=== PATIENT | male | born 1945 | race Caucasian/White ===

== ENCOUNTER 2018-05-16 09:31 | Emergency (ER) | payer MEDICARE, OTHER ==
[2018-05-16 09:39] VITALS: BP 130/70
--- NOTE | 2018-05-16 10:24 | ED Physician Documentation ---
PD HPI OPHTHO - Stated complaint Stated Complaint: EYE PAIN - Chief complaint Chief Complaint: Heent - History obtained from History obtained from: Patient - History of Present Illness Timing - onset: Yesterday (2) Timing - duration: Days (2) Timing - details: Abrupt onset (he felt like he got something in his left eye couple days ago. Stayed irritated and now has redness and some exudate. Normal vision. No light sensitivity.) Location: Left Quality / character: Aching Associated symptoms: Redness, Discharge (today), FB sensation. No: Photophobia, Decreased vision Contributing factors: FB Similar symptoms before: Has not had sx before Recently seen: Not recently seen Review of Systems Constitutional: denies: Fever, Chills Eyes: denies: Decreased vision, Photophobia Nose: denies: Rhinorrhea / runny nose, Congestion Throat: denies: Sore throat Respiratory: denies: Cough PD PAST MEDICAL HISTORY - Past Medical History Cardiovascular: High cholesterol Neuro: CVA, Migraines Endocrine/Autoimmune: Type 2 diabetes GI: GERD, Hiatal hernia HEENT: Chronic vision loss, Chronic hearing loss, Dental implants Musculoskeletal: Chronic back pain - Past Surgical History General: Appendectomy, Gastric surgery, Colonoscopy, EGD Ortho: Shoulder arthroplasty HEENT: Other - Present Medications Home Medications: Ambulatory Orders Medication Instructions Recorded Confirmed Ketotifen Fumarate 2 drops OP TID #1 bottle 05/16/18 Sulfacetamide 10% Ophth Drops 3 drops OPTH Q3H #1 bottle 05/16/18 [Sulfamide 10% Ophth Drops] - Allergies Allergies/Adverse Reactions: Allergies Allergy/AdvReac Type Severity Reaction Status Date / Time hydrocodone Allergy Unknown Verified 05/16/18 09:39 - Social History Does the pt smoke?: No Smoking Status: Never smoker Does the pt drink ETOH?: Yes Does the pt have substance abuse?: No PD ED PE NORMAL - Vitals Vital signs reviewed: Yes - General General: Alert and oriented X 3, Well developed/nourished - HEENT HEENT: PERRL, EOMI PD ED PE EXPANDED - Eyes Eyes: PERRL, EOMI, Injected conj/sclera, Exudate (mild on lower eyelashes), Fluorescein uptake (underside of eyelid. Not on eyeball itself. ), Anterior chambers clear, Normal fundi. No: Eyelid swelling, Conj/sclera FB, Corneal FB Results - Vitals Vitals: Vital Signs - 24 hr 05/16/18 09:36 Temperature 36.5 C Heart Rate 73 Respiratory 18 Rate Blood Pressure 130/70 O2 Saturation 97 Oxygen O2 Source Room air PD MEDICAL DECISION MAKING - ED course Complexity details: considered differential, d/w patient Departure - Departure Disposition: 01 Home, Self Care Clinical Impression: Conjunctival abrasion Qualifiers: Encounter type: initial encounter Laterality: left Qualified Code(s): S05.02XA - Injury of conjunctiva and corneal abrasion without foreign body, left eye, initial encounter Conjunctivitis Qualifiers: Conjunctivitis type: acute Acute conjunctivitis type: bacterial Laterality: left Qualified Code(s): H10.32 - Unspecified acute conjunctivitis, left eye Condition: Stable Record reviewed to determine appropriate education?: Yes Instructions: ED Conjunctivitis Bacterial, ED Eye Injury Corneal Abrasion Prescriptions: Ketotifen Fumarate 2 drops OP TID #1 bottle Sulfacetamide 10% Ophth Drops [Sulfamide 10% Ophth Drops] 3 drops OPTH Q3H #1 bottle Comments: The irritation on the underside of the eyelid should heal up with time. Use ketotifen allergy and anti-inflammatory drops a few times a day for the next few days. Use the sulfa Sulamyd antibiotic eyedrops every 2-3 hours while awake for 2-3 days until this appears cleared up. Recheck if not better over the next couple of days. Discharge Date/Time: 05/16/18 11:36
[2018-05-16] MEDS ORDERED: PROPARACAINE 0.5% OPHTH DROPS 15 ML RIGHTEYE STA (10:28)
== END 2018-05-16 11:36 | disposition home or self-care (01) ==
LOC: ED 09:31
DX: S05.02XA Injury of conjunctiva and corneal abrasion without foreign body, left eye, initial encounter (principal); H10.32 Unspecified acute conjunctivitis, left eye; X58.XXXA Exposure to other specified factors, initial encounter; E11.9 Type 2 diabetes mellitus without complications
CPT/HCPCS: 99283; J3490

== ENCOUNTER 2018-05-19 09:32 | Emergency (ER) | payer MEDICARE, OTHER ==
[2018-05-19] MEDS ORDERED: guaiFENesin/DEXTROMETHORPHAN 10 ML UDC PO STA (11:29)
--- NOTE | 2018-05-19 12:55 | XRAY Report ---
Reason: soa Procedure Date: 05/19/2018 Accession Number: [id number] / [id number] Procedure: XR - Chest 2 View X-Ray CPT Code: 58346 FULL RESULT: EXAM: CHEST RADIOGRAPHY EXAM DATE: 05/19/2018 12:33 PM. CLINICAL HISTORY: Shortness of breath. Productive cough for the past few days. COMPARISON: None. TECHNIQUE: 2 views. FINDINGS: Lungs/Pleura: No focal opacities evident. No pleural effusion. No pneumothorax. Normal volumes. There is eventration at the anterior medial aspect of the right hemidiaphragm. Mediastinum: Heart and mediastinal contours are unremarkable. There is mild atherosclerotic calcification of the aortic arch. Other: There are smooth bridging osteophytes of the thoracic spine suggestive of diffuse idiopathic skeletal hyperostosis. No acute osseous abnormality. IMPRESSION: No focal pulmonary consolidation. No acute cardiopulmonary abnormality. RADIA
--- NOTE | 2018-05-19 13:25 | ED Physician Documentation ---
History of Present Illness - Stated complaint Stated Complaint: COUGH - Chief complaint Chief Complaint: Resp - Additonal information Additional information: hx from pt 73 male recent theodore pna recently moved from [place] no local PMD pt and family all sick with myalgias and cough and congestion no fever no NVD Review of Systems Constitutional: reports: Myalgias, Fatigue. denies: Fever Ears: denies: Ear pain Nose: reports: Congestion Respiratory: reports: Cough GI: denies: Nausea, Diarrhea Musculoskeletal: denies: Extremity swelling Immunocompromised: denies: Immunocompromised PD PAST MEDICAL HISTORY - Past Medical History Past Medical History: Yes Cardiovascular: High cholesterol Neuro: CVA, Migraines Endocrine/Autoimmune: Type 2 diabetes GI: GERD, Hiatal hernia HEENT: Chronic vision loss, Chronic hearing loss, Dental implants Musculoskeletal: Chronic back pain - Past Surgical History Past Surgical History: Yes General: Appendectomy, Gastric surgery, Colonoscopy, EGD Ortho: Shoulder arthroplasty HEENT: Other - Present Medications Home Medications: Ambulatory Orders Medication Instructions Recorded Confirmed Ketotifen Fumarate 2 drops OP TID #1 bottle 05/16/18 Sulfacetamide 10% Ophth Drops 3 drops OPTH Q3H #1 bottle 05/16/18 [Sulfamide 10% Ophth Drops] Acarbose 1 tab ORAL BID 05/19/18 05/19/18 Acetaminophen 05/19/18 Amitriptyline [Elavil] 1 tab ORAL PRN 05/19/18 Atorvastatin Calcium 1 tab ORAL DAILY 05/19/18 05/19/18 Azelastine HCl 2 sprays INH BID 05/19/18 05/19/18 Cetirizine [ZyrTEC] 1 tab ORAL DAILY 05/19/18 05/19/18 Clopidogrel [Plavix] 1 tab ORAL DAILY 05/19/18 05/19/18 Escitalopram [Lexapro] 1 tab ORAL DAILY 05/19/18 05/19/18 Ferrous Sulfate 1 tab ORAL DAILY 05/19/18 05/19/18 Fluticasone [Flonase] 05/19/18 Hydrochlorothiazide 1 tab ORAL DAILY 05/19/18 05/19/18 Ibuprofen PRN 05/19/18 Losartan [Cozaar] 1 tab ORAL DAILY 05/19/18 05/19/18 Metformin HCl [Metformin HCl ER] 500 mg ORAL BID 05/19/18 05/19/18 Montelukast [Singulair] 05/19/18 Pantoprazole [Protonix] 05/19/18 guaiFENesin/DEXTROMETHORPHAN 10 ml PO Q6H PRN #120 ml 05/19/18 [Robitussin Dm] oxyCODONE [Roxicodone] 1 tab ORAL Q6H PRN 05/19/18 05/19/18 - Allergies Allergies/Adverse Reactions: Allergies Allergy/AdvReac Type Severity Reaction Status Date / Time hydrocodone Allergy Unknown Verified 05/19/18 09:41 - Social History Does the pt smoke?: No Smoking Status: Never smoker Does the pt drink ETOH?: No Does the pt have substance abuse?: No - Immunizations Immunizations are current?: Yes - POLST Patient has POLST: No PD ED PE NORMAL - Vitals Vital signs reviewed: Yes - HEENT HEENT: PERRL, Moist mucous membranes - Neck Neck: Supple, no meningeal sign - Cardiac Cardiac: RRR - Respiratory Respiratory: No respiratory distress, Clear bilaterally - Extremities Extremities: No edema - Neuro Neuro: Alert and oriented X 3 Results - Vitals Vitals: Vital Signs - 24 hr 05/19/18 09:39 Temperature 36.3 C L Heart Rate 76 Respiratory 16 Rate Blood Pressure 122/76 O2 Saturation 98 Oxygen O2 Source Room air - Labs Labs: Laboratory Tests 05/19/18 10:38 Influenza A (Rapid) Negative Influenza B (Rapid) Negative - Rads (name of study) CXR Radiology: See rad report (NACPD) Departure - Departure Disposition: 01 Home, Self Care Clinical Impression: Bronchitis Condition: Good Instructions: ED Upper Resp Infec No Abx Tx Prescriptions: guaiFENesin/DEXTROMETHORPHAN [Robitussin Dm] 10 ml PO Q6H PRN #120 ml PRN Reason: Cough Comments: The xray did not show pneumonia and the influenza test was negative So for now antibiotics are not needed. I did prescribe cough medication
[2018-05-19 13:51] VITALS: BP 120/72
== END 2018-05-19 13:50 | disposition home or self-care (01) ==
LOC: ED 09:32
DX: J40 Bronchitis, not specified as acute or chronic (principal); E11.9 Type 2 diabetes mellitus without complications; Z79.84 Long term (current) use of oral hypoglycemic drugs
CPT/HCPCS: 71046; 87275; 87276; 99283; A9270

== ENCOUNTER 2018-06-01 08:00 | Outpatient (CLI) | payer MEDICARE, OTHER ==
[2018-06-01 13:08] LABS: CALCIUM 8.9 mg/dL (8.5-10.3); CREATININE 1.1 mg/dL (0.6-1.2)
[2018-06-02 18:09] LABS: HB2 TOTAL 13.8 g/dL; HEMOGLOBIN A1C 0.68 g/dL; HEMOGLOBIN A1C % 6.7 % (4.6-6.2)
== END 2018-06-01 23:59 | disposition home or self-care (01) ==
LOC: LAB.WCP 08:00
PROVIDERS: ATTEND Family Medicine
DX: E11.9 Type 2 diabetes mellitus without complications (principal)
CPT/HCPCS: 36415; 80048; 82043; 83036

== ENCOUNTER 2018-07-19 08:00 | Outpatient (CLI) | payer MEDICARE, OTHER ==
[2018-07-19 13:53] LABS: BASOPHILS % (AUTO) 0.8 %; EOSINOPHILS # (AUTO) 0.2 10^3/uL (0.0-0.7); EOSINOPHILS % (AUTO) 3.6 %; HGB - HEMOGLOBIN 14.2 g/dL (14.0-18.0); LYMPHOCYTES # (AUTO) 0.8 10^3/uL (1.5-3.5); LYMPHOCYTES % (AUTO) 17.7 %; MEAN CORPUSCULAR HEMOGLOBIN 31.8 pg (27.0-31.0); MEAN CORPUSCULAR HGB CONC 35.3 g/dL (32.0-36.0); MEAN CORPUSCULAR VOLUME 89.9 fL (80.0-94.0); MEAN PLATELET VOLUME 8.1 fL (7.4-11.4); MONOCYTES # (AUTO) 0.5 10^3/uL (0.0-1.0); MONOCYTES % (AUTO) 9.5 %; NEUTROPHILS # (AUTO) 3.3 10^3/uL (1.5-6.6); NEUTROPHILS % (AUTO) 68.4 %; PLT - PLATELET COUNT 217 10^3/uL (130-450); RED BLOOD COUNT 4.46 10^6/uL (4.70-6.10); RED CELL DISTRIBUTION WIDTH 13.4 % (12.0-15.0); WHITE BLOOD COUNT 4.8 x10^3/uL (4.8-10.8)
[2018-07-19 16:03] LABS: ALBUMIN 4.4 g/dL (3.2-5.5); ALBUMIN/GLOBULIN RATIO 2.1 (1.0-2.2); BILIRUBIN,TOTAL 0.6 mg/dL (0.2-1.0); CREATININE 1.1 mg/dL (0.6-1.2); TOTAL PROTEIN 6.5 g/dL (6.7-8.2)
[2018-07-19 16:10] LABS: TROPONIN I < 0.04 ng/mL (<0.49)
[2018-07-19 16:12] LABS: CREATINE KINASE MB 4.3 ng/mL (0.6-6.3)
== END 2018-07-19 23:59 | disposition home or self-care (01) ==
LOC: LAB.WCP 08:00
PROVIDERS: ATTEND Family Medicine
DX: R00.2 Palpitations (principal)
CPT/HCPCS: 36415; 80053; 82553; 84484; 85025; 85379

== ENCOUNTER 2018-09-10 09:00 | Outpatient (CLI) | payer MEDICARE, OTHER ==
[2018-09-10 14:01] LABS: BILIRUBIN,URINE NEGATIVE (NEGATIVE); GLUCOSE, URINE (UA) NEGATIVE (NEGATIVE); KETONES,URINE (UA) NEGATIVE (NEGATIVE); LEUKOCYTE ESTERASE, URINE NEGATIVE (NEGATIVE); NITRITE,URINE NEGATIVE (NEGATIVE); OCCULT BLOOD,URINE NEGATIVE (NEGATIVE); PH,URINE 6.5 PH (5.0-7.5); PROTEIN,URINE NEGATIVE (NEGATIVE); UROBILINOGEN,URINE 0.2 (NORMAL) E.U./dL (NORMAL)
[2018-09-10 14:41] LABS: BACTERIA,URINE None Seen /HPF (None Seen); CLARITY,URINE CLEAR (CLEAR); RBC,URINE None Seen /HPF (0-5); SQUAMOUS EPITHELIAL CELL,UR NONE SEEN (<= Few)
== END 2018-09-10 09:01 | disposition home or self-care (01) ==
LOC: LAB.WCP 09:00
PROVIDERS: ATTEND Family Medicine
DX: R35.1 Nocturia (principal)
CPT/HCPCS: 36415; 81001; 84153; 87086

== ENCOUNTER 2018-10-22 08:00 | Outpatient (CLI) | payer MEDICARE, OTHER | END 2018-10-22 23:59 | disposition home or self-care (01) | LOC: LAB.WCP 08:00 | PROVIDERS: ATTEND Podiatrist | DX: E79.0 Hyperuricemia without signs of inflammatory arthritis and tophaceous disease (principal) | CPT/HCPCS: 36415; 84550 ==

== ENCOUNTER 2018-12-03 08:07 | Outpatient (CLI) | payer MEDICARE, OTHER ==
[2018-12-03 12:33] LABS: CREATININE,URINE 122.5 mg/dL
[2018-12-03 12:36] LABS: MICROALBUMIN,URINE < 0.2 mg/dL (0-300.0)
[2018-12-03 12:37] LABS: CREATININE 1.3 mg/dL (0.6-1.2)
[2018-12-03 12:51] LABS: HB2 TOTAL 15.2 g/dL; HEMOGLOBIN A1C 0.76 g/dL; HEMOGLOBIN A1C % 6.7 % (4.6-6.2)
== END 2018-12-03 08:08 | disposition home or self-care (01) ==
LOC: LAB.WCP 08:07
PROVIDERS: ATTEND Family Medicine
DX: E11.9 Type 2 diabetes mellitus without complications (principal)
CPT/HCPCS: 36415; 80048; 82043; 82570; 83036

== ENCOUNTER 2019-04-01 11:00 | Outpatient (CLI) | payer MEDICARE, OTHER ==
[2019-04-01 11:24] LABS: CREATININE 1.2 mg/dL (0.6-1.2)
== END 2019-04-01 11:01 | disposition home or self-care (01) ==
LOC: LAB 11:00
PROVIDERS: ATTEND Internal Medicine Gastroenterology
DX: R10.32 Left lower quadrant pain (principal); E11.9 Type 2 diabetes mellitus without complications
CPT/HCPCS: 36415; 82565

== ENCOUNTER 2019-04-03 05:30 | Outpatient (CLI) | payer MEDICARE, OTHER ==
[2019-04-03] MEDS ORDERED: IOVERSOL 320 50 ML VIAL ONE (05:56)
[2019-04-03] MEDS ORDERED: IOVERSOL 320 100 ML VIAL IVP ONE ×2 (05:56→06:57)
[2019-04-03] MEDS ORDERED: IOVERSOL 320 50 ML VIAL PO ONE (06:57)
--- NOTE | 2019-04-03 11:08 | CT Report ---
Reason: ABDOMINAL PAIN,DM Procedure Date: 04/03/2019 Accession Number: [id number] / [id number] Procedure: CT - Abdomen/Pelvis W CPT Code: FULL RESULT: EXAM: CT ABDOMEN AND PELVIS WITH IV CONTRAST EXAM DATE: 04/03/2019 06:59 AM. CLINICAL HISTORY: Generalized abdominal pain. Status post gastric bypass. COMPARISONS: None. TECHNIQUE: Routine helical CT imaging was performed through the abdomen and pelvis. IV contrast: 100 mL Optiray 320. Enteric contrast: Yes. Reconstructions: Coronal and sagittal. In accordance with CT protocol optimization, one or more of the following dose reduction techniques were utilized for this exam: automated exposure control, adjustment of mA and/or KV based on patient size, or use of iterative reconstructive technique. FINDINGS: Lung Bases: 5 mm pulmonary nodule in the right middle lobe is seen (image 8/3). Liver: Normal. No masses. Gallbladder/Bile Ducts: Small gallstones are suggested in the gallbladder. There is no biliary dilation. Spleen: Normal. Pancreas: Normal. Adrenal Glands: Normal. Kidneys: A few small scattered cysts are suggested in the kidneys bilaterally, largest measuring 2.8 cm in the mid right kidney. 4 mm nonobstructing stone is suggested in the right mid kidney. There is no hydronephrosis. Peritoneal Cavity/Bowel: There are postoperative changes related to gastric bypass surgery. A small hiatal hernia is suggested. Oral contrast opacifies distal small bowel loops and right hemicolon. There is no obstruction or ileus. There is no diverticulosis or evidence of intra-abdominal inflammatory process. No free fluid, free air, or loculated fluid collection. Pelvic Organs: Normal. The bladder and visualized pelvic organs are within normal limits. Vasculature: Calcified atherosclerotic disease of the aorta is seen without aneurysm or other significant vascular abnormality. Bones: Mild degenerative changes are seen in the hips, sacroiliac joints, and spine. Grade 1 anterolisthesis at L4-L5 with bilateral pars defects is seen. Multilevel fused marginal osteophytes are seen throughout the mid and lower thoracic spine. Partial fusion of the sacroiliac joints is also seen. Other: None. IMPRESSION: 1. No acute intra-abdominal abnormality demonstrated status post gastric bypass surgery. Small hiatal hernia suggested. No obstruction. 2. Right-sided nephrolithiasis without hydronephrosis. 3. Tiny 5 mm right middle lobe pulmonary nodule, likely benign. Correlation with chest CT could be considered if patient is high risk for lung cancer. 4. Degenerative changes of the spine including grade 1 anterolisthesis and bilateral spondylolysis at L4-L5. Notably, multilevel fused marginal osteophytes are seen in the spine along with degenerative changes/partial fusion of the sacroiliac joints. Findings may be related to diffuse idiopathic skeletal hyperostosis changes; however, consider correlation for underlying ankylosing spondyloarthropathy. RADIA
== END 2019-04-03 05:31 | disposition home or self-care (01) ==
LOC: DI 05:30
PROVIDERS: ATTEND Internal Medicine Gastroenterology
DX: R10.32 Left lower quadrant pain (principal); E11.9 Type 2 diabetes mellitus without complications; N20.0 Calculus of kidney; R91.1 Solitary pulmonary nodule; M47.816 Spondylosis without myelopathy or radiculopathy, lumbar region; Z98.84 Bariatric surgery status
CPT/HCPCS: 74177; Q9967

== ENCOUNTER 2019-06-27 08:25 | Outpatient (CLI) | payer MEDICARE, OTHER ==
--- NOTE | 2019-06-27 10:29 | MRI Report ---
Reason: HEADACHES Procedure Date: 06/27/2019 Accession Number: [id number] / [id number] Procedure: MRI - Brain W/O CPT Code: Final Report FULL RESULT: EXAM: MRI BRAIN WITHOUT CONTRAST EXAM DATE: 06/27/2019 09:22 AM. CLINICAL HISTORY: Headaches. COMPARISON: None. TECHNIQUE: Multiplanar, multisequence T1-weighted and fluid-sensitive MR sequences of the brain were performed. Sequences optimized for routine evaluation. Other: None. IV Contrast: None. FINDINGS: No abnormal restricted diffusion signal or magnetic susceptibility is identified in the brain parenchyma. No cerebellar tonsillar ectopia is present. Ventricles and sulci are within normal limits for the patient's age. No extra-axial fluid collection is seen. Small FLAIR hyperintensities are seen in the cerebral hemisphere white matter bilaterally. There is an expected flow void in the major intracranial vessels at the skull base and in the superior sagittal sinus. No mass is present in either orbit or in either Meckel's cave. No abnormal T1 shortening is seen in the brain parenchyma. Bilateral ethmoid air cell mucosal thickening is present. IMPRESSION: 1. No intracranial mass. 2. A few FLAIR hyperintensities are seen in the cerebral hemisphere white matter bilaterally. These are nonspecific and are commonly seen secondary to small vessel ischemic change or in association with certain headache syndromes. 3. No ventriculomegaly or extra-axial fluid collection is present. RADIA
== END 2019-06-27 08:26 | disposition home or self-care (01) ==
LOC: DI 08:25
PROVIDERS: ATTEND Family Medicine
DX: R51 Headache (principal)
CPT/HCPCS: 70551

== ENCOUNTER 2019-08-09 08:10 | Outpatient (CLI) | payer MEDICARE, OTHER ==
[2019-08-09 12:36] LABS: ALBUMIN 4.2 g/dL (3.2-5.5); ALBUMIN/GLOBULIN RATIO 1.6 (1.0-2.2); BILIRUBIN,TOTAL 0.5 mg/dL (0.2-1.0); CALCIUM 9.2 mg/dL (8.5-10.3); CREATININE 1.1 mg/dL (0.6-1.2); TOTAL PROTEIN 6.8 g/dL (6.7-8.2)
[2019-08-09 12:39] LABS: HB2 TOTAL 13.6 g/dL; HEMOGLOBIN A1C 0.69 g/dL; HEMOGLOBIN A1C % 6.8 % (4.6-6.2)
[2019-08-09 12:40] LABS: MICROALBUM/CREATININE RATIO,UR 7.9 ug/mg (<30.0); MICROALBUMIN,URINE 0.8 mg/dL (0-300.0)
== END 2019-08-09 23:59 | disposition home or self-care (01) ==
LOC: LAB.N 08:10
PROVIDERS: ATTEND Family Medicine
DX: N28.9 Disorder of kidney and ureter, unspecified (principal); E11.9 Type 2 diabetes mellitus without complications
CPT/HCPCS: 36415; 80053; 82043; 82570; 83036

== ENCOUNTER 2019-08-20 11:59 | Outpatient (CLI) | payer MEDICARE, OTHER ==
--- NOTE | 2019-08-21 13:43 | XRAY Report ---
Reason: PAIN IN RIGHT HIP Procedure Date: 08/20/2019 Accession Number: [id number] / [id number] Procedure: XR - Hips 2V BILAT CPT Code: Final Report FULL RESULT: EXAM: BILATERAL HIP RADIOGRAPHY EXAM DATE: 08/20/2019 12:17 PM. CLINICAL HISTORY: Chronic bilateral hip pain, nontraumatic. COMPARISON: None. TECHNIQUE: 2 views each. FINDINGS: Bones: Normal. No fractures or bone lesion. Right Hip: Normal. No dislocation. The hip joint space is preserved. Left Hip: Normal. No dislocation. The hip joint space is preserved. Soft Tissues: Normal. No soft tissue swelling. IMPRESSION: Normal bilateral hip radiography. RADIA
== END 2019-08-20 12:00 | disposition home or self-care (01) ==
LOC: DI 11:59
PROVIDERS: ATTEND Acupuncturist
DX: M25.551 Pain in right hip (principal)
CPT/HCPCS: 73521

== ENCOUNTER 2019-09-10 14:00 | Outpatient (CLI) | payer MEDICARE, OTHER | END 2019-09-10 23:59 | disposition home or self-care (01) | LOC: LAB.R 14:00 | PROVIDERS: ATTEND Family Medicine | DX: J06.9 Acute upper respiratory infection, unspecified (principal) | CPT/HCPCS: 87275; 87276 ==

== ENCOUNTER 2019-09-11 11:32 | Outpatient (CLI) | payer MEDICARE, OTHER | END 2019-09-11 11:33 | disposition home or self-care (01) | LOC: COV 11:32 | PROVIDERS: ATTEND Family Medicine | DX: R05 Cough (principal); R50.9 Fever, unspecified | CPT/HCPCS: 81599; U0002 ==

== ENCOUNTER 2020-01-07 08:00 | Outpatient (CLI) | payer MEDICARE, OTHER ==
[2020-01-07 19:09] LABS: CALCIUM 9.3 mg/dL (8.5-10.3); CREATININE 1.2 mg/dL (0.6-1.2)
[2020-01-07 19:34] LABS: MICROALBUM/CREATININE RATIO,UR 1.8 ug/mg (<30.0); MICROALBUMIN,URINE 0.2 mg/dL (0-300.0)
[2020-01-07 19:56] LABS: HB2 TOTAL 13.2 g/dL; HEMOGLOBIN A1C 0.64 g/dL; HEMOGLOBIN A1C % 6.6 % (4.6-6.2)
== END 2020-01-07 23:59 | disposition home or self-care (01) ==
LOC: LAB.WCP 08:00
PROVIDERS: ATTEND Family Medicine
DX: E11.9 Type 2 diabetes mellitus without complications (principal)
CPT/HCPCS: 36415; 80048; 82043; 82570; 83036

== ENCOUNTER 2020-01-07 11:20 | Outpatient (CLI) | payer MEDICARE, OTHER ==
--- NOTE | 2020-01-07 21:19 | XRAY Report ---
PROCEDURE: Ankle 2 View BILAT INDICATIONS: ankle joint pain bilaterally TECHNIQUE: 2 views of the ankle were acquired. COMPARISON: None FINDINGS: Bones: Ankle mortise is normally aligned. No suspicious bony lesions. The right ankle demonstrates fragmentation at the distal medial malleolus. Small calcified avulsion t ype calcification is present adjacent to the distal fibula. There is no surrounding soft tissue edema . Prominent left calcaneal spurs are present. Soft tissues: No tibiotalar joint effusion. Achilles tendon appears normal. IMPRESSION: 1. Calcifications along the distal aspect of both the medial and lateral malleolus on the right. Over all appearance is suggestive of old injury. However, recommend correlation of point tenderness if con cern for acute fracture is present. Reviewed by: Grace Roque MD on 01/07/2020 3:06 PM PDT Approved by: Grace Roque MD on 01/07/2020 3:06 PM PDT Station ID: [id number]
== END 2020-01-07 11:21 | disposition home or self-care (01) ==
LOC: DI 11:20 → DI.N 11:21
PROVIDERS: ATTEND Family Medicine
DX: M25.571 Pain in right ankle and joints of right foot (principal); M25.572 Pain in left ankle and joints of left foot; E11.9 Type 2 diabetes mellitus without complications
CPT/HCPCS: 36415; 80048; 82043; 82570; 83036

== ENCOUNTER 2020-02-19 12:48 | Outpatient (CLI) | payer MEDICARE, OTHER | END 2020-02-19 12:49 | disposition home or self-care (01) | LOC: EMS 12:48 | PROVIDERS: ATTEND Surgery | DX: R53.83 Other fatigue (principal); R51 Headache; R19.5 Other fecal abnormalities; R39.89 Other symptoms and signs involving the genitourinary system; R42 Dizziness and giddiness | CPT/HCPCS: A0425; A0427 ==

== ENCOUNTER 2020-02-19 13:04 | Emergency (ER) | payer MEDICARE, OTHER ==
[2020-02-19 14:37] LABS: BASOPHILS % (AUTO) 0.4 %; EOSINOPHILS # (AUTO) 0.2 10^3/uL (0.0-0.7); EOSINOPHILS % (AUTO) 2.5 %; HGB - HEMOGLOBIN 13.7 g/dL (14.0-18.0); LYMPHOCYTES # (AUTO) 1.2 10^3/uL (1.5-3.5); LYMPHOCYTES % (AUTO) 16.8 %; MEAN CORPUSCULAR HEMOGLOBIN 31.9 pg (27.0-31.0); MEAN CORPUSCULAR HGB CONC 34.7 g/dL (32.0-36.0); MEAN CORPUSCULAR VOLUME 91.9 fL (80.0-94.0); MEAN PLATELET VOLUME 9.6 fL (7.4-11.4); MONOCYTES # (AUTO) 0.6 10^3/uL (0.0-1.0); MONOCYTES % (AUTO) 8.2 %; NEUTROPHILS # (AUTO) 5.2 10^3/uL (1.5-6.6); NEUTROPHILS % (AUTO) 71.3 %; PLT - PLATELET COUNT 220 10^3/uL (130-450); RED CELL DISTRIBUTION WIDTH 12.4 % (12.0-15.0); WHITE BLOOD COUNT 7.2 x10^3/uL (4.8-10.8)
[2020-02-19 14:43] LABS: INR 1.1 (0.8-1.2); PT - PROTHROMBIN TIME 12.7 secs (9.9-12.6)
[2020-02-19 14:44] LABS: BILIRUBIN,URINE NEGATIVE (NEGATIVE); GLUCOSE, URINE (UA) NEGATIVE (NEGATIVE); KETONES,URINE (UA) NEGATIVE (NEGATIVE); LEUKOCYTE ESTERASE, URINE NEGATIVE (NEGATIVE); NITRITE,URINE NEGATIVE (NEGATIVE); OCCULT BLOOD,URINE NEGATIVE (NEGATIVE); PROTEIN,URINE NEGATIVE (NEGATIVE); UROBILINOGEN,URINE 0.2 (NORMAL) E.U./dL (NORMAL)
[2020-02-19 14:45] LABS: CLARITY,URINE CLEAR (CLEAR)
--- NOTE | 2020-02-19 14:51 | ED Physician Documentation ---
History of Present Illness - Stated complaint Stated Complaint: HEADACHE/WEAKNESS - Chief complaint Chief Complaint: Neuro - Additonal information Additional information: 74-year-old male presents to the emergency department for reported 2 days of black tarry stools. He reports that he is feeling a little lightheaded and dizzy as well. He denies any abdominal pain nausea or vomiting. He states that about 4 years ago he did have an episode of black stools. He did undergo apparent colonoscopy without any findings of concern. PMH: DMII, sarcoidosis, hypertension, and CVA(without any residual side effects.) Meds Plavix, iron, Flonase, hydrochlorothiazide, Motrin, metformin, Singulair, pantoprazole, Januvia, Percocet. PD PAST MEDICAL HISTORY - Past Medical History Past Medical History: Yes Cardiovascular: High cholesterol Neuro: CVA, Migraines Endocrine/Autoimmune: Type 2 diabetes GI: GERD, Hiatal hernia HEENT: Chronic vision loss, Chronic hearing loss, Dental implants Musculoskeletal: Chronic back pain - Past Surgical History Past Surgical History: Yes General: Appendectomy, Gastric surgery, Colonoscopy, EGD Ortho: Shoulder arthroplasty HEENT: Other - Present Medications Home Medications: Ambulatory Orders Medication Instructions Recorded Confirmed Ketotifen Fumarate 2 drops OP TID #1 bottle 05/16/18 Sulfacetamide 10% Ophth Drops 3 drops OPTH Q3H #1 bottle 05/16/18 [Sulfamide 10% Ophth Drops] Acarbose 1 tab ORAL BID 05/19/18 05/19/18 Acetaminophen 05/19/18 Amitriptyline [Elavil] 1 tab ORAL PRN 05/19/18 Atorvastatin Calcium 1 tab ORAL DAILY 05/19/18 05/19/18 Azelastine HCl 2 sprays INH BID 05/19/18 05/19/18 Cetirizine [ZyrTEC] 1 tab ORAL DAILY 05/19/18 05/19/18 Clopidogrel [Plavix] 1 tab ORAL DAILY 05/19/18 05/19/18 Escitalopram [Lexapro] 1 tab ORAL DAILY 05/19/18 05/19/18 Ferrous Sulfate 1 tab ORAL DAILY 05/19/18 05/19/18 Fluticasone [Flonase] 05/19/18 Hydrochlorothiazide 1 tab ORAL DAILY 05/19/18 05/19/18 Ibuprofen PRN 05/19/18 Losartan [Cozaar] 1 tab ORAL DAILY 05/19/18 05/19/18 Metformin HCl [Metformin ER 500 mg ORAL BID 05/19/18 05/19/18 Osmotic] Montelukast [Singulair] 05/19/18 Pantoprazole [Protonix] 05/19/18 guaiFENesin/DEXTROMETHORPHAN 10 ml PO Q6H PRN #120 ml 05/19/18 [Robitussin Dm] oxyCODONE [Roxicodone] 1 tab ORAL Q6H PRN 05/19/18 05/19/18 - Allergies Allergies/Adverse Reactions: Allergies Allergy/AdvReac Type Severity Reaction Status Date / Time hydrocodone Allergy Unknown Verified 05/19/18 09:41 - Social History Does the pt smoke?: No Smoking Status: Never smoker Does the pt drink ETOH?: No Does the pt have substance abuse?: No - Immunizations Immunizations are current?: Yes - POLST Patient has POLST: No PD ED PE NORMAL - General General: Alert and oriented X 3, No acute distress, Well developed/nourished - HEENT HEENT: PERRL - Neck Neck: Supple, no meningeal sign, No adenopathy, No JVD - Cardiac Cardiac: RRR, No murmur, No gallop, No rub - Respiratory Respiratory: No respiratory distress, Clear bilaterally - Abdomen Abdomen: Normal bowel sounds, Soft, Non tender - Rectal Rectal: Other (Digital rectal exam performed. 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, No motor deficit, No sensory deficit Eye Opening: Spontaneous Motor: Obeys Commands Verbal: Oriented GCS Score: 15 Results - Vitals Vitals: Vital Signs - 24 hr 02/19/20 02/19/20 13:10 13:17 Temperature 36.4 C L Heart Rate 74 Respiratory 14 Rate Blood Pressure 133/64 H O2 Saturation 98 Oxygen O2 Source Room air - EKG (time done) 1322 Rate: Rate (enter#) (69) Rhythm: NSR [place]: Normal Intervals: Normal IA QRS: Normal Ischemia: Q waves (inferior and anterior infarcts old), Other Compare to prior EKG: Old EKG unavailable Computer interpretation: Agree with computer - Labs Labs: Microbiology 02/19/20 14:40 Occult Blood - Final Stool Laboratory Tests 02/19/20 02/19/20 02/19/20 14:22 14:30 14:30 WBC 7.2 RBC 4.30 L Hgb 13.7 L Hct 39.5 L MCV 91.9 MCH 31.9 H MCHC 34.7 RDW 12.4 Plt Count 220 MPV 9.6 Neut # (Auto) 5.2 Lymph # (Auto) 1.2 L Cecil # (Auto) 0.6 Eos # (Auto) 0.2 Baso # (Auto) 0.0 Absolute Nucleated RBC 0.00 Nucleated RBC % 0.0 PT 12.7 H INR 1.1 Sodium Potassium Chloride Carbon Dioxide Anion Gap BUN Creatinine Estimated GFR (MDRD) Glucose Lactic Acid Calcium Total Bilirubin AST ALT Alkaline Phosphatase Troponin I High Sens Total Protein Albumin Globulin Albumin/Globulin Ratio Lipase Urine Color YELLOW Urine Clarity CLEAR Urine pH 6.0 Ur Specific [place] <=1.005 Urine Protein NEGATIVE Urine Glucose (UA) NEGATIVE Urine Ketones NEGATIVE Urine Occult Blood NEGATIVE Urine Nitrite NEGATIVE Urine Bilirubin NEGATIVE Urine Urobilinogen 0.2 (NORMAL) Ur Leukocyte Esterase NEGATIVE Ur Microscopic Review NOT INDICATED Urine Culture Comments NOT INDICATED 02/19/20 02/19/20 02/19/20 14:30 14:30 14:30 WBC RBC Hgb Hct MCV MCH MCHC RDW Plt Count MPV Neut # (Auto) Lymph # (Auto) Cecil # (Auto) Eos # (Auto) Baso # (Auto) Absolute Nucleated RBC Nucleated RBC % PT INR Sodium 135 Potassium 4.1 Chloride 99 L Carbon Dioxide 29 Anion Gap 7.0 BUN 17 Creatinine 1.1 Estimated GFR (MDRD) 66 L Glucose 105 H Lactic Acid 0.9 Calcium 9.2 Total Bilirubin 0.9 AST 25 ALT 30 Alkaline Phosphatase 65 Troponin I High Sens 3.5 Total Protein 6.8 Albumin 4.4 Globulin 2.4 Albumin/Globulin Ratio 1.8 Lipase 125 H Urine Color Urine Clarity Urine pH Ur Specific [place] Urine Protein Urine Glucose (UA) Urine Ketones Urine Occult Blood Urine Nitrite Urine Bilirubin Urine Urobilinogen Ur Leukocyte Esterase Ur Microscopic Review Urine Culture Comments PD MEDICAL DECISION MAKING - ED course Complexity details: reviewed results, re-evaluated patient, considered differential, d/w patient, d/w family ED course: 74-year-old male here for evaluation of what he reports is black tarry stools. He does report taking Pepto-Bismol. He has had no abdominal pain. On review of his labs he has no anemia. His platelet count is normal. We did send some stool to the laboratory for occult testing and it was negative for blood. This patient has been taking Pepto-Bismol and I wonder if that is the cause of this black stool. However the rest of his work-up is rather reassuring. He does have a mild lipase elevation but tells me he has had that in the past. He denies any abdominal pain and is not a heavy drinker. At this time he is stable for discharge home no advanced imaging will be completed today. He is advised to follow-up closely with his primary care doctor as he should receive repeat screening colonoscopy Departure - Departure Disposition: 01 Home, Self Care Clinical Impression: Stool color black Condition: Stable Record reviewed to determine appropriate education?: Yes Comments: Volodymyr your stool was tested today and did not show blood. Your hemoglobin is normal. Your blood chemistry is also otherwise essentially normal. I would like you to schedule follow-up with your primary care doctor. You should receive another screening colonoscopy. If at any point you have suddenly severe abdominal pain, bright red stool, have fainting episodes or chest pain please return immediately to the emergency department
[2020-02-19 14:55] LABS: ALBUMIN 4.4 g/dL (3.2-5.5); ALBUMIN/GLOBULIN RATIO 1.8 (1.0-2.2); BILIRUBIN,TOTAL 0.9 mg/dL (0.2-1.0); CALCIUM 9.2 mg/dL (8.5-10.3); CREATININE 1.1 mg/dL (0.6-1.2); TOTAL PROTEIN 6.8 g/dL (6.7-8.2)
[2020-02-19 16:52] VITALS: BP 106/60
== END 2020-02-19 16:51 | disposition home or self-care (01) ==
LOC: EDUNIT# → ED 13:04
DX: R19.5 Other fecal abnormalities (principal); R42 Dizziness and giddiness; R53.1 Weakness; E11.9 Type 2 diabetes mellitus without complications; Z79.84 Long term (current) use of oral hypoglycemic drugs; I10 Essential (primary) hypertension; D86.9 Sarcoidosis, unspecified; Z86.73 Personal history of transient ischemic attack (TIA), and cerebral infarction without residual deficits; Z79.02 Long term (current) use of antithrombotics/antiplatelets
CPT/HCPCS: 36415; 80053; 81001; 81003; 82272; 83605; 83690; 84484; 85025; 85610; 87086; 93005; 99283

== ENCOUNTER 2020-02-25 08:00 | Outpatient (CLI) | payer MEDICARE, OTHER ==
[2020-02-25 18:44] LABS: CALCIUM 9.2 mg/dL (8.5-10.3); CREATININE 1.5 mg/dL (0.6-1.2)
[2020-02-25 18:56] LABS: CREATININE,URINE 249.8 mg/dL; MICROALBUMIN,URINE 0.5 mg/dL (0-300.0)
[2020-02-25 20:25] LABS: HEMOGLOBIN A1c% 6.7 % (4.27-6.07)
== END 2020-02-25 23:59 | disposition home or self-care (01) ==
LOC: LAB.WCP 08:00
PROVIDERS: ATTEND Family Medicine
DX: E11.9 Type 2 diabetes mellitus without complications (principal)
CPT/HCPCS: 36415; 80048; 82043; 82570; 83036

== ENCOUNTER 2020-03-17 09:02 | Outpatient (CLI) | payer MEDICARE, OTHER ==
--- NOTE | 2020-03-17 14:51 | XRAY Report ---
PROCEDURE: Ankle 3 View BILAT INDICATIONS: IMPINGEMENT OF RIGHT ANKLE TECHNIQUE: 3 views of the ankle were acquired. COMPARISON: X-ray ankle 01/07/2020. FINDINGS: Bones: No fractures or dislocations. Ankle mortise is normally aligned. No suspicious bony lesions . There is a calcification noted along the medial malleolus, possibly related to old trauma. No area s of anterior tibiotalar osteophyte or os trigonum are identified. Calcaneal spur is present. Soft tissues: No tibiotalar joint effusion. Achilles tendon appears normal. IMPRESSION: 1. Calcifications along the medial malleolus likely related to old trauma. Medial impingement cannot be definitively excluded. Otherwise, no areas of potential impingement are identified. Reviewed by: Grace Roque MD on 03/17/2020 2:50 PM PDT Approved by: Grace Roque MD on 03/17/2020 2:50 PM PDT Station ID: [id number]
== END 2020-03-17 09:03 | disposition home or self-care (01) ==
LOC: DI 09:02
PROVIDERS: ATTEND Orthopaedic Surgery
DX: M25.871 Other specified joint disorders, right ankle and foot (principal)

== ENCOUNTER 2020-03-31 13:45 | Outpatient (CLI) | payer MEDICARE, OTHER ==
--- NOTE | 2020-03-31 16:15 | MRI Report ---
PROCEDURE: Lumbar Spine W/O INDICATIONS: SPINAL STENOSIS TECHNIQUE: Noncontrast sagittal T1 spin echo and T2 fast echo, sagittal STIR, axial T1 and T2 fast spin echo thr ough the lumbar spine. In cases with scoliosis, additional coronal T2 fast spin echo may be performe d. COMPARISON: None. FINDINGS: Image quality: Diagnostic. Alignment and Curvature: There is mild grade 1 anterolisthesis seen at the L4-L5 level. Associated b ilateral L4 pars defects are seen. Minimal retrolisthesis is seen at L5-S1. Bone Marrow: Marrow is of normal overall signal. No acute vertebral body compression fractures. Spinal Cord: Conus medullaris terminates at the L1 level. Visualized cord demonstrates normal signa l and size. Paraspinous Soft Tissues: No paravertebral masses. Cerebral appearing left-sided renal cysts are in cidentally noted. T12-L1: Normal in appearance. L1-L2: The disc height and disc signal are relatively well-preserved. Mild to moderate disc bulge is seen. There is moderate bilateral neuroforaminal narrowing seen. Mild central canal narrowing is seen. L2-L3: The disc height is well-preserved. There is loss of disc signal seen. Moderate disc bu lge is seen at this level. Moderate facet hypertrophy is seen. Moderate bilateral neuroforaminal n arrowing can be seen, right worse than left. Moderate central canal narrowing is seen. L3-L4: The disc height is well-preserved. There is loss of disc signal seen. Moderate disc bulge i s seen at this level. At least moderate facet hypertrophy is seen at this level. There is moderate to severe bilateral neuroforaminal narrowing seen. Compression is seen upon the exiting nerve roots. Moderate central canal narrowing is seen. L4-L5: At least moderate loss of disc height and disc signal can be seen at this level. Moderate to prominent disc bulge is seen, with a central disc protrusion. Prominent facet hypertrophy is seen at this level. Moderate to severe bilateral neuroforaminal narrowing can be seen, right worse than left . Compression is seen upon the exiting nerve roots. Moderate central canal narrowing is seen. L5-S1: Moderate loss of disc height and signal are seen. Moderate disc bulge is seen at this lev el. There is a central disc protrusion seen. At least moderate facet hypertrophy can be seen. There i s moderate to severe bilateral neuroforaminal narrowing seen, left worse than right. Compression is s een upon the exiting nerve roots. Mild to moderate central canal narrowing can be seen. IMPRESSION: Multiple levels of lumbar spine degenerative change are seen, which are overall most pro minent at the L4-L5 level. Reviewed by: David Moe MD on 03/31/2020 3:14 PM DAVID Approved by: David Moe MD on 03/31/2020 3:14 PM DAVID Station ID: [id number]
== END 2020-03-31 13:46 | disposition home or self-care (01) ==
LOC: DI 13:45
PROVIDERS: ATTEND Pain Medicine Pain Medicine
DX: M48.062 Spinal stenosis, lumbar region with neurogenic claudication (principal); M47.816 Spondylosis without myelopathy or radiculopathy, lumbar region
CPT/HCPCS: 72148

== ENCOUNTER 2020-05-07 07:47 | Outpatient (CLI) | payer MEDICARE, OTHER ==
--- NOTE | 2020-05-07 15:23 | CT Report ---
PROCEDURE: LOWER EXTREMITY WO - RT INDICATIONS: RT ANKLE JOINT IMPINGEMENT TECHNIQUE: Noncontrast 3 mm axial sections acquired of the right ankle, with coronal and sagittal reformats. COMPARISON: Ankle radiograph dated 03/17/2020. FINDINGS: Image quality: Excellent. Bones: Well-corticated bony fragment adjacent to tip of medial malleolus is seen suggestive of old a vulsion injury. There is chronic appearing erosive changes along medial cortex of the talus adjacent to medial malleolus concerning for impingement in this area. Osteoarthritic changes are noted through out tibiotalar joint and subtalar joint. Small subcortical cyst formation in medial weightbearing por tion of talar dome and adjacent medial aspect of the tibial plafond are seen concerning for small ost eochondral lesions. Numerous corticated fragments are also seen in anterolateral aspect of ankle join t at the level of distal tibiofibular syndesmosis suggestive of old syndesmotic injury. No acute frac ture or dislocation is seen. No suspicious intraosseous lesion. Well-defined plantar and dorsal calca james enthesophytes are seen. Soft tissues: Examination of ankle soft tissues shows no gross full-thickness ankle tendon rupture. No soft tissue mass or fluid collection. No significant joint effusion or intra-articular loose body. IMPRESSION: 1. Old injury involving tip of medial malleolus with significant joint space narrowing andErosive hank nges involving medial wall of the talus adjacent to medial malleolus concerning for impingement in th is area. 2. Suggestion of old syndesmotic injury in the region of anterior tibiofibular ligament. 3. 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 No acute fracture or dislocation. 4. No significant joint effusion. No full-thickness ankle tendon rupture. No soft tissue mass or abno rmal fluid collection. Reviewed by: Piotr Akhtar MD on 05/07/2020 2:22 PM AKST Approved by: Piotr Akhtar MD on 05/07/2020 2:22 PM AKST Station ID: [id number]
== END 2020-05-07 07:48 | disposition home or self-care (01) ==
LOC: DI 07:47
PROVIDERS: ATTEND Orthopaedic Surgery
DX: R93.6 Abnormal findings on diagnostic imaging of limbs (principal); M19.071 Primary osteoarthritis, right ankle and foot

== ENCOUNTER 2020-06-23 10:51 | Outpatient (CLI) | payer MEDICARE, OTHER ==
--- NOTE | 2020-06-23 18:13 | XRAY Report ---
PROCEDURE: Chest 2 View X-Ray INDICATIONS: R SIDE RIB PX TECHNIQUE: 2 view(s) of the chest. COMPARISON: Chest x-ray, 2 views, 05/19/2018. FINDINGS: Surgical changes and devices: None. Lungs and pleura: Right hemidiaphragmatic eventration. No pleural effusions or pneumothorax. Lungs are clear. Mediastinum: Mediastinal contours are normal. Heart size is normal. Bones and chest wall: No suspicious bony abnormalities. Soft tissues appear unremarkable. Bridging osteophytes in thoracic spine and osteopenia. Surgical anchor in the left humeral head consistent wi th prior rotator cuff tendon repair. IMPRESSION: No acute cardiopulmonary disease. Reviewed by: Katia Rich MD on 06/23/2020 6:12 PM PST Approved by: Katia Rich MD on 06/23/2020 6:12 PM PST Station ID: [id number]
== END 2020-06-23 23:59 | disposition home or self-care (01) ==
LOC: DI.N 10:51
PROVIDERS: ATTEND Nurse Practitioner
DX: R07.81 Pleurodynia (principal)

== ENCOUNTER 2020-07-17 06:21 | Day surgery (SDC) | payer MEDICARE, OTHER ==
[2020-07-17] MEDS ORDERED: LACTATED RINGERS 1,000 ML IV ONE ×2 (06:56→08:20)
[2020-07-17] MEDS ORDERED: LIDOCAINE 2%-EPI 1:100000 20 ML MDV ONE (07:16)
[2020-07-17] MEDS ORDERED: BUPIVACAINE 0.5% PF 10 ML VIAL ONE (07:16)
[2020-07-17] MEDS ORDERED: LIDOCAINE 2%-EPI 1:100000 20 ML MDV SUBQ ONE ×2 (07:17→08:08)
[2020-07-17] MEDS ORDERED: BUPIVACAINE 0.5% PF 10 ML VIAL IM ONE ×2 (07:17→08:08)
[2020-07-17] MEDS ORDERED: MIDAZOLAM 2 MG/2 ML VIAL ONE ×2 (07:27→07:28)
[2020-07-17] MEDS ORDERED: fentaNYL 250 MCG/5 ML VIAL ONE (07:28)
[2020-07-17 08:35] VITALS: BP 126/68
== END 2020-07-17 06:22 | disposition home or self-care (01) ==
LOC: SDS 06:21
PROVIDERS: ATTEND Surgery
PROC: 0DBQ3ZX Excision of Anus, Percutaneous Approach, Diagnostic (ICD-10-PCS; principal; 2020-07-17 07:30)
PROC: 0DBK8ZZ Excision of Ascending Colon, Via Natural or Artificial Opening Endoscopic (ICD-10-PCS; 2020-07-17 07:30)
DX: Z12.11 Encounter for screening for malignant neoplasm of colon (principal); D12.2 Benign neoplasm of ascending colon; R21 Rash and other nonspecific skin eruption; K57.30 Diverticulosis of large intestine without perforation or abscess without bleeding; L98.9 Disorder of the skin and subcutaneous tissue, unspecified; L85.9 Epidermal thickening, unspecified; I10 Essential (primary) hypertension; E11.9 Type 2 diabetes mellitus without complications; Z79.84 Long term (current) use of oral hypoglycemic drugs; Z87.891 Personal history of nicotine dependence
CPT/HCPCS: 11104; 45380; J3010; J7120

== ENCOUNTER 2020-09-10 02:36 | Outpatient (CLI) | payer MEDICARE, OTHER | END 2020-09-10 02:37 | disposition EMS.NT | LOC: EMS 02:36 | DX: R11.0 Nausea (principal); R19.7 Diarrhea, unspecified ==

== ENCOUNTER 2020-10-24 10:03 | Outpatient (CLI) | payer MEDICARE, OTHER ==
[2020-10-24 13:38] LABS: BASOPHILS % (AUTO) 0.7 %; EOSINOPHILS # (AUTO) 0.1 10^3/uL (0.0-0.7); EOSINOPHILS % (AUTO) 2.3 %; HCT - HEMATOCRIT 39.6 % (42.0-52.0); HGB - HEMOGLOBIN 13.5 g/dL (14.0-18.0); LYMPHOCYTES # (AUTO) 1.1 10^3/uL (1.5-3.5); MEAN CORPUSCULAR HGB CONC 34.1 g/dL (32.0-36.0); MEAN PLATELET VOLUME 9.9 fL (7.4-11.4); MONOCYTES # (AUTO) 0.6 10^3/uL (0.0-1.0); MONOCYTES % (AUTO) 9.5 %; NEUTROPHILS % (AUTO) 67.2 %; PLT - PLATELET COUNT 250 10^3/uL (130-450); RED BLOOD COUNT 4.35 10^6/uL (4.70-6.10); RED CELL DISTRIBUTION WIDTH 12.9 % (12.0-15.0)
[2020-10-24 13:48] LABS: CALCIUM 9.2 mg/dL (8.5-10.3); CREATININE 1.1 mg/dL (0.6-1.2)
== END 2020-10-24 23:59 | disposition home or self-care (01) ==
LOC: LAB.N 10:03
PROVIDERS: ATTEND Physician Assistant Medical
DX: R55 Syncope and collapse (principal)
CPT/HCPCS: 36415; 80048; 85025

== ENCOUNTER 2020-10-24 20:24 | Emergency (ER) | payer MEDICARE, OTHER ==
[2020-10-24 21:02] LABS: BASOPHILS # (AUTO) 0.1 10^3/uL (0.0-0.1); BASOPHILS % (AUTO) 0.7 %; EOSINOPHILS # (AUTO) 0.2 10^3/uL (0.0-0.7); EOSINOPHILS % (AUTO) 2.3 %; HCT - HEMATOCRIT 38.3 % (42.0-52.0); HGB - HEMOGLOBIN 13.4 g/dL (14.0-18.0); LYMPHOCYTES # (AUTO) 1.5 10^3/uL (1.5-3.5); LYMPHOCYTES % (AUTO) 21.6 %; MEAN CORPUSCULAR HEMOGLOBIN 31.6 pg (27.0-31.0); MEAN CORPUSCULAR VOLUME 90.3 fL (80.0-94.0); MONOCYTES # (AUTO) 0.7 10^3/uL (0.0-1.0); MONOCYTES % (AUTO) 10.4 %; NEUTROPHILS # (AUTO) 4.5 10^3/uL (1.5-6.6); PLT - PLATELET COUNT 251 10^3/uL (130-450); RED BLOOD COUNT 4.24 10^6/uL (4.70-6.10); RED CELL DISTRIBUTION WIDTH 12.7 % (12.0-15.0)
[2020-10-24 21:17] LABS: ALBUMIN 4.5 g/dL (3.2-5.5); BILIRUBIN,TOTAL 0.8 mg/dL (0.2-1.0); CALCIUM 8.8 mg/dL (8.5-10.3); CREATININE 1.6 mg/dL (0.6-1.2); POTASSIUM 3.8 mmol/L (3.5-5.0); TOTAL PROTEIN 6.7 g/dL (6.7-8.2)
--- NOTE | 2020-10-24 21:28 | XRAY Report ---
PROCEDURE: Chest 1 View X-Ray INDICATIONS: Chest Pain TECHNIQUE: One view of the chest was acquired. COMPARISON: Two-view chest 06/23/2020. FINDINGS: Surgical changes and devices: None. Lungs and pleura: No pleural effusions or pneumothorax. Lungs are clear. Mediastinum: Mediastinal contours appear normal. Heart size is normal. Bones and chest wall: No suspicious bony lesions. Overlying soft tissues appear unremarkable. IMPRESSION: Asymmetric elevation of the right hemidiaphragm, no source of chest pain is found. Reviewed by: Peyman Stephens MD on 10/24/2020 9:26 PM PDT Approved by: Peyman Stephens MD on 10/24/2020 9:26 PM PDT Station ID: [id number]
[2020-10-24] MEDS ORDERED: SODIUM CHLORIDE 0.9% 1,000 ML IV STA (22:50)
[2020-10-25 00:27] VITALS: BP 124/67
--- NOTE | 2020-10-25 01:12 | ED Physician Documentation ---
History of Present Illness - Stated complaint Stated Complaint: HIGH BP - Chief complaint Chief Complaint: Neuro - History obtained from History obtained from: Patient - Additonal information Additional information: 75-year-old man with past medical history of sarcoidosis, diabetes presents with chest tingling and high blood pressure today. Patient states that he has had multiple falls since May and has been feeling lightheaded intermittently. He states that he drinks about 12 cups of coffee daily and despite drinking a lot he has had low sodium in the past. Denies chest pain, shortness of breath, diaphoresis, nausea vomiting cough or fevers. Review of Systems Ten Systems: 10 systems reviewed and negative Constitutional: denies: Fever, Myalgias Cardiac: denies: Chest pain / pressure Respiratory: denies: Dyspnea GI: denies: Nausea, Vomiting PD PAST MEDICAL HISTORY - Past Medical History Past Medical History: Yes Cardiovascular: High cholesterol Neuro: CVA, Migraines Endocrine/Autoimmune: Type 2 diabetes GI: GERD, Hiatal hernia HEENT: Chronic vision loss, Chronic hearing loss, Dental implants Musculoskeletal: Chronic back pain - Past Surgical History Past Surgical History: Yes General: Appendectomy, Gastric surgery, Colonoscopy, EGD Ortho: Shoulder arthroplasty HEENT: Cataracts, Other - Present Medications Home Medications: Ambulatory Orders Medication Instructions Recorded Confirmed Acarbose 1 tab ORAL BID 05/19/18 10/25/20 Atorvastatin Calcium 1 tab ORAL DAILY 05/19/18 10/25/20 Clopidogrel [Plavix] 1 tab ORAL DAILY 05/19/18 10/25/20 Escitalopram [Lexapro] 1 tab ORAL DAILY 05/19/18 10/25/20 Metformin HCl [Metformin ER 500 mg ORAL BID 05/19/18 10/25/20 Osmotic] Montelukast [Singulair] 10 mg PO DAILY 05/19/18 10/25/20 Pantoprazole [Protonix] 40 mg PO DAILY 05/19/18 10/25/20 Ascorbic Acid [Vitamin C] 1,000 mg PO DAILY 07/16/20 10/25/20 Multivitamin [Daily Multiple 1 each PO DAILY 07/16/20 10/25/20 Vitamin] Turmeric Root Extract [Turmeric] 1,000 mg PO DAILY 07/16/20 10/25/20 Folic Acid 1 mg PO DAILY 10/25/20 10/25/20 Gabapentin [Neurontin] 300 mg PO TID 10/25/20 10/25/20 Rabeprazole Sodium 20 mg PO DAILY 10/25/20 10/25/20 SITagliptin [Januvia] 100 mg PO DAILY 10/25/20 10/25/20 allopurinoL [Zyloprim] 100 mg PO DAILY 10/25/20 10/25/20 - Allergies Allergies/Adverse Reactions: Allergies Allergy/AdvReac Type Severity Reaction Status Date / Time hydrocodone Allergy Unknown Verified 10/24/20 20:39 - Social History Does the pt smoke?: No Smoking Status: Never smoker Does the pt drink ETOH?: No Does the pt have substance abuse?: No - Immunizations Immunizations are current?: Yes - POLST Patient has POLST: No PD ED PE NORMAL - Vitals Vital signs reviewed: Yes - General General: Alert and oriented X 3, No acute distress, Well developed/nourished - HEENT HEENT: Atraumatic, PERRL, EOMI, Other (Dry mucous membranes) - Neck Neck: Supple, no meningeal sign - Cardiac Cardiac: RRR - Respiratory Respiratory: No respiratory distress, Clear bilaterally - Abdomen Abdomen: Non tender, Non distended - Back Back: No CVA TTP - Derm Derm: Normal color - Extremities Extremities: No deformity - Neuro Neuro: Alert and oriented X 3 - Psych Psych: Normal mood, Normal affect Results - Vitals Vitals: Vital Signs - 24 hr 10/24/20 10/24/20 10/25/20 20:39 22:42 00:00 Temperature 36.7 C 36.4 C L 36.7 C Heart Rate 84 64 60 Heart Rate [ Sitting] Heart Rate [ Standing] Heart Rate [ Supine] Respiratory 19 16 16 Rate Blood Pressure 104/72 113/59 L 124/67 Blood Pressure [Sitting] Blood Pressure [Standing] Blood Pressure [Supine] O2 Saturation 97 98 100 10/25/20 00:33 Temperature Heart Rate Heart Rate [ 64 Sitting] Heart Rate [ 70 Standing] Heart Rate [ 65 Supine] Respiratory Rate Blood Pressure Blood Pressure 121/78 [Sitting] Blood Pressure 114/77 [Standing] Blood Pressure 124/67 [Supine] O2 Saturation Oxygen O2 Source Room air - Labs Labs: Laboratory Tests 10/24/20 10/24/20 10/24/20 20:54 20:54 20:54 WBC 7.0 RBC 4.24 L Hgb 13.4 L Hct 38.3 L MCV 90.3 MCH 31.6 H MCHC 35.0 RDW 12.7 Plt Count 251 MPV 9.0 Neut # (Auto) 4.5 Lymph # (Auto) 1.5 [place] # (Auto) 0.7 Eos # (Auto) 0.2 Baso # (Auto) 0.1 Absolute Nucleated RBC 0.00 Nucleated RBC % 0.0 Sodium 132 L Potassium 3.8 Chloride 97 L Carbon Dioxide 28 Anion Gap 7.0 BUN 20 Creatinine 1.6 H Estimated GFR (MDRD) 43 L Glucose 83 Calcium 8.8 Total Bilirubin 0.8 AST 35 ALT 38 Alkaline Phosphatase 76 Troponin I High Sens 5.6 Total Protein 6.7 Albumin 4.5 Globulin 2.2 Albumin/Globulin Ratio 2.0 Lipase 29 10/24/20 23:55 WBC RBC Hgb Hct MCV MCH MCHC RDW Plt Count MPV Neut # (Auto) Lymph # (Auto) [place] # (Auto) Eos # (Auto) Baso # (Auto) Absolute Nucleated RBC Nucleated RBC % Sodium Potassium Chloride Carbon Dioxide Anion Gap BUN Creatinine Estimated GFR (MDRD) Glucose Calcium Total Bilirubin AST ALT Alkaline Phosphatase Troponin I High Sens 4.1 Total Protein Albumin Globulin Albumin/Globulin Ratio Lipase PD MEDICAL DECISION MAKING - ED course ED course: Note that orthostatics were performed after receiving a liter of fluids. My suspicion is that this patient has been diuresing quite a bit since he is drinking 12 cups of coffee daily. This is consistent with his EVA. I advised him to cut back on his caffeine intake, hydrate with Pedialyte or low sugar Gatorade, and to follow-up with his primary doctor. Strict return precautions were given. Departure - Departure Disposition: 01 Home, Self Care Clinical Impression: Lightheadedness, EVA (acute kidney injury), Dehydration Condition: Good Instructions: Dehydration Comments: You were seen in the emergency department for lightheadedness and found to have some mild injury to your kidneys. Based off of our discussion, it is very important for you to hydrate more and to cut back on your caffeine intake. Try to slowly taper down over time on your caffeine intake. Do not stop drinking coffee right away immediately. Make a goal to have 2 cups a day. You can get Pedialyte or low sugar Gatorade at your local store to help you stay hydrated. Please return to the emergency department if you experience any new or worsening symptoms or have other concerns. Follow-up with your primary doctor this week. Discharge Date/Time: 10/25/20 01:21
== END 2020-10-25 01:21 | disposition home or self-care (01) ==
LOC: ED 20:24
DX: N17.9 Acute kidney failure, unspecified (principal); E86.0 Dehydration; E11.9 Type 2 diabetes mellitus without complications; Z79.84 Long term (current) use of oral hypoglycemic drugs; I25.2 Old myocardial infarction
CPT/HCPCS: 36415; 80053; 83690; 84484; 85025; 93005; 96360; 99284

== ENCOUNTER 2020-12-22 08:00 | Outpatient (CLI) | payer MEDICARE, OTHER ==
[2020-12-22 12:46] LABS: BASOPHILS % (AUTO) 0.6 %; EOSINOPHILS # (AUTO) 0.2 10^3/uL (0.0-0.7); EOSINOPHILS % (AUTO) 2.9 %; HCT - HEMATOCRIT 37.7 % (42.0-52.0); HGB - HEMOGLOBIN 12.6 g/dL (14.0-18.0); LYMPHOCYTES # (AUTO) 1.1 10^3/uL (1.5-3.5); LYMPHOCYTES % (AUTO) 20.7 %; MEAN CORPUSCULAR HEMOGLOBIN 30.8 pg (27.0-31.0); MEAN CORPUSCULAR HGB CONC 33.4 g/dL (32.0-36.0); MEAN CORPUSCULAR VOLUME 92.2 fL (80.0-94.0); MEAN PLATELET VOLUME 10.4 fL (7.4-11.4); MONOCYTES # (AUTO) 0.4 10^3/uL (0.0-1.0); MONOCYTES % (AUTO) 8.3 %; NEUTROPHILS # (AUTO) 3.5 10^3/uL (1.5-6.6); NEUTROPHILS % (AUTO) 67.1 %; PLT - PLATELET COUNT 210 10^3/uL (130-450); RED BLOOD COUNT 4.09 10^6/uL (4.70-6.10); RED CELL DISTRIBUTION WIDTH 13.2 % (12.0-15.0); WHITE BLOOD COUNT 5.2 x10^3/uL (4.8-10.8)
[2020-12-22 13:14] LABS: BUN - BLOOD UREA NITROGEN 21 mg/dL (6-20); CALCIUM 8.9 mg/dL (8.5-10.3); CARBON DIOXIDE - CO2 29 mmol/L (21-32); CHLORIDE 101 mmol/L (101-111); CHOL/HDL RATIO 2.8 (<5.0); CHOLESTEROL 132 mg/dL; CREATININE 1.1 mg/dL (0.6-1.2); GFR - MDRD 66 (>89); GLUCOSE 151 mg/dL (70-100); HDL CHOLESTEROL 48 mg/dL; LDL CHOLESTEROL,CALCULATED 66 mg/dL; LDL/HDL RATIO 1.4 (<3.6); POTASSIUM 4.2 mmol/L (3.5-5.0); SODIUM 137 mmol/L (135-145); TRIGLYCERIDES 90 mg/dL; VLDL CHOLESTEROL 18 mg/dL
== END 2020-12-22 23:59 | disposition home or self-care (01) ==
LOC: LAB.WCP 08:00
PROVIDERS: ATTEND Internal Medicine Cardiovascular Disease
DX: E78.5 Hyperlipidemia, unspecified (principal); I10 Essential (primary) hypertension
CPT/HCPCS: 36415; 80048; 80061; 83721; 85025

== ENCOUNTER 2021-01-18 11:47 | Outpatient (CLI) | payer MEDICARE, OTHER | END 2021-01-18 23:59 | disposition home or self-care (01) | LOC: LAB.N 11:47 | PROVIDERS: ATTEND Family Medicine | DX: R05 Cough (principal); Z20.822 Contact with and (suspected) exposure to COVID-19 ==

== ENCOUNTER 2021-03-26 08:00 | Outpatient (CLI) | payer MEDICARE, OTHER | END 2021-03-26 23:59 | disposition home or self-care (01) | LOC: LAB.N 08:00 | PROVIDERS: ATTEND Family Medicine | DX: U07.1 COVID-19 (principal) ==

== ENCOUNTER 2021-03-26 12:01 | Outpatient (CLI) | payer MEDICARE, OTHER ==
--- NOTE | 2021-03-30 09:08 | XRAY Report ---
PROCEDURE: Chest 2 View X-Ray INDICATIONS: COUGH TECHNIQUE: 2 view(s) of the chest. COMPARISON: October 24, 2020 FINDINGS: SUPPORT DEVICES: None. LUNG/PLEURA: Coarsened interstitial markings. Bilateral linear densities are seen, which may reflect atelectasis and/or scarring. No pleural effusion or pneumothorax. MEDIASTINUM: The cardiomediastinal silhouette is within normal limits. BONES/SOFT TISSUES: No acute abnormality. IMPRESSION: 1.Bilateral plate atelectasis and/or scarring. Reviewed by: Felton Levine MD on 03/26/2021 1:05 PM PDT Approved by: Felton Levine MD on 03/26/2021 1:05 PM PDT Station ID: [id number]
== END 2021-03-26 23:59 | disposition home or self-care (01) ==
LOC: DI.N 12:01
PROVIDERS: ATTEND Family Medicine
DX: R05.9 Cough, unspecified (principal); U07.1 COVID-19
CPT/HCPCS: 71046; U0004

== ENCOUNTER 2021-03-28 14:12 | Emergency (ER) | payer MEDICARE, OTHER ==
[2021-03-28] MEDS ORDERED: SODIUM CHLORIDE 0.9% 1,000 ML IV STA (14:39)
[2021-03-28 15:07] LABS: BILIRUBIN,URINE NEGATIVE (NEGATIVE); GLUCOSE, URINE (UA) NEGATIVE (NEGATIVE); KETONES,URINE (UA) NEGATIVE (NEGATIVE); LEUKOCYTE ESTERASE, URINE NEGATIVE (NEGATIVE); NITRITE,URINE NEGATIVE (NEGATIVE); OCCULT BLOOD,URINE NEGATIVE (NEGATIVE); PROTEIN,URINE NEGATIVE (NEGATIVE); UROBILINOGEN,URINE 0.2 (NORMAL) E.U./dL (NORMAL)
[2021-03-28 15:14] LABS: CLARITY,URINE CLEAR (CLEAR)
[2021-03-28 15:14] LABS: BASOPHILS % (AUTO) 0.1 %; EOSINOPHILS # (AUTO) 0.3 10^3/uL (0.0-0.7); EOSINOPHILS % (AUTO) 4.3 %; HCT - HEMATOCRIT 36.6 % (42.0-52.0); HGB - HEMOGLOBIN 12.2 g/dL (14.0-18.0); LYMPHOCYTES % (AUTO) 14.7 %; MEAN CORPUSCULAR HEMOGLOBIN 30.6 pg (27.0-31.0); MEAN CORPUSCULAR HGB CONC 33.3 g/dL (32.0-36.0); MEAN CORPUSCULAR VOLUME 91.7 fL (80.0-94.0); MEAN PLATELET VOLUME 9.3 fL (7.4-11.4); MONOCYTES # (AUTO) 0.6 10^3/uL (0.0-1.0); MONOCYTES % (AUTO) 9.3 %; NEUTROPHILS # (AUTO) 4.7 10^3/uL (1.5-6.6); PLT - PLATELET COUNT 351 10^3/uL (130-450); RED BLOOD COUNT 3.99 10^6/uL (4.70-6.10); RED CELL DISTRIBUTION WIDTH 13.2 % (12.0-15.0); WHITE BLOOD COUNT 6.7 x10^3/uL (4.8-10.8)
[2021-03-28 15:28] LABS: ALBUMIN 3.6 g/dL (3.2-5.5); ALBUMIN/GLOBULIN RATIO 1.1 (1.0-2.2); BILIRUBIN,TOTAL 0.8 mg/dL (0.2-1.0); CALCIUM 8.9 mg/dL (8.5-10.3); CREATININE 1.1 mg/dL (0.6-1.2)
--- NOTE | 2021-03-28 15:35 | ED Physician Documentation ---
History of Present Illness - Stated complaint Stated Complaint: dehydration,chills,nausea - Chief complaint Chief Complaint: General - History obtained from History obtained from: Patient - Additonal information Additional information: Patient comes emergency department for chief complaint of general fatigue and sweats for the last 2 weeks. He was having a cough until yesterday, but today feels quite a bit better in that regard. He states he just came back 3 days ago for him visiting [place] and [place] for couple weeks. He first noticed symptoms on 13 March and was seen a couple times in urgent care centers while traveling. He was not tested for Covid at that time. He also saw his primary doctor yesterday, where chest x-ray was and Covid test was also performed, but patient does not have results back yet. No other complaints at this time. No chest or abdominal pain. No nausea or vomiting. No known sick contacts. Review of Systems Ten Systems: 10 systems reviewed and negative Constitutional: reports: Fatigue, Sweats Eyes: reports: Reviewed and negative Ears: reports: Reviewed and negative Nose: reports: Reviewed and negative Throat: reports: Reviewed and negative Cardiac: reports: Reviewed and negative Respiratory: reports: Reviewed and negative GI: reports: Reviewed and negative : reports: Reviewed and negative Skin: reports: Reviewed and negative Musculoskeletal: reports: Reviewed and negative Neurologic: reports: Reviewed and negative Psychiatric: reports: Reviewed and negative Endocrine: reports: Reviewed and negative Immunocompromised: reports: Reviewed and negative PD PAST MEDICAL HISTORY - Past Medical History Cardiovascular: High cholesterol Neuro: CVA, Migraines Endocrine/Autoimmune: Type 2 diabetes GI: GERD, Hiatal hernia HEENT: Chronic vision loss, Chronic hearing loss, Dental implants Musculoskeletal: Chronic back pain - Past Surgical History Past Surgical History: Yes General: Appendectomy, Gastric surgery, Colonoscopy, EGD Ortho: Shoulder arthroplasty HEENT: Cataracts, Other - Present Medications Home Medications: Ambulatory Orders Medication Instructions Recorded Confirmed Acarbose 1 tab ORAL BID 05/19/18 10/25/20 Atorvastatin Calcium 1 tab ORAL DAILY 05/19/18 10/25/20 Clopidogrel [Plavix] 1 tab ORAL DAILY 05/19/18 10/25/20 Escitalopram [Lexapro] 1 tab ORAL DAILY 05/19/18 10/25/20 Metformin HCl [Metformin ER 500 mg ORAL BID 05/19/18 10/25/20 Osmotic] Montelukast [Singulair] 10 mg PO DAILY 05/19/18 10/25/20 Pantoprazole [Protonix] 40 mg PO DAILY 05/19/18 10/25/20 Ascorbic Acid [Vitamin C] 1,000 mg PO DAILY 07/16/20 10/25/20 Multivitamin [Daily Multiple 1 each PO DAILY 07/16/20 10/25/20 Vitamin] Turmeric Root Extract [Turmeric] 1,000 mg PO DAILY 07/16/20 10/25/20 Folic Acid 1 mg PO DAILY 10/25/20 10/25/20 Gabapentin [Neurontin] 300 mg PO TID 10/25/20 10/25/20 Rabeprazole Sodium 20 mg PO DAILY 10/25/20 10/25/20 SITagliptin [Januvia] 100 mg PO DAILY 10/25/20 10/25/20 allopurinoL [Zyloprim] 100 mg PO DAILY 10/25/20 10/25/20 - Allergies Allergies/Adverse Reactions: Allergies Allergy/AdvReac Type Severity Reaction Status Date / Time hydrocodone Allergy Unknown Verified 03/28/21 14:36 - Social History Does the pt smoke?: No Smoking Status: Never smoker Does the pt drink ETOH?: No Does the pt have substance abuse?: No - Immunizations Immunizations are current?: Yes - POLST Patient has POLST: No PD ED PE NORMAL - Vitals Vital signs reviewed: Yes - General General: Alert and oriented X 3, No acute distress, Well developed/nourished - HEENT HEENT: Atraumatic, PERRL, EOMI, Moist mucous membranes - Neck Neck: Supple, no meningeal sign - Cardiac Cardiac: RRR, No murmur, Strong equal pulses - Respiratory Respiratory: No respiratory distress, Clear bilaterally - Abdomen Abdomen: Soft, Non tender, Non distended - Derm Derm: Normal color, Warm and dry, No rash - Extremities Extremities: No deformity, No edema, No calf tenderness / cord - Neuro Neuro: Alert and oriented X 3, 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, Normal speech - Psych Psych: Normal mood, Normal affect Results - Vitals Vitals: Vital Signs - 24 hr 03/28/21 14:30 Temperature 36.5 C Heart Rate 82 Respiratory 18 Rate Blood Pressure 121/62 O2 Saturation 96 Oxygen O2 Source Room air - Labs Labs: Laboratory Tests 03/28/21 03/28/2103/28/21 14:53 14:53 14:55 WBC 6.7 RBC 3.99 L Hgb 12.2 L Hct 36.6 L MCV 91.7 MCH 30.6 MCHC 33.3 RDW 13.2 Plt Count 351 MPV 9.3 Neut # (Auto) 4.7 Lymph # (Auto) 1.0 L [place] # (Auto) 0.6 Eos # (Auto) 0.3 Baso # (Auto) 0.0 Absolute Nucleated RBC 0.00 Nucleated RBC % 0.0 Sodium 136 Potassium 4.0 Chloride 97 L Carbon Dioxide 27 Anion Gap 12.0 BUN 14 Creatinine 1.1 Estimated GFR (MDRD) 66 L Glucose 152 H Calcium 8.9 Total Bilirubin 0.8 AST 25 ALT 23 Alkaline Phosphatase 58 Total Protein 7.0 Albumin 3.6 Globulin 3.4 Albumin/Globulin Ratio 1.1 Lipase 101 H Urine Color YELLOW Urine Clarity CLEAR Urine pH 6.0 Ur Specific [place] 1.010 Urine Protein NEGATIVE Urine Glucose (UA) NEGATIVE Urine Ketones NEGATIVE Urine Occult Blood NEGATIVE Urine Nitrite NEGATIVE Urine Bilirubin NEGATIVE Urine Urobilinogen 0.2 (NORMAL) Ur Leukocyte Esterase NEGATIVE Ur Microscopic Review NOT INDICATED Urine Culture Comments NOT INDICATED PD MEDICAL DECISION MAKING - ED course Complexity details: reviewed results, re-evaluated patient, considered differential, d/w patient ED course: The patient was actually quite well-appearing, and his vital signs were all normal, including oxygen saturation. Additionally, his lungs were clear. We were made aware that the patient's Covid done outside the emergency department pertinent was positive. The patient was vaccinated some months ago with the Moderna vaccine, both shots. I discussed with the patient that he has now been sick for about 2 weeks and at this point, it is unlikely that he will become critically ill, particularly since he is actually improving over these last couple days. However, we have discussed that if the patient begins to feel increasingly short of breath or feels in any other way that he is deteriorating, he should return to the emergency department immediately for further evaluation. The patient lives with his and daughter who are both unvaccinated, and he has been given information for our coronavirus swabbing station. And, should they wish to get tested. The patient's labs look good and he has been hydrated with a liter 0.9 normal saline. He is stable for discharge home. Departure - Departure Disposition: 01 Home, Self Care Clinical Impression: COVID-19 Condition: Stable Instructions: COVID-19 [facility] Comments: The Covid test you had prior to coming to the emergency department came back positive. This is most likely why you have been having sweats and fatigue for the last couple weeks. Your vital signs look fantastic, and your lungs are clear. There is no evidence whatsoever of respiratory compromise at this time and there is no evidence of severe illness. This is most likely because you got the vaccine. You should quarantine until you are feeling better. If any friends or family get sick and would like to have a Covid test done but do not have signs or symptoms that would necessitate being hospitalized we encourage testing through our coronavirus swabbing station. Please call [phone] to schedule appointment.
[2021-03-28 15:49] VITALS: BP 122/67
== END 2021-03-28 15:49 | disposition home or self-care (01) ==
LOC: ED 14:12
DX: U07.1 COVID-19 (principal); E11.9 Type 2 diabetes mellitus without complications; Z79.84 Long term (current) use of oral hypoglycemic drugs; Z86.73 Personal history of transient ischemic attack (TIA), and cerebral infarction without residual deficits; Z79.02 Long term (current) use of antithrombotics/antiplatelets
CPT/HCPCS: 36415; 80053; 81001; 81003; 83690; 85025; 87086; 96360; 99283

== ENCOUNTER 2021-04-26 09:31 | Emergency (ER) | payer MEDICARE, OTHER ==
[2021-04-26] MEDS ORDERED: SODIUM CHLORIDE 0.9% 1,000 ML IV STA ×2 (11:14→12:35)
[2021-04-26 11:22] LABS: BASOPHILS % (AUTO) 0.6 %; EOSINOPHILS # (AUTO) 0.6 10^3/uL (0.0-0.7); EOSINOPHILS % (AUTO) 9.7 %; HCT - HEMATOCRIT 37.5 % (42.0-52.0); HGB - HEMOGLOBIN 12.1 g/dL (14.0-18.0); LYMPHOCYTES % (AUTO) 16.4 %; MEAN CORPUSCULAR HEMOGLOBIN 30.6 pg (27.0-31.0); MEAN CORPUSCULAR HGB CONC 32.3 g/dL (32.0-36.0); MEAN CORPUSCULAR VOLUME 94.7 fL (80.0-94.0); MEAN PLATELET VOLUME 9.6 fL (7.4-11.4); MONOCYTES # (AUTO) 0.6 10^3/uL (0.0-1.0); MONOCYTES % (AUTO) 9.3 %; NEUTROPHILS % (AUTO) 62.3 %; PLT - PLATELET COUNT 343 10^3/uL (130-450); RED BLOOD COUNT 3.96 10^6/uL (4.70-6.10); RED CELL DISTRIBUTION WIDTH 14.7 % (12.0-15.0); WHITE BLOOD COUNT 6.4 x10^3/uL (4.8-10.8)
[2021-04-26 11:29] LABS: ALBUMIN 3.6 g/dL (3.2-5.5); ALBUMIN/GLOBULIN RATIO 1.1 (1.0-2.2); BILIRUBIN,TOTAL 0.7 mg/dL (0.2-1.0); CALCIUM 8.8 mg/dL (8.5-10.3); CREATININE 1.4 mg/dL (0.6-1.2); POTASSIUM 4.1 mmol/L (3.5-5.0); TOTAL PROTEIN 6.9 g/dL (6.7-8.2)
--- NOTE | 2021-04-26 11:42 | XRAY Report ---
PROCEDURE: Chest 1 View X-Ray INDICATIONS: chest pain TECHNIQUE: One view of the chest was acquired. COMPARISON: Chest x-ray 03/26/2021 FINDINGS: Surgical changes and devices: None. Lungs and pleura: Streaky patchy predominantly bibasilar opacities are present. Mediastinum: Mediastinal contours appear normal. Heart size is enlarged. Bones and chest wall: No suspicious bony lesions. Overlying soft tissues appear unremarkable. IMPRESSION: Streaky and patchy bibasilar opacities, worse compared to prior exam. This could represent dependent edema. However, superimposed areas of pneumonia and/or atelectasis should be considered. Reviewed by: Grace Roque MD on 04/26/2021 11:41 AM PDT Approved by: Grace Roque MD on 04/26/2021 11:41 AM PDT Station ID: [id number]
--- NOTE | 2021-04-26 12:07 | ED Physician Documentation ---
PD HPI DYSPNEA - Stated complaint Stated Complaint: SOA - Chief complaint Chief Complaint: Resp - History obtained from History obtained from: Patient - History of Present Illness Timing - onset: How many weeks ago (6) Timing - onset during: Rest Timing - duration: Weeks (6) Timing - details: Gradual onset, Still present Inciting event(s): URI (COVID 19) Improved by: Rest, Sitting up Worsened by: Exertion, Coughing Associated symptoms: Cough, Wheezing Similar symptoms before: Diagnosis (COVID and pneumonia) Recently seen: Clinic, Emergency Dept - Additional information Additional information: 76-year-old male who caught Covid toward the end of February has been treated with 10-day course of dexamethasone which he finished yesterday. He continues to have a cough productive of 3 sputum and states that he was placed on this course of steroid and antibiotic for treatment of pneumonia. Today he is complaining of weakness and cramping all over. He does have a history of diabetes he states that steroids never bothered his diabetes. Review of Systems Constitutional: denies: Fever Eyes: denies: Decreased vision Ears: denies: Ear pain Nose: denies: Congestion Throat: denies: Sore throat Cardiac: denies: Chest pain / pressure, Palpitations Respiratory: reports: Dyspnea, Cough, Wheezing GI: denies: Abdominal Pain, Nausea, Vomiting : denies: Dysuria, Frequency PD PAST MEDICAL HISTORY - Past Medical History Cardiovascular: High cholesterol Neuro: CVA, Migraines Endocrine/Autoimmune: Type 2 diabetes GI: GERD, Hiatal hernia HEENT: Chronic vision loss, Chronic hearing loss, Dental implants Musculoskeletal: Chronic back pain - Past Surgical History Past Surgical History: Yes General: Appendectomy, Gastric surgery, Colonoscopy, EGD Ortho: Shoulder arthroplasty HEENT: Cataracts, Other - Present Medications Home Medications: Ambulatory Orders Medication Instructions Recorded Confirmed Acarbose 1 tab ORAL BID 05/19/18 10/25/20 Atorvastatin Calcium 1 tab ORAL DAILY 05/19/18 10/25/20 Clopidogrel [Plavix] 1 tab ORAL DAILY 05/19/18 10/25/20 Escitalopram [Lexapro] 1 tab ORAL DAILY 05/19/18 10/25/20 Metformin HCl [Metformin ER 500 mg ORAL BID 05/19/18 10/25/20 Osmotic] Montelukast [Singulair] 10 mg PO DAILY 05/19/18 10/25/20 Pantoprazole [Protonix] 40 mg PO DAILY 05/19/18 10/25/20 Ascorbic Acid [Vitamin C] 1,000 mg PO DAILY 07/16/20 10/25/20 Multivitamin [Daily Multiple 1 each PO DAILY 07/16/20 10/25/20 Vitamin] Turmeric Root Extract [Turmeric] 1,000 mg PO DAILY 07/16/20 10/25/20 Folic Acid 1 mg PO DAILY 10/25/20 10/25/20 Gabapentin [Neurontin] 300 mg PO TID 10/25/20 10/25/20 Rabeprazole Sodium 20 mg PO DAILY 10/25/20 10/25/20 SITagliptin [Januvia] 100 mg PO DAILY 10/25/20 10/25/20 allopurinoL [Zyloprim] 100 mg PO DAILY 10/25/20 10/25/20 Amox/Clav 875/125 [Augmentin] 1 each PO Q12H #20 tablet 04/26/21 Azithromycin [Zithromax] 250 mg PO DAILY #6 tablet 04/26/21 Codeine Phosphate/Guaifenesin 5 - 10 ml PO Q6HR PRN #473 ml 04/26/21 [Guaifen-Codeine 100-10 mg/5 ml] - Allergies Allergies/Adverse Reactions: Allergies Allergy/AdvReac Type Severity Reaction Status Date / Time hydrocodone Allergy Unknown Verified 04/26/21 09:59 - Social History Does the pt smoke?: No Smoking Status: Never smoker Does the pt drink ETOH?: No Does the pt have substance abuse?: No - Immunizations Immunizations are current?: Yes - POLST Patient has POLST: No PD ED PE NORMAL - Vitals Vital signs reviewed: Yes (normal ) - General General: Alert and oriented X 3, No acute distress, Well developed/nourished - HEENT HEENT: Atraumatic, PERRL, EOMI - Neck Neck: Supple, no meningeal sign, No bony TTP - Cardiac Cardiac: RRR, No murmur - Respiratory Respiratory: No respiratory distress, Other (Bibasilar rhonchi worse on the right than the left) - Abdomen Abdomen: Soft, Non tender - Back Back: No CVA TTP, No spinal TTP - Derm Derm: Normal color, Warm and dry, No rash - Extremities Extremities: No deformity, No edema - Neuro Neuro: Alert and oriented X 3, fourchette sewer 2-12 intact, No motor deficit, No sensory deficit, Normal speech Eye Opening: Spontaneous Motor: Obeys Commands Verbal: Oriented GCS Score: 15 - Psych Psych: Normal mood, Normal affect Results - Vitals Vitals: Vital Signs - 24 hr 04/26/21 04/26/21 04/26/21 09:44 12:00 14:00 Temperature 36.3 C L Heart Rate 89 67 65 Respiratory 19 18 18 Rate Blood Pressure 93/78 94/61 125/72 O2 Saturation 99 96 97 04/26/21 14:30 Temperature Heart Rate 68 Respiratory 19 Rate Blood Pressure 138/75 H O2 Saturation 96 Oxygen O2 Source Room air - Labs Labs: Laboratory Tests 04/26/21 04/26/21 04/26/21 09:58 09:58 11:25 WBC 6.4 RBC 3.96 L Hgb 12.1 L Hct 37.5 L MCV 94.7 H MCH 30.6 MCHC 32.3 RDW 14.7 Plt Count 343 MPV 9.6 Neut # (Auto) 4.0 Lymph # (Auto) 1.0 L [place] # (Auto) 0.6 Eos # (Auto) 0.6 Baso # (Auto) 0.0 Absolute Nucleated RBC 0.00 Nucleated RBC % 0.0 Sodium 134 L Potassium 4.1 Chloride 97 L Carbon Dioxide 25 Anion Gap 12.0 BUN 21 H Creatinine 1.4 H Estimated GFR (MDRD) 50 L Glucose 276 H Calcium 8.8 Total Bilirubin 0.7 AST 33 ALT 43 Alkaline Phosphatase 70 Total Protein 6.9 Albumin 3.6 Globulin 3.3 Albumin/Globulin Ratio 1.1 Lipase 37 SARS-CoV-2 (PCR) DETECTED A - Rads (name of study) chest Radiology: Prelim report reviewed (Streaky and patchy bibasilar opacities, worse compared to prior exam. This could represent dependent edema. However, superimposed areas of pneumonia and/or atelectasis should be considered.), EMP read indepedently, See rad report Procedures - IVC sono (time) 1110 Bedside IVC sono: IVC measures (cm) (0.83), Dehydration (est 2+ liter deficit) PD MEDICAL DECISION MAKING - ED course Complexity details: reviewed old records, reviewed results, re-evaluated patient, considered differential, d/w patient ED course: 76-year-old male with a recent history of Covid has followed up he is now being been treated for pneumonia and he has recurrence of symptoms she also has profound weakness and cramping. He is found to be dehydrated on interrogation the inferior vena cava with a diameter of 0.83 cm consistent with more than 2 L of saline depth deficient and he is administered intravenous saline. His chest x-ray is concerning for a right middle lobe pneumonia and he is placed on antibiotic as well. He is given a dose of Rocephin here in the emergency department and we will place him on a course of azithromycin and Augmentin. Departure - Departure Disposition: 01 Home, Self Care Clinical Impression: Dehydration Pneumonia Qualifiers: Pneumonia type: due to unspecified organism Laterality: right Lung location: middle lobe of lung Qualified Code(s): J18.9 - Pneumonia, unspecified organism Condition: Stable Instructions: ED Dehydration, ED Pneumonia Adult Follow-Up: [facility] [Provider Group] Prescriptions: Codeine Phosphate/Guaifenesin [Guaifen-Codeine 100-10 mg/5 ml] 5 - 10 ml PO Q6HR PRN #473 ml PRN Reason: Cough Amox/Clav 875/125 [Augmentin] 1 each PO Q12H #20 tablet Azithromycin [Zithromax] 250 mg PO DAILY #6 tablet Comments: Volodymyr, today here in the emergency department it looks like you still have Covid and you do have pneumonia as well. We are treating the pneumonia with antibiotic. In addition it appears that your blood sugar has been elevated and this led to significant dehydration and likely the result is the more cramping you have been experiencing. This should improve with hydration you are given today. Check your sugars frequently the expectation is now that you are off of the steroid this will return to normal within 1 to 3 days.
[2021-04-26] MEDS ORDERED: cefTRIAXone 1 GM in SODIUM CHLORIDE 0.9% MINIBAG 100 ML IV STA (12:35)
[2021-04-26 14:33] VITALS: BP 138/75
== END 2021-04-26 14:45 | disposition home or self-care (01) ==
LOC: ED 09:31
DX: U07.1 COVID-19 (principal); J18.9 Pneumonia, unspecified organism; E11.9 Type 2 diabetes mellitus without complications; Z79.84 Long term (current) use of oral hypoglycemic drugs; E86.0 Dehydration
CPT/HCPCS: 36415; 80053; 83690; 85025; 96361; 96365; 99284

== ENCOUNTER 2021-05-13 08:00 | Outpatient (CLI) | payer MEDICARE, OTHER ==
[2021-05-13 12:31] LABS: BASOPHILS % (AUTO) 0.8 %; EOSINOPHILS # (AUTO) 0.2 10^3/uL (0.0-0.7); EOSINOPHILS % (AUTO) 4.5 %; HCT - HEMATOCRIT 38.6 % (42.0-52.0); HGB - HEMOGLOBIN 12.5 g/dL (14.0-18.0); LYMPHOCYTES # (AUTO) 0.9 10^3/uL (1.5-3.5); LYMPHOCYTES % (AUTO) 18.2 %; MEAN CORPUSCULAR HEMOGLOBIN 30.9 pg (27.0-31.0); MEAN CORPUSCULAR HGB CONC 32.4 g/dL (32.0-36.0); MEAN CORPUSCULAR VOLUME 95.5 fL (80.0-94.0); MEAN PLATELET VOLUME 9.8 fL (7.4-11.4); MONOCYTES # (AUTO) 0.5 10^3/uL (0.0-1.0); MONOCYTES % (AUTO) 10.3 %; NEUTROPHILS # (AUTO) 3.4 10^3/uL (1.5-6.6); NEUTROPHILS % (AUTO) 65.6 %; PLT - PLATELET COUNT 337 10^3/uL (130-450); RED BLOOD COUNT 4.04 10^6/uL (4.70-6.10); RED CELL DISTRIBUTION WIDTH 14.7 % (12.0-15.0); WHITE BLOOD COUNT 5.2 x10^3/uL (4.8-10.8)
[2021-05-13 12:55] LABS: CALCIUM 9.1 mg/dL (8.5-10.3); POTASSIUM 4.3 mmol/L (3.5-5.0)
[2021-05-13 12:58] LABS: CREATININE,URINE 121.5 mg/dL
[2021-05-13 13:07] LABS: FERRITIN 28.1 ng/mL (23.9-336.2)
[2021-05-13 13:24] LABS: MICROALBUMIN,URINE < 0.2 mg/dL (0-300.0)
[2021-05-13 20:57] LABS: ESTIMATED AVERAGE GLUCOSE 163 mg/dL (70-100); HEMOGLOBIN A1c% 7.3 % (4.27-6.07)
== END 2021-05-13 23:59 | disposition home or self-care (01) ==
LOC: LAB.WCP 08:00
PROVIDERS: ATTEND Internal Medicine
DX: U07.1 COVID-19 (principal); E11.9 Type 2 diabetes mellitus without complications; Z98.0 Intestinal bypass and anastomosis status
CPT/HCPCS: 36415; 80048; 82043; 82306; 82570; 82607; 82728; 83036; 83540; 84466; 85025

== ENCOUNTER 2021-08-13 09:06 | Outpatient (CLI) | payer MEDICARE, OTHER ==
[2021-08-13 12:36] LABS: BASOPHILS % (AUTO) 0.1 %; HCT - HEMATOCRIT 38.9 % (42.0-52.0); HGB - HEMOGLOBIN 12.6 g/dL (14.0-18.0); LYMPHOCYTES # (AUTO) 1.1 10^3/uL (1.5-3.5); LYMPHOCYTES % (AUTO) 9.6 %; MEAN CORPUSCULAR HEMOGLOBIN 27.2 pg (27.0-31.0); MEAN CORPUSCULAR HGB CONC 32.4 g/dL (32.0-36.0); MEAN PLATELET VOLUME 10.2 fL (7.4-11.4); MONOCYTES # (AUTO) 0.4 10^3/uL (0.0-1.0); MONOCYTES % (AUTO) 3.2 %; NEUTROPHILS # (AUTO) 9.7 10^3/uL (1.5-6.6); NEUTROPHILS % (AUTO) 86.6 %; PLT - PLATELET COUNT 256 10^3/uL (130-450); RED BLOOD COUNT 4.63 10^6/uL (4.70-6.10); RED CELL DISTRIBUTION WIDTH 13.5 % (12.0-15.0); WHITE BLOOD COUNT 11.2 x10^3/uL (4.8-10.8)
[2021-08-13 13:19] LABS: ALBUMIN 4.7 g/dL (3.2-5.5); ALBUMIN/GLOBULIN RATIO 1.8 (1.0-2.2); BILIRUBIN,TOTAL 0.8 mg/dL (0.2-1.0); CALCIUM 9.5 mg/dL (8.5-10.3); CREATININE 1.2 mg/dL (0.6-1.2); POTASSIUM 4.4 mmol/L (3.5-5.0); TOTAL PROTEIN 7.3 g/dL (6.7-8.2); URIC ACID 4.6 mg/dL (2.6-7.2)
[2021-08-13 13:30] LABS: THYROID STIMULATING HORMONE 0.69 uIU/mL (0.34-5.60)
[2021-08-13 13:33] LABS: CREATININE,URINE 120.5 mg/dL; MICROALBUM/CREATININE RATIO,UR 13.3 ug/mg (<30.0); MICROALBUMIN,URINE 1.6 mg/dL (0-300.0)
[2021-08-13 13:48] LABS: ESTIMATED AVERAGE GLUCOSE 194 mg/dL (70-100); HEMOGLOBIN A1c% 8.4 % (4.27-6.07)
== END 2021-08-13 09:07 | disposition home or self-care (01) ==
LOC: LAB.N 09:06
PROVIDERS: ATTEND Internal Medicine
DX: I10 Essential (primary) hypertension (principal); E11.42 Type 2 diabetes mellitus with diabetic polyneuropathy; F41.9 Anxiety disorder, unspecified; M10.9 Gout, unspecified
CPT/HCPCS: 36415; 80053; 82043; 82570; 83036; 84443; 84550; 85025

== ENCOUNTER 2021-08-24 08:00 | Outpatient (CLI) | payer MEDICARE, OTHER ==
[2021-08-24 18:08] LABS: ALBUMIN 4.2 g/dL (3.2-5.5); ALBUMIN/GLOBULIN RATIO 1.9 (1.0-2.2); BILIRUBIN,TOTAL 0.6 mg/dL (0.2-1.0); CALCIUM 9.1 mg/dL (8.5-10.3); CREATININE 1.1 mg/dL (0.6-1.2); POTASSIUM 4.3 mmol/L (3.5-5.0); TOTAL PROTEIN 6.4 g/dL (6.7-8.2)
[2021-08-24 18:20] LABS: BASOPHILS % (AUTO) 0.3 %; EOSINOPHILS # (AUTO) 0.2 10^3/uL (0.0-0.7); EOSINOPHILS % (AUTO) 2.5 %; HCT - HEMATOCRIT 39.3 % (42.0-52.0); HGB - HEMOGLOBIN 12.6 g/dL (14.0-18.0); LYMPHOCYTES # (AUTO) 1.3 10^3/uL (1.5-3.5); LYMPHOCYTES % (AUTO) 18.1 %; MEAN CORPUSCULAR HEMOGLOBIN 27.2 pg (27.0-31.0); MEAN CORPUSCULAR HGB CONC 32.1 g/dL (32.0-36.0); MEAN CORPUSCULAR VOLUME 84.7 fL (80.0-94.0); MEAN PLATELET VOLUME 10.1 fL (7.4-11.4); MONOCYTES # (AUTO) 0.6 10^3/uL (0.0-1.0); MONOCYTES % (AUTO) 7.8 %; NEUTROPHILS % (AUTO) 69.9 %; PLT - PLATELET COUNT 190 10^3/uL (130-450); RED BLOOD COUNT 4.64 10^6/uL (4.70-6.10); RED CELL DISTRIBUTION WIDTH 14.2 % (12.0-15.0); WHITE BLOOD COUNT 7.2 x10^3/uL (4.8-10.8)
[2021-08-24 20:46] LABS: ESTIMATED AVERAGE GLUCOSE 214 mg/dL (70-100); HEMOGLOBIN A1c% 9.1 % (4.27-6.07)
== END 2021-08-24 23:59 | disposition home or self-care (01) ==
LOC: LAB.N 08:00
PROVIDERS: ATTEND Nurse Practitioner
DX: R73.9 Hyperglycemia, unspecified (principal)
CPT/HCPCS: 36415; 80053; 82962; 83036; 85025

== ENCOUNTER 2021-11-04 07:38 | Outpatient (CLI) | payer MEDICARE, OTHER ==
[2021-11-04 12:14] LABS: BASOPHILS % (AUTO) 0.5 %; EOSINOPHILS # (AUTO) 0.2 10^3/uL (0.0-0.7); EOSINOPHILS % (AUTO) 3.9 %; HCT - HEMATOCRIT 37.6 % (42.0-52.0); HGB - HEMOGLOBIN 12.1 g/dL (14.0-18.0); LYMPHOCYTES # (AUTO) 1.5 10^3/uL (1.5-3.5); LYMPHOCYTES % (AUTO) 24.5 %; MEAN CORPUSCULAR HEMOGLOBIN 27.9 pg (27.0-31.0); MEAN CORPUSCULAR HGB CONC 32.2 g/dL (32.0-36.0); MEAN CORPUSCULAR VOLUME 86.6 fL (80.0-94.0); MEAN PLATELET VOLUME 10.6 fL (7.4-11.4); MONOCYTES # (AUTO) 0.6 10^3/uL (0.0-1.0); MONOCYTES % (AUTO) 9.9 %; NEUTROPHILS # (AUTO) 3.6 10^3/uL (1.5-6.6); NEUTROPHILS % (AUTO) 60.7 %; PLT - PLATELET COUNT 207 10^3/uL (130-450); RED BLOOD COUNT 4.34 10^6/uL (4.70-6.10); RED CELL DISTRIBUTION WIDTH 14.5 % (12.0-15.0); WHITE BLOOD COUNT 5.9 x10^3/uL (4.8-10.8)
[2021-11-04 12:21] LABS: ALBUMIN 4.2 g/dL (3.2-5.5); ALBUMIN/GLOBULIN RATIO 1.8 (1.0-2.2); ALKALINE PHOSPHATASE 65 IU/L (42-121); ALT ALANINE AMINOTRANSFERASE 31 IU/L (10-60); AST ASPARTATE AMINOTRANSFERASE 24 IU/L (10-42); BILIRUBIN,TOTAL 0.5 mg/dL (0.2-1.0); BUN - BLOOD UREA NITROGEN 16 mg/dL (6-20); CALCIUM 9.1 mg/dL (8.5-10.3); CARBON DIOXIDE - CO2 28 mmol/L (21-32); CHLORIDE 99 mmol/L (101-111); CHOLESTEROL 138 mg/dL; CREATININE 1.1 mg/dL (0.6-1.2); GFR - MDRD 65 (>89); GLUCOSE 189 mg/dL (70-100); HDL CHOLESTEROL 46 mg/dL; LDL CHOLESTEROL,CALCULATED 61 mg/dL; LDL/HDL RATIO 1.3 (<3.6); POTASSIUM 4.4 mmol/L (3.5-5.0); SODIUM 135 mmol/L (135-145); TOTAL PROTEIN 6.6 g/dL (6.7-8.2); TRIGLYCERIDES 156 mg/dL; URIC ACID 4.9 mg/dL (2.6-7.2); VLDL CHOLESTEROL 31 mg/dL
[2021-11-04 12:36] LABS: CREATININE,URINE 70.4 mg/dL
[2021-11-04 12:37] LABS: MICROALBUMIN,URINE < 0.2 mg/dL (0-300.0)
[2021-11-04 13:43] LABS: ESTIMATED AVERAGE GLUCOSE 197 mg/dL (70-100); HEMOGLOBIN A1c% 8.5 % (4.27-6.07)
== END 2021-11-04 07:39 | disposition home or self-care (01) ==
LOC: LAB.N 07:38
PROVIDERS: ATTEND Internal Medicine
DX: E11.42 Type 2 diabetes mellitus with diabetic polyneuropathy (principal); M10.9 Gout, unspecified; I10 Essential (primary) hypertension
CPT/HCPCS: 36415; 80053; 80061; 82043; 82570; 83036; 83721; 84550; 85025

== ENCOUNTER 2022-01-25 13:42 | Inpatient (IN) | payer MEDICARE, OTHER ==
--- OUTSIDE RECORDS SUMMARY | 2022-01-25 13:53 | EXTERNAL MEDICAL SUMMARY RPT | Continuity of Care Document ---
:1945 Author Organization [facility] Address [address] [place] [address] Phone Allergies No information. Encounters No information. Functional Status No information. Immunizations No information. Medications No information. Problems No information. Procedures No information. Results/Labs test date author facility value unit interpret ation Result panel 1 (unknown) (no (unknown) (unknown) (no value) (units (unk nown) date) unknown) (unknown) (no (unknown) (unknown) [address] [place] [address] (units (unknown) date) unknown) (unknown) (no (unknown) (unknown) [place] [address] (unit s (unknown) date) unknown) (unknown) (no (unknown) (unknown) [facility] (units (unknown) date) unknown) (unknown) (no (unknown) (unknown) Magnetic Resonance (units (unknown) date) Report unknown) (unknown) (no (unknown) (unknown) Signed (units (unkno wn) date) unknown) (unknown) (no (unknown) (unknown) XRay Report (units (un known) date) unknown) (unknown) (no (unknown) (unknown) (no value) (units (unk nown) date) unknown) (unknown) (no (unknown) (unknown) The shoulder was (units (unknown) date) examined unknown) fluoroscopically and a site for needle placement (unknown) (no (unknown) (unknown) This was followed (units (unknown) date) by approximately 12 unknown) mL dilute solution of a gadolinium (unknown) (no (unknown) (unknown) 11/12/21 (units (unkno wn) date) unknown) (unknown) (no (unknown) (unknown) 1. Postsurgical (units (unknown) date) changes seen in unknown) greater tuberosity of humeral head with (unknown) (no (unknown) (unknown) 10:53. (units (unkno wn) date) unknown) (unknown) (no (unknown) (unknown) 2. Suggestion of (units (unknown) date) distal supraspinatus unknown) tendinosis and low-grade articular and (unknown) (no (unknown) (unknown) 3. Suggestion of (units (unknown) date) prior superior unknown) anterior labral repair with postsurgical (unknown) (no (unknown) (unknown) After the (units (unkn own) date) administration of 12 unknown) mL of dilute intra-articular Gadolinium (unknown) (no (unknown) (unknown) Approved by: Piotr (units (unknown) date) Kimberly Akhtar on unknown) 11/12/2021 at 12:35 (unknown) (no (unknown) (unknown) Approved by: (units (u nknown) date) Jessica Hull, unknown) , PhD on 11/12/2021 at 11:54 (unknown) (no (unknown) (unknown) Bones and bursae: (units (unknown) date) Susceptibility unknown) artifacts in greater tuberosity of humeral (unknown) (no (unknown) (unknown) COMPARISON: None. (units (unknown) date) unknown) (unknown) (no (unknown) (unknown) COMPARISON: [place] (unit s (unknown) date) [facility], , unknown) XR SHOULDER 2+ VIEWS BILATERAL, (unknown) (no (unknown) (unknown) Capsule and soft (units (unknown) date) tissues: There is unknown) suggestion of prior labral repair with (unknown) (no (unknown) (unknown) Dictated by: Piotr (units (unknown) date) Kimberly Akhtar on unknown) 11/12/2021 at 12:23 (unknown) (no (unknown) (unknown) Dictated by: (units (u nknown) date) Jessica Hull, unknown) , PhD on 11/12/2021 at 11:54 (unknown) (no (unknown) (unknown) FINDINGS: (units (unkn own) date) unknown) (unknown) (no (unknown) (unknown) FINDINGS: A single (unit s (unknown) date) fluoroscopic spot unknown) image demonstrates intra-articular (unknown) (no (unknown) (unknown) IMPRESSION: (units (un known) date) unknown) (unknown) (no (unknown) (unknown) IMPRESSION: (units (un known) date) Successful unknown) fluoroscopically guided administration of dilute (unknown) (no (unknown) (unknown) INDICATIONS: RIGHT (unit s (unknown) date) SHOULDER PAIN unknown) (unknown) (no (unknown) (unknown) Image quality: (units (unknown) date) Diagnostic. unknown) Susceptibility artifacts from right shoulder (unknown) (no (unknown) (unknown) Rotator cuff: (units ( unknown) date) Evaluation of distal unknown) supraspinatus and infraspinatus tendon (unknown) (no (unknown) (unknown) Suggestion of (units ( unknown) date) subtle anterior unknown) inferior labral tear at 5 to 6 o'clock position. (unknown) (no (unknown) (unknown) TECHNIQUE: (units (unk nown) date) unknown) (unknown) (no (unknown) (unknown) The indications, (units (unknown) date) alternatives, unknown) benefits, risks, and complications of the (unknown) (no (unknown) (unknown) The needle was (units (unknown) date) removed and a unknown) dressing was applied. The patient was given (unknown) (no (unknown) (unknown) artifacts. (units (unk nown) date) Expected unknown) postsurgical widening of acromioclavicular joint. No (unknown) (no (unknown) (unknown) capsule. A spinal (units (unknown) date) needle was inserted unknown) into the glenohumeral joint, and a small (unknown) (no (unknown) (unknown) changes seen in (units (unknown) date) superior anterior unknown) labrum at 1 to 2 o'clock position. No gross (unknown) (no (unknown) (unknown) contrast agent. (units (unknown) date) unknown) (unknown) (no (unknown) (unknown) coracohumeral (units ( unknown) date) ligament is of unknown) normal thickness. No intra-articular bodies. (unknown) (no (unknown) (unknown) coronal T1 and T2 (units (unknown) date) spin echo with fat unknown) saturation, oblique sagittal T1 spin echo (unknown) (no (unknown) (unknown) cuff tendon (units (un known) date) rupture. unknown) (unknown) (no (unknown) (unknown) draped in a sterile (unit s (unknown) date) fashion, and 1% unknown) lidocaine infiltrated from skin down to (unknown) (no (unknown) (unknown) edema. No fracture (unit s (unknown) date) or dislocation. No unknown) loose bodies. (unknown) (no (unknown) (unknown) entry into the (units (unknown) date) glenohumeral joint unknown) from an anterior approach. The skin was (unknown) (no (unknown) (unknown) explained to the (units (unknown) date) patient. Written unknown) informed consent was obtained and placed in (unknown) (no (unknown) (unknown) full-thickness (units (unknown) date) rotator cuff tendon unknown) rupture. No significant rotator cuff muscle (unknown) (no (unknown) (unknown) hardware are seen. (units (unknown) date) unknown) (unknown) (no (unknown) (unknown) humeral head is (units (unknown) date) limited due to unknown) significant susceptibility artifacts in this (unknown) (no (unknown) (unknown) inferior labrum at (units (unknown) date) 5 to 6 o'clock unknown) position is noted. The long head of the (unknown) (no (unknown) (unknown) infraspinatus is (units (unknown) date) intact. Distal unknown) subscapularis tendinosis. No full-thickness (unknown) (no (unknown) (unknown) infraspinatus (units ( unknown) date) tendon is grossly unknown) intact. Distal subscapularis tendinosis is (unknown) (no (unknown) (unknown) injected iodinated (units (unknown) date) contrast. unknown) (unknown) (no (unknown) (unknown) instructions and (units (unknown) date) sent to the MR suite unknown) for MR imaging. (unknown) (no (unknown) (unknown) iodinated contrast (units (unknown) date) media injected to unknown) confirm intra-articular placement of the (unknown) (no (unknown) (unknown) is grossly intact. (units (unknown) date) The rotator interval unknown) appears normal, without fibrosis. The (unknown) (no (unknown) (unknown) is suggestion of (units (unknown) date) tendinosis and unknown) low-grade articular and bursal surface partial (unknown) (no (unknown) (unknown) near rotator cuff (units (unknown) date) tendon insertion. unknown) No gross marrow edema or fractures. (unknown) (no (unknown) (unknown) on sagittal images. (unit s (unknown) date) unknown) (unknown) (no (unknown) (unknown) postsurgical (units (u nknown) date) widening of unknown) acromioclavicular joint is seen.. (unknown) (no (unknown) (unknown) solution into the (units (unknown) date) shoulder joint for unknown) MR arthrogram. (unknown) (no (unknown) (unknown) spin echo with fat (units (unknown) date) saturation through unknown) the shoulder. (unknown) (no (unknown) (unknown) surface partial (units (unknown) date) thickness tear unknown) extending to musculotendinous junction. Distal (unknown) (no (unknown) (unknown) tear involving (units (unknown) date) distal supraspinatus unknown) at its insertion on the humeral head. (unknown) (no (unknown) (unknown) tear is seen. (units ( unknown) date) Subtle signal unknown) abnormality and contour irregularity involving (unknown) (no (unknown) (unknown) without fat (units (un known) date) saturation, oblique unknown) sagittal T2 fast spin echo with fat saturation, (unknown) (no (unknown) (unknown) [id number] (units (unkno wn) date) unknown) (unknown) (no (unknown) (unknown) 10/28/2021, (units (unk nown) date) unknown) (unknown) (no (unknown) (unknown) Accession Number: (units (unknown) date) [id number] unknown) (unknown) (no (unknown) (unknown) Accession Number: (units (unknown) date) [id number] unknown) (unknown) (no (unknown) (unknown) Age/Sex: 76 / M (units (unknown) date) Date of Service: unknown) (unknown) (no (unknown) (unknown) : 1945 (units (unknown) date) Acct:[id number] unknown) (unknown) (no (unknown) (unknown) Distal (units (unkno wn) date) unknown) (unknown) (no (unknown) (unknown) Expected (units (unkno wn) date) unknown) (unknown) (no (unknown) (unknown) Gadolinium (units (unk nown) date) unknown) (unknown) (no (unknown) (unknown) Loc: RAD (units (unkno wn) date) unknown) (unknown) (no (unknown) (unknown) Ordering Provider: (units (unknown) date) Ilan Sage MD unknown) (unknown) (no (unknown) (unknown) PROCEDURE: FL (units (unknown) date) SHOULDER INJECTION unknown) MR/CT RT (unknown) (no (unknown) (unknown) PROCEDURE: MR (units (unknown) date) SHOULDER RT W CON unknown) (unknown) (no (unknown) (unknown) Patient: (units (unkno wn) date) Bernardino Kang unknown) MR#: [id number] (unknown) (no (unknown) (unknown) Procedure: FL (units ( unknown) date) shoulder injection unknown) mr/ct RT (unknown) (no (unknown) (unknown) Procedure: MR (units ( unknown) date) shoulder RT w con unknown) (unknown) (no (unknown) (unknown) amount of (units (unkn own) date) unknown) (unknown) (no (unknown) (unknown) anterior (units (unkno wn) date) unknown) (unknown) (no (unknown) (unknown) area. There (units (u nknown) date) unknown) (unknown) (no (unknown) (unknown) atrophy (units (unkno wn) date) unknown) (unknown) (no (unknown) (unknown) axial T1 (units (unkno wn) date) unknown) (unknown) (no (unknown) (unknown) biceps tendon (units ( unknown) date) unknown) (unknown) (no (unknown) (unknown) bursal (units (unkno wn) date) unknown) (unknown) (no (unknown) (unknown) changes. (units (unkno wn) date) unknown) (unknown) (no (unknown) (unknown) chosen for (units (unk nown) date) unknown) (unknown) (no (unknown) (unknown) containing MR (units ( unknown) date) unknown) (unknown) (no (unknown) (unknown) contrast, oblique (units (unknown) date) unknown) (unknown) (no (unknown) (unknown) gross marrow (units (u nknown) date) unknown) (unknown) (no (unknown) (unknown) head is seen (units (u nknown) date) unknown) (unknown) (no (unknown) (unknown) insertion on (units (u nknown) date) unknown) (unknown) (no (unknown) (unknown) joint (units (unkno wn) date) unknown) (unknown) (no (unknown) (unknown) location of (units (un known) date) unknown) (unknown) (no (unknown) (unknown) needle tip. (units (un known) date) unknown) (unknown) (no (unknown) (unknown) postprocedural (units (unknown) date) unknown) (unknown) (no (unknown) (unknown) postsurgical (units (u nknown) date) unknown) (unknown) (no (unknown) (unknown) prepped and (units (un known) date) unknown) (unknown) (no (unknown) (unknown) procedure were (units (unknown) date) unknown) (unknown) (no (unknown) (unknown) recurrent (units (unkn own) date) unknown) (unknown) (no (unknown) (unknown) rotator (units (unkno wn) date) unknown) (unknown) (no (unknown) (unknown) seen. No (units (unkn own) date) unknown) (unknown) (no (unknown) (unknown) surgical (units (unkno wn) date) unknown) (unknown) (no (unknown) (unknown) susceptibility (units (unknown) date) unknown) (unknown) (no (unknown) (unknown) the chart. (units (unk nown) date) unknown) (unknown) (no (unknown) (unknown) thickness (units (unkn own) date) unknown) (unknown) (no (unknown) (unknown) with and (units (unkno wn) date) unknown) Result panel 2 (unknown) (no (unknown) (unknown) (no value) (units (unk nown) date) unknown) (unknown) (no (unknown) (unknown) [address] (units (unknown) date) unknown) (unknown) (no (unknown) (unknown) sev ratio: 0.98 (units (unknown) date) unknown) (unknown) (no (unknown) (unknown) [place] (units ( unknown) date) [id number] unknown) (unknown) (no (unknown) (unknown) Echocardiogram (units (unknown) date) Report unknown) (unknown) (no (unknown) (unknown) Echocardiography (units (unknown) date) Report unknown) (unknown) (no (unknown) (unknown) Electronically (units (unknown) date) signed by: Pina unknownSuly Caballero on 01/06/2022 (unknown) (no (unknown) (unknown) [place] (units (unkno wn) date) unknown) (unknown) (no (unknown) (unknown) [facility] (units (unknown) date) unknown) (unknown) (no (unknown) (unknown) Signed (units (unkno wn) date) unknown) (unknown) (no (unknown) (unknown) (no value) (units (unk nown) date) unknown) (unknown) (no (unknown) (unknown) (EF 55-60%). (units (u nknown) date) unknown) (unknown) (no (unknown) (unknown) +---------+ (units (un known) date) [phone] unknown) +---------+ (unknown) (no (unknown) (unknown) +---------+ (units (un known) date) Hospital unknown) +---------+ (unknown) (no (unknown) (unknown) + (units (unknown) date) unknown) ---+ (unknown) (no (unknown) (unknown) 01/06/22 (units (unkno wn) date) unknown) (unknown) (no (unknown) (unknown) 1) Normal left (units (unknown) date) ventricular unknown) thickness, size, wall motion, and systolic function (unknown) (no (unknown) (unknown) 2) Normal right (units (unknown) date) ventricular size unknown) and function. (unknown) (no (unknown) (unknown) 3) No significant (units (unknown) date) valvular unknown) abnormalities. (unknown) (no (unknown) (unknown) 4) Compared to the (units (unknown) date) Echo done unknown) 03/29/2019, no significant change. (unknown) (no (unknown) (unknown) : : [address] (units (unknown) date) [address] : : unknown) (unknown) (no (unknown) (unknown) : : [id number] (units (unknown) date) : : unknown) (unknown) (no (unknown) (unknown) : : (units (unkno wn) date) [place] : unknown) : (unknown) (no (unknown) (unknown) : : Phone: (units (unknown) date) 360- : : unknown) (unknown) (no (unknown) (unknown) :Account #: (units (un known) date) [id number] unknown) Gender: Male BSA: 2.2 m2 : (unknown) (no (unknown) (unknown) :BHRIGU (units (unkno wn) date) Performed By: unknown) Hung Graves : (unknown) (no (unknown) (unknown) :: 1945 (units (unknown) date) Age: 76 yrs BP: unknown) 127/76 mmHg: (unknown) (no (unknown) (unknown) :[facility] MRN #: (units (unknown) date) [id number] unknown) ReadingLocation: Weight: 242 lb : (unknown) (no (unknown) (unknown) :Name: KAYLIN, (units ( unknown) date) BERNARDINO P unknown) Study Date: 01/06/2022 Height: 69 in : (unknown) (no (unknown) (unknown) :Ordering (units (unkn own) date) Physician: JLOENE, unknown) : (unknown) (no (unknown) (unknown) :Reason For Study: (units (unknown) date) Chest pain : unknown) (unknown) (no (unknown) (unknown) :Referring: (units (un known) date) PINA CABALLERO : unknown) (unknown) (no (unknown) (unknown) AV VR_phl: 0.98 (units (unknown) date) MV P1/2t-pr_phl: unknown) 80.0 msec (unknown) (no (unknown) (unknown) CHARLES(VTI)/BSA_phl: (units (unknown) date) 2.0 unknown) (unknown) (no (unknown) (unknown) Ao V2 VTI: 18.7 cm (units (unknown) date) CHARLES(V,D): 4.4 unknown) cm2 (unknown) (no (unknown) (unknown) Ao V2 max: 93.3 (units (unknown) date) cm/sec LVOT Max unknown) Jorje: 91.4 cm/sec (unknown) (no (unknown) (unknown) Ao V2 mean: 70.0 (units (unknown) date) cm/sec LV V1 max unknown) P.3 mmHg (unknown) (no (unknown) (unknown) Ao max P.0 (units (unknown) date) mmHg LV V1 VTI: unknown) 18.4 cm (unknown) (no (unknown) (unknown) Ao mean P.0 (units (unknown) date) mmHg CHARLES(I,D): unknown) 4.5 cm2 (unknown) (no (unknown) (unknown) Aortic Valve: (units ( unknown) date) There is mild unknown) aortic valve sclerosis. There is no aortic valve (unknown) (no (unknown) (unknown) Atria: Both (units ( unknown) date) atria are normal in unknown) size. The interatrial septum grossly appears (unknown) (no (unknown) (unknown) Comparison is made (units (unknown) date) with the unknown) echocardiogram of 03/29/2019. (unknown) (no (unknown) (unknown) Diastolic function (units (unknown) date) could not be unknown) accurately assessed due to contradictory data. (unknown) (no (unknown) (unknown) Doppler (units (unkno wn) date) Measurements + unknown) Calculations (unknown) (no (unknown) (unknown) E/E' lat: 9.4 (units ( unknown) date) unknown) (unknown) (no (unknown) (unknown) E/E' med: 14.0 (units (unknown) date) unknown) (unknown) (no (unknown) (unknown) E/e' average: 11.7 (units (unknown) date) unknown) (unknown) (no (unknown) (unknown) FS: 37.3 % asc (units (unknown) date) Aorta Diam: 3.4 cm unknown) (unknown) (no (unknown) (unknown) Great Vessels: (units (unknown) date) The aortic root is unknown) normal size. The dimensions of the (unknown) (no (unknown) (unknown) IVSd: 0.90 cm (units ( unknown) date) unknown) (unknown) (no (unknown) (unknown) Interpretation (units (unknown) date) Summary unknown) (unknown) (no (unknown) (unknown) LA A2 area: 13.6 (units (unknown) date) cm2 unknown) (unknown) (no (unknown) (unknown) LA A4 area: 11.3 (units (unknown) date) cm2 unknown) (unknown) (no (unknown) (unknown) LA dimension: 3.3 (units (unknown) date) cm TAPSE_phl: unknown) 2.1 cm (unknown) (no (unknown) (unknown) LA length (vol): (units (unknown) date) 4.7 cm unknown) (unknown) (no (unknown) (unknown) LA vol index: 12.5 (units (unknown) date) ml/m2 unknown) (unknown) (no (unknown) (unknown) LA vol: 28.0 ml (units (unknown) date) unknown) (unknown) (no (unknown) (unknown) LVIDd: 5.1 cm (units ( unknown) date) LVOT diam: 2.4 cm unknown) (unknown) (no (unknown) (unknown) LVIDs: 3.2 cm (units ( unknown) date) Ao root diam: 3.7 unknown) cm (unknown) (no (unknown) (unknown) LVPWd: 0.90 cm (units (unknown) date) unknown) (unknown) (no (unknown) (unknown) Lat Peak E' Jorje: (units (unknown) date) 6.6 cm/sec unknown) (unknown) (no (unknown) (unknown) Left Ventricle: (units (unknown) date) The left ventricle unknown) is normal in size and wall thickness. (unknown) (no (unknown) (unknown) Left ventricular (units (unknown) date) systolic function unknown) is normal. The ejection fraction is (unknown) (no (unknown) (unknown) MMode/2D (units (unkno wn) date) Measurements + unknown) Calculations (unknown) (no (unknown) (unknown) MV A max jorje: 77.6 (units (unknown) date) cm/sec unknown) (unknown) (no (unknown) (unknown) MV E max jorje: 62.1 (units (unknown) date) cm/sec SV(LVOT): unknown) 83.2 ml (unknown) (no (unknown) (unknown) MV E/A: 0.80 (units (u nknown) date) unknown) (unknown) (no (unknown) (unknown) MV dec time: 0.27 (units (unknown) date) sec unknown) (unknown) (no (unknown) (unknown) Med Peak E' Jorje: (units (unknown) date) 4.5 cm/sec unknown) (unknown) (no (unknown) (unknown) Mitral Valve: (units ( unknown) date) The mitral valve is unknown) grossly normal. There is no mitral (unknown) (no (unknown) (unknown) Pericardium/ (units (u nknown) date) Pleura There is unknown) no pericardial effusion. There is no pleural (unknown) (no (unknown) (unknown) Procedure: A (units (unknown) date) two-dimensional unknown) transthoracic echocardiogram with color flow (unknown) (no (unknown) (unknown) Pulmonic Valve: (units (unknown) date) The pulmonic valve unknown) is normal in structure and function. (unknown) (no (unknown) (unknown) Reading (units (unkno wn) date) Physician:05:35 PM unknown) (unknown) (no (unknown) (unknown) Right Ventricle: (units (unknown) date) The right ventricle unknown) is normal in size and function. (unknown) (no (unknown) (unknown) There is a trace (units (unknown) date) or physiologic unknown) amount of tricuspid regurgitation. Pulmonary (unknown) (no (unknown) (unknown) There is no (units (un known) date) pulmonic valvular unknown) regurgitation. (unknown) (no (unknown) (unknown) Tricuspid Valve: (units (unknown) date) The tricuspid valve unknown) is normal in structure and function. (unknown) (no (unknown) (unknown) (units (unknown) date) unknown) ___ (unknown) (no (unknown) (unknown) and Doppler was (units (unknown) date) performed. The unknown) study quality was technically adequate. (unknown) (no (unknown) (unknown) artery pressures (units (unknown) date) cannot be estimated unknown) because of the lack of a measurable TR (unknown) (no (unknown) (unknown) ascending aorta (units (unknown) date) are normal. The unknown) inferior vena cava was not well visualized. (unknown) (no (unknown) (unknown) effusion. (units (unkn own) date) unknown) (unknown) (no (unknown) (unknown) estimated to be (units (unknown) date) 55-60%. There are unknown) no focal wall motion abnormalities. (unknown) (no (unknown) (unknown) intact with no (units (unknown) date) obvious evidence unknown) for an atrial septal defect. (unknown) (no (unknown) (unknown) jet velocity. (units ( unknown) date) unknown) (unknown) (no (unknown) (unknown) regurgitation (units ( unknown) date) noted. unknown) (unknown) (no (unknown) (unknown) stenosis. No (units (u nknown) date) aortic unknown) regurgitation is present. (unknown) (no (unknown) (unknown) [id number] (units (unkno wn) date) unknown) (unknown) (no (unknown) (unknown) Accession Number: (units (unknown) date) [id number] unknown) (unknown) (no (unknown) (unknown) Age/Sex: 76 / M (units (unknown) date) Date of Service: unknown) (unknown) (no (unknown) (unknown) : 1945 (units (unknown) date) Acct:[id number] unknown) (unknown) (no (unknown) (unknown) GenericComposite[ (units (unknown) date) CHARLES indexed to unknown) BSA (cm^2/m^2): 2.0 ] (unknown) (no (unknown) (unknown) GenericComposite[ (units (unknown) date) LV navarrete. unknown) diameter/BSA (cm/m^2): 2.3 ] (unknown) (no (unknown) (unknown) GenericComposite[ (units (unknown) date) LV sys. unknown) diameter/BSA (cm/m^2): 1.4 ] (unknown) (no (unknown) (unknown) Loc: ECHO (units (unkn own) date) unknown) (unknown) (no (unknown) (unknown) Ordering Provider: (units (unknown) date) Pina Caballero MD unknown) (unknown) (no (unknown) (unknown) Patient: (units (unkno wn) date) Bernardino Kang unknown) MR#: [id number] (unknown) (no (unknown) (unknown) Procedure: EC echo (units (unknown) date) doppler complete unknown) Social History No information. Vital Signs No information.
[2022-01-25] MEDS ORDERED: SODIUM CHLORIDE 0.9% 1,000 ML IV STA (14:14)
[2022-01-25] MEDS ORDERED: HYDROmorphone 1 MG/ML CARPUJECT IVP STA (14:14)
[2022-01-25] MEDS ORDERED: METOCLOPRAMIDE 10 MG/2 ML VIAL IVP STA (14:14)
--- NOTE | 2022-01-25 14:18 | ED Physician Documentation ---
PD HPI ABD PAIN - Stated complaint Stated Complaint: NAUSEA/GAS/DIZZY/WEAKNESS - History obtained from History obtained from: Patient, Family - Additional information Additional information: 76-year-old gentleman with history of gastric bypass, stroke, BPH, hypercholesterolemia presents with an illness that started about 2 days ago marked by lower abdominal cramping, loose stools and nausea and vomiting and feeling of gassiness. His states that his eyes "look funny." But she cannot further elaborate. He is noted to be hypotensive and is attended to immediately after being placed in the room. Review of Systems Ten Systems: 10 systems reviewed and negative Constitutional: denies: Fever, Chills Cardiac: denies: Chest pain / pressure, Palpitations Respiratory: denies: Dyspnea, Cough GI: reports: Abdominal Pain, Nausea, Vomiting PD PAST MEDICAL HISTORY - Past Medical History Cardiovascular: High cholesterol Neuro: CVA, Migraines Endocrine/Autoimmune: Type 2 diabetes GI: GERD, Hiatal hernia HEENT: Chronic vision loss, Chronic hearing loss, Dental implants Musculoskeletal: Chronic back pain - Past Surgical History Past Surgical History: Yes General: Appendectomy, Gastric surgery, Colonoscopy, EGD Ortho: Shoulder arthroplasty HEENT: Cataracts, Other - Present Medications Home Medications: Ambulatory Orders Medication Instructions Recorded Confirmed Acarbose 1 tab ORAL BID 05/19/18 10/25/20 Atorvastatin Calcium 1 tab ORAL DAILY 05/19/18 10/25/20 Clopidogrel [Plavix] 1 tab ORAL DAILY 05/19/18 10/25/20 Escitalopram [Lexapro] 1 tab ORAL DAILY 05/19/18 10/25/20 Metformin HCl [Metformin ER 500 mg ORAL BID 05/19/18 10/25/20 Osmotic] Montelukast [Singulair] 10 mg PO DAILY 05/19/18 10/25/20 Pantoprazole [Protonix] 40 mg PO DAILY 05/19/18 10/25/20 Ascorbic Acid [Vitamin C] 1,000 mg PO DAILY 07/16/20 10/25/20 Multivitamin [Daily Multiple 1 each PO DAILY 07/16/20 10/25/20 Vitamin] Turmeric Root Extract [Turmeric] 1,000 mg PO DAILY 07/16/20 10/25/20 Folic Acid 1 mg PO DAILY 10/25/20 10/25/20 Gabapentin [Neurontin] 300 mg PO TID 10/25/20 10/25/20 Rabeprazole Sodium 20 mg PO DAILY 10/25/20 10/25/20 SITagliptin [Januvia] 100 mg PO DAILY 10/25/20 10/25/20 allopurinoL [Zyloprim] 100 mg PO DAILY 10/25/20 10/25/20 Amox/Clav 875/125 [Augmentin] 1 each PO Q12H #20 tablet 04/26/21 Azithromycin [Zithromax] 250 mg PO DAILY #6 tablet 04/26/21 Codeine Phosphate/Guaifenesin 5 - 10 ml PO Q6HR PRN #473 ml 04/26/21 [Guaifen-Codeine 100-10 mg/5 ml] - Allergies Allergies/Adverse Reactions: Allergies Allergy/AdvReac Type Severity Reaction Status Date / Time hydrocodone Allergy Unknown Verified 04/26/21 09:59 - Social History Does the pt smoke?: No Smoking Status: Never smoker Does the pt drink ETOH?: No Does the pt have substance abuse?: No - Immunizations Immunizations are current?: Yes - POLST Patient has POLST: No PD ED PE NORMAL - Vitals Vital signs reviewed: Yes - General General: Alert and oriented X 3, Other (He appears uncomfortable and is hypotensive) - HEENT HEENT: PERRL, EOMI - Neck Neck: Supple, no meningeal sign, No bony TTP - Cardiac Cardiac: RRR, No murmur - Respiratory Respiratory: No respiratory distress, Clear bilaterally - Abdomen Abdomen: Other (Diminished high-pitched bowel sounds with mild diffuse tenderness. No surgical signs.) - Back Back: No CVA TTP, No spinal TTP - Derm Derm: Normal color, Warm and dry - Extremities Extremities: No edema, No calf tenderness / cord - Neuro Neuro: Alert and oriented X 3, Normal speech Results - Vitals Vitals: Vital Signs - 24 hr 01/25/22 01/25/22 01/25/22 13:57 14:41 15:11 Temperature 36.0 C L 36.5 C Heart Rate 99 85 88 Respiratory 14 14 16 Rate Blood Pressure 79/53 L 101/56 L O2 Saturation 99 96 98 01/25/22 01/25/22 01/25/22 15:30 16:00 16:30 Temperature Heart Rate 87 89 89 Respiratory 17 20 16 Rate Blood Pressure 99/58 L 122/68 124/64 O2 Saturation 100 98 99 01/25/22 17:00 Temperature Heart Rate 93 Respiratory 21 Rate Blood Pressure 81/53 L O2 Saturation 93 Oxygen O2 Source Room air - EKG (time done) 1444 Rate: Rate (enter#) (96) Rhythm: NSR (With PVCs) Story: Normal Intervals: Prolonged SD Ischemia: Q waves (Q waves 3 /F and V1 through V3). No: ST elevation c/w ischemia, ST depression - Labs Labs: Laboratory Tests 01/25/22 01/25/22 01/25/22 14:24 14:24 14:24 WBC 13.7 H RBC 4.60 L Hgb 13.4 L Hct 40.7 L MCV 88.5 MCH 29.1 MCHC 32.9 RDW 14.3 Plt Count 230 MPV 9.7 Neut # (Auto) 9.7 H Lymph # (Auto) 3.0 [place] # (Auto) 0.9 Eos # (Auto) 0.1 Baso # (Auto) 0.0 Absolute Nucleated RBC 0.00 Nucleated RBC % 0.0 PT INR Sodium 139 Potassium 4.2 Chloride 101 Carbon Dioxide 26 Anion Gap 12.0 BUN 21 H Creatinine 1.3 H Estimated GFR (MDRD) 54 L Glucose 187 H Lactic Acid Calcium 9.3 Phosphorus 3.3 Magnesium 1.8 Total Bilirubin 0.7 AST 32 ALT 39 Alkaline Phosphatase 68 Total Protein 6.9 Albumin 4.5 Globulin 2.4 Albumin/Globulin Ratio 1.9 Lipase 31 Procalcitonin 0.18 Urine Color Urine Clarity Urine pH Ur Specific [place] Urine Protein Urine Glucose (UA) Urine Ketones Urine Occult Blood Urine Nitrite Urine Bilirubin Urine Urobilinogen Ur Leukocyte Esterase Ur Microscopic Review Urine Culture Comments Nasal Adenovirus (PCR) Nasal B. parapertussis DNA (PCR) Nasal Coronavir 229E PCR Nasal Coronavir HKU1 PCR Nasal Coronavir NL63 PCR Nasal Coronavir OC43 PCR Nasal Enterovir/Rhinovir PCR Nasal Influenza B PCR Nasal Influenza A PCR Nasal Parainfluen 1 PCR Nasal Parainfluen 2 PCR Nasal Parainfluen 3 PCR Nasal Parainfluen 4 PCR Nasal RSV (PCR) Nasal B.pertussis DNA PCR Nasal C.pneumoniae (PCR) Scar Human Metapneumo PCR Nasal M.pneumoniae (PCR) Nasal SARS-CoV-2 (PCR) 01/25/22 01/25/2222 14:38 16:15 16:38 WBC RBC Hgb Hct MCV MCH MCHC RDW Plt Count MPV Neut # (Auto) Lymph # (Auto) [place] # (Auto) Eos # (Auto) Baso # (Auto) Absolute Nucleated RBC Nucleated RBC % PT 10.7 INR 1.0 Sodium Potassium Chloride Carbon Dioxide Anion Gap BUN Creatinine Estimated GFR (MDRD) Glucose Lactic Acid 4.2 H* 3.1 H* Calcium Phosphorus Magnesium Total Bilirubin AST ALT Alkaline Phosphatase Total Protein Albumin Globulin Albumin/Globulin Ratio Lipase Procalcitonin Urine Color Urine Clarity Urine pH Ur Specific [place] Urine Protein Urine Glucose (UA) Urine Ketones Urine Occult Blood Urine Nitrite Urine Bilirubin Urine Urobilinogen Ur Leukocyte Esterase Ur Microscopic Review Urine Culture Comments Nasal Adenovirus (PCR) Nasal B. parapertussis DNA (PCR) Nasal Coronavir 229E PCR Nasal Coronavir HKU1 PCR Nasal Coronavir NL63 PCR Nasal Coronavir OC43 PCR Nasal Enterovir/Rhinovir PCR Nasal Influenza B PCR Nasal Influenza A PCR Nasal Parainfluen 1 PCR Nasal Parainfluen 2 PCR Nasal Parainfluen 3 PCR Nasal Parainfluen 4 PCR Nasal RSV (PCR) Nasal B.pertussis DNA PCR Nasal C.pneumoniae (PCR) Scar Human Metapneumo PCR Nasal M.pneumoniae (PCR) Nasal SARS-CoV-2 (PCR) 01/25/22 01/25/22 16:48 16:50 WBC RBC Hgb Hct MCV MCH MCHC RDW Plt Count MPV Neut # (Auto) Lymph # (Auto) [place] # (Auto) Eos # (Auto) Baso # (Auto) Absolute Nucleated RBC Nucleated RBC % PT INR Sodium Potassium Chloride Carbon Dioxide Anion Gap BUN Creatinine Estimated GFR (MDRD) Glucose Lactic Acid Calcium Phosphorus Magnesium Total Bilirubin AST ALT Alkaline Phosphatase Total Protein Albumin Globulin Albumin/Globulin Ratio Lipase Procalcitonin Urine Color YELLOW Urine Clarity CLEAR Urine pH 6.5 Ur Specific [place] <=1.005 Urine Protein NEGATIVE Urine Glucose (UA) NEGATIVE Urine Ketones NEGATIVE Urine Occult Blood NEGATIVE Urine Nitrite NEGATIVE Urine Bilirubin NEGATIVE Urine Urobilinogen 0.2 (NORMAL) Ur Leukocyte Esterase NEGATIVE Ur Microscopic Review NOT INDICATED Urine Culture Comments NOT INDICATED Nasal Adenovirus (PCR) NOT DETECTED Nasal B. parapertussis DNA (PCR) NOT DETECTED Nasal Coronavir 229E PCR NOT DETECTED Nasal Coronavir HKU1 PCR NOT DETECTED Nasal Coronavir NL63 PCR NOT DETECTED Nasal Coronavir OC43 PCR NOT DETECTED Nasal Enterovir/Rhinovir PCR NOT DETECTED Nasal Influenza B PCR NOT DETECTED Nasal Influenza A PCR NOT DETECTED Nasal Parainfluen 1 PCR NOT DETECTED Nasal Parainfluen 2 PCR NOT DETECTED Nasal Parainfluen 3 PCR NOT DETECTED Nasal Parainfluen 4 PCR NOT DETECTED Nasal RSV (PCR) NOT DETECTED Nasal B.pertussis DNA PCR NOT DETECTED Nasal C.pneumoniae (PCR) NOT DETECTED Scar Human Metapneumo PCR NOT DETECTED Nasal M.pneumoniae (PCR) NOT DETECTED Nasal SARS-CoV-2 (PCR) NOT DETECTED PD MEDICAL DECISION MAKING - ED course ED course: 76-year-old gentleman with history of stroke and status post remote gastric bypass presents with lower abdominal cramping associated with hypotension loose stools and nausea. He appears well but is noted to be hypotensive on arrival and is attended to immediately upon placement in the room. Some abdominal tenderness and a CT done showing bladder wall thickening, splenomegaly, cholelithiasis without cholecystitis, stable 5 mm right middle lobe nodule and degenerative spinal changes. Lactic acidosis is noted at greater than 4 and a modest white count at 13. He was cultured up and given 3 L of crystalloid. Lactate repeated. Given the above I spoke with Dr. Ricketts for admission at 4:25 PM who requests a procalcitonin, if high will admit, if normal will observe. Does recommend and we agreed upon broad-spectrum unknown source sepsis antibiotics in the interim. His procalcitonin was normal but at 5 PM his blood pressure started downtrending again so Dr. Ricketts plans to make him a full inpatient in the ICU. - Critical Care Time(min): 40 Time Includes: Direct patient care, Review records, Reassess patient, Document care, Coordinate care, Medical consult, Family consult for [facility] [place], [place] Data interpretation: Labs, Pulse ox Procedures included in critical care time: Peripheral IV Procedures excluded from critical care time: EKG Departure - Departure Disposition: 66 [facility] DC/Xfer Clinical Impression: Lactic acid acidosis, H/O gastric bypass Hypotension Qualifiers: Hypotension type: hypotension due to hypovolemia Qualified Code(s): I95.89 - Other hypotension Abdominal pain Qualifiers: Abdominal location: lower abdomen, unspecified Qualified Code(s): R10.30 - Lower abdominal pain, unspecified Condition: Serious Discharge Date/Time: 01/25/22 19:48
[2022-01-25 14:40] LABS: BASOPHILS % (AUTO) 0.1 %; EOSINOPHILS # (AUTO) 0.1 10^3/uL (0.0-0.7); EOSINOPHILS % (AUTO) 0.7 %; HCT - HEMATOCRIT 40.7 % (42.0-52.0); HGB - HEMOGLOBIN 13.4 g/dL (14.0-18.0); LYMPHOCYTES % (AUTO) 21.8 %; MEAN CORPUSCULAR HEMOGLOBIN 29.1 pg (27.0-31.0); MEAN CORPUSCULAR HGB CONC 32.9 g/dL (32.0-36.0); MEAN CORPUSCULAR VOLUME 88.5 fL (80.0-94.0); MEAN PLATELET VOLUME 9.7 fL (7.4-11.4); MONOCYTES # (AUTO) 0.9 10^3/uL (0.0-1.0); MONOCYTES % (AUTO) 6.3 %; NEUTROPHILS # (AUTO) 9.7 10^3/uL (1.5-6.6); NEUTROPHILS % (AUTO) 70.7 %; PLT - PLATELET COUNT 230 10^3/uL (130-450); RED CELL DISTRIBUTION WIDTH 14.3 % (12.0-15.0); WHITE BLOOD COUNT 13.7 x10^3/uL (4.8-10.8)
[2022-01-25 14:49] LABS: ALBUMIN 4.5 g/dL (3.2-5.5); ALBUMIN/GLOBULIN RATIO 1.9 (1.0-2.2); BILIRUBIN,TOTAL 0.7 mg/dL (0.2-1.0); CALCIUM 9.3 mg/dL (8.5-10.3); CREATININE 1.3 mg/dL (0.6-1.2); MAGNESIUM 1.8 mg/dL (1.7-2.8); PHOSPHORUS 3.3 mg/dL (2.5-4.6); POTASSIUM 4.2 mmol/L (3.5-5.0); TOTAL PROTEIN 6.9 g/dL (6.7-8.2)
[2022-01-25] MEDS ORDERED: LACTATED RINGERS 2,500 ML IV STA (15:05)
--- NOTE | 2022-01-25 15:50 | CT Report ---
PROCEDURE: Abdomen/Pelvis W INDICATIONS: abd pain, vomiting CONTRAST: IV CONTRAST: Optiray 320 ml: 100 PO CONTRAST: *NO PO CONTRAST TECHNIQUE: After the administration of IV contrast, 5 mm thick sections acquired from the diaphragms to the symp hysis. 5 mm thick coronal and sagittal reformats were acquired. For radiation dose reduction, the f ollowing was used: automated exposure control, adjustment of mA and/or kV according to patient size. COMPARISON: 04/03/2019. FINDINGS: Image quality: Excellent. ABDOMEN: Lung bases: 5 mm right middle lobe solid nodule is again seen unchanged from 2019 study and likely re present benign process series 4 image 5. Dependent atelectasis and scarring in posterior lateral lyly phery of bilateral lung doran are seen. Chronic emphysematous changes are noted. Heart size is nilesh l. Solid organs: Liver is normal in size and enhancement. Mild splenomegaly is seen, no discrete splen ic lesion. Gallbladder is distended. Small calcified stones are seen in dependent portion of gallblad smith lumen. No gallbladder wall thickening or pericholecystic fluid. Biliary system is non dilated. Pancreas enhances normally. No adrenal nodules. Bilateral kidneys are normal in size and show normal enhancement. Bilateral renal cysts are seen. No obstructing stones or hydronephrosis. Nonobstructing stone in mid pole of right kidney is again seen unchanged from prior study. No hydroureter. Peritoneum and bowel: Postsurgical changes are again noted in epigastric region from gastric bypass s urgery. There is no bowel wall thickening. No mesenteric fat stranding. No abscess collection. No dixon e fluid of free air. Nodes and vessels: No retroperitoneal or mesenteric adenopathy by size criteria. Aorta and inferior vena cava are normal in size. Mild to moderate atherosclerotic calcifications are noted in abdomina l aorta and bilateral iliac arteries. Miscellaneous: No ventral hernias. PELVIS: Genitourinary: Partially distended urinary bladder shows mild diffuse bladder wall thickening, no dis crete bladder wall mass is noted. Miscellaneous: No inguinal hernias or adenopathy. Bones: No suspicious bony lesions. No vertebral body compression fractures. 8 mm anterolisthesis o f L4 on L5 is again seen. Degenerative disc disease throughout lower thoracic and lumbar spine is see n. IMPRESSION: 1. Partially distended urinary bladder show questionable diffuse bladder wall thickening. Low-grade c ystitis cannot be excluded. No gross discrete bladder wall mass. Bilateral renal cysts and nonobstruc ting stone in right kidney unchanged from prior study. No hydronephrosis or hydroureter. 2. Splenomegaly, no discrete splenic lesion. Cholelithiasis without CT evidence of acute cholecystiti s. 3. No bowel obstruction or abnormal bowel wall thickening. No free fluid of free air. No abscess sukhdeep ection. 4. Stable 5 mm right middle lobe nodule unchanged from 2019 study and likely represent benign process . 5. Degenerative changes throughout thoracic and lumbar spine with features suggestive of diffuse idio pathic skeletal hyperostosis unchanged from prior study. Stable grade 1 anterolisthesis of L4 on L5. Reviewed by: Piotr Akhtar MD on 01/25/2022 2:49 PM AKDT Approved by: Piotr Akhtar MD on 01/25/2022 2:49 PM AKDT Station ID: [id number]
[2022-01-25] MEDS ORDERED: metroNIDAZOLE 500 MG/100 ML 500 MG/100 ML BAG IV STA (16:22)
[2022-01-25] MEDS ORDERED: VANCOMYCIN INJ 2.25 GM in SODIUM CHLORIDE 0.9% 500 ML IV STA (16:22)
[2022-01-25] MEDS ORDERED: CEFEPIME 2 GM in SODIUM CHLORIDE 0.9% MINIBAG 100 ML IV STA (16:22)
[2022-01-25 16:35] LABS: LACTIC ACID, VENOUS 3.1 mmol/L (0.5-2.2)
[2022-01-25 17:00] LABS: BILIRUBIN,URINE NEGATIVE (NEGATIVE); GLUCOSE, URINE (UA) NEGATIVE (NEGATIVE); KETONES,URINE (UA) NEGATIVE (NEGATIVE); LEUKOCYTE ESTERASE, URINE NEGATIVE (NEGATIVE); NITRITE,URINE NEGATIVE (NEGATIVE); OCCULT BLOOD,URINE NEGATIVE (NEGATIVE); PH,URINE 6.5 PH (5.0-7.5); PROTEIN,URINE NEGATIVE (NEGATIVE); UROBILINOGEN,URINE 0.2 (NORMAL) E.U./dL (NORMAL)
[2022-01-25 17:01] LABS: CLARITY,URINE CLEAR (CLEAR)
[2022-01-25] MEDS ORDERED: ONDANSETRON 4 MG/2 ML VIAL IVP PRN (17:17)
[2022-01-25] MEDS ORDERED: ACETAMINOPHEN 325 MG TABLET PO PRN (17:17)
[2022-01-25] MEDS ORDERED: ONDANSETRON ODT 4 MG TABLET TL PRN (17:17)
[2022-01-25 18:04] LABS: B. PARAPERTUSSIS- RESP PCR PAN NOT DETECTED; B. PERTUSSIS- RESP PCR PANEL NOT DETECTED; C. PNEUMONIAE- RESP PCR PANEL NOT DETECTED; CORONAVIRUS 229E-RESP PCR NOT DETECTED; CORONAVIRUS HKU1-RESP PCR NOT DETECTED; CORONAVIRUS NL63-RESP PCR NOT DETECTED; CORONAVIRUS OC43-RESP PCR NOT DETECTED; HUMAN METAPNEUMOVIRUS NOT DETECTED; INFLUENZA A- RESP PCR PANEL NOT DETECTED; INFLUENZA B - RESP PCR PANEL NOT DETECTED; M. PNEUMONIAE- RESP PCR PANEL NOT DETECTED; PARAINFLUENZA VIRUS 1 NOT DETECTED; PARAINFLUENZA VIRUS 2 NOT DETECTED; PARAINFLUENZA VIRUS 3 NOT DETECTED; PARAINFLUENZA VIRUS 4 NOT DETECTED; RHINOVIRUS/ENTEROVIRUS NOT DETECTED; RSV- RESP PCR PANEL NOT DETECTED; SARS-CoV-2 -RESP PCR PANEL NOT DETECTED
[2022-01-25] MEDS ORDERED: LACTATED RINGERS IV STA (18:06)
[2022-01-25 18:19] LABS: PT - PROTHROMBIN TIME 10.7 secs (9.9-12.6)
--- NOTE | 2022-01-25 19:47 | XRAY Report ---
PROCEDURE: Chest 1 View X-Ray INDICATIONS: Hypotension. Pain. Leukocytosis. TECHNIQUE: One view of the chest was acquired. COMPARISON: 04/26/2021, 03/26/2021 FINDINGS: Surgical changes and devices: There is an anchor seen involving the right humeral head. Lungs and pleura: An incomplete inspiratory result is noted, with low lung volumes and crowding of t he vascular markings. No focal infiltrates are seen. No large pneumothorax or large pleural effusion can be seen. Mediastinum: Mediastinal contours appear normal. Heart size is normal. Bones and chest wall: No suspicious bony lesions. Age-appropriate degenerative changes are seen. O verlying soft tissues appear unremarkable. IMPRESSION: Low lung volumes, without focal infiltrates seen on this single view study. If there is strong clinical concern for a developing or new pulmonary process, please consider a shor t-term follow-up 2 view chest series, performed in deep inspiration. Reviewed by: David Moe MD on 01/25/2022 7:45 PM PDT Approved by: David Moe MD on 01/25/2022 7:45 PM PDT Station ID: [id number]
[2022-01-25] MEDS: LACTATED RINGERS 1,000 ML IV SCH (20:09)
--- NOTE | 2022-01-25 20:14 | HISTORY & PHYSICAL EXAMINATION ---
Chief Complaint - Chief Complaint Chief Complaint: Abdominal pain and weakness with nausea History of Present Illness - Admitted From Admitted From:: Home - History Obtained From Records Reviewed: [facility] History obtained from: Signout from daytime hospitalist Exam Limitations: None except mild memory loss - History of Present Illness HPI Comment/Other: This gentleman has a history of gastric bypass surgery and a previous history of ER visits for abdominal pain/nausea but not requiring admit. He states that he gets IVF in the ER and he "turns around" and goes home. This has happened twice he thinks. He states that they never know what causes it. But he presents with severe abdominal and limb cramping. Fatigue. Nausea. He also states that he has a chronically low blood pressure. Because of chronic pain syndrome he spends a lot of his time sedentary. Uses a cane to get around his house. So he spends his time in his recliner. Sometimes he gets up too fast from his recliner and he will get dizzy, lightheaded, and vision goes blurry. A couple of times has had kathie syncope. But this has been going on for decades. At least since his gastric bypass surgery in 2000. He drinks plenty of fluids. He drinks about 4-5 bottles of water a day. He presents at this time with 2 days of abdominal pain, anorexia. His abdominal pain is from bloating with cramping. No diarrhea until today. He thinks that he was feeling fine up until last which was 5 days ago. At that point he was just overcome by fatigue. Severe feet cramping. The only thing that he can remember doing different that day was learning how to catch salmon. So he was on his feet standing for 3 hours. He just remembers coming home exhausted and from that point on has not been able to "catch up". He was dizzy, nauseated, felt lightheaded. He was dizzy, nauseated, felt lightheaded.He drank water that had some type of powdery supplement to avoid dehydration. He did that on , and a few times this weekend. He denied fever, chills. He has a chronic cough that is nonproductive. He can sometimes coughs so hard and so much that he passes out with it. That has not changed. He has no urgency, frequency, dysuria. I asked him if he has any prostate problems and he says that he has friends who have prostate problems and nocturia. He states he is not 1 of those people. In the emergency room, after being brought in by private vehicle, his temperature was 36, heart rate 99, respirations 14, and 99% on room air. In triage there is no blood pressure noted. About an hour later they took a blood pressure and it was 79/53. He was alert oriented but weak elderly gentleman. No focal findings. He had diminished bowel sounds but they were high-pitched. He had mild diffuse tenderness but no rebound. His white cell count was elevated at 13.7. His lactic acid was 4.2. He is on metformin. The rest of his work-up was negative for CT of abdomen and pelvis, urinalysis, EKG, troponins. Procalcitonin was normal. After hydration and empiric antibiotic therapy the patient systolic was in the 120s. He was admitted to ICU because of sepsis criteria with unknown source. 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 Hospitalized for close to a year and a [facility] as a kid) HEENT: reports: Chronic vision loss, Chronic hearing loss, Dental implants Psych: reports: Depression, Anxiety, Panic attacks Musculoskeletal: reports: Osteoarthritis, Gout, Chronic back pain, Other (Spine fracture in [place], and spine fracture once he was [place] the [facility] [place]. Get spine injections every 6 months) MRSA Hx?: No - Past Surgical History General: reports: Appendectomy, Gastric surgery, Colonoscopy, EGD Ortho: reports: Shoulder arthroplasty HEENT: reports: Cataracts, Other - Family & Social History Family History Comment/Other: Mother had cancer, diabetes, depression, arthritis, skin cancer and anxiety. Dad was an alcoholic. Siblings: 2 brothers and 1 sister. Sister of cancer, unkown type. Brother of heart attack. 2 sons and a daughter. 1 son w orthostatic hypotension as well. 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 Because of his back injuries in [place] and when he was serving in the [employer] at [facility] in [place], he is 100% service-connected. He and his moved to [facility] approximately 2018 to be closer to his son who was active duty [place] at that time[place] He says that he never smoked. Has no problems with alcohol abuse. He has no history of recreational substance abuse. - Substance History Use: Uses substance without health or social issues: NONE Abuse: Recurrent use of substance despite neg consequences: NONE Dependence: Experiences withdrawal or developed tolerances: NONE - POLST Patient has POLST: No POLST Status: Full Code Meds/Allgy - Home Medications Home Medications: Ambulatory Orders Medication Instructions Recorded Confirmed Acarbose 1 tab ORAL BID 05/19/18 10/25/20 Atorvastatin Calcium 1 tab ORAL DAILY 05/19/18 10/25/20 Clopidogrel [Plavix] 1 tab ORAL DAILY 05/19/18 10/25/20 Escitalopram [Lexapro] 1 tab ORAL DAILY 05/19/18 10/25/20 Metformin HCl [Metformin ER 500 mg ORAL BID 05/19/18 10/25/20 Osmotic] Montelukast [Singulair] 10 mg PO DAILY 05/19/18 10/25/20 Pantoprazole [Protonix] 40 mg PO DAILY 05/19/18 10/25/20 Ascorbic Acid [Vitamin C] 1,000 mg PO DAILY 07/16/20 10/25/20 Multivitamin [Daily Multiple 1 each PO DAILY 07/16/20 10/25/20 Vitamin] Turmeric Root Extract [Turmeric] 1,000 mg PO DAILY 07/16/20 10/25/20 Folic Acid 1 mg PO DAILY 10/25/20 10/25/20 Gabapentin [Neurontin] 300 mg PO TID 10/25/20 10/25/20 Rabeprazole Sodium 20 mg PO DAILY 10/25/20 10/25/20 SITagliptin [Januvia] 100 mg PO DAILY 10/25/20 10/25/20 allopurinoL [Zyloprim] 100 mg PO DAILY 10/25/20 10/25/20 Amox/Clav 875/125 [Augmentin] 1 each PO Q12H #20 tablet 04/26/21 Azithromycin [Zithromax] 250 mg PO DAILY #6 tablet 04/26/21 Codeine Phosphate/Guaifenesin 5 - 10 ml PO Q6HR PRN #473 ml 04/26/21 [Guaifen-Codeine 100-10 mg/5 ml] - Allergies Allergies/Adverse Reactions: Allergies Allergy/AdvReac Type Severity Reaction Status Date / Time hydrocodone Allergy Unknown Verified 04/26/21 09:59 Review of Systems - Constitutional Constitutional: reports: Fatigue, Malaise, Weakness, Poor appetite, Diaphoresis, Weight loss (150 pounds with his gastric bypass surgery in 2000). denies: Fever, Chills, Night sweats, Weight gain - Eyes Eyes: reports: Blurred vision (When his blood pressure gets low), Spots in vision (When his blood pressure gets low), Dipolpia (when is had his strokes but not now). denies: Pain, Irritation, Amaurosis, Field loss, Vision loss - Ears, Nose & Throat Ears, Nose & Throat: reports: Hearing loss, Tinnitus, Vertigo. denies: Ear pain, Nasal pain, Nasal discharge, Nasal obstruction, Nasal congestion, Postnasal drainage, Dentures, Sore throat, Hoarseness - Cardiovascular Cariovascular: reports: Lightheadedness, Syncope (at times when he stands too long or gets up too fast), Decr. exercise tolerance (chronically). denies: Irregular heart rate, Palpitations, Chest pain, Edema, Exertional dyspnea - Respiratory Respiratory: reports: Cough (chronic and can be loud due to his old sarcoid), SO B with exertion. denies: Sputum production, Wheezing, Snoring, Hemoptysis, Orthopnea, SOB at rest, Apnea, Stridor - Gastrointestinal Gastrointestinal: reports: Abdominal pain, Abdominal distention, Black stools (once from peptobismol 2 years ago), Nausea, Reflux/heartburn, Bloating, Poor appetite. denies: Constipation, Change in bowel habits, Rectal bleeding, Bloody stools, Bile emesis, Kathie blood emesis, Coffee grounds emesis - Genitourinary Genitourinary: denies: Dysuria, Frequency, Urgency, Hematuria, Flank pain, Nocturia, Urethral discharge - Musculoskeletal Musculoskeletal: reports: Muscle pain (when he gets these episodes and has severe cramps), Back pain (chronic), Muscle aches (chronic), Stiffness (chronic), Gout (once in a while), Joint pain (daily). denies: Joint swelling - Integumentary Integumentary: denies: Rash, Pruritis, Lesions, Dryness, Lumps, Acne - Neurological Neurological: reports: General weakness, Dizziness, Memory problems. denies: Focal weakness, Headache, Pre-existing deficit, Abnormal gait - Psychiatric Psychiatric: reports: Depression, Anxiety. denies: Suicidal, Delusions, Hallucinations, Homicidal - Endocrine Endocrine: denies: Polyuria, Polydypsia, Polyphagia, Intolerance to cold - Hematologic/Lymphatic Hematologic/Lymphatic: denies: Anemia, Bruising, Petechiae, Blood clots Prior Level of Functionality: Sedentary lifestyle. Not physically active. Uses a cane to ambulate with. Has chronic pain. Able to dress himself, feed himself. Exam - Vital Signs Reviewed Vital Signs: Yes Vital Signs: Vital Signs x48h Temp Pulse Resp BP Pulse Ox 01/25/22 19:00 92 20 106/60 97 01/25/22 18:30 93 15 111/62 99 01/25/22 18:00 92 18 118/64 98 01/25/22 17:30 96 23 128/62 96 01/25/22 17:00 93 21 81/53 L 93 01/25/22 16:30 89 16 124/64 99 01/25/22 16:00 89 20 122/68 98 01/25/22 15:30 87 17 99/58 L 100 01/25/22 15:11 88 16 101/56 L 98 01/25/22 14:41 36.5 C 85 14 79/53 L 96 01/25/22 13:57 36.0 C L 99 14 99 - Physical Exam General Appearance: positive: No acute distress, Alert, Other (son is at bedside with him. White male, looks stated age, male pattern baldness, wearing glasses. Speech normal. Mildly to moderately deaf.) Eyes Bilateral: positive: PERRL, EOMI, Other (wearing glasses) ENT: positive: Pharynx nml, No signs of dehydration Neck: positive: No JVD. negative: Stiff neck Respiratory: positive: No respiratory distress. negative: Wheezes, Rales, Rhonchi Cardiovascular: positive: Regular rate & rhythm, Systolic murmur. negative: Gallop/S4, Friction rub Peripheral Pulses: positive: 1+ Abdomen: positive: Other (Mild distention, tympanitic bowel sounds). negative: Non-tender, No organomegaly, Nml bowel sounds, Guarding, Rebound, Hepatomegaly, Splenomegaly Skin: positive: Warm, Dry, Pallor Extremities: positive: Full ROM, No pedal edema Neurologic/Psychiatric: positive: Oriented x3, CN's nml (2-12) (Except for the deafness), Motor nml, Mood/affect nml, Other (Slightly repetitive conversational style) Sepsis Event Note (H) - Evaluation Current Stage of Sepsis: Sepsis Possible source of Sepsis: positive: Unknown - Sepsis Criteria Sepsis Criteria: WBC count greater than 12,000 or less than 4000, MAP less than 65 mmHg, SBP less than 90 mmHg, Metabolic: lactate > 2 mmol/L Conclusion/Plan - Problem List (1) SIRS (systemic inflammatory response syndrome) Conclusion/Plan: He technically meets criteria for sepsis but there is no known source. Has lactic acidosis. Differential diagnosis would include pneumonia, GI tract, urinary tract. No sources have been found. He is on metformin so there is a possibility that his lactic acidosis is from dehydration, hypotension and me tformin combination. Plan: Inpatient status Empiric antibiotics until we can identify source Continue supportive measures until lactic acid normalizes He sees his primary care provider next week, and I have asked him to discuss the possibility of metformin, and low blood pressure and diminished fluid status. (2) Abdominal pain Conclusion/Plan: In a patient who has lactic acidosis, is on metformin, and has a history of gastric bypass. His solid organs appear normal other than mild splenomegaly on CT. No hydronephrosis. Nonobstructing stones. He has postsurgical changes noted in the epigastric region from gastric bypass surgery but there is no bowel thickening, mesenteric fat stranding or abscess collection. Urinalysis is completely normal. Chest x-ray has a nodule that is unchanged for several years. No acute cardiopulmonary findings. I am wondering if some of his abdominal pain is from the lactic acidosis. Much like a DKA patient presents with abdominal pain and nausea. Plan: Continue empiric antibiotic therapy until we know what cultures show Abdominal pain is already starting to resolve but the time he is transferred to ICU Qualifiers: Abdominal location: lower abdomen, unspecified Qualified Code(s): R10.30 - Lower abdominal pain, unspecified (3) Hypotension Conclusion/Plan: Now resolving with empiric antibiotics and fluid resuscitation. But he gives a history of being chronically hypotensive in the outpatient setting. Having orthostatic syncope by description.We will continue to monitor. Plan: Discussed with his primary care provider. He may need an adrenal insufficiency work-up. I am also wondering if he may need his metformin discontinued for a few months to see if he has no further recurrence of lactic acidosis and abdominal pain. Qualifiers: Hypotension type: hypotension due to hypovolemia Qualified Code(s): I95.89 - Other hypotension; E86.1 - Hypovolemia (4) Type 2 diabetes mellitus, controlled Conclusion/Plan: Patient is on Januvia and metformin. While here he will be on sliding scale insulin, and we will check A1c Qualifiers: Diabetes mellitus terminal operator insulin use: without chcf use Diabetes mellitus complication status: without complication Qualified Code(s): E11.9 - Type 2 diabetes mellitus without complications (5) Full code status Conclusion/Plan: Discussion had at the bedside. He states that if his pulse were to stop, and he were to stop breathing, he wants all resuscitative measures to be given to him to bring him back. That being said, if he ends up being disabled from a resuscitative effort, no longer able to take care of himself, to let him go. Son is very uneasy with this conversation. And ask what I will be documenting. And I explained that we documented full CODE STATUS. But it would be nice for he and his family to sit down and discuss what a good quality of life means for him. To discuss which group home he would want to go to. He is fortunate and that he is service-connected. - Lab Results Lab results reviewed: Yes Anuj Bones: 01/25/22 14:24 01/25/22 14:24 - EKG Results EKG Interpreted Independently: No EKG Comparison: Unchanged from prior EKG Core Measures - Anticipated LOS I expect patient to be DC'd or transferred within 96 hours.: Yes - DVT/VTE - Prophylaxis VTE/DVT Prophylaxis med ordered at admit?: Yes
[2022-01-25] MEDS: INSULIN LISPRO 300 UNIT/3 ML PEN SUBQ SCH (21:15)
[2022-01-25] MEDS: SODIUM CHLORIDE FLUSH 0.9% 10 ML SYRINGE IVP PRN (21:16)
[2022-01-25 21:32] LABS: LACTIC ACID, VENOUS 2.5 mmol/L (0.5-2.2)
[2022-01-25] MEDS ORDERED: metroNIDAZOLE 500 MG/100 ML 500 MG/100 ML BAG IV SCH (22:00)
[2022-01-25] MEDS ORDERED: CEFEPIME 2 GM in SODIUM CHLORIDE 0.9% MINIBAG 100 ML IV SCH (22:00)
[2022-01-26] MEDS: CEFEPIME 2 GM in SODIUM CHLORIDE 0.9% MINIBAG 100 ML IV SCH ×2 (00:28→09:02)
[2022-01-26] MEDS: SODIUM CHLORIDE FLUSH 0.9% 10 ML SYRINGE IVP SCH ×4 (00:33→23:30)
[2022-01-26] MEDS ORDERED: ACETAMINOPHEN 500 MG TABLET PO ONE (01:00)
[2022-01-26] MEDS: metroNIDAZOLE 500 MG/100 ML 500 MG/100 ML BAG IV SCH ×2 (02:04→10:02)
[2022-01-26 04:53] LABS: BASOPHILS % (AUTO) 0.2 %; EOSINOPHILS # (AUTO) 0.2 10^3/uL (0.0-0.7); EOSINOPHILS % (AUTO) 2.9 %; HCT - HEMATOCRIT 29.8 % (42.0-52.0); HGB - HEMOGLOBIN 9.9 g/dL (14.0-18.0); LYMPHOCYTES # (AUTO) 0.9 10^3/uL (1.5-3.5); LYMPHOCYTES % (AUTO) 15.8 %; MEAN CORPUSCULAR HEMOGLOBIN 28.9 pg (27.0-31.0); MEAN CORPUSCULAR HGB CONC 33.2 g/dL (32.0-36.0); MEAN CORPUSCULAR VOLUME 87.1 fL (80.0-94.0); MEAN PLATELET VOLUME 10.2 fL (7.4-11.4); MONOCYTES # (AUTO) 0.4 10^3/uL (0.0-1.0); MONOCYTES % (AUTO) 7.8 %; NEUTROPHILS % (AUTO) 73.1 %; PLT - PLATELET COUNT 147 10^3/uL (130-450); RED BLOOD COUNT 3.42 10^6/uL (4.70-6.10); RED CELL DISTRIBUTION WIDTH 14.6 % (12.0-15.0); WHITE BLOOD COUNT 5.5 x10^3/uL (4.8-10.8)
[2022-01-26 05:10] LABS: CALCIUM 8.3 mg/dL (8.5-10.3); MAGNESIUM 1.8 mg/dL (1.7-2.8); PHOSPHORUS 3.1 mg/dL (2.5-4.6); POTASSIUM 4.2 mmol/L (3.5-5.0)
[2022-01-26] MEDS: LACTATED RINGERS 1,000 ML IV SCH (05:53)
[2022-01-26 06:25] LABS: CALCIUM, IONIZED 1.12 mmol/L (1.15-1.33); VBG PH 7.369 (7.31-7.41)
[2022-01-26] MEDS ORDERED: MAGNESIUM OXIDE 400 MG TABLET PO ONE (07:00)
[2022-01-26] MEDS: INSULIN LISPRO 300 UNIT/3 ML PEN SUBQ SCH ×4 (08:10→21:40)
[2022-01-26 08:47] LABS: ESTIMATED AVERAGE GLUCOSE 217 mg/dL (70-100); HEMOGLOBIN A1c% 9.2 % (4.27-6.07)
--- NOTE | 2022-01-26 08:49 | PROVIDER PROGRESS NOTE ---
Subjective - Prog Note Date Prog Note Date: 01/26/22 - Subjective Subjective: He reports feeling much better. No longer has any abdominal cramping or pain. He definitely does not want to take the metformin anymore. He states he does feel dizzy and lightheaded at times and he usually stands up slowly to prevent this from happening. He denies a history of syncope. Current Medications - Current Medications Current Medications: Active Medications Acetaminophen (Acetaminophen 500 Mg Tablet) 1,000 mg PO Q6HR PRN PRN Reason: Pain or Fever > 38C (100.4F) Last Admin: 01/26/22 13:00 Dose: 1,000 mg Enoxaparin Sodium (Enoxaparin 40 Mg/0.4 Ml Syringe) 40 mg SUBQ DAILY JULY Last Admin: 01/26/22 09:04 Dose: 40 mg Glipizide (Glipizide 5 Mg Tablet) 5 mg PO 0730 JULY Insulin Human Lispro (Insulin Lispro 300 Unit/3 Ml Pen) 1 - 9 unit SUBQ 0800,1200,1700,2100 JULY; Protocol Last Admin: 01/26/22 12:01 Dose: 1 unit Ondansetron HCl (Ondansetron Odt 4 Mg Tablet) 4 mg TL Q6HR PRN PRN Reason: Nausea / Vomiting Ondansetron HCl (Ondansetron 4 Mg/2 Ml Vial) 4 mg IVP Q6HR PRN PRN Reason: Nausea / Vomiting Sodium Chloride (Sodium Chloride Flush 0.9% 10 Ml Syringe) 10 ml IVP 0 100,0900,1700 JULY Last Admin: 01/26/22 09:04 Dose: 10 ml Sodium Chloride (Sodium Chloride Flush 0.9% 10 Ml Syringe) 10 ml IVP PRN PRN PRN Reason: NEEDED PER PROVIDER ORDERS Last Admin: 01/26/22 13:01 Dose: 10 ml Acarbose 100 tab ORAL TIDWM 05/19/18 Atorvastatin Calcium 1 tab ORAL DAILY 05/19/18 Clopidogrel [Plavix] 1 tab ORAL DAILY 05/19/18 Escitalopram [Lexapro] 1 tab ORAL DAILY 05/19/18 Metformin HCl [Metformin ER Osmotic] 500 mg ORAL BID 05/19/18 Montelukast [Singulair] 10 mg PO DAILY 05/19/18 Pantoprazole [Protonix] 40 mg PO DAILY 05/19/18 Ascorbic Acid [Vitamin C] 1,000 mg PO DAILY 07/16/20 Multivitamin [Daily Multiple Vitamin] 1 each PO DAILY 07/16/20 Turmeric Root Extract [Turmeric] 1,000 mg PO DAILY 07/16/20 Folic Acid 1 mg PO DAILY 10/25/20 Gabapentin [Neurontin] 300 mg PO TID 10/25/20 Rabeprazole Sodium 20 mg PO DAILY 10/25/20 SITagliptin [Januvia] 100 mg PO DAILY 10/25/20 allopurinoL [Zyloprim] 100 mg PO DAILY 10/25/20 Glimepiride [Amaryl] 2 mg PO 0800 01/26/22 Hydrocodone/Acetaminophen [Hydrocodone-Acetamin 10-325 mg] 1 each PO Q4HR PRN MD D 4 01/26/22 Ondansetron [Zuplenz] 4 mg PO BID PRN 01/26/22 Oxycodone HCl/Acetaminophen [Oxycodone-Acetaminophen 10-300] 1 each PO Q4H PRN MDD 4 01/26/22 Objective - Vital Signs/Intake & Output Reviewed Vital Signs: Yes Vital Signs: Vital Signs Temp Pulse Resp BP Pulse Ox 01/26/22 08:00 80 14 113/74 99 01/26/22 07:41 36.7 C 01/26/22 07:00 69 18 94/52 L 100 01/26/22 06:00 68 19 98/65 98 01/26/22 05:00 60 13 101/61 100 Intake & Output: Intake & Output 01/23/22 01/24/22 01/25/22 01/26/22 23:59 23:59 23:59 23:59 Intake Total 4560 2160 Output Total 400 1650 Balance 4160 510 - Objective General Appearance: positive: No acute distress, Alert Eyes Bilateral: positive: Normal inspection, Conjunctivae nml ENT: positive: ENT inspection nml Neck: positive: Nml inspection Respiratory: positive: No respiratory distress. negative: Wheezes, Rales Cardiovascular: positive: Regular rate & rhythm, No murmur. negative: Tachycardia Abdomen: positive: Non-tender, No distention. negative: Tenderness Skin: positive: Warm, Dry Extremities: positive: No pedal edema Neurologic/Psychiatric: negative: Disoriented to person, Disoriented to place - Lab Results Fish Bones: 01/26/22 04:16 01/26/22 04:16 Other Labs: Lab Results x24hrs 01/26/22 01/26/22 01/26/22 Range/Units 07:36 06:19 04:16 WBC (4.8-10.8) x10^3/uL RBC (4.70-6.10) 10^6/uL Hgb (14.0-18.0) g/dL Hct (42.0-52.0) % MCV (80.0-94.0) fL MCH (27.0-31.0) pg MCHC (32.0-36.0) g/dL RDW (12.0-15.0) % Plt Count (130-450) 10^3/uL MPV (7.4-11.4) fL Neut # (Auto) (1.5-6.6) 10^3/uL Lymph # (Auto) (1.5-3.5) 10^3/uL [place] # (Auto) (0.0-1.0) 10^3/uL Eos # (Auto) (0.0-0.7) 10^3/uL Baso # (Auto) (0.0-0.1) 10^3/uL Absolute Nucleated RBC x10^3/uL Nucleated RBC % /100WBC PT (9.9-12.6) secs INR (0.8-1.2) VBG pH 7.369 (7.31-7.41) Ionized Calcium 1.12 L (1.15-1.33) mmol/L Sodium 136 (135-145) mmol/L Potassium 4.2 (3.5-5.0) mmol/L Chloride 104 (101-111) mmol/L Carbon Dioxide 26 (21-32) mmol/L Anion Gap 6.0 (6-13) BUN 18 (6-20) mg/dL Creatinine 1.0 (0.6-1.2) mg/dL Estimated GFR (MDRD) 73 L (>89) Glucose 173 H (70-100) mg/dL POC Whole Bld Glucose 177 H (70 - 100) mg/dL Lactic Acid (0.5-2.2) mmol/L Calcium 8.3 L (8.5-10.3) mg/dL Phosphorus 3.1 (2.5-4.6) mg/dL Magnesium 1.8 (1.7-2.8) mg/dL Total Bilirubin (0.2-1.0) mg/dL AST (10-42) IU/L ALT (10-60) IU/L Alkaline Phosphatase (42-121) IU/L Troponin I High Sens (2.3-19.7) ng/L C-Reactive Protein (0-1.0) mg/dL Total Protein (6.7-8.2) g/dL Albumin (3.2-5.5) g/dL Globulin (2.1-4.2) g/dL Albumin/Globulin Ratio (1.0-2.2) Lipase (22-51) U/L Procalcitonin (<0.5) ng/mL Urine Color Urine Clarity (CLEAR) Urine pH (5.0-7.5) PH Ur Specific [place] (1.002-1.030) Urine Protein (NEGATIVE) mg/dL Urine Glucose (UA) (NEGATIVE) mg/dL Urine Ketones (NEGATIVE) mg/dL Urine Occult Blood (NEGATIVE) Urine Nitrite (NEGATIVE) Urine Bilirubin (NEGATIVE) Urine Urobilinogen (NORMAL) E.U./dL Ur Leukocyte Esterase (NEGATIVE) Ur Microscopic Review Urine Culture Comments Nasal Adenovirus (PCR) Nasal B. parapertussis DNA (PCR) Nasal Coronavir 229E PCR Nasal Coronavir HKU1 PCR Nasal Coronavir NL63 PCR Nasal Coronavir OC43 PCR Nasal Enterovir/Rhinovir PCR Nasal Influenza B PCR Nasal Influenza A PCR Nasal Parainfluen 1 PCR Nasal Parainfluen 2 PCR Nasal Parainfluen 3 PCR Nasal Parainfluen 4 PCR Nasal RSV (PCR) Nasal Screen MRSA (PCR) (NEGATIVE) Nasal B.pertussis DNA PCR Nasal C.pneumoniae (PCR) Scar Human Metapneumo PCR Nasal M.pneumoniae (PCR) Nasal SARS-CoV-2 (PCR) 01/26/22 01/26/22 01/25/22 Range/Units 04:16 00:27 21:12 WBC 5.5 (4.8-10.8) x10^3/uL RBC 3.42 L (4.70-6.10) 10^6/uL Hgb 9.9 L (14.0-18.0) g/dL Hct 29.8 L (42.0-52.0) % MCV 87.1 (80.0-94.0) fL MCH 28.9 (27.0-31.0) pg MCHC 33.2 (32.0-36.0) g/dL RDW 14.6 (12.0-15.0) % Plt Count 147 (130-450) 10^3/uL MPV 10.2 (7.4-11.4) fL Neut # (Auto) 4.0 (1.5-6.6) 10^3/uL Lymph # (Auto) 0.9 L (1.5-3.5) 10^3/uL [place] # (Auto) 0.4 (0.0-1.0) 10^3/uL Eos # (Auto) 0.2 (0.0-0.7) 10^3/uL Baso # (Auto) 0.0 (0.0-0.1) 10^3/uL Absolute Nucleated RBC 0.00 x10^3/uL Nucleated RBC % 0.0 /100WBC PT (9.9-12.6) secs INR (0.8-1.2) VBG pH (7.31-7.41) Ionized Calcium (1.15-1.33) mmol/L Sodium (135-145) mmol/L Potassium (3.5-5.0) mmol/L Chloride (101-111) mmol/L Carbon Dioxide (21-32) mmol/L Anion Gap (6-13) BUN (6-20) mg/dL Creatinine (0.6-1.2) mg/dL Estimated GFR (MDRD) (>89) Glucose (70-100) mg/dL POC Whole Bld Glucose (70 - 100) mg/dL Lactic Acid 1.9 2.5 H (0.5-2.2) mmol/L Calcium (8.5-10.3) mg/dL Phosphorus (2.5-4.6) mg/dL Magnesium (1.7-2.8) mg/dL Total Bilirubin (0.2-1.0) mg/dL AST (10-42) IU/L ALT (10-60) IU/L Alkaline Phosphatase (42-121) IU/L Troponin I High Sens (2.3-19.7) ng/L C-Reactive Protein (0-1.0) mg/dL Total Protein (6.7-8.2) g/dL Albumin (3.2-5.5) g/dL Globulin (2.1-4.2) g/dL Albumin/Globulin Ratio (1.0-2.2) Lipase (22-51) U/L Procalcitonin (<0.5) ng/mL Urine Color Urine Clarity (CLEAR) Urine pH (5.0-7.5) PH Ur Specific [place] (1.002-1.030) Urine Protein (NEGATIVE) mg/dL Urine Glucose (UA) (NEGATIVE) mg/dL Urine Ketones (NEGATIVE) mg/dL Urine Occult Blood (NEGATIVE) Urine Nitrite (NEGATIVE) Urine Bilirubin (NEGATIVE) Urine Urobilinogen (NORMAL) E.U./dL Ur Leukocyte Esterase (NEGATIVE) Ur Microscopic Review Urine Culture Comments Nasal Adenovirus (PCR) Nasal B. parapertussis DNA (PCR) Nasal Coronavir 229E PCR Nasal Coronavir HKU1 PCR Nasal Coronavir NL63 PCR Nasal Coronavir OC43 PCR Nasal Enterovir/Rhinovir PCR Nasal Influenza B PCR Nasal Influenza A PCR Nasal Parainfluen 1 PCR Nasal Parainfluen 2 PCR Nasal Parainfluen 3 PCR Nasal Parainfluen 4 PCR Nasal RSV (PCR) Nasal Screen MRSA (PCR) (NEGATIVE) Nasal B.pertussis DNA PCR Nasal C.pneumoniae (PCR) Scar Human Metapneumo PCR Nasal M.pneumoniae (PCR) Nasal SARS-CoV-2 (PCR) 01/25/22 01/25/22 01/25/22 Range/Units 20:21 19:45 18:19 WBC (4.8-10.8) x10^3/uL RBC (4.70-6.10) 10^6/uL Hgb (14.0-18.0) g/dL Hct (42.0-52.0) % MCV (80.0-94.0) fL MCH (27.0-31.0) pg MCHC (32.0-36.0) g/dL RDW (12.0-15.0) % Plt Count (130-450) 10^3/uL MPV (7.4-11.4) fL Neut # (Auto) (1.5-6.6) 10^3/uL Lymph # (Auto) (1.5-3.5) 10^3/uL [place] # (Auto) (0.0-1.0) 10^3/uL Eos # (Auto) (0.0-0.7) 10^3/uL Baso # (Auto) (0.0-0.1) 10^3/uL Absolute Nucleated RBC x10^3/uL Nucleated RBC % /100WBC PT (9.9-12.6) secs INR (0.8-1.2) VBG pH (7.31-7.41) Ionized Calcium (1.15-1.33) mmol/L Sodium (135-145) mmol/L Potassium (3.5-5.0) mmol/L Chloride (101-111) mmol/L Carbon Dioxide (21-32) mmol/L Anion Gap (6-13) BUN (6-20) mg/dL Creatinine (0.6-1.2) mg/dL Estimated GFR (MDRD) (>89) Glucose (70-100) mg/dL POC Whole Bld Glucose 215 H (70 - 100) mg/dL Lactic Acid 2.4 H (0.5-2.2) mmol/L Calcium (8.5-10.3) mg/dL Phosphorus (2.5-4.6) mg/dL Magnesium (1.7-2.8) mg/dL Total Bilirubin (0.2-1.0) mg/dL AST (10-42) IU/L ALT (10-60) IU/L Alkaline Phosphatase (42-121) IU/L Troponin I High Sens (2.3-19.7) ng/L C-Reactive Protein (0-1.0) mg/dL Total Protein (6.7-8.2) g/dL Albumin (3.2-5.5) g/dL Globulin (2.1-4.2) g/dL Albumin/Globulin Ratio (1.0-2.2) Lipase (22-51) U/L Procalcitonin (<0.5) ng/mL Urine Color Urine Clarity (CLEAR) Urine pH (5.0-7.5) PH Ur Specific [place] (1.002-1.030) Urine Protein (NEGATIVE) mg/dL Urine Glucose (UA) (NEGATIVE) mg/dL Urine Ketones (NEGATIVE) mg/dL Urine Occult Blood (NEGATIVE) Urine Nitrite (NEGATIVE) Urine Bilirubin (NEGATIVE) Urine Urobilinogen (NORMAL) E.U./dL Ur Leukocyte Esterase (NEGATIVE) Ur Microscopic Review Urine Culture Comments Nasal Adenovirus (PCR) Nasal B. parapertussis DNA (PCR) Nasal Coronavir 229E PCR Nasal Coronavir HKU1 PCR Nasal Coronavir NL63 PCR Nasal Coronavir OC43 PCR Nasal Enterovir/Rhinovir PCR Nasal Influenza B PCR Nasal Influenza A PCR Nasal Parainfluen 1 PCR Nasal Parainfluen 2 PCR Nasal Parainfluen 3 PCR Nasal Parainfluen 4 PCR Nasal RSV (PCR) Nasal Screen MRSA (PCR) NEGATIVE (NEGATIVE) Nasal B.pertussis DNA PCR Nasal C.pneumoniae (PCR) Scar Human Metapneumo PCR Nasal M.pneumoniae (PCR) Nasal SARS-CoV-2 (PCR) 01/25/22 01/25/22 01/25/22 Range/Units 17:30 17:30 16:50 WBC (4.8-10.8) x10^3/uL RBC (4.70-6.10) 10^6/uL Hgb (14.0-18.0) g/dL Hct (42.0-52.0) % MCV (80.0-94.0) fL MCH (27.0-31.0) pg MCHC (32.0-36.0) g/dL RDW (12.0-15.0) % Plt Count (130-450) 10^3/uL MPV (7.4-11.4) fL Neut # (Auto) (1.5-6.6) 10^3/uL Lymph # (Auto) (1.5-3.5) 10^3/uL [place] # (Auto) (0.0-1.0) 10^3/uL Eos # (Auto) (0.0-0.7) 10^3/uL Baso # (Auto) (0.0-0.1) 10^3/uL Absolute Nucleated RBC x10^3/uL Nucleated RBC % /100WBC PT (9.9-12.6) secs INR (0.8-1.2) VBG pH (7.31-7.41) Ionized Calcium (1.15-1.33) mmol/L Sodium (135-145) mmol/L Potassium (3.5-5.0) mmol/L Chloride (101-111) mmol/L Carbon Dioxide (21-32) mmol/L Anion Gap (6-13) BUN (6-20) mg/dL Creatinine (0.6-1.2) mg/dL Estimated GFR (MDRD) (>89) Glucose (70-100) mg/dL POC Whole Bld Glucose (70 - 100) mg/dL Lactic Acid (0.5-2.2) mmol/L Calcium (8.5-10.3) mg/dL Phosphorus (2.5-4.6) mg/dL Magnesium (1.7-2.8) mg/dL Total Bilirubin (0.2-1.0) mg/dL AST (10-42) IU/L ALT (10-60) IU/L Alkaline Phosphatase (42-121) IU/L Troponin I High Sens 4.1 (2.3-19.7) ng/L C-Reactive Protein < 1.0 (0-1.0) mg/dL Total Protein (6.7-8.2) g/dL Albumin (3.2-5.5) g/dL Globulin (2.1-4.2) g/dL Albumin/Globulin Ratio (1.0-2.2) Lipase (22-51) U/L Procalcitonin (<0.5) ng/mL Urine Color YELLOW Urine Clarity CLEAR (CLEAR) Urine pH 6.5 (5.0-7.5) PH Ur Specific [place] <=1.005 (1.002-1.030) Urine Protein NEGATIVE (NEGATIVE) mg/dL Urine Glucose (UA) NEGATIVE (NEGATIVE) mg/dL Urine Ketones NEGATIVE (NEGATIVE) mg/dL Urine Occult Blood NEGATIVE (NEGATIVE) Urine Nitrite NEGATIVE (NEGATIVE) Urine Bilirubin NEGATIVE (NEGATIVE) Urine Urobilinogen 0.2 (NORMAL) (NORMAL) E.U./dL Ur Leukocyte Esterase NEGATIVE (NEGATIVE) Ur Microscopic Review NOT INDICATED Urine Culture Comments NOT INDICATED Nasal Adenovirus (PCR) Nasal B. parapertussis DNA (PCR) Nasal Coronavir 229E PCR Nasal Coronavir HKU1 PCR Nasal Coronavir NL63 PCR Nasal Coronavir OC43 PCR Nasal Enterovir/Rhinovir PCR Nasal Influenza B PCR Nasal Influenza A PCR Nasal Parainfluen 1 PCR Nasal Parainfluen 2 PCR Nasal Parainfluen 3 PCR Nasal Parainfluen 4 PCR Nasal RSV (PCR) Nasal Screen MRSA (PCR) (NEGATIVE) Nasal B.pertussis DNA PCR Nasal C.pneumoniae (PCR) Scar Human Metapneumo PCR Nasal M.pneumoniae (PCR) Nasal SARS-CoV-2 (PCR) 01/25/22 01/25/22 01/25/22 Range/Units 16:48 16:38 16:15 WBC (4.8-10.8) x10^3/uL RBC (4.70-6.10) 10^6/uL Hgb (14.0-18.0) g/dL Hct (42.0-52.0) % MCV (80.0-94.0) fL MCH (27.0-31.0) pg MCHC (32.0-36.0) g/dL RDW (12.0-15.0) % Plt Count (130-450) 10^3/uL MPV (7.4-11.4) fL Neut # (Auto) (1.5-6.6) 10^3/uL Lymph # (Auto) (1.5-3.5) 10^3/uL [place] # (Auto) (0.0-1.0) 10^3/uL Eos # (Auto) (0.0-0.7) 10^3/uL Baso # (Auto) (0.0-0.1) 10^3/uL Absolute Nucleated RBC x10^3/uL Nucleated RBC % /100WBC PT 10.7 (9.9-12.6) secs INR 1.0 (0.8-1.2) VBG pH (7.31-7.41) Ionized Calcium (1.15-1.33) mmol/L Sodium (135-145) mmol/L Potassium (3.5-5.0) mmol/L Chloride (101-111) mmol/L Carbon Dioxide (21-32) mmol/L Anion Gap (6-13) BUN (6-20) mg/dL Creatinine (0.6-1.2) mg/dL Estimated GFR (MDRD) (>89) Glucose (70-100) mg/dL POC Whole Bld Glucose (70 - 100) mg/dL Lactic Acid 3.1 H* (0.5-2.2) mmol/L Calcium (8.5-10.3) mg/dL Phosphorus (2.5-4.6) mg/dL Magnesium (1.7-2.8) mg/dL Total Bilirubin (0.2-1.0) mg/dL AST (10-42) IU/L ALT (10-60) IU/L Alkaline Phosphatase (42-121) IU/L Troponin I High Sens (2.3-19.7) ng/L C-Reactive Protein (0-1.0) mg/dL Total Protein (6.7-8.2) g/dL Albumin (3.2-5.5) g/dL Globulin (2.1-4.2) g/dL Albumin/Globulin Ratio (1.0-2.2) Lipase (22-51) U/L Procalcitonin (<0.5) ng/mL Urine Color Urine Clarity (CLEAR) Urine pH (5.0-7.5) PH Ur Specific [place] (1.002-1.030) Urine Protein (NEGATIVE) mg/dL Urine Glucose (UA) (NEGATIVE) mg/dL Urine Ketones (NEGATIVE) mg/dL Urine Occult Blood (NEGATIVE) Urine Nitrite (NEGATIVE) Urine Bilirubin (NEGATIVE) Urine Urobilinogen (NORMAL) E.U./dL Ur Leukocyte Esterase (NEGATIVE) Ur Microscopic Review Urine Culture Comments Nasal Adenovirus (PCR) NOT DETECTED Nasal B. parapertussis DNA (PCR) NOT DETECTED Nasal Coronavir 229E PCR NOT DETECTED Nasal Coronavir HKU1 PCR NOT DETECTED Nasal Coronavir NL63 PCR NOT DETECTED Nasal Coronavir OC43 PCR NOT DETECTED Nasal Enterovir/Rhinovir PCR NOT DETECTED Nasal Influenza B PCR NOT DETECTED Nasal Influenza A PCR NOT DETECTED Nasal Parainfluen 1 PCR NOT DETECTED Nasal Parainfluen 2 PCR NOT DETECTED Nasal Parainfluen 3 PCR NOT DETECTED Nasal Parainfluen 4 PCR NOT DETECTED Nasal RSV (PCR) NOT DETECTED Nasal Screen MRSA (PCR) (NEGATIVE) Nasal B.pertussis DNA PCR NOT DETECTED Nasal C.pneumoniae (PCR) NOT DETECTED Scar Human Metapneumo PCR NOT DETECTED Nasal M.pneumoniae (PCR) NOT DETECTED Nasal SARS-CoV-2 (PCR) NOT DETECTED 01/25/22 01/25/22 01/25/22 Range/Units 14:38 14:24 14:24 WBC (4.8-10.8) x10^3/uL RBC (4.70-6.10) 10^6/uL Hgb (14.0-18.0) g/dL Hct (42.0-52.0) % MCV (80.0-94.0) fL MCH (27.0-31.0) pg MCHC (32.0-36.0) g/dL RDW (12.0-15.0) % Plt Count (130-450) 10^3/uL MPV (7.4-11.4) fL Neut # (Auto) (1.5-6.6) 10^3/uL Lymph # (Auto) (1.5-3.5) 10^3/uL [place] # (Auto) (0.0-1.0) 10^3/uL Eos # (Auto) (0.0-0.7) 10^3/uL Baso # (Auto) (0.0-0.1) 10^3/uL Absolute Nucleated RBC x10^3/uL Nucleated RBC % /100WBC PT (9.9-12.6) secs INR (0.8-1.2) VBG pH (7.31-7.41) Ionized Calcium (1.15-1.33) mmol/L Sodium 139 (135-145) mmol/L Potassium 4.2 (3.5-5.0) mmol/L Chloride 101 (101-111) mmol/L Carbon Dioxide 26 (21-32) mmol/L Anion Gap 12.0 (6-13) BUN 21 H (6-20) mg/dL Creatinine 1.3 H (0.6-1.2) mg/dL Estimated GFR (MDRD) 54 L (>89) Glucose 187 H (70-100) mg/dL POC Whole Bld Glucose (70 - 100) mg/dL Lactic Acid 4.2 H* (0.5-2.2) mmol/L Calcium 9.3 (8.5-10.3) mg/dL Phosphorus 3.3 (2.5-4.6) mg/dL Magnesium 1.8 (1.7-2.8) mg/dL Total Bilirubin 0.7 (0.2-1.0) mg/dL AST 32 (10-42) IU/L ALT 39 (10-60) IU/L Alkaline Phosphatase 68 (42-121) IU/L Troponin I High Sens (2.3-19.7) ng/L C-Reactive Protein (0-1.0) mg/dL Total Protein 6.9 (6.7-8.2) g/dL Albumin 4.5 (3.2-5.5) g/dL Globulin 2.4 (2.1-4.2) g/dL Albumin/Globulin Ratio 1.9 (1.0-2.2) Lipase 31 (22-51) U/L Procalcitonin 0.18 (<0.5) ng/mL Urine Color Urine Clarity (CLEAR) Urine pH (5.0-7.5) PH Ur Specific [place] (1.002-1.030) Urine Protein (NEGATIVE) mg/dL Urine Glucose (UA) (NEGATIVE) mg/dL Urine Ketones (NEGATIVE) mg/dL Urine Occult Blood (NEGATIVE) Urine Nitrite (NEGATIVE) Urine Bilirubin (NEGATIVE) Urine Urobilinogen (NORMAL) E.U./dL Ur Leukocyte Esterase (NEGATIVE) Ur Microscopic Review Urine Culture Comments Nasal Adenovirus (PCR) Nasal B. parapertussis DNA (PCR) Nasal Coronavir 229E PCR Nasal Coronavir HKU1 PCR Nasal Coronavir NL63 PCR Nasal Coronavir OC43 PCR Nasal Enterovir/Rhinovir PCR Nasal Influenza B PCR Nasal Influenza A PCR Nasal Parainfluen 1 PCR Nasal Parainfluen 2 PCR Nasal Parainfluen 3 PCR Nasal Parainfluen 4 PCR Nasal RSV (PCR) Nasal Screen MRSA (PCR) (NEGATIVE) Nasal B.pertussis DNA PCR Nasal C.pneumoniae (PCR) Scar Human Metapneumo PCR Nasal M.pneumoniae (PCR) Nasal SARS-CoV-2 (PCR) 01/25/22 Range/Units 14:24 WBC 13.7 H (4.8-10.8) x10^3/uL RBC 4.60 L (4.70-6.10) 10^6/uL Hgb 13.4 L (14.0-18.0) g/dL Hct 40.7 L (42.0-52.0) % MCV 88.5 (80.0-94.0) fL MCH 29.1 (27.0-31.0) pg MCHC 32.9 (32.0-36.0) g/dL RDW 14.3 (12.0-15.0) % Plt Count 230 (130-450) 10^3/uL MPV 9.7 (7.4-11.4) fL Neut # (Auto) 9.7 H (1.5-6.6) 10^3/uL Lymph # (Auto) 3.0 (1.5-3.5) 10^3/uL [place] # (Auto) 0.9 (0.0-1.0) 10^3/uL Eos # (Auto) 0.1 (0.0-0.7) 10^3/uL Baso # (Auto) 0.0 (0.0-0.1) 10^3/uL Absolute Nucleated RBC 0.00 x10^3/uL Nucleated RBC % 0.0 /100WBC PT (9.9-12.6) secs INR (0.8-1.2) VBG pH (7.31-7.41) Ionized Calcium (1.15-1.33) mmol/L Sodium (135-145) mmol/L Potassium (3.5-5.0) mmol/L Chloride (101-111) mmol/L Carbon Dioxide (21-32) mmol/L Anion Gap (6-13) BUN (6-20) mg/dL Creatinine (0.6-1.2) mg/dL Estimated GFR (MDRD) (>89) Glucose (70-100) mg/dL POC Whole Bld Glucose (70 - 100) mg/dL Lactic Acid (0.5-2.2) mmol/L Calcium (8.5-10.3) mg/dL Phosphorus (2.5-4.6) mg/dL Magnesium (1.7-2.8) mg/dL Total Bilirubin (0.2-1.0) mg/dL AST (10-42) IU/L ALT (10-60) IU/L Alkaline Phosphatase (42-121) IU/L Troponin I High Sens (2.3-19.7) ng/L C-Reactive Protein (0-1.0) mg/dL Total Protein (6.7-8.2) g/dL Albumin (3.2-5.5) g/dL Globulin (2.1-4.2) g/dL Albumin/Globulin Ratio (1.0-2.2) Lipase (22-51) U/L Procalcitonin (<0.5) ng/mL Urine Color Urine Clarity (CLEAR) Urine pH (5.0-7.5) PH Ur Specific [place] (1.002-1.030) Urine Protein (NEGATIVE) mg/dL Urine Glucose (UA) (NEGATIVE) mg/dL Urine Ketones (NEGATIVE) mg/dL Urine Occult Blood (NEGATIVE) Urine Nitrite (NEGATIVE) Urine Bilirubin (NEGATIVE) Urine Urobilinogen (NORMAL) E.U./dL Ur Leukocyte Esterase (NEGATIVE) Ur Microscopic Review Urine Culture Comments Nasal Adenovirus (PCR) Nasal B. parapertussis DNA (PCR) Nasal Coronavir 229E PCR Nasal Coronavir HKU1 PCR Nasal Coronavir NL63 PCR Nasal Coronavir OC43 PCR Nasal Enterovir/Rhinovir PCR Nasal Influenza B PCR Nasal Influenza A PCR Nasal Parainfluen 1 PCR Nasal Parainfluen 2 PCR Nasal Parainfluen 3 PCR Nasal Parainfluen 4 PCR Nasal RSV (PCR) Nasal Screen MRSA (PCR) (NEGATIVE) Nasal B.pertussis DNA PCR Nasal C.pneumoniae (PCR) Scar Human Metapneumo PCR Nasal M.pneumoniae (PCR) Nasal SARS-CoV-2 (PCR) Sepsis Event Note (H) - Evaluation Current Stage of Sepsis: Sepsis Possible source of Sepsis: positive: Unknown - Sepsis Criteria Sepsis Criteria: WBC count greater than 12,000 or less than 4000, MAP less than 65 mmHg, SBP less than 90 mmHg, Metabolic: lactate > 2 mmol/L Assessment/Plan - Problem List (1) SIRS (systemic inflammatory response syndrome) Impression: He met SIRS criteria on admission given his leukocytosis, hypotension, and tachycardia. He was also found to have elevated lactic acid. He was started empirically on IV antibiotics blood cultures have been negative to date has been no source of infection. His CRP is also normal as well as procalcitonin. He feels much improved today's we will discontinue IV antibiotics and monitor him overnight. If he remains stable throughout the evening then we will plan to discharge him home tomorrow. (2) Hypotension Impression: Suspect is related to hypovolemia as he is now normotensive after receiving IV fluids. Initial concern was for sepsis but has been no obvious source of infection and so we will discontinue IV antibiotics. We will also discontinue IV fluids today and will monitor his blood pressure overnight. Qualifiers: Hypotension type: hypotension due to hypovolemia Qualified Code(s): I95.89 - Other hypotension; E86.1 - Hypovolemia (3) Lactic acid acidosis Impression: This is likely secondary to volume depletion and the use of metformin. There was initial concern for sepsis and infection and this is felt to be less likely at this time. His lactic acid is now within normal limits. We will discontinue IV fluids and the antibiotics. We will also discontinue metformin on discharge. (4) Abdominal pain Impression: This is resolved. CT did not suggest any acute abnormalities. His urinalysis was unremarkable. We discussed that this pain is post prandial which may suggest mesenteric ischemia but he states he really has this pain and when it did occur, it was not associated with meals. Nonetheless, we will discontinue metformin on discharge. If this pain returns then we should obtain a CT angiogram to look for potential ischemia. Qualifiers: Abdominal location: lower abdomen, unspecified Qualified Code(s): R10.30 - Lower abdominal pain, unspecified (5) Type 2 diabetes mellitus Impression: His A1c was greater than 9%. His blood glucose has been well controlled here with sliding scale. He no longer wants take metformin given he is concerned it may be contributing to abdominal cramping. We will therefore discontinue it on discharge. We will continue his acarbose on discharge. I reviewed his home medication list and he states he is not on glimepiride. I asked about the glimepiride because he has had multiple refills in the past but he is insistent that he is not taking it. His did bring it in and states this is a new refill but they had been not using it in the past as he thought it was metformin as well. We will therefore start him on 2 mg daily and I will ask him to follow-up with his primary care physician next week and this can be titrated as necessary. We did discuss the use of insulin but he does not want to inject it himself. We did discuss that glimepiride can cause hypoglycemia and we discussed the symptoms of this. Qualifiers: Diabetes mellitus manager long term care insulin use: without half-way use Diabetes mellitus complication detail: with unspecified neuropathy (6) H/O gastric bypass Impression: We will continue his home multivitamins.
[2022-01-26] MEDS: ENOXAPARIN 40 MG/0.4 ML SYRINGE SUBQ SCH (09:04)
[2022-01-26] MEDS ORDERED: VANCOMYCIN INJ 2 GM in SODIUM CHLORIDE 0.9% 500 ML IV STA (09:11)
[2022-01-26] MEDS ORDERED: ACETAMINOPHEN 500 MG TABLET PO PRN (12:45)
[2022-01-26] MEDS: SODIUM CHLORIDE FLUSH 0.9% 10 ML SYRINGE IVP PRN (13:01)
[2022-01-26] MEDS: GABAPENTIN 300 MG CAPSULE PO SCH ×2 (14:19→21:40)
[2022-01-26] MEDS ORDERED: VANCOMYCIN INJ 1.75 GM in SODIUM CHLORIDE 0.9% 500 ML IV SCH (17:00)
[2022-01-26] MEDS: ACARBOSE 100 MG PO SCH (17:16)
[2022-01-26] MEDS ORDERED: INSULIN GLARGINE 300 UNIT/3 ML PEN SUBQ SCH (21:00)
[2022-01-27] MEDS: GABAPENTIN 300 MG CAPSULE PO SCH (05:09)
[2022-01-27 06:14] LABS: BASOPHILS % (AUTO) 0.5 %; EOSINOPHILS # (AUTO) 0.2 10^3/uL (0.0-0.7); EOSINOPHILS % (AUTO) 3.6 %; HCT - HEMATOCRIT 32.3 % (42.0-52.0); HGB - HEMOGLOBIN 10.8 g/dL (14.0-18.0); LYMPHOCYTES # (AUTO) 0.8 10^3/uL (1.5-3.5); LYMPHOCYTES % (AUTO) 19.8 %; MEAN CORPUSCULAR HEMOGLOBIN 29.1 pg (27.0-31.0); MEAN CORPUSCULAR HGB CONC 33.4 g/dL (32.0-36.0); MEAN CORPUSCULAR VOLUME 87.1 fL (80.0-94.0); MEAN PLATELET VOLUME 9.7 fL (7.4-11.4); MONOCYTES # (AUTO) 0.4 10^3/uL (0.0-1.0); MONOCYTES % (AUTO) 9.7 %; NEUTROPHILS # (AUTO) 2.7 10^3/uL (1.5-6.6); NEUTROPHILS % (AUTO) 65.9 %; PLT - PLATELET COUNT 141 10^3/uL (130-450); RED BLOOD COUNT 3.71 10^6/uL (4.70-6.10); RED CELL DISTRIBUTION WIDTH 14.4 % (12.0-15.0); WHITE BLOOD COUNT 4.1 x10^3/uL (4.8-10.8)
[2022-01-27 06:29] LABS: CALCIUM 8.9 mg/dL (8.5-10.3); POTASSIUM 4.1 mmol/L (3.5-5.0)
[2022-01-27] MEDS ORDERED: glipiZIDE 5 MG TABLET PO SCH (07:30)
--- NOTE | 2022-01-27 07:35 | DISCHARGE SUMMARY ---
Discharge Summary Admit Date: 01/25/22 Discharge Date: 01/27/22 Discharging Provider: Eduar Ricketts Primary Care Provider: Hemanth Kendall Code Status: Attempt Resuscitation Condition at Discharge: Good Discharge Disposition: 01 Home, Self Care - DIAGNOSES Admission Diagnoses: SIRS Abdominal pain Hypotension Type diabetes mellitus Full CODE STATUS Discharge Diagnoses with Status of Each Condition: SIRS - resolved. Hypotension - resolved. Lactic acidosis - resolved. Abdominal pain - resolved. Type 2 diabetes mellitus - stable. History of gastric bypass surgery - stable. Dilated aortic root - stable. - HPI History of Present Illness: H&P per Dr. Newton: This gentleman has a history of gastric bypass surgery and a previous history of ER visits for abdominal pain/nausea but not requiring admit. He states that he gets IVF in the ER and he "turns around" and goes home. This has happened twice he thinks. He states that they never know what causes it. But he presents with severe abdominal and limb cramping. Fatigue. Nausea. He also states that he has a chronically low blood pressure. Because of chronic pain syndrome he spends a lot of his time sedentary. Uses a cane to get around his house. So he spends his time in his recliner. Sometimes he gets up too fast from his r ecliner and he will get dizzy, lightheaded, and vision goes blurry. A couple of times has had kathie syncope. But this has been going on for decades. At least since his gastric bypass surgery in 2000. He drinks plenty of fluids. He drinks about 4-5 bottles of water a day. He presents at this time with 2 days of abdominal pain, anorexia. His abdominal pain is from bloating with cramping. No diarrhea until today. He thinks that he was feeling fine up until last which was 5 days ago. At that point he was just overcome by fatigue. Severe feet cramping. The only thing that he can remember doing different that day was learning how to catch salmon. So he was on his feet standing for 3 hours. He just remembers coming home exhausted and from that point on has not been able to "catch up". He was dizzy, nauseated, felt lightheaded. He was dizzy, nauseated, felt lightheaded.He drank water that had some type of powdery supplement to avoid dehydration. He did that on , and a few times this weekend. He denied fever, chills. He has a chronic cough that is nonproductive. He can sometimes coughs so hard and so much that he passes out with it. That has not changed. He has no urgency, frequency, dysuria. I asked him if he has any prostate problems and he says that he has friends who have prostate problems and nocturia. He states he is not 1 of those people. In the emergency room, after being brought in by private vehicle, his temperature was 36, heart rate 99, respirations 14, and 99% on room air. In triage there is no blood pressure noted. About an hour later they took a blood pressure and it was 79/53. He was alert oriented but weak elderly gentleman. No focal findings. He had diminished bowel sounds but they were high-pitched. He had mild diffuse tenderness but no rebound. His white cell count was elevated at 13.7. His lactic acid was 4.2. He is on metformin. The rest of his work-up was negative for CT of abdomen and pelvis, urinalysis, EKG, troponins. Procalcitonin was normal. After hydration and empiric antibiotic therapy the patient systolic was in the 120s. He was admitted to ICU because of sepsis criteria with unknown source. - HOSPITAL COURSE Hospital Course: He was admitted to the ICU due to hypotension and lactic acidosis. There was concern for sepsis despite the normal procalcitonin and he was started on broad- spectrum IV antibiotics. His blood pressure improved with IV fluids and he never required vasopressors. His lactic acidosis resolved with IV hydration. It was felt that the lactic acidosis may be due to volume depletion and the use of metformin. Cultures were negative and so antibiotics were discontinued. He was observed 1 more night to ensure his blood pressure remained stable. He continued to do well and was discharged the following day without any a ntibiotics given lack of infection. His A1c was greater than 9% and the patient no longer want to take metformin due to the concern it may be contributing to lactic acidosis. We started him on glimepiride 2 mg daily and he will be following up with his primary care physician the following week to further manage his diabetes. An echocardiogram was obtained prior to discharge which revealed preserved ejection fraction without any significant valvular disease. It was noted the aortic root was dilated at 4.2 cm. This was discussed with the patient and outpatient follow-up was recommended to monitor this. - ALLERGIES Allergies/Adverse Reactions: Allergies Allergy/AdvReac Type Severity Reaction Status Date / Time hydrocodone Allergy Unknown Verified 04/26/21 09:59 - MEDICATIONS Home Medications: Ambulatory Orders Medication Instructions Recorded Confirmed Acarbose 100 tab ORAL TIDWM 05/19/18 01/26/22 Atorvastatin Calcium 1 tab ORAL DAILY 05/19/18 01/26/22 Clopidogrel [Plavix] 1 tab ORAL DAILY 05/19/18 01/26/22 Escitalopram [Lexapro] 1 tab ORAL DAILY 05/19/18 10/25/20 Montelukast [Singulair] 10 mg PO DAILY 05/19/18 01/26/22 Pantoprazole [Protonix] 40 mg PO DAILY 05/19/18 10/25/20 Ascorbic Acid [Vitamin C] 1,000 mg PO DAILY 07/16/20 01/26/22 Multivitamin [Daily Multiple 1 each PO DAILY 07/16/20 01/26/22 Vitamin] Turmeric Root Extract [Turmeric] 1,000 mg PO DAILY 07/16/20 10/25/20 Folic Acid 1 mg PO DAILY 10/25/20 01/26/22 Gabapentin [Neurontin] 300 mg PO TID 10/25/20 01/26/22 allopurinoL [Zyloprim] 100 mg PO DAILY 10/25/20 01/26/22 Glimepiride [Amaryl] 2 mg PO 0800 01/26/22 01/26/22 Hydrocodone/Acetaminophen 1 each PO Q4HR PRN MDD 4 01/26/22 01/26/22 [Hydrocodone-Acetamin 10-325 mg] Ondansetron [Zuplenz] 4 mg PO BID PRN 01/26/22 01/26/22 Oxycodone HCl/Acetaminophen 1 each PO Q4H PRN MDD 4 01/26/22 01/26/22 [Oxycodone-Acetaminophen 10-300] - PHYSICAL EXAM AT DISCHARGE General Appearance: positive: No acute distress, Alert Eyes Bilateral: positive: Normal inspection, Conjunctivae nml ENT: positive: ENT inspection nml Neck: positive: Nml inspection Respiratory: positive: No respiratory distress. negative: Wheezes, Rales Cardiovascular: positive: Regular rate & rhythm, No murmur. negative: Tachycardia, Systolic murmur Abdomen: positive: Non-tender, No distention. negative: Tenderness Skin: positive: Warm, Dry Extremities: positive: Pedal edema (Trace edema in bilateral lower extremities.) Neurologic/Psychiatric: positive: Motor nml. negative: Disoriented to person, Disoriented to place, Disoriented to time Physical Exam Other/Comments: Vital Signs - 24 hr 01/26/22 01/26/22 01/27/22 20:27 23:34 05:13 Temperature 36.6 C 36.6 C 36.6 C Heart Rate [ 62 61 64 Brachial] Respiratory 16 16 16 Rate Blood Pressure 98/47 L [Left Brachial artery] Blood Pressure 113/63 130/69 [Right Brachial artery] O2 Saturation 100 97 97 01/27/22 01/27/22 07:14 10:47 Temperature 36.6 C 36.7 C Heart Rate [ 62 72 Brachial] Respiratory 16 16 Rate Blood Pressure [Left Brachial artery] Blood Pressure 100/62 120/78 [Right Brachial artery] O2 Saturation 97 95 Oxygen O2 Source Room air - LABS Result Diagrams: 01/27/22 05:59 01/27/22 05:59 - DIAGNOSTIC IMAGING Diagnostic Imaging Results: Final report reviewed - SEPSIS Current Stage of Sepsis: Resolved Possible source of Sepsis: Unknown Sepsis Criteria: WBC count greater than 12,000 or less than 4000, MAP less than 65 mmHg, SBP less than 90 mmHg, Metabolic: lactate > 2 mmol/L - FOLLOW UP Follow Up: He will be following up with his primary care physician next week for further management of his diabetes as well asked to have the dilated aortic root monitored. - TIME SPENT Time Spent in Discharge (Minutes): 35
--- NOTE | 2022-01-27 07:35 | Discharge Plan ---
Discharge Plan Problem Reviewed?: Yes Disposition: 01 Home, Self Care Condition: Good Diet: Diabetic Activity Restrictions: Activity as Tolerated Instruction Topics: Glimepiride tablets Health Concerns: You were admitted to the hospital because of low blood pressure and an elevated lactic acid which can occur due to low blood pressure or infection. We treated you with IV fluids and initially started you on antibiotics until an infection can be ruled out. We have not found any obvious source of infection and so we stopped antibiotics. Your blood pressure has since been stable after receiving IV fluids. We suspect you may have been dehydrated and may become dehydrated, the metformin can cause an increase in lactic acid. We did do an ultrasound of your heart and your heart function is normal. You do not have any significant abnormalities with your valves. It was noted that the beginning of your aorta is dilated with a diameter of 4.2 cm. This area is called the aortic root. This will need to be followed up by your primary care physician because if this continues to dilate you may need surgery. Plan of Treatment: We recommend that you stop taking metformin. Please start taking glimepiride 2 mg with breakfast once a day. Please follow-up with your primary care physician as scheduled next week and they can further adjust your medications for diabetes. II recommend you document a log each day with your blood glucose in the morning and before meals. Your A1c was 9.2% and this went to be better controlled before your shoulder surgery. Care Goals: The goal is to prevent future episodes from occurring again and to control your blood glucose. Assessment: The patient expressed understanding of the treatment plan. Additional Instructions or Follow Up instructions: Please follow-up with your primary care physician next week as scheduled. Please return to the Emergency Department if you develop fevers, chills, chest pain, shortness of breath. Please follow-up with your primary care physician for follow-up of your dilated aortic root. No Smoking: If you smoke, Please STOP! Call for help. Follow-up with: Hemanth Kendall MD [Primary Care Provider] -
[2022-01-27] MEDS ORDERED: GLIMEPIRIDE 2 MG TABLET PO SCH ×2 (08:00)
[2022-01-27] MEDS: ACARBOSE 100 MG PO SCH (08:47)
[2022-01-27] MEDS: INSULIN LISPRO 300 UNIT/3 ML PEN SUBQ SCH (08:48)
[2022-01-27] MEDS: ENOXAPARIN 40 MG/0.4 ML SYRINGE SUBQ SCH (08:49)
[2022-01-27] MEDS: SODIUM CHLORIDE FLUSH 0.9% 10 ML SYRINGE IVP SCH (08:49)
[2022-01-27] MEDS ORDERED: CLOPIDOGREL 75 MG TABLET PO SCH (09:00)
[2022-01-27] MEDS ORDERED: allopurinoL 100 MG TABLET PO SCH (09:00)
[2022-01-27 10:50] VITALS: BP 120/78
== END 2022-01-27 10:55 | disposition home or self-care (01) | DRG 315 ==
LOC: ED 13:42 → ICU 17:17 → MS2 01-26 18:08
PROVIDERS: ADMIT Specialist; ATTEND Internal Medicine
DX: I95.9 Hypotension, unspecified (principal); R65.10 Systemic inflammatory response syndrome (SIRS) of non-infectious origin without acute organ dysfunction; E87.2 Acidosis; G89.4 Chronic pain syndrome; R11.2 Nausea with vomiting, unspecified; R42 Dizziness and giddiness; D72.829 Elevated white blood cell count, unspecified; R14.3 Flatulence; I49.3 Ventricular premature depolarization; K80.20 Calculus of gallbladder without cholecystitis without obstruction; E11.40 Type 2 diabetes mellitus with diabetic neuropathy, unspecified; Z20.822 Contact with and (suspected) exposure to COVID-19; E78.00 Pure hypercholesterolemia, unspecified; E86.1 Hypovolemia; E86.9 Volume depletion, unspecified; I10 Essential (primary) hypertension; I77.819 Aortic ectasia, unspecified site; K21.9 Gastro-esophageal reflux disease without esophagitis; K44.9 Diaphragmatic hernia without obstruction or gangrene; H54.7 Unspecified visual loss; H91.90 Unspecified hearing loss, unspecified ear; F32.A Depression, unspecified; F41.0 Panic disorder [episodic paroxysmal anxiety]; M10.9 Gout, unspecified; M19.90 Unspecified osteoarthritis, unspecified site; M54.9 Dorsalgia, unspecified; R11.0 Nausea; R16.1 Splenomegaly, not elsewhere classified; R10.30 Lower abdominal pain, unspecified; R25.2 Cramp and spasm; R53.1 Weakness; R53.83 Other fatigue; R60.0 Localized edema; Z79.02 Long term (current) use of antithrombotics/antiplatelets; Z79.84 Long term (current) use of oral hypoglycemic drugs; Z79.899 Other long term (current) drug therapy; Z80.8 Family history of malignant neoplasm of other organs or systems; Z80.9 Family history of malignant neoplasm, unspecified; Z81.1 Family history of alcohol abuse and dependence; Z81.8 Family history of other mental and behavioral disorders; Z82.49 Family history of ischemic heart disease and other diseases of the circulatory system; Z82.61 Family history of arthritis; Z82.69 Family history of other diseases of the musculoskeletal system and connective tissue; Z83.3 Family history of diabetes mellitus; Z86.73 Personal history of transient ischemic attack (TIA), and cerebral infarction without residual deficits; Z90.49 Acquired absence of other specified parts of digestive tract; Z96.619 Presence of unspecified artificial shoulder joint; Z98.0 Intestinal bypass and anastomosis status; Z98.84 Bariatric surgery status
CPT/HCPCS: 36415; 71045; 74177; 80048; 80053; 81003; 82330; 83036; 83605; 83690; 83735; 84100; 84145; 84484; 85025; 85610; 86140; 87040; 87150; 87633; 93005; 93306; 96361; 96374; 96375; 99285; 99291; A9270; J1170; J1650; J2765; J3370; J7120; Q0162; Q9967; 81001; 87086

== ENCOUNTER 2022-04-09 18:07 | Emergency (ER) | payer MEDICARE, OTHER ==
--- OUTSIDE RECORDS SUMMARY | 2022-04-09 18:13 | EXTERNAL MEDICAL SUMMARY RPT | Continuity of Care Document ---
:1945 Author Organization [facility] Address [address] [place] [address] Phone Allergies and Intolerances date description facility type (no date) No Known Drug Allergies [facility] (unkn own) Encounters No information. Functional Status No information. Immunizations No information. Medications No information. Problems No information. Procedures No information. Results/Labs test date author facility value unit interpret ation Result panel 1 (unknown) (no (unknown) (unknown) (no value) (units (unk nown) date) unknown) (unknown) (no (unknown) (unknown) 1 applictn TOP BID (units (unknown) date) unknown) (unknown) (no (unknown) (unknown) 1 tab PO QID PRN (units (unknown) date) unknown) (unknown) (no (unknown) (unknown) 1,000 mg PO DAILY (units (unknown) date) unknown) (unknown) (no (unknown) (unknown) 10 mg PO DAILY (units (unknown) date) unknown) (unknown) (no (unknown) (unknown) 100 mg PO DAILY (units (unknown) date) unknown) (unknown) (no (unknown) (unknown) 12.5 mg PO DAILY (units (unknown) date) unknown) (unknown) (no (unknown) (unknown) 2 spray NASAL DAILY (unit s (unknown) date) unknown) (unknown) (no (unknown) (unknown) 25 mg PO .twice (units (unknown) date) daily unknown) (unknown) (no (unknown) (unknown) 325 mg PO DAILY (units (unknown) date) unknown) (unknown) (no (unknown) (unknown) [id number] (units (unkno wn) date) unknown) (unknown) (no (unknown) (unknown) 40 mg PO DAILY (units (unknown) date) unknown) (unknown) (no (unknown) (unknown) 75 mg PO DAILY (units (unknown) date) unknown) (unknown) (no (unknown) (unknown) 800 mg PO TID (units ( unknown) date) unknown) (unknown) (no (unknown) (unknown) Age/Sex: 76 / M (units (unknown) date) unknown) (unknown) (no (unknown) (unknown) Allergies (units (unkn own) date) unknown) (unknown) (no (unknown) (unknown) Allergy/AdvReac Type (uni ts (unknown) date) Severity Reaction unknown) Status Date / Time (unknown) (no (unknown) (unknown) Cervical spondylosis (uni ts (unknown) date) unknown) (unknown) (no (unknown) (unknown) : 1945 (units (unknown) date) Acct:[id number] unknown) (unknown) (no (unknown) (unknown) Date of Service: (units (unknown) date) 03/12/22 unknown) (unknown) (no (unknown) (unknown) Departure (units (unkn own) date) unknown) (unknown) (no (unknown) (unknown) Discharge Plan (units (unknown) date) unknown) (unknown) (no (unknown) (unknown) ER Physician: (units ( unknown) date) Cosmo Sotelo D.O. unknown) (unknown) (no (unknown) (unknown) Emergency Report (units (unknown) date) unknown) (unknown) (no (unknown) (unknown) General (units (unkno wn) date) unknown) (unknown) (no (unknown) (unknown) HPI - General Adult (unit s (unknown) date) unknown) (unknown) (no (unknown) (unknown) History of ankle (units (unknown) date) surgery unknown) (unknown) (no (unknown) (unknown) History of elbow (units (unknown) date) surgery unknown) (unknown) (no (unknown) (unknown) History of nasal (units (unknown) date) surgery unknown) (unknown) (no (unknown) (unknown) History of toe (units (unknown) date) surgery unknown) (unknown) (no (unknown) (unknown) Home Medications (units (unknown) date) unknown) (unknown) (no (unknown) (unknown) [facility] [address] (uni ts (unknown) date) [address] unknown) [place] [address] (unknown) (no (unknown) (unknown) Hemanth Kendall MD (units (unknown) date) [Primary Care unknown) Provider] (unknown) (no (unknown) (unknown) Medical History (units (unknown) date) (Reviewed 08/08/19 @ unknown) 16:13 by Volodymyr Christensen DO) (unknown) (no (unknown) (unknown) Medication (units (unk nown) date) Instructions Recorded unknown) Confirmed (unknown) (no (unknown) (unknown) No Action (units (unkn own) date) unknown) (unknown) (no (unknown) (unknown) No Known Drug (units ( unknown) date) Allergies Allergy unknown) Unverified 08/08/19 15:06 (unknown) (no (unknown) (unknown) Occipital neuralgia (unit s (unknown) date) of left side unknown) (unknown) (no (unknown) (unknown) Patient History (units (unknown) date) unknown) (unknown) (no (unknown) (unknown) Patient: (units (unkno wn) date) Volodymyr Kang MR#: unknown) M000 (unknown) (no (unknown) (unknown) Prescriptions: (units (unknown) date) unknown) (unknown) (no (unknown) (unknown) Referrals: (units (unk nown) date) unknown) (unknown) (no (unknown) (unknown) Related Data (units (u nknown) date) unknown) (unknown) (no (unknown) (unknown) Signed By: (units (unk nown) date) unknown) (unknown) (no (unknown) (unknown) Smoking Status: (units (unknown) date) Never smoker unknown) (unknown) (no (unknown) (unknown) Social History (units (unknown) date) (Updated 07/26/19 @ unknown) 10:38 by Ban Ramirez) (unknown) (no (unknown) (unknown) Stated complaint: (units (unknown) date) Diarrhea, Diabetic, unknown) Don't Know What's Wrong (unknown) (no (unknown) (unknown) Surgical History (units (unknown) date) (Reviewed 08/08/19 @ unknown) 16:13 by Volodymyr Christensen DO) (unknown) (no (unknown) (unknown) Time Seen by (units (u nknown) date) Provider: 03/12/22 unknown) 13:08 (unknown) (no (unknown) (unknown) acarbose 25 mg (units (unknown) date) tablet 25 mg PO unknown) .twice daily 08/08/19 08/08/19 (unknown) (no (unknown) (unknown) acarbose 25 mg (units (unknown) date) tablet unknown) (unknown) (no (unknown) (unknown) atorvastatin 40 mg (units (unknown) date) tablet 40 mg PO DAILY unknown) 08/08/19 08/08/19 (unknown) (no (unknown) (unknown) atorvastatin 40 mg (units (unknown) date) tablet unknown) (unknown) (no (unknown) (unknown) clopidogrel 75 mg (units (unknown) date) tablet 75 mg PO DAILY unknown) 08/08/19 08/08/19 (unknown) (no (unknown) (unknown) clopidogrel 75 mg (units (unknown) date) tablet unknown) (unknown) (no (unknown) (unknown) ferrous sulfate 325 (unit s (unknown) date) mg (65 mg 325 mg PO unknown) DAILY 08/08/19 08/08/19 (unknown) (no (unknown) (unknown) ferrous sulfate 325 (unit s (unknown) date) mg (65 mg iron) unknown) tablet (unknown) (no (unknown) (unknown) fluticasone (units (un known) date) propionate 50 2 spray unknown) intranasal DAILY 08/08/19 08/08/19 (unknown) (no (unknown) (unknown) fluticasone (units (un known) date) propionate 50 unknown) mcg/actuation spray,suspension (unknown) (no (unknown) (unknown) hydrochlorothiazide (unit s (unknown) date) 12.5 mg tablet 12.5 unknown) mg PO DAILY 08/08/19 08/08/19 (unknown) (no (unknown) (unknown) hydrochlorothiazide (unit s (unknown) date) 12.5 mg tablet unknown) (unknown) (no (unknown) (unknown) ibuprofen 800 mg (units (unknown) date) tablet 800 mg PO TID unknown) 08/08/19 08/08/19 (unknown) (no (unknown) (unknown) ibuprofen 800 mg (units (unknown) date) tablet unknown) (unknown) (no (unknown) (unknown) iron) tablet (units (u nknown) date) unknown) (unknown) (no (unknown) (unknown) marital status: (units (unknown) date) unknown) (unknown) (no (unknown) (unknown) mcg/actuation nasal (unit s (unknown) date) unknown) (unknown) (no (unknown) (unknown) metformin 1,000 mg (units (unknown) date) tablet 1,000 mg PO unknown) DAILY 08/08/19 08/08/19 (unknown) (no (unknown) (unknown) metformin 1,000 mg (units (unknown) date) tablet unknown) (unknown) (no (unknown) (unknown) mg tablet (Percocet) (uni ts (unknown) date) unknown) (unknown) (no (unknown) (unknown) montelukast 10 mg (units (unknown) date) tablet 10 mg PO DAILY unknown) 08/08/19 08/08/19 (unknown) (no (unknown) (unknown) montelukast 10 mg (units (unknown) date) tablet unknown) (unknown) (no (unknown) (unknown) oxycodone-acetaminop (uni ts (unknown) date) hen 5 mg-325 1 tab PO unknown) QID PRN 08/08/19 08/08/19 (unknown) (no (unknown) (unknown) oxycodone-acetaminop (uni ts (unknown) date) hen [Percocet] 5-325 unknown) mg tablet (unknown) (no (unknown) (unknown) pantoprazole 40 mg (units (unknown) date) tablet,delayed 40 mg unknown) PO DAILY 08/08/19 08/08/19 (unknown) (no (unknown) (unknown) pantoprazole 40 mg (units (unknown) date) tablet,delayed unknown) release (DR/EC) (unknown) (no (unknown) (unknown) release (units (unkno wn) date) unknown) (unknown) (no (unknown) (unknown) sitagliptin 100 mg (units (unknown) date) tablet 100 mg PO unknown) DAILY 08/08/19 08/08/19 (unknown) (no (unknown) (unknown) sitagliptin 100 mg (units (unknown) date) tablet unknown) (unknown) (no (unknown) (unknown) spray,suspension (units (unknown) date) unknown) (unknown) (no (unknown) (unknown) topical ointment (units (unknown) date) unknown) (unknown) (no (unknown) (unknown) triamcinolone (units ( unknown) date) acetonide 0.1 % 1 unknown) applictn topical BID 08/08/19 08/08/19 (unknown) (no (unknown) (unknown) triamcinolone (units ( unknown) date) acetonide 0.1 % unknown) ointment Result panel 2 (unknown) (no (unknown) (unknown) (no value) (units (unk nown) date) unknown) (unknown) (no (unknown) (unknown) [id number] (units (unkno wn) date) unknown) (unknown) (no (unknown) (unknown) 03/12/22 (units (unkno wn) date) unknown) (unknown) (no (unknown) (unknown) 1. Prior gastric (units (unknown) date) surgery without unknown) obstruction. Small residual hiatal hernia. (unknown) (no (unknown) (unknown) [address] [place] [address] (units (unknown) date) unknown) (unknown) (no (unknown) (unknown) 2. Cholelithiasis (units (unknown) date) and mild unknown) gallbladder distention without evidence of acute (unknown) (no (unknown) (unknown) 3. Additional (units ( unknown) date) chronic changes as unknown) above (unknown) (no (unknown) (unknown) Abdominal wall: (units (unknown) date) Abdominal wall unknown) intact without evidence of ventral or inguinal (unknown) (no (unknown) (unknown) Accession Number: (units (unknown) date) [id number] unknown) (unknown) (no (unknown) (unknown) Adrenals: Normal (units (unknown) date) morphology and unknown) density. (unknown) (no (unknown) (unknown) After the (units (unkn own) date) administration of unknown) intravenous contrast, axial sections acquired from (unknown) (no (unknown) (unknown) Age/Sex: 76 / M (units (unknown) date) Date of Service: unknown) (unknown) (no (unknown) (unknown) [place], [place] (units ( unknown) date) [id number] unknown) (unknown) (no (unknown) (unknown) Appendix: No (units (u nknown) date) findings to suggest unknown) acute appendicitis. (unknown) (no (unknown) (unknown) Approved by: Festus (units (unknown) date) Kimberly Lambert on unknown) 03/12/2022 at 15:08 (unknown) (no (unknown) (unknown) Biliary system: (units (unknown) date) Cholelithiasis mild unknown) gallbladder distention without evidence of (unknown) (no (unknown) (unknown) COMPARISON: None. (units (unknown) date) unknown) (unknown) (no (unknown) (unknown) CT Scan Report (units (unknown) date) unknown) (unknown) (no (unknown) (unknown) : 1945 (units (unknown) date) Acct:[id number] unknown) (unknown) (no (unknown) (unknown) FINDINGS: (units (unkn own) date) unknown) (unknown) (no (unknown) (unknown) For (units (unkno wn) date) unknown) (unknown) (no (unknown) (unknown) Gastrointestinal (units (unknown) date) system: Prior unknown) gastric surgery noted. No evidence of (unknown) (no (unknown) (unknown) IMPRESSION: (units (un known) date) unknown) (unknown) (no (unknown) (unknown) INDICATIONS: hx of (units (unknown) date) gastric surgery unknown) with abd pain low BP (unknown) (no (unknown) (unknown) [facility] (units (unknown) date) unknown) (unknown) (no (unknown) (unknown) Liver: Normal in (units (unknown) date) size and unknown) attenuation. No contour deformity present. (unknown) (no (unknown) (unknown) Loc: ED (units (unkno wn) date) unknown) (unknown) (no (unknown) (unknown) Lower thorax: The (units (unknown) date) lung bases are unknown) clear. Heart size normal. Small hiatal (unknown) (no (unknown) (unknown) Musculoskeletal: (units (unknown) date) Normal bone unknown) mineralization. Degenerative disc disease and (unknown) (no (unknown) (unknown) No free (units (unkno wn) date) unknown) (unknown) (no (unknown) (unknown) None (units (unkno wn) date) unknown) (unknown) (no (unknown) (unknown) Ordering Provider: (units (unknown) date) Cosmo Sotelo D.O. unknown) (unknown) (no (unknown) (unknown) PROCEDURE: CT (units ( unknown) date) ABDOMEN PELVIS W unknown) CON (unknown) (no (unknown) (unknown) Pancreas: (units (unkn own) date) Unremarkable unknown) without mass or inflammation evident. (unknown) (no (unknown) (unknown) Patient: (units (unkno wn) date) Volodymyr Kang MR#: unknown) M00 (unknown) (no (unknown) (unknown) Peritoneal spaces: (units (unknown) date) No mesenteric or unknown) retroperitoneal adenopathy. No free air. (unknown) (no (unknown) (unknown) Procedure: CT (units ( unknown) date) abdomen pelvis w unknown) con (unknown) (no (unknown) (unknown) Reproductive (units (u nknown) date) system: unknown) Unremarkable as visualized. (unknown) (no (unknown) (unknown) Signed (units (unkno wn) date) unknown) (unknown) (no (unknown) (unknown) Smaller (units (unkno wn) date) unknown) (unknown) (no (unknown) (unknown) Spleen: Normal in (units (unknown) date) size and density. unknown) (unknown) (no (unknown) (unknown) TECHNIQUE: (units (unk nown) date) unknown) (unknown) (no (unknown) (unknown) Urinary system: (units (unknown) date) Right renal cyst. unknown) Nonobstructing 3 mm right renal calculus. (unknown) (no (unknown) (unknown) Vasculature: (units (u nknown) date) Aortic unknown) atherosclerotic vascular calcification noted without (unknown) (no (unknown) (unknown) acute (units (unkno wn) date) unknown) (unknown) (no (unknown) (unknown) adjustment (units (unk nown) date) unknown) (unknown) (no (unknown) (unknown) aneurysm. (units (unkn own) date) unknown) (unknown) (no (unknown) (unknown) arthropathy (units (un known) date) unknown) (unknown) (no (unknown) (unknown) bases to the pubic (units (unknown) date) symphysis. Coronal unknown) and sagittal reformats were performed. (unknown) (no (unknown) (unknown) cholecystitis. (units (unknown) date) unknown) (unknown) (no (unknown) (unknown) evidence of (units (un known) date) unknown) (unknown) (no (unknown) (unknown) fluid. (units (unkno wn) date) unknown) (unknown) (no (unknown) (unknown) hernia. (units (unkno wn) date) unknown) (unknown) (no (unknown) (unknown) hernias. (units (unkno wn) date) unknown) (unknown) (no (unknown) (unknown) left renal cysts. (units (unknown) date) No hydronephrosis unknown) or obstructive uropathy. (unknown) (no (unknown) (unknown) noted in lower (units (unknown) date) lumbar spine. No unknown) acute fractures. (unknown) (no (unknown) (unknown) obstruction. (units (u nknown) date) unknown) (unknown) (no (unknown) (unknown) of mA and/or kV (units (unknown) date) according to unknown) patient size. (unknown) (no (unknown) (unknown) radiation dose (units (unknown) date) reduction, the unknown) following was used: automated exposure control, (unknown) (no (unknown) (unknown) the lung (units (unkno wn) date) unknown) Result panel 3 (unknown) (no (unknown) (unknown) (no value) (units (unk nown) date) unknown) (unknown) (no (unknown) (unknown) 03/12/22 13:13 (units (unknown) date) unknown) (unknown) (no (unknown) (unknown) 03/12/22 13:15 (units (unknown) date) unknown) (unknown) (no (unknown) (unknown) 03/12/22 13:24 (units (unknown) date) unknown) (unknown) (no (unknown) (unknown) 03/12/22 (units (unkno wn) date) unknown) (unknown) (no (unknown) (unknown) 1 applictn TOP BID (units (unknown) date) unknown) (unknown) (no (unknown) (unknown) 1 tab PO QID PRN (units (unknown) date) unknown) (unknown) (no (unknown) (unknown) 1,000 mg PO DAILY (units (unknown) date) unknown) (unknown) (no (unknown) (unknown) 10 mg PO DAILY (units (unknown) date) unknown) (unknown) (no (unknown) (unknown) 100 mg PO DAILY (units (unknown) date) unknown) (unknown) (no (unknown) (unknown) 12.5 mg PO DAILY (units (unknown) date) unknown) (unknown) (no (unknown) (unknown) 12:56 03/12/22 (units (unknown) date) unknown) (unknown) (no (unknown) (unknown) 13:05 03/12/22 (units (unknown) date) unknown) (unknown) (no (unknown) (unknown) 13:07 03/12/22 (units (unknown) date) unknown) (unknown) (no (unknown) (unknown) 13:07 (units (unkno wn) date) unknown) (unknown) (no (unknown) (unknown) 13:09 03/12/22 (units (unknown) date) unknown) (unknown) (no (unknown) (unknown) 13:09 (units (unkno wn) date) unknown) (unknown) (no (unknown) (unknown) 2 spray NASAL DAILY (unit s (unknown) date) unknown) (unknown) (no (unknown) (unknown) 25 mg PO .twice (units (unknown) date) daily unknown) (unknown) (no (unknown) (unknown) 325 mg PO DAILY (units (unknown) date) unknown) (unknown) (no (unknown) (unknown) [id number] (units (unkno wn) date) unknown) (unknown) (no (unknown) (unknown) 40 mg PO DAILY (units (unknown) date) unknown) (unknown) (no (unknown) (unknown) 75 mg PO DAILY (units (unknown) date) unknown) (unknown) (no (unknown) (unknown) 800 mg PO TID (units ( unknown) date) unknown) (unknown) (no (unknown) (unknown) Age/Sex: 76 / M (units (unknown) date) unknown) (unknown) (no (unknown) (unknown) Allergies (units (unkn own) date) unknown) (unknown) (no (unknown) (unknown) Allergy/AdvReac Type (uni ts (unknown) date) Severity Reaction unknown) Status Date / Time (unknown) (no (unknown) (unknown) Appearance: grossly (unit s (unknown) date) normal and well kempt unknown) (unknown) (no (unknown) (unknown) Attestation: I (units (unknown) date) personally reviewed unknown) and interpreted this ECG as follows: (unknown) (no (unknown) (unknown) Auscultation: clear (unit s (unknown) date) to auscultation unknown) bilaterally (unknown) (no (unknown) (unknown) Blood Pressure 77/47 (uni ts (unknown) date) L unknown) (unknown) (no (unknown) (unknown) Blood Pressure 84/70 (uni ts (unknown) date) L 03/12/22 12:56 unknown) (unknown) (no (unknown) (unknown) Blood Pressure 84/70 (uni ts (unknown) date) L 86/54 L unknown) (unknown) (no (unknown) (unknown) COVID19 -Nasal (units (unknown) date) RAPID/Pre-Proc Stat unknown) (unknown) (no (unknown) (unknown) CT abdomen pelvis w (unit s (unknown) date) con Stat unknown) (unknown) (no (unknown) (unknown) Cardio (units (unkno wn) date) unknown) (unknown) (no (unknown) (unknown) Cervical spondylosis (uni ts (unknown) date) unknown) (unknown) (no (unknown) (unknown) Chief complaint: (units (unknown) date) Weakness unknown) (unknown) (no (unknown) (unknown) Complete Blood Count (uni ts (unknown) date) AUTO DIFF Stat unknown) (unknown) (no (unknown) (unknown) Comprehensive (units ( unknown) date) Metabolic Panel Stat unknown) (unknown) (no (unknown) (unknown) Const (units (unkno wn) date) unknown) (unknown) (no (unknown) (unknown) Course (units (unkno wn) date) unknown) (unknown) (no (unknown) (unknown) : 1945 (units (unknown) date) Acct:[id number] unknown) (unknown) (no (unknown) (unknown) Date of Service: (units (unknown) date) 03/12/22 unknown) (unknown) (no (unknown) (unknown) Departure (units (unkn own) date) unknown) (unknown) (no (unknown) (unknown) Diabetes (units (unkno wn) date) unknown) (unknown) (no (unknown) (unknown) Discharge Plan (units (unknown) date) unknown) (unknown) (no (unknown) (unknown) Documented By: KB (units (unknown) date) unknown) (unknown) (no (unknown) (unknown) ECG Data (units (unkno wn) date) unknown) (unknown) (no (unknown) (unknown) ED Orders (units (unkn own) date) unknown) (unknown) (no (unknown) (unknown) EKG-12 Lead Stat (units (unknown) date) unknown) (unknown) (no (unknown) (unknown) ER Physician: (units ( unknown) date) Cosmo Sotelo D.O. unknown) (unknown) (no (unknown) (unknown) Effort + Inspection: (uni ts (unknown) date) normal respiratory unknown) effort (unknown) (no (unknown) (unknown) Emergency Report (units (unknown) date) unknown) (unknown) (no (unknown) (unknown) Exam (units (unkno wn) date) unknown) (unknown) (no (unknown) (unknown) Extrem (units (unkno wn) date) unknown) (unknown) (no (unknown) (unknown) GI (units (unkno wn) date) unknown) (unknown) (no (unknown) (unknown) General (units (unkno wn) date) unknown) (unknown) (no (unknown) (unknown) General: (units (unkno wn) date) cooperative, unknown) comfortable, diaphoretic and ill appearing (unknown) (no (unknown) (unknown) General: no rashes (units (unknown) date) or lesions noted unknown) (unknown) (no (unknown) (unknown) General: normal to (units (unknown) date) inspection and unknown) capillary refill normal (unknown) (no (unknown) (unknown) General: patient (units (unknown) date) alert, patient awake, unknown) patient oriented x3 and moves all (unknown) (no (unknown) (unknown) HENMT (units (unkno wn) date) unknown) (unknown) (no (unknown) (unknown) HPI - General Adult (unit s (unknown) date) unknown) (unknown) (no (unknown) (unknown) HPI narrative: (units (unknown) date) unknown) (unknown) (no (unknown) (unknown) Head: normal to (units (unknown) date) inspection and unknown) normocephalic (unknown) (no (unknown) (unknown) History of Present (units (unknown) date) Illness unknown) (unknown) (no (unknown) (unknown) History of ankle (units (unknown) date) surgery unknown) (unknown) (no (unknown) (unknown) History of elbow (units (unknown) date) surgery unknown) (unknown) (no (unknown) (unknown) History of nasal (units (unknown) date) surgery unknown) (unknown) (no (unknown) (unknown) History of toe (units (unknown) date) surgery unknown) (unknown) (no (unknown) (unknown) Home Medications (units (unknown) date) unknown) (unknown) (no (unknown) (unknown) Initial Vital Signs (unit s (unknown) date) unknown) (unknown) (no (unknown) (unknown) Initial Vital Signs: (uni ts (unknown) date) unknown) (unknown) (no (unknown) (unknown) Inspection: normal (units (unknown) date) to inspection unknown) (unknown) (no (unknown) (unknown) Interpretation: (units (unknown) date) unknown) (unknown) (no (unknown) (unknown) [facility] [address] (uni ts (unknown) date) [address] unknown) [place] [address] (unknown) (no (unknown) (unknown) Lab Data (units (unkno wn) date) unknown) (unknown) (no (unknown) (unknown) Lactate (Lactic (units (unknown) date) Acid) Stat unknown) (unknown) (no (unknown) (unknown) Last Admin: 03/12/22 (uni ts (unknown) date) 13:24 Dose: 1,000 unknown) mls/hr (unknown) (no (unknown) (unknown) Limitations: no (units (unknown) date) limitations unknown) (unknown) (no (unknown) (unknown) Lipase Stat (units (un known) date) unknown) (unknown) (no (unknown) (unknown) Magnesium Stat (units (unknown) date) unknown) (unknown) (no (unknown) (unknown) Hemanth Kendall MD (units (unknown) date) [Primary Care unknown) Provider] (unknown) (no (unknown) (unknown) Medical Decision (units (unknown) date) Making unknown) (unknown) (no (unknown) (unknown) Medical History (units (unknown) date) (Reviewed 03/12/22 @ unknown) 13:32 by Cosmo Stoelo DO) (unknown) (no (unknown) (unknown) Medication (units (unk nown) date) Instructions Recorded unknown) Confirmed (unknown) (no (unknown) (unknown) Mode of arrival: (units (unknown) date) Ambulatory unknown) (unknown) (no (unknown) (unknown) Motor: muscle tone (units (unknown) date) normal throughout unknown) (unknown) (no (unknown) (unknown) Neuro (units (unkno wn) date) unknown) (unknown) (no (unknown) (unknown) No Action (units (unkn own) date) unknown) (unknown) (no (unknown) (unknown) No Known Drug (units ( unknown) date) Allergies Allergy unknown) Unverified 08/08/19 15:06 (unknown) (no (unknown) (unknown) No ST T wave changes (uni ts (unknown) date) unknown) (unknown) (no (unknown) (unknown) No blood in the (units (unknown) date) stool. No urinary unknown) symptoms. They checked his blood sugar at (unknown) (no (unknown) (unknown) Normal QRS (units (unk nown) date) unknown) (unknown) (no (unknown) (unknown) Normal QTC (units (unk nown) date) unknown) (unknown) (no (unknown) (unknown) Normal axis (units (un known) date) unknown) (unknown) (no (unknown) (unknown) Occipital neuralgia (unit s (unknown) date) of left side unknown) (unknown) (no (unknown) (unknown) Ordered: (units (unkno wn) date) unknown) (unknown) (no (unknown) (unknown) Orders (units (unkno wn) date) unknown) (unknown) (no (unknown) (unknown) Oxygen Delivery (units (unknown) date) Method 03/12/22 12:56 unknown) (unknown) (no (unknown) (unknown) Oxygen Delivery (units (unknown) date) Method Room Air unknown) (unknown) (no (unknown) (unknown) Oxygen Delivery (units (unknown) date) Method unknown) (unknown) (no (unknown) (unknown) Palpation: soft, No (unit s (unknown) date) firm and No tender unknown) (unknown) (no (unknown) (unknown) Partial (units (unkno wn) date) Thromboplastin Time unknown) Stat (unknown) (no (unknown) (unknown) Patient History (units (unknown) date) unknown) (unknown) (no (unknown) (unknown) Patient is a (units (u nknown) date) 76-year-old male. unknown) History of diabetes. Also has had history of (unknown) (no (unknown) (unknown) Patient: (units (unkno wn) date) Jorge Luis,Volodymyr Siobhan MR#: unknown) M000 (unknown) (no (unknown) (unknown) Prescriptions: (units (unknown) date) unknown) (unknown) (no (unknown) (unknown) Procalcitonin Stat (units (unknown) date) unknown) (unknown) (no (unknown) (unknown) Prothrombin Time INR (uni ts (unknown) date) Stat unknown) (unknown) (no (unknown) (unknown) Psych (units (unkno wn) date) unknown) (unknown) (no (unknown) (unknown) Pulse Oximetry 93 (units (unknown) date) 03/12/22 12:56 unknown) (unknown) (no (unknown) (unknown) Pulse Oximetry 93 94 (uni ts (unknown) date) unknown) (unknown) (no (unknown) (unknown) Pulse Oximetry 94 94 (uni ts (unknown) date) unknown) (unknown) (no (unknown) (unknown) Pulse Rate 79 80 (units (unknown) date) unknown) (unknown) (no (unknown) (unknown) Pulse Rate 84 (units ( unknown) date) 03/12/22 12:56 unknown) (unknown) (no (unknown) (unknown) Pulse Rate 84 78 (units (unknown) date) unknown) (unknown) (no (unknown) (unknown) ROS Unobtainable: All (uni ts (unknown) date) systems reviewed + unknown) are unremarkable except as noted in HPI (unknown) (no (unknown) (unknown) Rate: regular rate (units (unknown) date) unknown) (unknown) (no (unknown) (unknown) Referrals: (units (unk nown) date) unknown) (unknown) (no (unknown) (unknown) Related Data (units (u nknown) date) unknown) (unknown) (no (unknown) (unknown) Resp (units (unkno wn) date) unknown) (unknown) (no (unknown) (unknown) Respiratory Rate 18 (unit s (unknown) date) 03/12/22 12:56 unknown) (unknown) (no (unknown) (unknown) Respiratory Rate 18 (unit s (unknown) date) unknown) (unknown) (no (unknown) (unknown) Respiratory Rate 19 (unit s (unknown) date) unknown) (unknown) (no (unknown) (unknown) Result diagrams: (units (unknown) date) unknown) (unknown) (no (unknown) (unknown) Review of Systems (units (unknown) date) unknown) (unknown) (no (unknown) (unknown) Rhythm: regular (units (unknown) date) rhythm unknown) (unknown) (no (unknown) (unknown) Signed By: (units (unk nown) date) unknown) (unknown) (no (unknown) (unknown) Sinus rhythm (units (u nknown) date) unknown) (unknown) (no (unknown) (unknown) Skin (units (unkno wn) date) unknown) (unknown) (no (unknown) (unknown) Smoking Status: (units (unknown) date) Never smoker unknown) (unknown) (no (unknown) (unknown) Social History (units (unknown) date) (Reviewed 03/12/22 @ unknown) 13:32 by Cosmo Sotelo DO) (unknown) (no (unknown) (unknown) Sodium Chloride (units (unknown) date) (Normal Saline 0.9%) unknown) 1,000 mls @ 1,000 mls/hr IV BOLUS ONE (unknown) (no (unknown) (unknown) Source: patient and (unit s (unknown) date) family unknown) (unknown) (no (unknown) (unknown) Speech: speech (units (unknown) date) normal unknown) (unknown) (no (unknown) (unknown) Stated complaint: (units (unknown) date) Diarrhea, Diabetic, unknown) Don't Know What's Wrong (unknown) (no (unknown) (unknown) Stop: 03/12/22 14:11 (uni ts (unknown) date) unknown) (unknown) (no (unknown) (unknown) Surgical History (units (unknown) date) (Reviewed 08/08/19 @ unknown) 16:13 by Volodymyr Christensen DO) (unknown) (no (unknown) (unknown) Temperature 97.5 F L (uni ts (unknown) date) 03/12/22 12:56 unknown) (unknown) (no (unknown) (unknown) Temperature 97.5 F L (uni ts (unknown) date) unknown) (unknown) (no (unknown) (unknown) Temperature (units (un known) date) unknown) (unknown) (no (unknown) (unknown) Time Seen by (units (u nknown) date) Provider: 03/12/22 unknown) 13:08 (unknown) (no (unknown) (unknown) Troponin + CK (units ( unknown) date) Cardiac Panel Stat unknown) (unknown) (no (unknown) (unknown) Type and Screen Stat (uni ts (unknown) date) unknown) (unknown) (no (unknown) (unknown) Ventricular rate 85 (unit s (unknown) date) unknown) (unknown) (no (unknown) (unknown) Vital Signs - 8 hr (units (unknown) date) unknown) (unknown) (no (unknown) (unknown) Vital Signs (units (un known) date) unknown) (unknown) (no (unknown) (unknown) Vital signs: (units (u nknown) date) unknown) (unknown) (no (unknown) (unknown) [Embedded Image Not (unit s (unknown) date) Available] unknown) (unknown) (no (unknown) (unknown) abdominal cramping (units (unknown) date) and diarrhea. He unknown) states he was having some nausea and dry (unknown) (no (unknown) (unknown) acarbose 25 mg (units (unknown) date) tablet 25 mg PO unknown) .twice daily 08/08/19 08/08/19 (unknown) (no (unknown) (unknown) acarbose 25 mg (units (unknown) date) tablet unknown) (unknown) (no (unknown) (unknown) and below (units (unkn own) date) unknown) (unknown) (no (unknown) (unknown) atorvastatin 40 mg (units (unknown) date) tablet 40 mg PO DAILY unknown) 08/08/19 08/08/19 (unknown) (no (unknown) (unknown) atorvastatin 40 mg (units (unknown) date) tablet unknown) (unknown) (no (unknown) (unknown) clopidogrel 75 mg (units (unknown) date) tablet 75 mg PO DAILY unknown) 08/08/19 08/08/19 (unknown) (no (unknown) (unknown) clopidogrel 75 mg (units (unknown) date) tablet unknown) (unknown) (no (unknown) (unknown) extremities (units (un known) date) unknown) (unknown) (no (unknown) (unknown) feeling like this (units (unknown) date) when his blood sugar unknown) was abnormal. He currently states that (unknown) (no (unknown) (unknown) feeling very well. (units (unknown) date) Was diaphoretic. No unknown) chest pain. No shortness of breath. (unknown) (no (unknown) (unknown) ferrous sulfate 325 (unit s (unknown) date) mg (65 mg 325 mg PO unknown) DAILY 08/08/19 08/08/19 (unknown) (no (unknown) (unknown) ferrous sulfate 325 (unit s (unknown) date) mg (65 mg iron) unknown) tablet (unknown) (no (unknown) (unknown) fluticasone (units (un known) date) propionate 50 2 spray unknown) intranasal DAILY 08/08/19 08/08/19 (unknown) (no (unknown) (unknown) fluticasone (units (un known) date) propionate 50 unknown) mcg/actuation spray,suspension (unknown) (no (unknown) (unknown) gastric surgery. (units (unknown) date) Also has a history of unknown) a stroke without residual deficits who (unknown) (no (unknown) (unknown) he is having (units (u nknown) date) abdominal cramping unknown) but his nausea is better. (unknown) (no (unknown) (unknown) heaving as well (units (unknown) date) while he was going to unknown) the bathroom. He states he normally does (unknown) (no (unknown) (unknown) home and it was only (uni ts (unknown) date) slightly elevated. He unknown) is had issues in the past with (unknown) (no (unknown) (unknown) hydrochlorothiazide (unit s (unknown) date) 12.5 mg tablet 12.5 unknown) mg PO DAILY 08/08/19 08/08/19 (unknown) (no (unknown) (unknown) hydrochlorothiazide (unit s (unknown) date) 12.5 mg tablet unknown) (unknown) (no (unknown) (unknown) ibuprofen 800 mg (units (unknown) date) tablet 800 mg PO TID unknown) 08/08/19 08/08/19 (unknown) (no (unknown) (unknown) ibuprofen 800 mg (units (unknown) date) tablet unknown) (unknown) (no (unknown) (unknown) iron) tablet (units (u nknown) date) unknown) (unknown) (no (unknown) (unknown) is here for (units (un known) date) evaluation of unknown) approximately 20 minutes of a very sudden onset of (unknown) (no (unknown) (unknown) marital status: (units (unknown) date) unknown) (unknown) (no (unknown) (unknown) mcg/actuation nasal (unit s (unknown) date) unknown) (unknown) (no (unknown) (unknown) metformin 1,000 mg (units (unknown) date) tablet 1,000 mg PO unknown) DAILY 08/08/19 08/08/19 (unknown) (no (unknown) (unknown) metformin 1,000 mg (units (unknown) date) tablet unknown) (unknown) (no (unknown) (unknown) mg tablet (Percocet) (uni ts (unknown) date) unknown) (unknown) (no (unknown) (unknown) montelukast 10 mg (units (unknown) date) tablet 10 mg PO DAILY unknown) 08/08/19 08/08/19 (unknown) (no (unknown) (unknown) montelukast 10 mg (units (unknown) date) tablet unknown) (unknown) (no (unknown) (unknown) not vomit because of (uni ts (unknown) date) his prior gastric unknown) surgery. States he generally was not (unknown) (no (unknown) (unknown) oxycodone-acetaminop (uni ts (unknown) date) hen 5 mg-325 1 tab PO unknown) QID PRN 08/08/19 08/08/19 (unknown) (no (unknown) (unknown) oxycodone-acetaminop (uni ts (unknown) date) hen [Percocet] 5-325 unknown) mg tablet (unknown) (no (unknown) (unknown) pantoprazole 40 mg (units (unknown) date) tablet,delayed 40 mg unknown) PO DAILY 08/08/19 08/08/19 (unknown) (no (unknown) (unknown) pantoprazole 40 mg (units (unknown) date) tablet,delayed unknown) release (DR/EC) (unknown) (no (unknown) (unknown) release (units (unkno wn) date) unknown) (unknown) (no (unknown) (unknown) sitagliptin 100 mg (units (unknown) date) tablet 100 mg PO unknown) DAILY 08/08/19 08/08/19 (unknown) (no (unknown) (unknown) sitagliptin 100 mg (units (unknown) date) tablet unknown) (unknown) (no (unknown) (unknown) spray,suspension (units (unknown) date) unknown) (unknown) (no (unknown) (unknown) topical ointment (units (unknown) date) unknown) (unknown) (no (unknown) (unknown) triamcinolone (units ( unknown) date) acetonide 0.1 % 1 unknown) applictn topical BID 08/08/19 08/08/19 (unknown) (no (unknown) (unknown) triamcinolone (units ( unknown) date) acetonide 0.1 % unknown) ointment Result panel 4 (unknown) (no date) (unknown) (unknown) 0.8 % (unkn own) (unknown) (no date) (unknown) (unknown) 1.6 % (unkn own) (unknown) (no date) (unknown) (unknown) 100 /ul (unkn own) (unknown) (no date) (unknown) (unknown) 100 /ul (unkn own) (unknown) (no date) (unknown) (unknown) 13.1 g/dl (unkn own) (unknown) (no date) (unknown) (unknown) 14.5 % (unkn own) (unknown) (no date) (unknown) (unknown) 29.2 pg (unkn own) (unknown) (no date) (unknown) (unknown) 3100 /ul (unkn own) (unknown) (no date) (unknown) (unknown) 32.7 % (unkn own) (unknown) (no date) (unknown) (unknown) 33.9 % (unkn own) (unknown) (no date) (unknown) (unknown) 38.6 % (unkn own) (unknown) (no date) (unknown) (unknown) 4.47 x10 6/ul (unkn own) (unknown) (no date) (unknown) (unknown) 5.1 % (unkn own) (unknown) (no date) (unknown) (unknown) 500 /ul (unkn own) (unknown) (no date) (unknown) (unknown) 5600 /ul (unkn own) (unknown) (no date) (unknown) (unknown) 59.8 % (unkn own) (unknown) (no date) (unknown) (unknown) 86.2 fl (unkn own) (unknown) (no date) (unknown) (unknown) 9.4 x10 3/ul (unkn own) Result panel 5 (unknown) (no date) (unknown) (unknown) 1.0 (units unknown) (unknown) (unknown) (no date) (unknown) (unknown) 11.3 seconds (unkn own) (unknown) (no date) (unknown) (unknown) 2.8 mmol/l (unkn own) (unknown) (no date) (unknown) (unknown) 38 seconds (unkn own) (unknown) (no date) (unknown) (unknown) 38 seconds (unkn own) Result panel 6 (unknown) (no date) (unknown) (unknown) 0.5 mg/dl (unkn own) (unknown) (no date) (unknown) (unknown) 1.62 mg/dl (unkn own) (unknown) (no date) (unknown) (unknown) 1.8 (units unknown) (unknown) (unknown) (no date) (unknown) (unknown) 104 mmol/l (unkn own) (unknown) (no date) (unknown) (unknown) 139 mmol/l (unkn own) (unknown) (no date) (unknown) (unknown) 14.8 (units unknown) (unknown) (unknown) (no date) (unknown) (unknown) 150 mg/dl (unkn own) (unknown) (no date) (unknown) (unknown) 150 mg/dl (unkn own) (unknown) (no date) (unknown) (unknown) 190 u/l (unkn own) (unknown) (no date) (unknown) (unknown) 2.3 mg/dl (unkn own) (unknown) (no date) (unknown) (unknown) 2.5 g/dl (unkn own) (unknown) (no date) (unknown) (unknown) 22 mmol/l (unkn own) (unknown) (no date) (unknown) (unknown) 24 mg/dl (unkn own) (unknown) (no date) (unknown) (unknown) 35 iu/l (unkn own) (unknown) (no date) (unknown) (unknown) 4.1 mmol/l (unkn own) (unknown) (no date) (unknown) (unknown) 4.5 g/dl (unkn own) (unknown) (no date) (unknown) (unknown) 40 iu/l (unkn own) (unknown) (no date) (unknown) (unknown) 44 ml/min (unkn own) (unknown) (no date) (unknown) (unknown) 44 ml/min (unkn own) (unknown) (no date) (unknown) (unknown) 68 u/l (unkn own) (unknown) (no date) (unknown) (unknown) 7.0 g/dl (unkn own) (unknown) (no date) (unknown) (unknown) 8.8 mg/dl (unkn own) (unknown) (no date) (unknown) (unknown) 80 u/l (unkn own) Result panel 7 (unknown) (no date) (unknown) (unknown) Negative (units (unkn own) unknown) (unknown) (no date) (unknown) (unknown) Negative (units (unkn own) unknown) Result panel 8 (unknown) (no date) (unknown) (unknown) < 0.012 ng/ml (unkn own) (unknown) (no date) (unknown) (unknown) < 0.012 ng/ml (unkn own) (unknown) (no date) (unknown) (unknown) 0.5 mg/dl (unkn own) (unknown) (no date) (unknown) (unknown) 1.62 mg/dl (unkn own) (unknown) (no date) (unknown) (unknown) 1.8 (units (unkn own) unknown) (unknown) (no date) (unknown) (unknown) 104 mmol/l (unkn own) (unknown) (no date) (unknown) (unknown) 139 mmol/l (unkn own) (unknown) (no date) (unknown) (unknown) 14.8 (units (unkn own) unknown) (unknown) (no date) (unknown) (unknown) 150 mg/dl (unkn own) (unknown) (no date) (unknown) (unknown) 150 mg/dl (unkn own) (unknown) (no date) (unknown) (unknown) 190 u/l (unkn own) (unknown) (no date) (unknown) (unknown) 2.3 mg/dl (unkn own) (unknown) (no date) (unknown) (unknown) 2.5 g/dl (unkn own) (unknown) (no date) (unknown) (unknown) 22 mmol/l (unkn own) (unknown) (no date) (unknown) (unknown) 24 mg/dl (unkn own) (unknown) (no date) (unknown) (unknown) 35 iu/l (unkn own) (unknown) (no date) (unknown) (unknown) 4.1 mmol/l (unkn own) (unknown) (no date) (unknown) (unknown) 4.5 g/dl (unkn own) (unknown) (no date) (unknown) (unknown) 40 iu/l (unkn own) (unknown) (no date) (unknown) (unknown) 44 ml/min (unkn own) (unknown) (no date) (unknown) (unknown) 44 ml/min (unkn own) (unknown) (no date) (unknown) (unknown) 68 u/l (unkn own) (unknown) (no date) (unknown) (unknown) 7.0 g/dl (unkn own) (unknown) (no date) (unknown) (unknown) 8.8 mg/dl (unkn own) (unknown) (no date) (unknown) (unknown) 80 u/l (unkn own) Result panel 9 (unknown) (no date) (unknown) (unknown) 0.8 % (unkn own) (unknown) (no date) (unknown) (unknown) 1.6 % (unkn own) (unknown) (no date) (unknown) (unknown) 100 /ul (unkn own) (unknown) (no date) (unknown) (unknown) 100 /ul (unkn own) (unknown) (no date) (unknown) (unknown) 13.1 g/dl (unkn own) (unknown) (no date) (unknown) (unknown) 14.5 % (unkn own) (unknown) (no date) (unknown) (unknown) 29.2 pg (unkn own) (unknown) (no date) (unknown) (unknown) 3100 /ul (unkn own) (unknown) (no date) (unknown) (unknown) 32.7 % (unkn own) (unknown) (no date) (unknown) (unknown) 33.9 % (unkn own) (unknown) (no date) (unknown) (unknown) 38.6 % (unkn own) (unknown) (no date) (unknown) (unknown) 4.47 x10 (unkn own) 6/ul (unknown) (no date) (unknown) (unknown) 5.1 % (unkn own) (unknown) (no date) (unknown) (unknown) 500 /ul (unkn own) (unknown) (no date) (unknown) (unknown) 5600 /ul (unkn own) (unknown) (no date) (unknown) (unknown) 59.8 % (unkn own) (unknown) (no date) (unknown) (unknown) 86.2 fl (unkn own) (unknown) (no date) (unknown) (unknown) 9.4 x10 (unkn own) 3/ul (unknown) (no date) (unknown) (unknown) Normal (units (unkn own) Morphology unknown) Result panel 10 (unknown) (no date) (unknown) (unknown) < 0.012 ng/ml (unkn own) (unknown) (no date) (unknown) (unknown) < 0.012 ng/ml (unkn own) (unknown) (no date) (unknown) (unknown) 0.10 ng/ml (unkn own) (unknown) (no date) (unknown) (unknown) 0.10 ng/ml (unkn own) (unknown) (no date) (unknown) (unknown) 0.5 mg/dl (unkn own) (unknown) (no date) (unknown) (unknown) 0.8 % (unkn own) (unknown) (no date) (unknown) (unknown) 1.6 % (unkn own) (unknown) (no date) (unknown) (unknown) 1.62 mg/dl (unkn own) (unknown) (no date) (unknown) (unknown) 1.8 (units (unkn own) unknown) (unknown) (no date) (unknown) (unknown) 1.9 % (unkn own) (unknown) (no date) (unknown) (unknown) 100 /ul (unkn own) (unknown) (no date) (unknown) (unknown) 100 /ul (unkn own) (unknown) (no date) (unknown) (unknown) 104 mmol/l (unkn own) (unknown) (no date) (unknown) (unknown) 13.1 g/dl (unkn own) (unknown) (no date) (unknown) (unknown) 139 mmol/l (unkn own) (unknown) (no date) (unknown) (unknown) 14.5 % (unkn own) (unknown) (no date) (unknown) (unknown) 14.8 (units (unkn own) unknown) (unknown) (no date) (unknown) (unknown) 150 mg/dl (unkn own) (unknown) (no date) (unknown) (unknown) 150 mg/dl (unkn own) (unknown) (no date) (unknown) (unknown) 190 u/l (unkn own) (unknown) (no date) (unknown) (unknown) 2.3 mg/dl (unkn own) (unknown) (no date) (unknown) (unknown) 2.5 g/dl (unkn own) (unknown) (no date) (unknown) (unknown) 22 mmol/l (unkn own) (unknown) (no date) (unknown) (unknown) 24 mg/dl (unkn own) (unknown) (no date) (unknown) (unknown) 29.2 pg (unkn own) (unknown) (no date) (unknown) (unknown) 3.52 ng/ml (unkn own) (unknown) (no date) (unknown) (unknown) 310 x10 3/ul (unkn own) (unknown) (no date) (unknown) (unknown) 3100 /ul (unkn own) (unknown) (no date) (unknown) (unknown) 32.7 % (unkn own) (unknown) (no date) (unknown) (unknown) 33.9 % (unkn own) (unknown) (no date) (unknown) (unknown) 35 iu/l (unkn own) (unknown) (no date) (unknown) (unknown) 38.6 % (unkn own) (unknown) (no date) (unknown) (unknown) 4.1 mmol/l (unkn own) (unknown) (no date) (unknown) (unknown) 4.47 x10 6/ul (unkn own) (unknown) (no date) (unknown) (unknown) 4.5 g/dl (unkn own) (unknown) (no date) (unknown) (unknown) 40 iu/l (unkn own) (unknown) (no date) (unknown) (unknown) 44 ml/min (unkn own) (unknown) (no date) (unknown) (unknown) 44 ml/min (unkn own) (unknown) (no date) (unknown) (unknown) 5.1 % (unkn own) (unknown) (no date) (unknown) (unknown) 500 /ul (unkn own) (unknown) (no date) (unknown) (unknown) 5600 /ul (unkn own) (unknown) (no date) (unknown) (unknown) 59.8 % (unkn own) (unknown) (no date) (unknown) (unknown) 68 u/l (unkn own) (unknown) (no date) (unknown) (unknown) 7.0 g/dl (unkn own) (unknown) (no date) (unknown) (unknown) 8.8 mg/dl (unkn own) (unknown) (no date) (unknown) (unknown) 80 u/l (unkn own) (unknown) (no date) (unknown) (unknown) 86.2 fl (unkn own) (unknown) (no date) (unknown) (unknown) 9.4 x10 3/ul (unkn own) (unknown) (no date) (unknown) (unknown) Normal (units (unkn own) Morphology unknown) Result panel 11 (unknown) (no date) (unknown) (unknown) AB Positive (units (u nknown) unknown) (unknown) (no date) (unknown) (unknown) NEGATIVE (units (unkn own) unknown) Result panel 12 (unknown) (no date) (unknown) (unknown) 3.0 mmol/l (unkn own) Result panel 13 (unknown) (no (unknown) (unknown) (no value) (units (unk nown) date) unknown) (unknown) (no (unknown) (unknown) 03/12/22 03/12/22 (units (unknown) date) 03/12/22 Range/Units unknown) (unknown) (no (unknown) (unknown) 03/12/22 13:13 (units (unknown) date) unknown) (unknown) (no (unknown) (unknown) 03/12/22 13:15 (units (unknown) date) unknown) (unknown) (no (unknown) (unknown) 03/12/22 13:24 (units (unknown) date) unknown) (unknown) (no (unknown) (unknown) 03/12/22 Range/Units (uni ts (unknown) date) unknown) (unknown) (no (unknown) (unknown) 03/12/22 (units (unkno wn) date) unknown) (unknown) (no (unknown) (unknown) 1 applictn TOP BID (units (unknown) date) unknown) (unknown) (no (unknown) (unknown) 1 tab PO QID PRN (units (unknown) date) unknown) (unknown) (no (unknown) (unknown) 1,000 mg PO DAILY (units (unknown) date) unknown) (unknown) (no (unknown) (unknown) 1. Prior gastric (units (unknown) date) surgery without unknown) obstruction.? Small residual hiatal hernia.? (unknown) (no (unknown) (unknown) 10 mg PO DAILY (units (unknown) date) unknown) (unknown) (no (unknown) (unknown) 100 mg PO DAILY (units (unknown) date) unknown) (unknown) (no (unknown) (unknown) 12.5 mg PO DAILY (units (unknown) date) unknown) (unknown) (no (unknown) (unknown) [address] [place] [address] (units (unknown) date) unknown) (unknown) (no (unknown) (unknown) 12:56 03/12/22 (units (unknown) date) unknown) (unknown) (no (unknown) (unknown) 13:05 09/17/22 (units (unknown) date) unknown) (unknown) (no (unknown) (unknown) 13:07 03/12/22 (units (unknown) date) unknown) (unknown) (no (unknown) (unknown) 13:07 (units (unkno wn) date) unknown) (unknown) (no (unknown) (unknown) 13:09 03/12/22 (units (unknown) date) unknown) (unknown) (no (unknown) (unknown) 13:09 (units (unkno wn) date) unknown) (unknown) (no (unknown) (unknown) 13:13 13:13 13:13 (units (unknown) date) unknown) (unknown) (no (unknown) (unknown) 13:13 13:13 13:24 (units (unknown) date) unknown) (unknown) (no (unknown) (unknown) 13:21 03/12/22 (units (unknown) date) unknown) (unknown) (no (unknown) (unknown) 13:27 03/12/22 (units (unknown) date) unknown) (unknown) (no (unknown) (unknown) 13:27 (units (unkno wn) date) unknown) (unknown) (no (unknown) (unknown) 13:30 03/12/22 (units (unknown) date) unknown) (unknown) (no (unknown) (unknown) 13:30 (units (unkno wn) date) unknown) (unknown) (no (unknown) (unknown) 13:45 03/12/22 (units (unknown) date) unknown) (unknown) (no (unknown) (unknown) 14:00 03/12/22 (units (unknown) date) unknown) (unknown) (no (unknown) (unknown) 14:00 (units (unkno wn) date) unknown) (unknown) (no (unknown) (unknown) 14:10 03/12/22 (units (unknown) date) unknown) (unknown) (no (unknown) (unknown) 14:10 (units (unkno wn) date) unknown) (unknown) (no (unknown) (unknown) 14:15 03/12/22 (units (unknown) date) unknown) (unknown) (no (unknown) (unknown) 14:25 03/12/22 (units (unknown) date) unknown) (unknown) (no (unknown) (unknown) 14:25 (units (unkno wn) date) unknown) (unknown) (no (unknown) (unknown) 14:41 (units (unkno wn) date) unknown) (unknown) (no (unknown) (unknown) 14:56 03/12/22 (units (unknown) date) unknown) (unknown) (no (unknown) (unknown) 14:57 03/12/22 (units (unknown) date) unknown) (unknown) (no (unknown) (unknown) 15:00 03/12/22 (units (unknown) date) unknown) (unknown) (no (unknown) (unknown) 15:00 (units (unkno wn) date) unknown) (unknown) (no (unknown) (unknown) 15:30 03/12/22 (units (unknown) date) unknown) (unknown) (no (unknown) (unknown) 15:31 (units (unkno wn) date) unknown) (unknown) (no (unknown) (unknown) 15:34 (units (unkno wn) date) unknown) (unknown) (no (unknown) (unknown) 2 spray NASAL DAILY (unit s (unknown) date) unknown) (unknown) (no (unknown) (unknown) 2. Cholelithiasis (units (unknown) date) and mild gallbladder unknown) distention without evidence of acute (unknown) (no (unknown) (unknown) 25 mg PO .twice (units (unknown) date) daily unknown) (unknown) (no (unknown) (unknown) 3. Additional (units ( unknown) date) chronic changes as unknown) above? (unknown) (no (unknown) (unknown) 325 mg PO DAILY (units (unknown) date) unknown) (unknown) (no (unknown) (unknown) [id number] (units (unkno wn) date) unknown) (unknown) (no (unknown) (unknown) 40 mg PO DAILY (units (unknown) date) unknown) (unknown) (no (unknown) (unknown) 75 mg PO DAILY (units (unknown) date) unknown) (unknown) (no (unknown) (unknown) 800 mg PO TID (units ( unknown) date) unknown) (unknown) (no (unknown) (unknown) ? (units (unkno wn) date) unknown) (unknown) (no (unknown) (unknown) ALT (<50) IU/L (units (unknown) date) unknown) (unknown) (no (unknown) (unknown) ALT 40 (<50) IU/L (units (unknown) date) unknown) (unknown) (no (unknown) (unknown) APTT (26-36) SECONDS (uni ts (unknown) date) unknown) (unknown) (no (unknown) (unknown) APTT 38 H (26-36) (units (unknown) date) SECONDS unknown) (unknown) (no (unknown) (unknown) AST (17-59) IU/L (units (unknown) date) unknown) (unknown) (no (unknown) (unknown) AST 35 (17-59) IU/L (unit s (unknown) date) unknown) (unknown) (no (unknown) (unknown) Abdominal wall:? (units (unknown) date) Abdominal wall intact unknown) without evidence of ventral or inguinal (unknown) (no (unknown) (unknown) Accession Number: (units (unknown) date) [id number] ?? unknown) (unknown) (no (unknown) (unknown) Acct:[id number] (units (unknown) date) unknown) (unknown) (no (unknown) (unknown) Admin: 03/12/22 (units (unknown) date) 13:24 Dose: 1,000 unknown) mls/hr (unknown) (no (unknown) (unknown) Admin: 03/12/22 (units (unknown) date) 14:11 Dose: 1,000 unknown) mls/hr (unknown) (no (unknown) (unknown) Adrenals:? Normal (units (unknown) date) morphology and unknown) density. (unknown) (no (unknown) (unknown) After the (units (unkn own) date) administration of unknown) intravenous contrast, axial sections acquired from (unknown) (no (unknown) (unknown) Age/Sex: 76 / M (units (unknown) date) unknown) (unknown) (no (unknown) (unknown) Albumin (3.5-5.0) (units (unknown) date) g/dL unknown) (unknown) (no (unknown) (unknown) Albumin 4.5 (units (un known) date) (3.5-5.0) g/dL unknown) (unknown) (no (unknown) (unknown) Albumin/Globulin (units (unknown) date) Ratio (1.0-2.8) unknown) (unknown) (no (unknown) (unknown) Albumin/Globulin (units (unknown) date) Ratio 1.8 (1.0-2.8) unknown) (unknown) (no (unknown) (unknown) Alkaline Phosphatase (uni ts (unknown) date) (38-126) U/L unknown) (unknown) (no (unknown) (unknown) Alkaline Phosphatase (uni ts (unknown) date) 68 (38-126) U/L unknown) (unknown) (no (unknown) (unknown) Allergies (units (unkn own) date) unknown) (unknown) (no (unknown) (unknown) Allergy/AdvReac Type (uni ts (unknown) date) Severity Reaction unknown) Status Date / Time (unknown) (no (unknown) (unknown) [place] [address] (unit s (unknown) date) unknown) (unknown) (no (unknown) (unknown) Antibody Screen (units (unknown) date) Negative unknown) (unknown) (no (unknown) (unknown) Antibody Screen (units (unknown) date) unknown) (unknown) (no (unknown) (unknown) Appearance: grossly (unit s (unknown) date) normal and well kempt unknown) (unknown) (no (unknown) (unknown) Appendix:? No (units ( unknown) date) findings to suggest unknown) acute appendicitis. (unknown) (no (unknown) (unknown) Approved by: Festus Leviunits (unknown) dateSuly Lambert M.D. on unknown) 03/12/2022 at 15:08? (unknown) (no (unknown) (unknown) Attestation: I (units (unknown) date) personally reviewed unknown) and interpreted this ECG as follows: (unknown) (no (unknown) (unknown) Auscultation: clear (unit s (unknown) date) to auscultation unknown) bilaterally (unknown) (no (unknown) (unknown) BUN (9-20) mg/dL (units (unknown) date) unknown) (unknown) (no (unknown) (unknown) BUN 24 H (9-20) (units (unknown) date) mg/dL unknown) (unknown) (no (unknown) (unknown) BUN/Creatinine Ratio (uni ts (unknown) date) (6-22) unknown) (unknown) (no (unknown) (unknown) BUN/Creatinine Ratio (uni ts (unknown) date) 14.8 (6-22) unknown) (unknown) (no (unknown) (unknown) Baso # (Auto) (units ( unknown) date) (0-100) /uL unknown) (unknown) (no (unknown) (unknown) Baso # (Auto) 100 (units (unknown) date) (0-100) /uL unknown) (unknown) (no (unknown) (unknown) Baso % (Auto) (0-2) (unit s (unknown) date) % unknown) (unknown) (no (unknown) (unknown) Baso % (Auto) 1.6 (units (unknown) date) (0-2) % unknown) (unknown) (no (unknown) (unknown) Biliary system:? (units (unknown) date) Cholelithiasis mild unknown) gallbladder distention without evidence of (unknown) (no (unknown) (unknown) Blood Pressure (units (unknown) date) 124/58 L 127/60 unknown) (unknown) (no (unknown) (unknown) Blood Pressure (units (unknown) date) 129/58 L unknown) (unknown) (no (unknown) (unknown) Blood Pressure 77/47 (uni ts (unknown) date) L unknown) (unknown) (no (unknown) (unknown) Blood Pressure 81/49 (uni ts (unknown) date) L 83/50 L unknown) (unknown) (no (unknown) (unknown) Blood Pressure 84/70 (uni ts (unknown) date) L 03/12/22 12:56 unknown) (unknown) (no (unknown) (unknown) Blood Pressure 84/70 (uni ts (unknown) date) L 86/54 L unknown) (unknown) (no (unknown) (unknown) Blood Pressure 88/52 (uni ts (unknown) date) L 90/51 L unknown) (unknown) (no (unknown) (unknown) Blood Pressure 88/54 (uni ts (unknown) date) L unknown) (unknown) (no (unknown) (unknown) Blood Pressure 90/54 (uni ts (unknown) date) L unknown) (unknown) (no (unknown) (unknown) Blood Pressure 92/51 (uni ts (unknown) date) L unknown) (unknown) (no (unknown) (unknown) Blood Pressure 97/56 (uni ts (unknown) date) L 124/70 unknown) (unknown) (no (unknown) (unknown) Blood Pressure (units (unknown) date) unknown) (unknown) (no (unknown) (unknown) Blood Type AB (units ( unknown) date) Positive unknown) (unknown) (no (unknown) (unknown) Blood Type (units (unk nown) date) unknown) (unknown) (no (unknown) (unknown) CK-MB (CK-2) (<2.37) (uni ts (unknown) date) ng/mL unknown) (unknown) (no (unknown) (unknown) CK-MB (CK-2) 3.52 H (unit s (unknown) date) (<2.37) ng/mL unknown) (unknown) (no (unknown) (unknown) CK-MB (CK-2) Rel (units (unknown) date) Index (1.5-5.0) % unknown) (unknown) (no (unknown) (unknown) CK-MB (CK-2) Rel (units (unknown) date) Index 1.9 (1.5-5.0) % unknown) (unknown) (no (unknown) (unknown) COMPARISON:? None. (units (unknown) date) unknown) (unknown) (no (unknown) (unknown) COVID19 -Nasal (units (unknown) date) RAPID/Pre-Proc Stat unknown) (unknown) (no (unknown) (unknown) CT Scan Report (units (unknown) date) unknown) (unknown) (no (unknown) (unknown) CT abdomen pelvis w (unit s (unknown) date) con Stat unknown) (unknown) (no (unknown) (unknown) CT scan - (units (unkn own) date) abdomen/pelvis: unknown) (unknown) (no (unknown) (unknown) Calcium (8.4-10.2) (units (unknown) date) mg/dL unknown) (unknown) (no (unknown) (unknown) Calcium 8.8 (units (un known) date) (8.4-10.2) mg/dL unknown) (unknown) (no (unknown) (unknown) Carbon Dioxide (units (unknown) date) (22-32) mmol/L unknown) (unknown) (no (unknown) (unknown) Carbon Dioxide 22 (units (unknown) date) (22-32) mmol/L unknown) (unknown) (no (unknown) (unknown) Cardio (units (unkno wn) date) unknown) (unknown) (no (unknown) (unknown) Cervical spondylosis (uni ts (unknown) date) unknown) (unknown) (no (unknown) (unknown) Chief complaint: (units (unknown) date) Weakness unknown) (unknown) (no (unknown) (unknown) Chloride (98-107) (units (unknown) date) mmol/L unknown) (unknown) (no (unknown) (unknown) Chloride 104 (units (u nknown) date) (98-107) mmol/L unknown) (unknown) (no (unknown) (unknown) Complete Blood Count (uni ts (unknown) date) AUTO DIFF Stat unknown) (unknown) (no (unknown) (unknown) Comprehensive (units ( unknown) date) Metabolic Panel Stat unknown) (unknown) (no (unknown) (unknown) Const (units (unkno wn) date) unknown) (unknown) (no (unknown) (unknown) Course (units (unkno wn) date) unknown) (unknown) (no (unknown) (unknown) Creatinine (units (unk nown) date) (0.66-1.25) mg/dL unknown) (unknown) (no (unknown) (unknown) Creatinine 1.62 H (units (unknown) date) (0.66-1.25) mg/dL unknown) (unknown) (no (unknown) (unknown) : 1945 (units (unknown) date) Acct:[id number] unknown) (unknown) (no (unknown) (unknown) : 1945 (units (unknown) date) unknown) (unknown) (no (unknown) (unknown) Date of Service: (units (unknown) date) 03/12/22 unknown) (unknown) (no (unknown) (unknown) Departure (units (unkn own) date) unknown) (unknown) (no (unknown) (unknown) Diabetes (units (unkno wn) date) unknown) (unknown) (no (unknown) (unknown) Discharge Plan (units (unknown) date) unknown) (unknown) (no (unknown) (unknown) Discontinued (units (u nknown) date) Medications unknown) (unknown) (no (unknown) (unknown) Documented By: KB (units (unknown) date) unknown) (unknown) (no (unknown) (unknown) Documented By: RB (units (unknown) date) unknown) (unknown) (no (unknown) (unknown) ECG Data (units (unkno wn) date) unknown) (unknown) (no (unknown) (unknown) ED Orders (units (unkn own) date) unknown) (unknown) (no (unknown) (unknown) EKG-12 Lead Stat (units (unknown) date) unknown) (unknown) (no (unknown) (unknown) ER Physician: (units ( unknown) date) Cosmo Sotelo D.O. unknown) (unknown) (no (unknown) (unknown) Effort + Inspection: (uni ts (unknown) date) normal respiratory unknown) effort (unknown) (no (unknown) (unknown) Emergency Report (units (unknown) date) unknown) (unknown) (no (unknown) (unknown) Eos # (Auto) (0-450) (uni ts (unknown) date) /uL unknown) (unknown) (no (unknown) (unknown) Eos # (Auto) 100 (units (unknown) date) (0-450) /uL unknown) (unknown) (no (unknown) (unknown) Eos % (Auto) (2-4) % (uni ts (unknown) date) unknown) (unknown) (no (unknown) (unknown) Eos % (Auto) 0.8 L (units (unknown) date) (2-4) % unknown) (unknown) (no (unknown) (unknown) Estimated GFR (>60) (unit s (unknown) date) mL/min unknown) (unknown) (no (unknown) (unknown) Estimated GFR 44 L (units (unknown) date) (>60) mL/min unknown) (unknown) (no (unknown) (unknown) Exam (units (unkno wn) date) unknown) (unknown) (no (unknown) (unknown) Extrem (units (unkno wn) date) unknown) (unknown) (no (unknown) (unknown) FINDINGS: (units (unkn own) date) unknown) (unknown) (no (unknown) (unknown) For (units (unkno wn) date) unknown) (unknown) (no (unknown) (unknown) GI (units (unkno wn) date) unknown) (unknown) (no (unknown) (unknown) Gastrointestinal (units (unknown) date) system:? Prior unknown) gastric surgery noted.? No evidence of (unknown) (no (unknown) (unknown) General (units (unkno wn) date) unknown) (unknown) (no (unknown) (unknown) General: (units (unkno wn) date) cooperative, unknown) comfortable, diaphoretic and ill appearing (unknown) (no (unknown) (unknown) General: no rashes (units (unknown) date) or lesions noted unknown) (unknown) (no (unknown) (unknown) General: normal to (units (unknown) date) inspection and unknown) capillary refill normal (unknown) (no (unknown) (unknown) General: patient (units (unknown) date) alert, patient awake, unknown) patient oriented x3 and moves all (unknown) (no (unknown) (unknown) Globulin (1.7-4.1) (units (unknown) date) g/dL unknown) (unknown) (no (unknown) (unknown) Globulin 2.5 (units (u nknown) date) (1.7-4.1) g/dL unknown) (unknown) (no (unknown) (unknown) Glucose (80-110) (units (unknown) date) mg/dL unknown) (unknown) (no (unknown) (unknown) Glucose 150 H (units ( unknown) date) (80-110) mg/dL unknown) (unknown) (no (unknown) (unknown) HENMT (units (unkno wn) date) unknown) (unknown) (no (unknown) (unknown) HPI - General Adult (unit s (unknown) date) unknown) (unknown) (no (unknown) (unknown) HPI narrative: (units (unknown) date) unknown) (unknown) (no (unknown) (unknown) Hct (41-53) % (units ( unknown) date) unknown) (unknown) (no (unknown) (unknown) Hct 38.6 L (41-53) % (uni ts (unknown) date) unknown) (unknown) (no (unknown) (unknown) Head: normal to (units (unknown) date) inspection and unknown) normocephalic (unknown) (no (unknown) (unknown) Hgb (13.5-17.5) g/dL (uni ts (unknown) date) unknown) (unknown) (no (unknown) (unknown) Hgb 13.1 L (units (unk nown) date) (13.5-17.5) g/dL unknown) (unknown) (no (unknown) (unknown) History of Present (units (unknown) date) Illness unknown) (unknown) (no (unknown) (unknown) History of ankle (units (unknown) date) surgery unknown) (unknown) (no (unknown) (unknown) History of elbow (units (unknown) date) surgery unknown) (unknown) (no (unknown) (unknown) History of nasal (units (unknown) date) surgery unknown) (unknown) (no (unknown) (unknown) History of toe (units (unknown) date) surgery unknown) (unknown) (no (unknown) (unknown) Home Medications (units (unknown) date) unknown) (unknown) (no (unknown) (unknown) IMPRESSION: (units (un known) date) unknown) (unknown) (no (unknown) (unknown) INDICATIONS:? hx of (unit s (unknown) date) gastric surgery with unknown) abd pain ? low BP (unknown) (no (unknown) (unknown) INR (0.9-1.3) (units ( unknown) date) unknown) (unknown) (no (unknown) (unknown) INR 1.0 (0.9-1.3) (units (unknown) date) unknown) (unknown) (no (unknown) (unknown) Imaging Data (units (u nknown) date) unknown) (unknown) (no (unknown) (unknown) Initial Vital Signs (unit s (unknown) date) unknown) (unknown) (no (unknown) (unknown) Initial Vital Signs: (uni ts (unknown) date) unknown) (unknown) (no (unknown) (unknown) Inspection: normal (units (unknown) date) to inspection unknown) (unknown) (no (unknown) (unknown) Interpretation: (units (unknown) date) unknown) (unknown) (no (unknown) (unknown) [facility] [address]uni ts (unknown) date) [address] unknown) [place] [address] (unknown) (no (unknown) (unknown) [facility] (units (unknown) date) unknown) (unknown) (no (unknown) (unknown) Lab Data (units (unkno wn) date) unknown) (unknown) (no (unknown) (unknown) Lab Results (units (un known) date) unknown) (unknown) (no (unknown) (unknown) Lab results (units (un known) date) reviewed: Yes I unknown) reviewed the patient's lab results. (unknown) (no (unknown) (unknown) Labs: (units (unkno wn) date) unknown) (unknown) (no (unknown) (unknown) Lactate (0.7-2.1) (units (unknown) date) mmol/L unknown) (unknown) (no (unknown) (unknown) Lactate (Lactic (units (unknown) date) Acid) Stat unknown) (unknown) (no (unknown) (unknown) Lactate 2.8 H (units ( unknown) date) (0.7-2.1) mmol/L unknown) (unknown) (no (unknown) (unknown) Lactate 3.0 H (units ( unknown) date) (0.7-2.1) mmol/L unknown) (unknown) (no (unknown) (unknown) Last Admin: 03/12/22 (uni ts (unknown) date) 14:24 Dose: 4 mg unknown) (unknown) (no (unknown) (unknown) Last Infusion: (units (unknown) date) 03/12/22 14:11 Dose: unknown) 0 mls/hr (unknown) (no (unknown) (unknown) Last Infusion: (units (unknown) date) 03/12/22 15:51 Dose: unknown) 0 mls/hr (unknown) (no (unknown) (unknown) Limitations: no (units (unknown) date) limitations unknown) (unknown) (no (unknown) (unknown) Lipase (23-300) U/L (unit s (unknown) date) unknown) (unknown) (no (unknown) (unknown) Lipase 80 (23-300) (units (unknown) date) U/L unknown) (unknown) (no (unknown) (unknown) Lipase Stat (units (un known) date) unknown) (unknown) (no (unknown) (unknown) Liver:? Normal in (units (unknown) date) size and attenuation. unknown) No contour deformity present. (unknown) (no (unknown) (unknown) Loc: ED (units (unkno wn) date) unknown) (unknown) (no (unknown) (unknown) Lower thorax: The (units (unknown) date) lung bases are unknown) clear.? Heart size normal.? Small hiatal (unknown) (no (unknown) (unknown) Lymph # (Auto) (units (unknown) date) (5029-2862) /uL unknown) (unknown) (no (unknown) (unknown) Lymph # (Auto) 3100 (unit s (unknown) date) (2792-7955) /uL unknown) (unknown) (no (unknown) (unknown) Lymph % (Auto) (units (unknown) date) (25-40) % unknown) (unknown) (no (unknown) (unknown) Lymph % (Auto) 32.7 (unit s (unknown) date) (25-40) % unknown) (unknown) (no (unknown) (unknown) MCH (26-34) PG (units (unknown) date) unknown) (unknown) (no (unknown) (unknown) MCH 29.2 (26-34) PG (unit s (unknown) date) unknown) (unknown) (no (unknown) (unknown) MCHC (30-36) % (units (unknown) date) unknown) (unknown) (no (unknown) (unknown) MCHC 33.9 (30-36) % (unit s (unknown) date) unknown) (unknown) (no (unknown) (unknown) MCV (80-100) fL (units (unknown) date) unknown) (unknown) (no (unknown) (unknown) MCV 86.2 (80-100) fL (uni ts (unknown) date) unknown) (unknown) (no (unknown) (unknown) MR#: [id number] (units (unknown) date) unknown) (unknown) (no (unknown) (unknown) Magnesium (1.6-2.3) (unit s (unknown) date) mg/dL unknown) (unknown) (no (unknown) (unknown) Magnesium 2.3 (units ( unknown) date) (1.6-2.3) mg/dL unknown) (unknown) (no (unknown) (unknown) Magnesium Stat (units (unknown) date) unknown) (unknown) (no (unknown) (unknown) Hemanth Kendall MD (units (unknown) date) [Primary Care unknown) Provider] (unknown) (no (unknown) (unknown) Medical Decision (units (unknown) date) Making unknown) (unknown) (no (unknown) (unknown) Medical History (units (unknown) date) (Reviewed 03/12/22 @ unknown) 13:32 by Cosmo Sotelo DO) (unknown) (no (unknown) (unknown) Medication (units (unk nown) date) Instructions Recorded unknown) Confirmed (unknown) (no (unknown) (unknown) Mode of arrival: (units (unknown) date) Ambulatory unknown) (unknown) (no (unknown) (unknown) [place] # (Auto) (units ( unknown) date) (0-900) /uL unknown) (unknown) (no (unknown) (unknown) [place] # (Auto) 500 (units (unknown) date) (0-900) /uL unknown) (unknown) (no (unknown) (unknown) [place] % (Auto) (3-14) (uni ts (unknown) date) % unknown) (unknown) (no (unknown) (unknown) [place] % (Auto) 5.1 (units (unknown) date) (3-14) % unknown) (unknown) (no (unknown) (unknown) Motor: muscle tone (units (unknown) date) normal throughout unknown) (unknown) (no (unknown) (unknown) Musculoskeletal:? (units (unknown) date) Normal bone unknown) mineralization.? Degenerative disc disease and (unknown) (no (unknown) (unknown) Neuro (units (unkno wn) date) unknown) (unknown) (no (unknown) (unknown) Neut # (Auto) (units ( unknown) date) (0188-3315) /uL unknown) (unknown) (no (unknown) (unknown) Neut # (Auto) 5600 (units (unknown) date) (2286-9319) /uL unknown) (unknown) (no (unknown) (unknown) Neut % (Auto) (units ( unknown) date) (50-75) % unknown) (unknown) (no (unknown) (unknown) Neut % (Auto) 59.8 (units (unknown) date) (50-75) % unknown) (unknown) (no (unknown) (unknown) No Action (units (unkn own) date) unknown) (unknown) (no (unknown) (unknown) No Known Drug (units ( unknown) date) Allergies Allergy unknown) Unverified 08/08/19 15:06 (unknown) (no (unknown) (unknown) No ST T wave changes (uni ts (unknown) date) unknown) (unknown) (no (unknown) (unknown) No blood in the (units (unknown) date) stool. No urinary unknown) symptoms. They checked his blood sugar at (unknown) (no (unknown) (unknown) No free (units (unkno wn) date) unknown) (unknown) (no (unknown) (unknown) None (units (unkno wn) date) unknown) (unknown) (no (unknown) (unknown) Normal QRS (units (unk nown) date) unknown) (unknown) (no (unknown) (unknown) Normal QTC (units (unk nown) date) unknown) (unknown) (no (unknown) (unknown) Normal axis (units (un known) date) unknown) (unknown) (no (unknown) (unknown) Occipital neuralgia (unit s (unknown) date) of left side unknown) (unknown) (no (unknown) (unknown) Ondansetron HCl (units (unknown) date) (Ondansetron 4 Mg/2 unknown) Ml Inj) 4 mg IV NOW ONE (unknown) (no (unknown) (unknown) Ordered: (units (unkno wn) date) unknown) (unknown) (no (unknown) (unknown) Ordering Provider: (units (unknown) date) Cosmo Sotelo D.O. unknown) (unknown) (no (unknown) (unknown) Orders (units (unkno wn) date) unknown) (unknown) (no (unknown) (unknown) Oxygen Delivery (units (unknown) date) Method 03/12/22 12:56 unknown) (unknown) (no (unknown) (unknown) Oxygen Delivery (units (unknown) date) Method Room Air unknown) (unknown) (no (unknown) (unknown) Oxygen Delivery (units (unknown) date) Method unknown) (unknown) (no (unknown) (unknown) PROCEDURE:? CT (units (unknown) date) ABDOMEN PELVIS W CON unknown) (unknown) (no (unknown) (unknown) PT (10.1-12.7) (units (unknown) date) SECONDS unknown) (unknown) (no (unknown) (unknown) PT 11.3 (10.1-12.7) (unit s (unknown) date) SECONDS unknown) (unknown) (no (unknown) (unknown) Palpation: soft, No (unit s (unknown) date) firm and No tender unknown) (unknown) (no (unknown) (unknown) Pancreas:? (units (unk nown) date) Unremarkable without unknown) mass or inflammation evident. (unknown) (no (unknown) (unknown) Partial (units (unkno wn) date) Thromboplastin Time unknown) Stat (unknown) (no (unknown) (unknown) Patient History (units (unknown) date) unknown) (unknown) (no (unknown) (unknown) Patient is a (units (u nknown) date) 76-year-old male. unknown) History of diabetes. Also has had history of (unknown) (no (unknown) (unknown) Patient: (units (unkno wn) date) Volodymyr Kang MR#: unknown) M000 (unknown) (no (unknown) (unknown) Patient: (units (unkno wn) date) Volodymyr Kang unknown) (unknown) (no (unknown) (unknown) Peritoneal spaces:? (unit s (unknown) date) No mesenteric or unknown) retroperitoneal adenopathy.? No free air.? (unknown) (no (unknown) (unknown) Plt Count (150-400) (unit s (unknown) date) X103/uL unknown) (unknown) (no (unknown) (unknown) Plt Count 310 (units ( unknown) date) (150-400) X103/uL unknown) (unknown) (no (unknown) (unknown) Point of Care (units ( unknown) date) Testing unknown) (unknown) (no (unknown) (unknown) Point of care (units ( unknown) date) testing: unknown) (unknown) (no (unknown) (unknown) Potassium (3.4-5.1) (unit s (unknown) date) mmol/L unknown) (unknown) (no (unknown) (unknown) Potassium 4.1 (units ( unknown) date) (3.4-5.1) mmol/L unknown) (unknown) (no (unknown) (unknown) Prescriptions: (units (unknown) date) unknown) (unknown) (no (unknown) (unknown) Procalcitonin (<0.5) (uni ts (unknown) date) ng/mL unknown) (unknown) (no (unknown) (unknown) Procalcitonin 0.10 (units (unknown) date) (<0.5) ng/mL unknown) (unknown) (no (unknown) (unknown) Procalcitonin Stat (units (unknown) date) unknown) (unknown) (no (unknown) (unknown) Procedure: CT (units ( unknown) date) abdomen pelvis w con unknown) (unknown) (no (unknown) (unknown) Prothrombin Time INR (uni ts (unknown) date) Stat unknown) (unknown) (no (unknown) (unknown) Psych (units (unkno wn) date) unknown) (unknown) (no (unknown) (unknown) Pulse Oximetry 100 (units (unknown) date) unknown) (unknown) (no (unknown) (unknown) Pulse Oximetry 93 (units (unknown) date) 03/12/22 12:56 unknown) (unknown) (no (unknown) (unknown) Pulse Oximetry 93 94 (uni ts (unknown) date) unknown) (unknown) (no (unknown) (unknown) Pulse Oximetry 94 94 (uni ts (unknown) date) unknown) (unknown) (no (unknown) (unknown) Pulse Oximetry 94 95 (uni ts (unknown) date) unknown) (unknown) (no (unknown) (unknown) Pulse Oximetry 95 (units (unknown) date) unknown) (unknown) (no (unknown) (unknown) Pulse Oximetry 96 (units (unknown) date) unknown) (unknown) (no (unknown) (unknown) Pulse Oximetry 98 98 (uni ts (unknown) date) unknown) (unknown) (no (unknown) (unknown) Pulse Oximetry 98 (units (unknown) date) unknown) (unknown) (no (unknown) (unknown) Pulse Oximetry 99 97 (uni ts (unknown) date) 98 unknown) (unknown) (no (unknown) (unknown) Pulse Oximetry 99 97 (uni ts (unknown) date) unknown) (unknown) (no (unknown) (unknown) Pulse Oximetry (units (unknown) date) unknown) (unknown) (no (unknown) (unknown) Pulse Rate 72 73 (units (unknown) date) unknown) (unknown) (no (unknown) (unknown) Pulse Rate 76 (units ( unknown) date) unknown) (unknown) (no (unknown) (unknown) Pulse Rate 78 (units ( unknown) date) unknown) (unknown) (no (unknown) (unknown) Pulse Rate 79 77 (units (unknown) date) unknown) (unknown) (no (unknown) (unknown) Pulse Rate 79 79 (units (unknown) date) unknown) (unknown) (no (unknown) (unknown) Pulse Rate 79 80 (units (unknown) date) unknown) (unknown) (no (unknown) (unknown) Pulse Rate 80 83 84 (unit s (unknown) date) unknown) (unknown) (no (unknown) (unknown) Pulse Rate 81 81 (units (unknown) date) unknown) (unknown) (no (unknown) (unknown) Pulse Rate 82 (units ( unknown) date) unknown) (unknown) (no (unknown) (unknown) Pulse Rate 84 (units ( unknown) date) 03/12/22 12:56 unknown) (unknown) (no (unknown) (unknown) Pulse Rate 84 78 (units (unknown) date) unknown) (unknown) (no (unknown) (unknown) Pulse Rate (units (unk nown) date) unknown) (unknown) (no (unknown) (unknown) RBC (4.5-5.9) (units ( unknown) date) X106/uL unknown) (unknown) (no (unknown) (unknown) RBC 4.47 L (4.5-5.9) (uni ts (unknown) date) X106/uL unknown) (unknown) (no (unknown) (unknown) RBC Morphology (units (unknown) date) Normal morphology unknown) (unknown) (no (unknown) (unknown) RBC Morphology (units (unknown) date) unknown) (unknown) (no (unknown) (unknown) RDW (11.6-14.8) % (units (unknown) date) unknown) (unknown) (no (unknown) (unknown) RDW 14.5 (11.6-14.8) (uni ts (unknown) date) % unknown) (unknown) (no (unknown) (unknown) ROS Unobtainable: All (uni ts (unknown) date) systems reviewed + unknown) are unremarkable except as noted in HPI (unknown) (no (unknown) (unknown) Radiologist's (units ( unknown) date) Impression: unknown) (unknown) (no (unknown) (unknown) Rate: regular rate (units (unknown) date) unknown) (unknown) (no (unknown) (unknown) Referrals: (units (unk nown) date) unknown) (unknown) (no (unknown) (unknown) Related Data (units (u nknown) date) unknown) (unknown) (no (unknown) (unknown) Reproductive (units (u nknown) date) system:? Unremarkable unknown) as visualized. (unknown) (no (unknown) (unknown) Resp (units (unkno wn) date) unknown) (unknown) (no (unknown) (unknown) Respiratory Rate 18 (unit s (unknown) date) 03/12/22 12:56 unknown) (unknown) (no (unknown) (unknown) Respiratory Rate 18 (unit s (unknown) date) 18 unknown) (unknown) (no (unknown) (unknown) Respiratory Rate 18 (unit s (unknown) date) unknown) (unknown) (no (unknown) (unknown) Respiratory Rate 19 (unit s (unknown) date) 20 unknown) (unknown) (no (unknown) (unknown) Respiratory Rate 19 (unit s (unknown) date) unknown) (unknown) (no (unknown) (unknown) Respiratory Rate 20 (unit s (unknown) date) 21 20 unknown) (unknown) (no (unknown) (unknown) Respiratory Rate 20 (unit s (unknown) date) unknown) (unknown) (no (unknown) (unknown) Respiratory Rate 21 (unit s (unknown) date) 20 unknown) (unknown) (no (unknown) (unknown) Respiratory Rate 22 (unit s (unknown) date) unknown) (unknown) (no (unknown) (unknown) Respiratory Rate 23 (unit s (unknown) date) unknown) (unknown) (no (unknown) (unknown) Respiratory Rate (units (unknown) date) unknown) (unknown) (no (unknown) (unknown) Result diagrams: (units (unknown) date) unknown) (unknown) (no (unknown) (unknown) Review of Systems (units (unknown) date) unknown) (unknown) (no (unknown) (unknown) Rhythm: regular (units (unknown) date) rhythm unknown) (unknown) (no (unknown) (unknown) SARS-CoV-2 (PCR) (units (unknown) date) (Negative) unknown) (unknown) (no (unknown) (unknown) SARS-CoV-2 (PCR) (units (unknown) date) Negative (Negative) unknown) (unknown) (no (unknown) (unknown) Signed By: (units (unk nown) date) unknown) (unknown) (no (unknown) (unknown) Signed (units (unkno wn) date) unknown) (unknown) (no (unknown) (unknown) Sinus rhythm (units (u nknown) date) unknown) (unknown) (no (unknown) (unknown) Skin (units (unkno wn) date) unknown) (unknown) (no (unknown) (unknown) Smaller (units (unkno wn) date) unknown) (unknown) (no (unknown) (unknown) Smoking Status: (units (unknown) date) Never smoker unknown) (unknown) (no (unknown) (unknown) Social History (units (unknown) date) (Reviewed 03/12/22 @ unknown) 13:32 by Cosmo Sotelo DO) (unknown) (no (unknown) (unknown) Sodium (137-145) (units (unknown) date) mmol/L unknown) (unknown) (no (unknown) (unknown) Sodium 139 (137-145) (uni ts (unknown) date) mmol/L unknown) (unknown) (no (unknown) (unknown) Sodium Chloride (units (unknown) date) (Normal Saline 0.9%) unknown) 1,000 mls @ 1,000 mls/hr IV BOLUS ONE (unknown) (no (unknown) (unknown) Source: patient and (unit s (unknown) date) family unknown) (unknown) (no (unknown) (unknown) Speech: speech (units (unknown) date) normal unknown) (unknown) (no (unknown) (unknown) Spleen:? Normal in (units (unknown) date) size and density. unknown) (unknown) (no (unknown) (unknown) Stated complaint: (units (unknown) date) Diarrhea, Diabetic, unknown) Don't Know What's Wrong (unknown) (no (unknown) (unknown) Stool Occult Blood (units (unknown) date) Negative unknown) (unknown) (no (unknown) (unknown) Stop: 03/12/22 14:11 (uni ts (unknown) date) unknown) (unknown) (no (unknown) (unknown) Stop: 03/12/22 14:21 (uni ts (unknown) date) unknown) (unknown) (no (unknown) (unknown) Stop: 03/12/22 14:47 (uni ts (unknown) date) unknown) (unknown) (no (unknown) (unknown) Surgical History (units (unknown) date) (Reviewed 08/08/19 @ unknown) 16:13 by Volodymyr Christensen DO) (unknown) (no (unknown) (unknown) TECHNIQUE:? (units (un known) date) unknown) (unknown) (no (unknown) (unknown) Temperature 97.5 F L (uni ts (unknown) date) 03/12/22 12:56 unknown) (unknown) (no (unknown) (unknown) Temperature 97.5 F L (uni ts (unknown) date) unknown) (unknown) (no (unknown) (unknown) Temperature (units (un known) date) unknown) (unknown) (no (unknown) (unknown) Time Seen by (units (u nknown) date) Provider: 03/12/22 unknown) 13:08 (unknown) (no (unknown) (unknown) Total Bilirubin (units (unknown) date) (0.2-1.3) mg/dL unknown) (unknown) (no (unknown) (unknown) Total Bilirubin 0.5 (unit s (unknown) date) (0.2-1.3) mg/dL unknown) (unknown) (no (unknown) (unknown) Total Creatine (units (unknown) date) Kinase (55-170) U/L unknown) (unknown) (no (unknown) (unknown) Total Creatine (units (unknown) date) Kinase 190 H (55-170) unknown) U/L (unknown) (no (unknown) (unknown) Total Protein (units ( unknown) date) (6.3-8.2) g/dL unknown) (unknown) (no (unknown) (unknown) Total Protein 7.0 (units (unknown) date) (6.3-8.2) g/dL unknown) (unknown) (no (unknown) (unknown) Troponin + CK (units ( unknown) date) Cardiac Panel Stat unknown) (unknown) (no (unknown) (unknown) Troponin I < 0.012 (units (unknown) date) (0.01-0.034) ng/mL unknown) (unknown) (no (unknown) (unknown) Troponin I (units (unk nown) date) (0.01-0.034) ng/mL unknown) (unknown) (no (unknown) (unknown) Type and Screen Stat (uni ts (unknown) date) unknown) (unknown) (no (unknown) (unknown) Urinary system:? (units (unknown) date) Right renal cyst.? unknown) Nonobstructing 3 mm right renal calculus.? (unknown) (no (unknown) (unknown) Vasculature:? Aortic (uni ts (unknown) date) atherosclerotic unknown) vascular calcification noted without (unknown) (no (unknown) (unknown) Ventricular rate 85 (unit s (unknown) date) unknown) (unknown) (no (unknown) (unknown) Vital Signs - 8 hr (units (unknown) date) unknown) (unknown) (no (unknown) (unknown) Vital Signs (units (un known) date) unknown) (unknown) (no (unknown) (unknown) Vital signs: (units (u nknown) date) unknown) (unknown) (no (unknown) (unknown) WBC (4.5-11.0) (units (unknown) date) X103/uL unknown) (unknown) (no (unknown) (unknown) WBC 9.4 (4.5-11.0) (units (unknown) date) X103/uL unknown) (unknown) (no (unknown) (unknown) [Embedded Image Not (unit s (unknown) date) Available] unknown) (unknown) (no (unknown) (unknown) abdominal cramping (units (unknown) date) and diarrhea. He unknown) states he was having some nausea and dry (unknown) (no (unknown) (unknown) acarbose 25 mg (units (unknown) date) tablet 25 mg PO unknown) .twice daily 08/08/19 08/08/19 (unknown) (no (unknown) (unknown) acarbose 25 mg (units (unknown) date) tablet unknown) (unknown) (no (unknown) (unknown) acute (units (unkno wn) date) unknown) (unknown) (no (unknown) (unknown) adjustment (units (unk nown) date) unknown) (unknown) (no (unknown) (unknown) and below (units (unkn own) date) unknown) (unknown) (no (unknown) (unknown) aneurysm. (units (unkn own) date) unknown) (unknown) (no (unknown) (unknown) arthropathy (units (un known) date) unknown) (unknown) (no (unknown) (unknown) atorvastatin 40 mg (units (unknown) date) tablet 40 mg PO DAILY unknown) 08/08/19 08/08/19 (unknown) (no (unknown) (unknown) atorvastatin 40 mg (units (unknown) date) tablet unknown) (unknown) (no (unknown) (unknown) bases to the pubic (units (unknown) date) symphysis.? Coronal unknown) and sagittal reformats were performed.? (unknown) (no (unknown) (unknown) cholecystitis. (units (unknown) date) unknown) (unknown) (no (unknown) (unknown) clopidogrel 75 mg (units (unknown) date) tablet 75 mg PO DAILY unknown) 08/08/19 08/08/19 (unknown) (no (unknown) (unknown) clopidogrel 75 mg (units (unknown) date) tablet unknown) (unknown) (no (unknown) (unknown) evidence of (units (un known) date) unknown) (unknown) (no (unknown) (unknown) extremities (units (un known) date) unknown) (unknown) (no (unknown) (unknown) feeling like this (units (unknown) date) when his blood sugar unknown) was abnormal. He currently states that (unknown) (no (unknown) (unknown) feeling very well. (units (unknown) date) Was diaphoretic. No unknown) chest pain. No shortness of breath. (unknown) (no (unknown) (unknown) ferrous sulfate 325 (unit s (unknown) date) mg (65 mg 325 mg PO unknown) DAILY 08/08/19 08/08/19 (unknown) (no (unknown) (unknown) ferrous sulfate 325 (unit s (unknown) date) mg (65 mg iron) unknown) tablet (unknown) (no (unknown) (unknown) fluid.? (units (unkno wn) date) unknown) (unknown) (no (unknown) (unknown) fluticasone (units (un known) date) propionate 50 2 spray unknown) intranasal DAILY 08/08/19 08/08/19 (unknown) (no (unknown) (unknown) fluticasone (units (un known) date) propionate 50 unknown) mcg/actuation spray,suspension (unknown) (no (unknown) (unknown) gastric surgery. (units (unknown) date) Also has a history of unknown) a stroke without residual deficits who (unknown) (no (unknown) (unknown) he is having (units (u nknown) date) abdominal cramping unknown) but his nausea is better. (unknown) (no (unknown) (unknown) heaving as well (units (unknown) date) while he was going to unknown) the bathroom. He states he normally does (unknown) (no (unknown) (unknown) hernia. (units (unkno wn) date) unknown) (unknown) (no (unknown) (unknown) hernias. (units (unkno wn) date) unknown) (unknown) (no (unknown) (unknown) home and it was only (uni ts (unknown) date) slightly elevated. He unknown) is had issues in the past with (unknown) (no (unknown) (unknown) hydrochlorothiazide (unit s (unknown) date) 12.5 mg tablet 12.5 unknown) mg PO DAILY 08/08/19 08/08/19 (unknown) (no (unknown) (unknown) hydrochlorothiazide (unit s (unknown) date) 12.5 mg tablet unknown) (unknown) (no (unknown) (unknown) ibuprofen 800 mg (units (unknown) date) tablet 800 mg PO TID unknown) 08/08/19 08/08/19 (unknown) (no (unknown) (unknown) ibuprofen 800 mg (units (unknown) date) tablet unknown) (unknown) (no (unknown) (unknown) iron) tablet (units (u nknown) date) unknown) (unknown) (no (unknown) (unknown) is here for (units (un known) date) evaluation of unknown) approximately 20 minutes of a very sudden onset of (unknown) (no (unknown) (unknown) left renal cysts.? (units (unknown) date) No hydronephrosis or unknown) obstructive uropathy. (unknown) (no (unknown) (unknown) marital status: (units (unknown) date) unknown) (unknown) (no (unknown) (unknown) mcg/actuation nasal (unit s (unknown) date) unknown) (unknown) (no (unknown) (unknown) metformin 1,000 mg (units (unknown) date) tablet 1,000 mg PO unknown) DAILY 08/08/19 08/08/19 (unknown) (no (unknown) (unknown) metformin 1,000 mg (units (unknown) date) tablet unknown) (unknown) (no (unknown) (unknown) mg tablet (Percocet) (uni ts (unknown) date) unknown) (unknown) (no (unknown) (unknown) montelukast 10 mg (units (unknown) date) tablet 10 mg PO DAILY unknown) 08/08/19 08/08/19 (unknown) (no (unknown) (unknown) montelukast 10 mg (units (unknown) date) tablet unknown) (unknown) (no (unknown) (unknown) not vomit because of (uni ts (unknown) date) his prior gastric unknown) surgery. States he generally was not (unknown) (no (unknown) (unknown) noted in lower (units (unknown) date) lumbar spine.? No unknown) acute fractures.? (unknown) (no (unknown) (unknown) obstruction.? (units ( unknown) date) unknown) (unknown) (no (unknown) (unknown) of mA and/or kV (units (unknown) date) according to patient unknown) size.? (unknown) (no (unknown) (unknown) oxycodone-acetaminop (uni ts (unknown) date) hen 5 mg-325 1 tab PO unknown) QID PRN 08/08/19 08/08/19 (unknown) (no (unknown) (unknown) oxycodone-acetaminop (uni ts (unknown) date) hen [Percocet] 5-325 unknown) mg tablet (unknown) (no (unknown) (unknown) pantoprazole 40 mg (units (unknown) date) tablet,delayed 40 mg unknown) PO DAILY 08/08/19 08/08/19 (unknown) (no (unknown) (unknown) pantoprazole 40 mg (units (unknown) date) tablet,delayed unknown) release (DR/EC) (unknown) (no (unknown) (unknown) radiation dose (units (unknown) date) reduction, the unknown) following was used:? automated exposure control, (unknown) (no (unknown) (unknown) release (units (unkno wn) date) unknown) (unknown) (no (unknown) (unknown) sitagliptin 100 mg (units (unknown) date) tablet 100 mg PO unknown) DAILY 08/08/19 08/08/19 (unknown) (no (unknown) (unknown) sitagliptin 100 mg (units (unknown) date) tablet unknown) (unknown) (no (unknown) (unknown) spray,suspension (units (unknown) date) unknown) (unknown) (no (unknown) (unknown) the lung (units (unkno wn) date) unknown) (unknown) (no (unknown) (unknown) topical ointment (units (unknown) date) unknown) (unknown) (no (unknown) (unknown) triamcinolone (units ( unknown) date) acetonide 0.1 % 1 unknown) applictn topical BID 08/08/19 08/08/19 (unknown) (no (unknown) (unknown) triamcinolone (units ( unknown) date) acetonide 0.1 % unknown) ointment Result panel 14 (unknown) (no (unknown) (unknown) (no value) (units (unk nown) date) unknown) (unknown) (no (unknown) (unknown) <Electronically (units (unknown) date) signed by Cosmo Sotelo D.O.> (unknown) (no (unknown) (unknown) 03/12/22 03/12/22 (units (unknown) date) 03/12/22 Range/Units unknown) (unknown) (no (unknown) (unknown) 03/12/22 13:13 (units (unknown) date) unknown) (unknown) (no (unknown) (unknown) 03/12/22 13:15 (units (unknown) date) unknown) (unknown) (no (unknown) (unknown) 03/12/22 13:24 (units (unknown) date) unknown) (unknown) (no (unknown) (unknown) 03/12/22 1750 (units ( unknown) date) unknown) (unknown) (no (unknown) (unknown) 03/12/22 Range/Units (uni ts (unknown) date) unknown) (unknown) (no (unknown) (unknown) 03/12/22 (units (unkno wn) date) unknown) (unknown) (no (unknown) (unknown) 1 applictn TOP BID (units (unknown) date) unknown) (unknown) (no (unknown) (unknown) 1 tab PO QID PRN (units (unknown) date) unknown) (unknown) (no (unknown) (unknown) 1,000 mg PO DAILY (units (unknown) date) unknown) (unknown) (no (unknown) (unknown) 1. Prior gastric (units (unknown) date) surgery without unknown) obstruction.? Small residual hiatal hernia.? (unknown) (no (unknown) (unknown) 10 mg PO DAILY (units (unknown) date) unknown) (unknown) (no (unknown) (unknown) 100 mg PO DAILY (units (unknown) date) unknown) (unknown) (no (unknown) (unknown) 12.5 mg PO DAILY (units (unknown) date) unknown) (unknown) (no (unknown) (unknown) [address] [place] [address] (units (unknown) date) unknown) (unknown) (no (unknown) (unknown) 12:56 03/12/22 (units (unknown) date) unknown) (unknown) (no (unknown) (unknown) 13:05 03/12/22 (units (unknown) date) unknown) (unknown) (no (unknown) (unknown) 13:07 03/12/22 (units (unknown) date) unknown) (unknown) (no (unknown) (unknown) 13:07 (units (unkno wn) date) unknown) (unknown) (no (unknown) (unknown) 13:09 03/12/22 (units (unknown) date) unknown) (unknown) (no (unknown) (unknown) 13:09 (units (unkno wn) date) unknown) (unknown) (no (unknown) (unknown) 13:13 13:13 13:13 (units (unknown) date) unknown) (unknown) (no (unknown) (unknown) 13:13 13:13 13:24 (units (unknown) date) unknown) (unknown) (no (unknown) (unknown) 13:21 03/12/22 (units (unknown) date) unknown) (unknown) (no (unknown) (unknown) 13:27 03/12/22 (units (unknown) date) unknown) (unknown) (no (unknown) (unknown) 13:27 (units (unkno wn) date) unknown) (unknown) (no (unknown) (unknown) 13:30 03/12/22 (units (unknown) date) unknown) (unknown) (no (unknown) (unknown) 13:30 (units (unkno wn) date) unknown) (unknown) (no (unknown) (unknown) 13:45 03/12/22 (units (unknown) date) unknown) (unknown) (no (unknown) (unknown) 14:00 03/12/22 (units (unknown) date) unknown) (unknown) (no (unknown) (unknown) 14:00 (units (unkno wn) date) unknown) (unknown) (no (unknown) (unknown) 14:10 03/12/22 (units (unknown) date) unknown) (unknown) (no (unknown) (unknown) 14:10 (units (unkno wn) date) unknown) (unknown) (no (unknown) (unknown) 14:15 03/12/22 (units (unknown) date) unknown) (unknown) (no (unknown) (unknown) 14:25 03/12/22 (units (unknown) date) unknown) (unknown) (no (unknown) (unknown) 14:25 (units (unkno wn) date) unknown) (unknown) (no (unknown) (unknown) 14:41 (units (unkno wn) date) unknown) (unknown) (no (unknown) (unknown) 14:56 03/12/22 (units (unknown) date) unknown) (unknown) (no (unknown) (unknown) 14:57 03/12/22 (units (unknown) date) unknown) (unknown) (no (unknown) (unknown) 15:00 03/12/22 (units (unknown) date) unknown) (unknown) (no (unknown) (unknown) 15:00 (units (unkno wn) date) unknown) (unknown) (no (unknown) (unknown) 15:30 03/12/22 (units (unknown) date) unknown) (unknown) (no (unknown) (unknown) 15:31 03/12/22 (units (unknown) date) unknown) (unknown) (no (unknown) (unknown) 15:31 (units (unkno wn) date) unknown) (unknown) (no (unknown) (unknown) 15:34 (units (unkno wn) date) unknown) (unknown) (no (unknown) (unknown) 16:00 03/12/22 (units (unknown) date) unknown) (unknown) (no (unknown) (unknown) 16:00 (units (unkno wn) date) unknown) (unknown) (no (unknown) (unknown) 16:30 03/12/22 (units (unknown) date) unknown) (unknown) (no (unknown) (unknown) 17:00 (units (unkno wn) date) unknown) (unknown) (no (unknown) (unknown) 2 spray NASAL DAILY (unit s (unknown) date) unknown) (unknown) (no (unknown) (unknown) 2. Cholelithiasis (units (unknown) date) and mild gallbladder unknown) distention without evidence of acute (unknown) (no (unknown) (unknown) 25 mg PO .twice (units (unknown) date) daily unknown) (unknown) (no (unknown) (unknown) 3. Additional (units ( unknown) date) chronic changes as unknown) above? (unknown) (no (unknown) (unknown) 325 mg PO DAILY (units (unknown) date) unknown) (unknown) (no (unknown) (unknown) [id number] (units (unkno wn) date) unknown) (unknown) (no (unknown) (unknown) 40 mg PO DAILY (units (unknown) date) unknown) (unknown) (no (unknown) (unknown) 70s and 80s. Was (units (unknown) date) never tachycardic. He unknown) was having abdominal cramping but no (unknown) (no (unknown) (unknown) 75 mg PO DAILY (units (unknown) date) unknown) (unknown) (no (unknown) (unknown) 800 mg PO TID (units ( unknown) date) unknown) (unknown) (no (unknown) (unknown) ? (units (unkno wn) date) unknown) (unknown) (no (unknown) (unknown) ALT (<50) IU/L (units (unknown) date) unknown) (unknown) (no (unknown) (unknown) ALT 40 (<50) IU/L (units (unknown) date) unknown) (unknown) (no (unknown) (unknown) APTT (26-36) SECONDS (uni ts (unknown) date) unknown) (unknown) (no (unknown) (unknown) APTT 38 H (26-36) (units (unknown) date) SECONDS unknown) (unknown) (no (unknown) (unknown) AST (17-59) IU/L (units (unknown) date) unknown) (unknown) (no (unknown) (unknown) AST 35 (17-59) IU/L (unit s (unknown) date) unknown) (unknown) (no (unknown) (unknown) Abdominal wall:? (units (unknown) date) Abdominal wall intact unknown) without evidence of ventral or inguinal (unknown) (no (unknown) (unknown) Accession Number: (units (unknown) date) [id number] ?? unknown) (unknown) (no (unknown) (unknown) Acct:[id number] (units (unknown) date) unknown) (unknown) (no (unknown) (unknown) Activity (units (unkno wn) date) Restrictions/Addition unknown) al Instructions: (unknown) (no (unknown) (unknown) Admin: 03/12/22 (units (unknown) date) 13:24 Dose: 1,000 unknown) mls/hr (unknown) (no (unknown) (unknown) Admin: 03/12/22 (units (unknown) date) 14:11 Dose: 1,000 unknown) mls/hr (unknown) (no (unknown) (unknown) Adrenals:? Normal (units (unknown) date) morphology and unknown) density. (unknown) (no (unknown) (unknown) After fluids blood (units (unknown) date) pressure is improved. unknown) Troponin is negative. EKG is (unknown) (no (unknown) (unknown) After the (units (unkn own) date) administration of unknown) intravenous contrast, axial sections acquired from (unknown) (no (unknown) (unknown) Age/Sex: 76 / M (units (unknown) date) unknown) (unknown) (no (unknown) (unknown) Albumin (3.5-5.0) (units (unknown) date) g/dL unknown) (unknown) (no (unknown) (unknown) Albumin 4.5 (units (un known) date) (3.5-5.0) g/dL unknown) (unknown) (no (unknown) (unknown) Albumin/Globulin (units (unknown) date) Ratio (1.0-2.8) unknown) (unknown) (no (unknown) (unknown) Albumin/Globulin (units (unknown) date) Ratio 1.8 (1.0-2.8) unknown) (unknown) (no (unknown) (unknown) Alkaline Phosphatase (uni ts (unknown) date) (38-126) U/L unknown) (unknown) (no (unknown) (unknown) Alkaline Phosphatase (uni ts (unknown) date) 68 (38-126) U/L unknown) (unknown) (no (unknown) (unknown) Allergies (units (unkn own) date) unknown) (unknown) (no (unknown) (unknown) Allergy/AdvReac Type (uni ts (unknown) date) Severity Reaction unknown) Status Date / Time (unknown) (no (unknown) (unknown) [place] [address] (unit s (unknown) date) unknown) (unknown) (no (unknown) (unknown) Antibody Screen (units (unknown) date) Negative unknown) (unknown) (no (unknown) (unknown) Antibody Screen (units (unknown) date) unknown) (unknown) (no (unknown) (unknown) Appearance: grossly (unit s (unknown) date) normal and well kempt unknown) (unknown) (no (unknown) (unknown) Appendix:? No (units ( unknown) date) findings to suggest unknown) acute appendicitis. (unknown) (no (unknown) (unknown) Approved by: Festus Leviunits (unknown) date) Kimberly Lambert on unknown) 03/12/2022 at 15:08? (unknown) (no (unknown) (unknown) Attestation: I (units (unknown) date) personally reviewed unknown) and interpreted this ECG as follows: (unknown) (no (unknown) (unknown) Auscultation: clear (unit s (unknown) date) to auscultation unknown) bilaterally (unknown) (no (unknown) (unknown) BUN (9-20) mg/dL (units (unknown) date) unknown) (unknown) (no (unknown) (unknown) BUN 24 H (9-20) (units (unknown) date) mg/dL unknown) (unknown) (no (unknown) (unknown) BUN/Creatinine Ratio (uni ts (unknown) date) (6-22) unknown) (unknown) (no (unknown) (unknown) BUN/Creatinine Ratio (uni ts (unknown) date) 14.8 (6-22) unknown) (unknown) (no (unknown) (unknown) Baso # (Auto) (units ( unknown) date) (0-100) /uL unknown) (unknown) (no (unknown) (unknown) Baso # (Auto) 100 (units (unknown) date) (0-100) /uL unknown) (unknown) (no (unknown) (unknown) Baso % (Auto) (0-2) (unit s (unknown) date) % unknown) (unknown) (no (unknown) (unknown) Baso % (Auto) 1.6 (units (unknown) date) (0-2) % unknown) (unknown) (no (unknown) (unknown) Biliary system:? (units (unknown) date) Cholelithiasis mild unknown) gallbladder distention without evidence of (unknown) (no (unknown) (unknown) Blood Pressure (units (unknown) date) 123/57 L 117/55 L unknown) (unknown) (no (unknown) (unknown) Blood Pressure (units (unknown) date) 124/58 L 127/60 unknown) (unknown) (no (unknown) (unknown) Blood Pressure (units (unknown) date) 129/58 L 126/59 L unknown) (unknown) (no (unknown) (unknown) Blood Pressure 77/47 (uni ts (unknown) date) L unknown) (unknown) (no (unknown) (unknown) Blood Pressure 81/49 (uni ts (unknown) date) L 83/50 L unknown) (unknown) (no (unknown) (unknown) Blood Pressure 84/70 (uni ts (unknown) date) L 03/12/22 12:56 unknown) (unknown) (no (unknown) (unknown) Blood Pressure 84/70 (uni ts (unknown) date) L 86/54 L unknown) (unknown) (no (unknown) (unknown) Blood Pressure 88/52 (uni ts (unknown) date) L 90/51 L unknown) (unknown) (no (unknown) (unknown) Blood Pressure 88/54 (uni ts (unknown) date) L unknown) (unknown) (no (unknown) (unknown) Blood Pressure 90/54 (uni ts (unknown) date) L unknown) (unknown) (no (unknown) (unknown) Blood Pressure 92/51 (uni ts (unknown) date) L unknown) (unknown) (no (unknown) (unknown) Blood Pressure 97/56 (uni ts (unknown) date) L 124/70 unknown) (unknown) (no (unknown) (unknown) Blood Pressure (units (unknown) date) unknown) (unknown) (no (unknown) (unknown) Blood Type AB (units ( unknown) date) Positive unknown) (unknown) (no (unknown) (unknown) Blood Type (units (unk nown) date) unknown) (unknown) (no (unknown) (unknown) CK-MB (CK-2) (<2.37) (uni ts (unknown) date) ng/mL unknown) (unknown) (no (unknown) (unknown) CK-MB (CK-2) 3.52 H (unit s (unknown) date) (<2.37) ng/mL unknown) (unknown) (no (unknown) (unknown) CK-MB (CK-2) Rel (units (unknown) date) Index (1.5-5.0) % unknown) (unknown) (no (unknown) (unknown) CK-MB (CK-2) Rel (units (unknown) date) Index 1.9 (1.5-5.0) % unknown) (unknown) (no (unknown) (unknown) COMPARISON:? None. (units (unknown) date) unknown) (unknown) (no (unknown) (unknown) COVID19 -Nasal (units (unknown) date) RAPID/Pre-Proc Stat unknown) (unknown) (no (unknown) (unknown) CT Scan Report (units (unknown) date) unknown) (unknown) (no (unknown) (unknown) CT abdomen pelvis w (unit s (unknown) date) con Stat unknown) (unknown) (no (unknown) (unknown) CT scan - (units (unkn own) date) abdomen/pelvis: unknown) (unknown) (no (unknown) (unknown) Calcium (8.4-10.2) (units (unknown) date) mg/dL unknown) (unknown) (no (unknown) (unknown) Calcium 8.8 (units (un known) date) (8.4-10.2) mg/dL unknown) (unknown) (no (unknown) (unknown) Carbon Dioxide (units (unknown) date) (22-32) mmol/L unknown) (unknown) (no (unknown) (unknown) Carbon Dioxide 22 (units (unknown) date) (22-32) mmol/L unknown) (unknown) (no (unknown) (unknown) Cardio (units (unkno wn) date) unknown) (unknown) (no (unknown) (unknown) Cervical spondylosis (uni ts (unknown) date) unknown) (unknown) (no (unknown) (unknown) Chief complaint: (units (unknown) date) Weakness unknown) (unknown) (no (unknown) (unknown) Chloride (98-107) (units (unknown) date) mmol/L unknown) (unknown) (no (unknown) (unknown) Chloride 104 (units (u nknown) date) (98-107) mmol/L unknown) (unknown) (no (unknown) (unknown) Clinical Impression: (uni ts (unknown) date) unknown) (unknown) (no (unknown) (unknown) Complete Blood Count (uni ts (unknown) date) AUTO DIFF Stat unknown) (unknown) (no (unknown) (unknown) Comprehensive (units ( unknown) date) Metabolic Panel Stat unknown) (unknown) (no (unknown) (unknown) Const (units (unkno wn) date) unknown) (unknown) (no (unknown) (unknown) Continue to take all (uni ts (unknown) date) of your medications unknown) as directed. I do recommend you (unknown) (no (unknown) (unknown) Course (units (unkno wn) date) unknown) (unknown) (no (unknown) (unknown) Creatinine (units (unk nown) date) (0.66-1.25) mg/dL unknown) (unknown) (no (unknown) (unknown) Creatinine 1.62 H (units (unknown) date) (0.66-1.25) mg/dL unknown) (unknown) (no (unknown) (unknown) : 1945 (units (unknown) date) Acct:[id number] unknown) (unknown) (no (unknown) (unknown) : 1945 (units (unknown) date) unknown) (unknown) (no (unknown) (unknown) Date of Service: (units (unknown) date) 03/12/22 unknown) (unknown) (no (unknown) (unknown) Departure (units (unkn own) date) unknown) (unknown) (no (unknown) (unknown) Diabetes (units (unkno wn) date) unknown) (unknown) (no (unknown) (unknown) Diarrhea, Abdominal (unit s (unknown) date) cramping unknown) (unknown) (no (unknown) (unknown) Discharge Plan (units (unknown) date) unknown) (unknown) (no (unknown) (unknown) Discontinued (units (u nknown) date) Medications unknown) (unknown) (no (unknown) (unknown) Documented By: KB (units (unknown) date) unknown) (unknown) (no (unknown) (unknown) Documented By: RB (units (unknown) date) unknown) (unknown) (no (unknown) (unknown) ECG Data (units (unkno wn) date) unknown) (unknown) (no (unknown) (unknown) ED Orders (units (unkn own) date) unknown) (unknown) (no (unknown) (unknown) EKG-12 Lead Stat (units (unknown) date) unknown) (unknown) (no (unknown) (unknown) ER Physician: (units ( unknown) date) Cosmo Sotelo D.O. unknown) (unknown) (no (unknown) (unknown) Effort + Inspection: (uni ts (unknown) date) normal respiratory unknown) effort (unknown) (no (unknown) (unknown) Emergency Report (units (unknown) date) unknown) (unknown) (no (unknown) (unknown) Eos # (Auto) (0-450) (uni ts (unknown) date) /uL unknown) (unknown) (no (unknown) (unknown) Eos # (Auto) 100 (units (unknown) date) (0-450) /uL unknown) (unknown) (no (unknown) (unknown) Eos % (Auto) (2-4) % (uni ts (unknown) date) unknown) (unknown) (no (unknown) (unknown) Eos % (Auto) 0.8 L (units (unknown) date) (2-4) % unknown) (unknown) (no (unknown) (unknown) Estimated GFR (>60) (unit s (unknown) date) mL/min unknown) (unknown) (no (unknown) (unknown) Estimated GFR 44 L (units (unknown) date) (>60) mL/min unknown) (unknown) (no (unknown) (unknown) Exam (units (unkno wn) date) unknown) (unknown) (no (unknown) (unknown) Extrem (units (unkno wn) date) unknown) (unknown) (no (unknown) (unknown) FINDINGS: (units (unkn own) date) unknown) (unknown) (no (unknown) (unknown) For (units (unkno wn) date) unknown) (unknown) (no (unknown) (unknown) GI (units (unkno wn) date) unknown) (unknown) (no (unknown) (unknown) Gastrointestinal (units (unknown) date) system:? Prior unknown) gastric surgery noted.? No evidence of (unknown) (no (unknown) (unknown) General (units (unkno wn) date) unknown) (unknown) (no (unknown) (unknown) General: (units (unkno wn) date) cooperative, unknown) comfortable, diaphoretic and ill appearing (unknown) (no (unknown) (unknown) General: no rashes (units (unknown) date) or lesions noted unknown) (unknown) (no (unknown) (unknown) General: normal to (units (unknown) date) inspection and unknown) capillary refill normal (unknown) (no (unknown) (unknown) General: patient (units (unknown) date) alert, patient awake, unknown) patient oriented x3 and moves all (unknown) (no (unknown) (unknown) Globulin (1.7-4.1) (units (unknown) date) g/dL unknown) (unknown) (no (unknown) (unknown) Globulin 2.5 (units (u nknown) date) (1.7-4.1) g/dL unknown) (unknown) (no (unknown) (unknown) Glucose (80-110) (units (unknown) date) mg/dL unknown) (unknown) (no (unknown) (unknown) Glucose 150 H (units ( unknown) date) (80-110) mg/dL unknown) (unknown) (no (unknown) (unknown) HENMT (units (unkno wn) date) unknown) (unknown) (no (unknown) (unknown) HPI - General Adult (unit s (unknown) date) unknown) (unknown) (no (unknown) (unknown) HPI narrative: (units (unknown) date) unknown) (unknown) (no (unknown) (unknown) Hct (41-53) % (units ( unknown) date) unknown) (unknown) (no (unknown) (unknown) Hct 38.6 L (41-53) % (uni ts (unknown) date) unknown) (unknown) (no (unknown) (unknown) Head: normal to (units (unknown) date) inspection and unknown) normocephalic (unknown) (no (unknown) (unknown) Hgb (13.5-17.5) g/dL (uni ts (unknown) date) unknown) (unknown) (no (unknown) (unknown) Hgb 13.1 L (units (unk nown) date) (13.5-17.5) g/dL unknown) (unknown) (no (unknown) (unknown) History of Present (units (unknown) date) Illness unknown) (unknown) (no (unknown) (unknown) History of ankle (units (unknown) date) surgery unknown) (unknown) (no (unknown) (unknown) History of elbow (units (unknown) date) surgery unknown) (unknown) (no (unknown) (unknown) History of nasal (units (unknown) date) surgery unknown) (unknown) (no (unknown) (unknown) History of toe (units (unknown) date) surgery unknown) (unknown) (no (unknown) (unknown) Home Medications (units (unknown) date) unknown) (unknown) (no (unknown) (unknown) IMPRESSION: (units (un known) date) unknown) (unknown) (no (unknown) (unknown) INDICATIONS:? hx of (unit s (unknown) date) gastric surgery with unknown) abd pain ? low BP (unknown) (no (unknown) (unknown) INR (0.9-1.3) (units ( unknown) date) unknown) (unknown) (no (unknown) (unknown) INR 1.0 (0.9-1.3) (units (unknown) date) unknown) (unknown) (no (unknown) (unknown) Imaging Data (units (u nknown) date) unknown) (unknown) (no (unknown) (unknown) Initial Vital Signs (unit s (unknown) date) unknown) (unknown) (no (unknown) (unknown) Initial Vital Signs: (uni ts (unknown) date) unknown) (unknown) (no (unknown) (unknown) Inspection: normal (units (unknown) date) to inspection unknown) (unknown) (no (unknown) (unknown) Instructions: (units ( unknown) date) Diarrhea unknown) (unknown) (no (unknown) (unknown) Interpretation: (units (unknown) date) unknown) (unknown) (no (unknown) (unknown) [facility] [address] (uni ts (unknown) date) [address] unknown) [place] [address] (unknown) (no (unknown) (unknown) [facility] (units (unknown) date) unknown) (unknown) (no (unknown) (unknown) Lab Data (units (unkno wn) date) unknown) (unknown) (no (unknown) (unknown) Lab Results (units (un known) date) unknown) (unknown) (no (unknown) (unknown) Lab results (units (un known) date) reviewed: Yes I unknown) reviewed the patient's lab results. (unknown) (no (unknown) (unknown) Labs: (units (unkno wn) date) unknown) (unknown) (no (unknown) (unknown) Lactate (0.7-2.1) (units (unknown) date) mmol/L unknown) (unknown) (no (unknown) (unknown) Lactate (Lactic (units (unknown) date) Acid) Stat unknown) (unknown) (no (unknown) (unknown) Lactate 2.8 H (units ( unknown) date) (0.7-2.1) mmol/L unknown) (unknown) (no (unknown) (unknown) Lactate 3.0 H (units ( unknown) date) (0.7-2.1) mmol/L unknown) (unknown) (no (unknown) (unknown) Last Admin: 03/12/22 (uni ts (unknown) date) 14:24 Dose: 4 mg unknown) (unknown) (no (unknown) (unknown) Last Admin: 03/12/22 (uni ts (unknown) date) 17:01 Dose: 1 tab unknown) (unknown) (no (unknown) (unknown) Last Infusion: (units (unknown) date) 03/12/22 14:11 Dose: unknown) 0 mls/hr (unknown) (no (unknown) (unknown) Last Infusion: (units (unknown) date) 03/12/22 15:51 Dose: unknown) 0 mls/hr (unknown) (no (unknown) (unknown) Limitations: no (units (unknown) date) limitations unknown) (unknown) (no (unknown) (unknown) Lipase (23-300) U/L (unit s (unknown) date) unknown) (unknown) (no (unknown) (unknown) Lipase 80 (23-300) (units (unknown) date) U/L unknown) (unknown) (no (unknown) (unknown) Lipase Stat (units (un known) date) unknown) (unknown) (no (unknown) (unknown) Liver:? Normal in (units (unknown) date) size and attenuation. unknown) No contour deformity present. (unknown) (no (unknown) (unknown) Loc: ED (units (unkno wn) date) unknown) (unknown) (no (unknown) (unknown) Lower thorax: The (units (unknown) date) lung bases are unknown) clear.? Heart size normal.? Small hiatal (unknown) (no (unknown) (unknown) Lymph # (Auto) (units (unknown) date) (5540-7937) /uL unknown) (unknown) (no (unknown) (unknown) Lymph # (Auto) 3100 (unit s (unknown) date) (8500-8874) /uL unknown) (unknown) (no (unknown) (unknown) Lymph % (Auto) (units (unknown) date) (25-40) % unknown) (unknown) (no (unknown) (unknown) Lymph % (Auto) 32.7 (unit s (unknown) date) (25-40) % unknown) (unknown) (no (unknown) (unknown) MCH (26-34) PG (units (unknown) date) unknown) (unknown) (no (unknown) (unknown) MCH 29.2 (26-34) PG (unit s (unknown) date) unknown) (unknown) (no (unknown) (unknown) MCHC (30-36) % (units (unknown) date) unknown) (unknown) (no (unknown) (unknown) MCHC 33.9 (30-36) % (unit s (unknown) date) unknown) (unknown) (no (unknown) (unknown) MCV (80-100) fL (units (unknown) date) unknown) (unknown) (no (unknown) (unknown) MCV 86.2 (80-100) fL (uni ts (unknown) date) unknown) (unknown) (no (unknown) (unknown) MDM Narrative (units ( unknown) date) unknown) (unknown) (no (unknown) (unknown) MR#: [id number] (units (unknown) date) unknown) (unknown) (no (unknown) (unknown) Magnesium (1.6-2.3) (unit s (unknown) date) mg/dL unknown) (unknown) (no (unknown) (unknown) Magnesium 2.3 (units ( unknown) date) (1.6-2.3) mg/dL unknown) (unknown) (no (unknown) (unknown) Magnesium Stat (units (unknown) date) unknown) (unknown) (no (unknown) (unknown) Hemanth Kendall MD (units (unknown) date) [Primary Care unknown) Provider] (unknown) (no (unknown) (unknown) Medical Decision (units (unknown) date) Making unknown) (unknown) (no (unknown) (unknown) Medical History (units (unknown) date) (Reviewed 03/12/22 @ unknown) 13:32 by Cosmo Sotelo DO) (unknown) (no (unknown) (unknown) Medical decision (units (unknown) date) making narrative: unknown) (unknown) (no (unknown) (unknown) Medication (units (unk nown) date) Instructions Recorded unknown) Confirmed (unknown) (no (unknown) (unknown) Mode of arrival: (units (unknown) date) Ambulatory unknown) (unknown) (no (unknown) (unknown) [place] # (Auto) (units ( unknown) date) (0-900) /uL unknown) (unknown) (no (unknown) (unknown) [place] # (Auto) 500 (units (unknown) date) (0-900) /uL unknown) (unknown) (no (unknown) (unknown) [place] % (Auto) (3-14) (uni ts (unknown) date) % unknown) (unknown) (no (unknown) (unknown) [place] % (Auto) 5.1 (units (unknown) date) (3-14) % unknown) (unknown) (no (unknown) (unknown) Motor: muscle tone (units (unknown) date) normal throughout unknown) (unknown) (no (unknown) (unknown) Musculoskeletal:? (units (unknown) date) Normal bone unknown) mineralization.? Degenerative disc disease and (unknown) (no (unknown) (unknown) Neuro (units (unkno wn) date) unknown) (unknown) (no (unknown) (unknown) Neut # (Auto) (units ( unknown) date) (5042-1927) /uL unknown) (unknown) (no (unknown) (unknown) Neut # (Auto) 5600 (units (unknown) date) (7607-1440) /uL unknown) (unknown) (no (unknown) (unknown) Neut % (Auto) (units ( unknown) date) (50-75) % unknown) (unknown) (no (unknown) (unknown) Neut % (Auto) 59.8 (units (unknown) date) (50-75) % unknown) (unknown) (no (unknown) (unknown) No Action (units (unkn own) date) unknown) (unknown) (no (unknown) (unknown) No Known Drug (units ( unknown) date) Allergies Allergy unknown) Unverified 08/08/19 15:06 (unknown) (no (unknown) (unknown) No ST T wave changes (uni ts (unknown) date) unknown) (unknown) (no (unknown) (unknown) No blood in the (units (unknown) date) stool. No urinary unknown) symptoms. They checked his blood sugar at (unknown) (no (unknown) (unknown) No free (units (unkno wn) date) unknown) (unknown) (no (unknown) (unknown) No indication of (units (unknown) date) bleeding. Initial unknown) lactate 2.8. Repeat 3.0 however I do have (unknown) (no (unknown) (unknown) None (units (unkno wn) date) unknown) (unknown) (no (unknown) (unknown) Normal QRS (units (unk nown) date) unknown) (unknown) (no (unknown) (unknown) Normal QTC (units (unk nown) date) unknown) (unknown) (no (unknown) (unknown) Normal axis (units (un known) date) unknown) (unknown) (no (unknown) (unknown) Occipital neuralgia (unit s (unknown) date) of left side unknown) (unknown) (no (unknown) (unknown) Ondansetron HCl (units (unknown) date) (Ondansetron 4 Mg/2 unknown) Ml Inj) 4 mg IV NOW ONE (unknown) (no (unknown) (unknown) Ordered: (units (unkno wn) date) unknown) (unknown) (no (unknown) (unknown) Ordering Provider: (units (unknown) date) Cosmo Sotelo D.O. unknown) (unknown) (no (unknown) (unknown) Orders (units (unkno wn) date) unknown) (unknown) (no (unknown) (unknown) Oxycodone/Acetaminop (uni ts (unknown) date) hen unknown) (Oxycodone/Acetaminop hen 5/325 Tablet) 1 tab PO NOW ONE (unknown) (no (unknown) (unknown) Oxygen Delivery (units (unknown) date) Method 03/12/22 12:56 unknown) (unknown) (no (unknown) (unknown) Oxygen Delivery (units (unknown) date) Method Room Air unknown) (unknown) (no (unknown) (unknown) Oxygen Delivery (units (unknown) date) Method unknown) (unknown) (no (unknown) (unknown) PROCEDURE:? CT (units (unknown) date) ABDOMEN PELVIS W CON unknown) (unknown) (no (unknown) (unknown) PT (10.1-12.7) (units (unknown) date) SECONDS unknown) (unknown) (no (unknown) (unknown) PT 11.3 (10.1-12.7) (unit s (unknown) date) SECONDS unknown) (unknown) (no (unknown) (unknown) Palpation: soft, No (unit s (unknown) date) firm and No tender unknown) (unknown) (no (unknown) (unknown) Pancreas:? (units (unk nown) date) Unremarkable without unknown) mass or inflammation evident. (unknown) (no (unknown) (unknown) Partial (units (unkno wn) date) Thromboplastin Time unknown) Stat (unknown) (no (unknown) (unknown) Patient Disposition: (uni ts (unknown) date) Home unknown) (unknown) (no (unknown) (unknown) Patient History (units (unknown) date) unknown) (unknown) (no (unknown) (unknown) Patient is a (units (u nknown) date) 76-year-old male. unknown) History of diabetes. Also has had history of (unknown) (no (unknown) (unknown) Patient: (units (unkno wn) date) Volodymyr Kang MR#: unknown) M000 (unknown) (no (unknown) (unknown) Patient: (units (unkno wn) date) Volodymyr Kang unknown) (unknown) (no (unknown) (unknown) Peritoneal spaces:? (unit s (unknown) date) No mesenteric or unknown) retroperitoneal adenopathy.? No free air.? (unknown) (no (unknown) (unknown) Plt Count (150-400) (unit s (unknown) date) X103/uL unknown) (unknown) (no (unknown) (unknown) Plt Count 310 (units ( unknown) date) (150-400) X103/uL unknown) (unknown) (no (unknown) (unknown) Point of Care (units ( unknown) date) Testing unknown) (unknown) (no (unknown) (unknown) Point of care (units ( unknown) date) testing: unknown) (unknown) (no (unknown) (unknown) Potassium (3.4-5.1) (unit s (unknown) date) mmol/L unknown) (unknown) (no (unknown) (unknown) Potassium 4.1 (units ( unknown) date) (3.4-5.1) mmol/L unknown) (unknown) (no (unknown) (unknown) Prescriptions: (units (unknown) date) unknown) (unknown) (no (unknown) (unknown) Procalcitonin (<0.5) (uni ts (unknown) date) ng/mL unknown) (unknown) (no (unknown) (unknown) Procalcitonin 0.10 (units (unknown) date) (<0.5) ng/mL unknown) (unknown) (no (unknown) (unknown) Procalcitonin Stat (units (unknown) date) unknown) (unknown) (no (unknown) (unknown) Procedure: CT (units ( unknown) date) abdomen pelvis w con unknown) (unknown) (no (unknown) (unknown) Prothrombin Time INR (uni ts (unknown) date) Stat unknown) (unknown) (no (unknown) (unknown) Psych (units (unkno wn) date) unknown) (unknown) (no (unknown) (unknown) Pulse Oximetry 100 (units (unknown) date) unknown) (unknown) (no (unknown) (unknown) Pulse Oximetry 93 (units (unknown) date) 03/12/22 12:56 unknown) (unknown) (no (unknown) (unknown) Pulse Oximetry 93 94 (uni ts (unknown) date) unknown) (unknown) (no (unknown) (unknown) Pulse Oximetry 94 94 (uni ts (unknown) date) unknown) (unknown) (no (unknown) (unknown) Pulse Oximetry 94 95 (uni ts (unknown) date) unknown) (unknown) (no (unknown) (unknown) Pulse Oximetry 95 (units (unknown) date) unknown) (unknown) (no (unknown) (unknown) Pulse Oximetry 96 (units (unknown) date) unknown) (unknown) (no (unknown) (unknown) Pulse Oximetry 97 (units (unknown) date) unknown) (unknown) (no (unknown) (unknown) Pulse Oximetry 98 98 (uni ts (unknown) date) unknown) (unknown) (no (unknown) (unknown) Pulse Oximetry 98 (units (unknown) date) unknown) (unknown) (no (unknown) (unknown) Pulse Oximetry 99 97 (uni ts (unknown) date) 98 unknown) (unknown) (no (unknown) (unknown) Pulse Oximetry 99 97 (uni ts (unknown) date) unknown) (unknown) (no (unknown) (unknown) Pulse Rate 72 73 (units (unknown) date) unknown) (unknown) (no (unknown) (unknown) Pulse Rate 76 (units ( unknown) date) unknown) (unknown) (no (unknown) (unknown) Pulse Rate 78 (units ( unknown) date) unknown) (unknown) (no (unknown) (unknown) Pulse Rate 79 77 (units (unknown) date) unknown) (unknown) (no (unknown) (unknown) Pulse Rate 79 79 (units (unknown) date) unknown) (unknown) (no (unknown) (unknown) Pulse Rate 79 80 (units (unknown) date) unknown) (unknown) (no (unknown) (unknown) Pulse Rate 80 83 84 (unit s (unknown) date) unknown) (unknown) (no (unknown) (unknown) Pulse Rate 81 81 (units (unknown) date) unknown) (unknown) (no (unknown) (unknown) Pulse Rate 82 (units ( unknown) date) unknown) (unknown) (no (unknown) (unknown) Pulse Rate 84 (units ( unknown) date) 03/12/22 12:56 unknown) (unknown) (no (unknown) (unknown) Pulse Rate 84 78 (units (unknown) date) unknown) (unknown) (no (unknown) (unknown) Pulse Rate 86 (units ( unknown) date) unknown) (unknown) (no (unknown) (unknown) Pulse Rate 87 (units ( unknown) date) unknown) (unknown) (no (unknown) (unknown) Pulse Rate 98 H (units (unknown) date) unknown) (unknown) (no (unknown) (unknown) RBC (4.5-5.9) (units ( unknown) date) X106/uL unknown) (unknown) (no (unknown) (unknown) RBC 4.47 L (4.5-5.9) (uni ts (unknown) date) X106/uL unknown) (unknown) (no (unknown) (unknown) RBC Morphology (units (unknown) date) Normal morphology unknown) (unknown) (no (unknown) (unknown) RBC Morphology (units (unknown) date) unknown) (unknown) (no (unknown) (unknown) RDW (11.6-14.8) % (units (unknown) date) unknown) (unknown) (no (unknown) (unknown) RDW 14.5 (11.6-14.8) (uni ts (unknown) date) % unknown) (unknown) (no (unknown) (unknown) ROS Unobtainable: All (uni ts (unknown) date) systems reviewed + unknown) are unremarkable except as noted in HPI (unknown) (no (unknown) (unknown) Radiologist's (units ( unknown) date) Impression: unknown) (unknown) (no (unknown) (unknown) Rate: regular rate (units (unknown) date) unknown) (unknown) (no (unknown) (unknown) Referrals: (units (unk nown) date) unknown) (unknown) (no (unknown) (unknown) Related Data (units (u nknown) date) unknown) (unknown) (no (unknown) (unknown) Reproductive (units (u nknown) date) system:? Unremarkable unknown) as visualized. (unknown) (no (unknown) (unknown) Resp (units (unkno wn) date) unknown) (unknown) (no (unknown) (unknown) Respiratory Rate 18 (unit s (unknown) date) 03/12/22 12:56 unknown) (unknown) (no (unknown) (unknown) Respiratory Rate 18 (unit s (unknown) date) 18 unknown) (unknown) (no (unknown) (unknown) Respiratory Rate 18 (unit s (unknown) date) unknown) (unknown) (no (unknown) (unknown) Respiratory Rate 19 (unit s (unknown) date) 20 unknown) (unknown) (no (unknown) (unknown) Respiratory Rate 19 (unit s (unknown) date) unknown) (unknown) (no (unknown) (unknown) Respiratory Rate 20 (unit s (unknown) date) 21 20 unknown) (unknown) (no (unknown) (unknown) Respiratory Rate 20 (unit s (unknown) date) unknown) (unknown) (no (unknown) (unknown) Respiratory Rate 21 (unit s (unknown) date) 20 unknown) (unknown) (no (unknown) (unknown) Respiratory Rate 21 (unit s (unknown) date) unknown) (unknown) (no (unknown) (unknown) Respiratory Rate 22 (unit s (unknown) date) unknown) (unknown) (no (unknown) (unknown) Respiratory Rate 23 (unit s (unknown) date) unknown) (unknown) (no (unknown) (unknown) Result diagrams: (units (unknown) date) unknown) (unknown) (no (unknown) (unknown) Return to the (units ( unknown) date) emergency department unknown) for any new or worsening symptoms. (unknown) (no (unknown) (unknown) Review of Systems (units (unknown) date) unknown) (unknown) (no (unknown) (unknown) Rhythm: regular (units (unknown) date) rhythm unknown) (unknown) (no (unknown) (unknown) SARS-CoV-2 (PCR) (units (unknown) date) (Negative) unknown) (unknown) (no (unknown) (unknown) SARS-CoV-2 (PCR) (units (unknown) date) Negative (Negative) unknown) (unknown) (no (unknown) (unknown) Signed By: (units (unk nown) date) unknown) (unknown) (no (unknown) (unknown) Signed (units (unkno wn) date) unknown) (unknown) (no (unknown) (unknown) Sinus rhythm (units (u nknown) date) unknown) (unknown) (no (unknown) (unknown) Skin (units (unkno wn) date) unknown) (unknown) (no (unknown) (unknown) Smaller (units (unkno wn) date) unknown) (unknown) (no (unknown) (unknown) Smoking Status: (units (unknown) date) Never smoker unknown) (unknown) (no (unknown) (unknown) Social History (units (unknown) date) (Reviewed 03/12/22 @ unknown) 13:32 by Cosmo Sotelo DO) (unknown) (no (unknown) (unknown) Sodium (137-145) (units (unknown) date) mmol/L unknown) (unknown) (no (unknown) (unknown) Sodium 139 (137-145) (uni ts (unknown) date) mmol/L unknown) (unknown) (no (unknown) (unknown) Sodium Chloride (units (unknown) date) (Normal Saline 0.9%) unknown) 1,000 mls @ 1,000 mls/hr IV BOLUS ONE (unknown) (no (unknown) (unknown) Source: patient and (unit s (unknown) date) family unknown) (unknown) (no (unknown) (unknown) Speech: speech (units (unknown) date) normal unknown) (unknown) (no (unknown) (unknown) Spleen:? Normal in (units (unknown) date) size and density. unknown) (unknown) (no (unknown) (unknown) Stated complaint: (units (unknown) date) Diarrhea, Diabetic, unknown) Don't Know What's Wrong (unknown) (no (unknown) (unknown) Stool Occult Blood (units (unknown) date) Negative unknown) (unknown) (no (unknown) (unknown) Stop: 03/12/22 14:11 (uni ts (unknown) date) unknown) (unknown) (no (unknown) (unknown) Stop: 03/12/22 14:21 (uni ts (unknown) date) unknown) (unknown) (no (unknown) (unknown) Stop: 03/12/22 14:47 (uni ts (unknown) date) unknown) (unknown) (no (unknown) (unknown) Stop: 03/12/22 16:54 (uni ts (unknown) date) unknown) (unknown) (no (unknown) (unknown) Surgical History (units (unknown) date) (Reviewed 08/08/19 @ unknown) 16:13 by Volodymyr Christensen DO) (unknown) (no (unknown) (unknown) TECHNIQUE:? (units (un known) date) unknown) (unknown) (no (unknown) (unknown) Temperature 97.5 F L (uni ts (unknown) date) 03/12/22 12:56 unknown) (unknown) (no (unknown) (unknown) Temperature 97.5 F L (uni ts (unknown) date) unknown) (unknown) (no (unknown) (unknown) Temperature (units (un known) date) unknown) (unknown) (no (unknown) (unknown) Time Seen by (units (u nknown) date) Provider: 03/12/22 unknown) 13:08 (unknown) (no (unknown) (unknown) Total Bilirubin (units (unknown) date) (0.2-1.3) mg/dL unknown) (unknown) (no (unknown) (unknown) Total Bilirubin 0.5 (unit s (unknown) date) (0.2-1.3) mg/dL unknown) (unknown) (no (unknown) (unknown) Total Creatine (units (unknown) date) Kinase (55-170) U/L unknown) (unknown) (no (unknown) (unknown) Total Creatine (units (unknown) date) Kinase 190 H (55-170) unknown) U/L (unknown) (no (unknown) (unknown) Total Protein (units ( unknown) date) (6.3-8.2) g/dL unknown) (unknown) (no (unknown) (unknown) Total Protein 7.0 (units (unknown) date) (6.3-8.2) g/dL unknown) (unknown) (no (unknown) (unknown) Troponin + CK (units ( unknown) date) Cardiac Panel Stat unknown) (unknown) (no (unknown) (unknown) Troponin I < 0.012 (units (unknown) date) (0.01-0.034) ng/mL unknown) (unknown) (no (unknown) (unknown) Troponin I (units (unk nown) date) (0.01-0.034) ng/mL unknown) (unknown) (no (unknown) (unknown) Type and Screen Stat (uni ts (unknown) date) unknown) (unknown) (no (unknown) (unknown) Upon arrival patient (uni ts (unknown) date) felt very poorly and unknown) was hypotensive with systolic in the (unknown) (no (unknown) (unknown) Urinary system:? (units (unknown) date) Right renal cyst.? unknown) Nonobstructing 3 mm right renal calculus.? (unknown) (no (unknown) (unknown) Vasculature:? Aortic (uni ts (unknown) date) atherosclerotic unknown) vascular calcification noted without (unknown) (no (unknown) (unknown) Ventricular rate 85 (unit s (unknown) date) unknown) (unknown) (no (unknown) (unknown) Vital Signs - 8 hr (units (unknown) date) unknown) (unknown) (no (unknown) (unknown) Vital Signs (units (un known) date) unknown) (unknown) (no (unknown) (unknown) Vital signs: (units (u nknown) date) unknown) (unknown) (no (unknown) (unknown) WBC (4.5-11.0) (units (unknown) date) X103/uL unknown) (unknown) (no (unknown) (unknown) WBC 9.4 (4.5-11.0) (units (unknown) date) X103/uL unknown) (unknown) (no (unknown) (unknown) [Embedded Image Not (unit s (unknown) date) Available] unknown) (unknown) (no (unknown) (unknown) abdominal cramping (units (unknown) date) and diarrhea. He unknown) states he was having some nausea and dry (unknown) (no (unknown) (unknown) acarbose 25 mg (units (unknown) date) tablet 25 mg PO unknown) .twice daily 08/08/19 08/08/19 (unknown) (no (unknown) (unknown) acarbose 25 mg (units (unknown) date) tablet unknown) (unknown) (no (unknown) (unknown) acute (units (unkno wn) date) unknown) (unknown) (no (unknown) (unknown) adjustment (units (unk nown) date) unknown) (unknown) (no (unknown) (unknown) and below (units (unkn own) date) unknown) (unknown) (no (unknown) (unknown) and his states (unit s (unknown) date) that ever since that unknown) he had COVID several months ago he has (unknown) (no (unknown) (unknown) aneurysm. (units (unkn own) date) unknown) (unknown) (no (unknown) (unknown) arthropathy (units (un known) date) unknown) (unknown) (no (unknown) (unknown) atorvastatin 40 mg (units (unknown) date) tablet 40 mg PO DAILY unknown) 08/08/19 08/08/19 (unknown) (no (unknown) (unknown) atorvastatin 40 mg (units (unknown) date) tablet unknown) (unknown) (no (unknown) (unknown) bases to the pubic (units (unknown) date) symphysis.? Coronal unknown) and sagittal reformats were performed.? (unknown) (no (unknown) (unknown) becomes very (units (u nknown) date) nauseous. He has been unknown) drinking Gatorade and other electrolyte (unknown) (no (unknown) (unknown) cholecystitis. (units (unknown) date) unknown) (unknown) (no (unknown) (unknown) clopidogrel 75 mg (units (unknown) date) tablet 75 mg PO DAILY unknown) 08/08/19 08/08/19 (unknown) (no (unknown) (unknown) clopidogrel 75 mg (units (unknown) date) tablet unknown) (unknown) (no (unknown) (unknown) diarrhea here in the (uni ts (unknown) date) ER. No blood. No unknown) indication for antibiotics. I suspect (unknown) (no (unknown) (unknown) discuss this with (units (unknown) date) the patient. He was unknown) given strict return precautions. He (unknown) (no (unknown) (unknown) electrolyte (units (un known) date) replacement and salt unknown) pills however every time he takes him he (unknown) (no (unknown) (unknown) evidence of (units (un known) date) unknown) (unknown) (no (unknown) (unknown) expressed (units (unkn own) date) understanding and unknown) agreement. (unknown) (no (unknown) (unknown) extremities (units (un known) date) unknown) (unknown) (no (unknown) (unknown) feeling like this (units (unknown) date) when his blood sugar unknown) was abnormal. He currently states that (unknown) (no (unknown) (unknown) feeling very well. (units (unknown) date) Was diaphoretic. No unknown) chest pain. No shortness of breath. (unknown) (no (unknown) (unknown) ferrous sulfate 325 (unit s (unknown) date) mg (65 mg 325 mg PO unknown) DAILY 08/08/19 08/08/19 (unknown) (no (unknown) (unknown) ferrous sulfate 325 (unit s (unknown) date) mg (65 mg iron) unknown) tablet (unknown) (no (unknown) (unknown) fluid.? (units (unkno wn) date) unknown) (unknown) (no (unknown) (unknown) fluticasone (units (un known) date) propionate 50 2 spray unknown) intranasal DAILY 08/08/19 08/08/19 (unknown) (no (unknown) (unknown) fluticasone (units (un known) date) propionate 50 unknown) mcg/actuation spray,suspension (unknown) (no (unknown) (unknown) gastric surgery. (units (unknown) date) Also has a history of unknown) a stroke without residual deficits who (unknown) (no (unknown) (unknown) had issues with (units (unknown) date) ?dehydration? he unknown) states that his primary doctor has put him on (unknown) (no (unknown) (unknown) he is having (units (u nknown) date) abdominal cramping unknown) but his nausea is better. (unknown) (no (unknown) (unknown) heaving as well (units (unknown) date) while he was going to unknown) the bathroom. He states he normally does (unknown) (no (unknown) (unknown) hernia. (units (unkno wn) date) unknown) (unknown) (no (unknown) (unknown) hernias. (units (unkno wn) date) unknown) (unknown) (no (unknown) (unknown) home and it was only (uni ts (unknown) date) slightly elevated. He unknown) is had issues in the past with (unknown) (no (unknown) (unknown) hydrochlorothiazide (unit s (unknown) date) 12.5 mg tablet 12.5 unknown) mg PO DAILY 08/08/19 08/08/19 (unknown) (no (unknown) (unknown) hydrochlorothiazide (unit s (unknown) date) 12.5 mg tablet unknown) (unknown) (no (unknown) (unknown) ibuprofen 800 mg (units (unknown) date) tablet 800 mg PO TID unknown) 08/08/19 08/08/19 (unknown) (no (unknown) (unknown) ibuprofen 800 mg (units (unknown) date) tablet unknown) (unknown) (no (unknown) (unknown) improved. He never (units (unknown) date) had chest pain. No unknown) shortness of breath. No leukocytosis. (unknown) (no (unknown) (unknown) increase your fluid (unit s (unknown) date) intake. Contact your unknown) primary doctor for a follow-up. (unknown) (no (unknown) (unknown) intake. Walking (units (unknown) date) around the emergency unknown) department. He had 1 further episode of (unknown) (no (unknown) (unknown) iron) tablet (units (u nknown) date) unknown) (unknown) (no (unknown) (unknown) is here for (units (un known) date) evaluation of unknown) approximately 20 minutes of a very sudden onset of (unknown) (no (unknown) (unknown) left renal cysts.? (units (unknown) date) No hydronephrosis or unknown) obstructive uropathy. (unknown) (no (unknown) (unknown) low concern about (units (unknown) date) any sepsis or other unknown) infection. A discussion of the patient (unknown) (no (unknown) (unknown) marital status: (units (unknown) date) unknown) (unknown) (no (unknown) (unknown) mcg/actuation nasal (unit s (unknown) date) unknown) (unknown) (no (unknown) (unknown) metformin 1,000 mg (units (unknown) date) tablet 1,000 mg PO unknown) DAILY 08/08/19 08/08/19 (unknown) (no (unknown) (unknown) metformin 1,000 mg (units (unknown) date) tablet unknown) (unknown) (no (unknown) (unknown) mg tablet (Percocet) (uni ts (unknown) date) unknown) (unknown) (no (unknown) (unknown) montelukast 10 mg (units (unknown) date) tablet 10 mg PO DAILY unknown) 08/08/19 08/08/19 (unknown) (no (unknown) (unknown) montelukast 10 mg (units (unknown) date) tablet unknown) (unknown) (no (unknown) (unknown) no specific (units (un known) date) indication for unknown) admission to the hospital other than the lactate (unknown) (no (unknown) (unknown) not vomit because of (uni ts (unknown) date) his prior gastric unknown) surgery. States he generally was not (unknown) (no (unknown) (unknown) noted in lower (units (unknown) date) lumbar spine.? No unknown) acute fractures.? (unknown) (no (unknown) (unknown) obstruction.? (units ( unknown) date) unknown) (unknown) (no (unknown) (unknown) of mA and/or kV (units (unknown) date) according to patient unknown) size.? (unknown) (no (unknown) (unknown) oxycodone-acetaminop (uni ts (unknown) date) hen 5 mg-325 1 tab PO unknown) QID PRN 08/08/19 08/08/19 (unknown) (no (unknown) (unknown) oxycodone-acetaminop (uni ts (unknown) date) hen [Percocet] 5-325 unknown) mg tablet (unknown) (no (unknown) (unknown) pain. Resulting CT (units (unknown) date) scan was unknown) unremarkable. After fluids patient felt much (unknown) (no (unknown) (unknown) pantoprazole 40 mg (units (unknown) date) tablet,delayed 40 mg unknown) PO DAILY 08/08/19 08/08/19 (unknown) (no (unknown) (unknown) pantoprazole 40 mg (units (unknown) date) tablet,delayed unknown) release (DR/EC) (unknown) (no (unknown) (unknown) radiation dose (units (unknown) date) reduction, the unknown) following was used:? automated exposure control, (unknown) (no (unknown) (unknown) release (units (unkno wn) date) unknown) (unknown) (no (unknown) (unknown) replacement (units (un known) date) supplements at home. unknown) He states that the events that happened to him (unknown) (no (unknown) (unknown) since resolved. I (units (unknown) date) feel that we should unknown) hold on an admission for now as there is (unknown) (no (unknown) (unknown) sitagliptin 100 mg (units (unknown) date) tablet 100 mg PO unknown) DAILY 08/08/19 08/08/19 (unknown) (no (unknown) (unknown) sitagliptin 100 mg (units (unknown) date) tablet unknown) (unknown) (no (unknown) (unknown) spray,suspension (units (unknown) date) unknown) (unknown) (no (unknown) (unknown) that his elevated (units (unknown) date) lactate is related to unknown) his hypotension upon arrival which has (unknown) (no (unknown) (unknown) the lung (units (unkno wn) date) unknown) (unknown) (no (unknown) (unknown) today have happened (unit s (unknown) date) to him prior and has unknown) always been issues with dehydration. (unknown) (no (unknown) (unknown) topical ointment (units (unknown) date) unknown) (unknown) (no (unknown) (unknown) triamcinolone (units ( unknown) date) acetonide 0.1 % 1 unknown) applictn topical BID 08/08/19 08/08/19 (unknown) (no (unknown) (unknown) triamcinolone (units ( unknown) date) acetonide 0.1 % unknown) ointment (unknown) (no (unknown) (unknown) unremarkable. He (units (unknown) date) states that he feels unknown) back at baseline. Was tolerating oral (unknown) (no (unknown) (unknown) which once again I (units (unknown) date) feel is unrelated to unknown) infection or ischemic bowel. I did Social History No information. Vital Signs No information.
[2022-04-09] MEDS ORDERED: SODIUM CHLORIDE 0.9% 1,000 ML IV STA (18:19)
[2022-04-09] MEDS ORDERED: ONDANSETRON 4 MG/2 ML VIAL IVP STA (18:19)
[2022-04-09 18:38] LABS: BASOPHILS % (AUTO) 0.5 %; EOSINOPHILS # (AUTO) 0.2 10^3/uL (0.0-0.7); EOSINOPHILS % (AUTO) 5.5 %; HCT - HEMATOCRIT 34.5 % (42.0-52.0); HGB - HEMOGLOBIN 11.5 g/dL (14.0-18.0); LYMPHOCYTES % (AUTO) 23.3 %; MEAN CORPUSCULAR HGB CONC 33.3 g/dL (32.0-36.0); MEAN CORPUSCULAR VOLUME 87.1 fL (80.0-94.0); MEAN PLATELET VOLUME 9.1 fL (7.4-11.4); MONOCYTES # (AUTO) 0.5 10^3/uL (0.0-1.0); MONOCYTES % (AUTO) 10.6 %; NEUTROPHILS # (AUTO) 2.6 10^3/uL (1.5-6.6); NEUTROPHILS % (AUTO) 59.6 %; PLT - PLATELET COUNT 187 10^3/uL (130-450); RED BLOOD COUNT 3.96 10^6/uL (4.70-6.10); RED CELL DISTRIBUTION WIDTH 13.2 % (12.0-15.0); WHITE BLOOD COUNT 4.3 x10^3/uL (4.8-10.8)
[2022-04-09] MEDS ORDERED: iohexoL-300 100 ML VIAL ONE ×2 (18:43→19:11)
--- NOTE | 2022-04-09 18:43 | ED Physician Documentation ---
History of Present Illness - Stated complaint Stated Complaint: NAUSEA/DIZZY - Chief complaint Chief Complaint: Neuro - Additonal information Additional information: 76-year-old male who reports a history of brittle and poorly controlled diabetes presents to the emergency department for evaluation of dizziness and feeling unsteady on his feet as well as having dry heaves. He reports that the symptoms of feeling unsteady and listing to the left began about 4 to 5 hours ago. He is concerned that this could be related to his diabetes. He was recently started on Lantus 15 units daily. However his primary care provider has transitioned him off of some oral medications in favor of insulins. He reports wider swings in his blood sugars over the last few weeks anywhere from the 40s to the 200s. Currently 116 on presentation to the ER. Is denying chest pain or shortness of air. No abdominal pain. He does have a history of gastric bypass. No fevers. Review of Systems Constitutional: denies: Fever, Chills Eyes: denies: Loss of vision Ears: reports: Reviewed and negative Nose: reports: Reviewed and negative Throat: reports: Reviewed and negative Cardiac: denies: Chest pain / pressure, Palpitations Respiratory: denies: Dyspnea, Cough GI: reports: Nausea, Vomiting. 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 Get spine injections every 6 months) Derm: None - Past Surgical History Past Surgical History: Yes General: Appendectomy, Gastric surgery, Colonoscopy, EGD Ortho: Shoulder arthroplasty HEENT: Cataracts, Other - Present Medications Home Medications: Ambulatory Orders Medication Instructions Recorded Confirmed Acarbose 100 tab ORAL TIDWM 05/19/18 01/26/22 Atorvastatin Calcium 1 tab ORAL DAILY 05/19/18 01/26/22 Clopidogrel [Plavix] 1 tab ORAL DAILY 05/19/18 01/26/22 Escitalopram [Lexapro] 1 tab ORAL DAILY 05/19/18 10/25/20 Montelukast [Singulair] 10 mg PO DAILY 05/19/18 01/26/22 Pantoprazole [Protonix] 40 mg PO DAILY 05/19/18 10/25/20 Ascorbic Acid [Vitamin C] 1,000 mg PO DAILY 07/16/20 01/26/22 Multivitamin [Daily Multiple 1 each PO DAILY 07/16/20 01/26/22 Vitamin] Turmeric Root Extract [Turmeric] 1,000 mg PO DAILY 07/16/20 10/25/20 Folic Acid 1 mg PO DAILY 10/25/20 01/26/22 Gabapentin [Neurontin] 300 mg PO TID 10/25/20 01/26/22 allopurinoL [Zyloprim] 100 mg PO DAILY 10/25/20 01/26/22 Glimepiride [Amaryl] 2 mg PO 0800 01/26/22 01/26/22 Hydrocodone/Acetaminophen 1 each PO Q4HR PRN MDD 4 01/26/22 01/26/22 [Hydrocodone-Acetamin 10-325 mg] Ondansetron [Zuplenz] 4 mg PO BID PRN 01/26/22 01/26/22 Oxycodone HCl/Acetaminophen 1 each PO Q4H PRN MDD 4 01/26/22 01/26/22 [Oxycodone-Acetaminophen 10-300] Ondansetron Odt [Zofran] 4 mg TL Q6H PRN #10 tablet 04/09/22 - Allergies Allergies/Adverse Reactions: Allergies Allergy/AdvReac Type Severity Reaction Status Date / Time hydrocodone Allergy Unknown Verified 04/09/22 18:15 - Social History Does the pt smoke?: No Smoking Status: Never smoker Does the pt drink ETOH?: No Does the pt have substance abuse?: No - Immunizations Immunizations are current?: Yes - POLST Patient has POLST: No POLST Status: Full Code PD ED PE NORMAL - General General: Alert and oriented X 3, No acute distress. No: Well developed/nourished (Morbidly obese) - HEENT HEENT: Atraumatic, PERRL, EOMI, Ears normal, Moist mucous membranes, Pharynx benign, Other (No nystagmus elicited.) - Neck Neck: Supple, no meningeal sign, No adenopathy - Cardiac Cardiac: RRR, No murmur, No gallop - Respiratory Respiratory: No respiratory distress, Clear bilaterally - Abdomen Abdomen: Normal bowel sounds, Soft, Non tender - Back Back: No CVA TTP, No spinal TTP - Derm Derm: Normal color, Warm and dry - Extremities Extremities: No deformity, No tenderness to palpate, Normal ROM s pain - Neuro Neuro: Alert and oriented X 3, food cashier 2-12 intact, No motor deficit, No sensory deficit, Normal speech, Other (normal finger nose, steady gait, though prefers to hold onto wall on left side. ) Eye Opening: Spontaneous Motor: Obeys Commands Verbal: Oriented GCS Score: 15 Results - Vitals Vitals: Vital Signs - 24 hr 04/09/22 04/09/22 04/09/22 18:11 18:25 19:48 Temperature 36.5 C Heart Rate 63 55 L Respiratory 16 20 Rate Blood Pressure 117/79 130/68 O2 Saturation 98 100 Oxygen O2 Source Room air - EKG (time done) 1831 Rate: Rate (enter#) (61) Rhythm: NSR Intervals: Prolonged NH. No: Prolonged QT QRS: Normal Ischemia: Normal ST segments, Q waves (inferior) Compare to prior EKG: Unchanged from prior EKG Computer interpretation: Agree with computer - Labs Labs: Laboratory Tests 04/09/22 04/09/22 04/09/22 18:21 18:33 18:33 WBC 4.3 L RBC 3.96 L Hgb 11.5 L Hct 34.5 L MCV 87.1 MCH 29.0 MCHC 33.3 RDW 13.2 Plt Count 187 MPV 9.1 Neut # (Auto) 2.6 Lymph # (Auto) 1.0 L [place] # (Auto) 0.5 Eos # (Auto) 0.2 Baso # (Auto) 0.0 Absolute Nucleated RBC 0.00 Nucleated RBC % 0.0 Sodium 137 Potassium 4.1 Chloride 101 Carbon Dioxide 28 Anion Gap 8.0 BUN 19 Creatinine 1.3 H Estimated GFR (MDRD) 54 L Glucose 123 H POC Whole Bld Glucose 116 H Calcium 9.3 Total Bilirubin 0.6 AST 24 ALT 25 Alkaline Phosphatase 61 Total Protein 6.2 L Albumin 4.2 Globulin 2.0 L Albumin/Globulin Ratio 2.1 Lipase 85 H Urine Color Urine Clarity Urine pH Ur Specific [place] Urine Protein Urine Glucose (UA) Urine Ketones Urine Occult Blood Urine Nitrite Urine Bilirubin Urine Urobilinogen Ur Leukocyte Esterase Ur Microscopic Review Urine Culture Comments Serum Ketones NEGATIVE 04/09/22 18:42 WBC RBC Hgb Hct MCV MCH MCHC RDW Plt Count MPV Neut # (Auto) Lymph # (Auto) [place] # (Auto) Eos # (Auto) Baso # (Auto) Absolute Nucleated RBC Nucleated RBC % Sodium Potassium Chloride Carbon Dioxide Anion Gap BUN Creatinine Estimated GFR (MDRD) Glucose POC Whole Bld Glucose Calcium Total Bilirubin AST ALT Alkaline Phosphatase Total Protein Albumin Globulin Albumin/Globulin Ratio Lipase Urine Color LT. YELLOW Urine Clarity CLEAR Urine pH 6.5 Ur Specific [place] <=1.005 Urine Protein NEGATIVE Urine Glucose (UA) NEGATIVE Urine Ketones NEGATIVE Urine Occult Blood NEGATIVE Urine Nitrite NEGATIVE Urine Bilirubin NEGATIVE Urine Urobilinogen 0.2 (NORMAL) Ur Leukocyte Esterase NEGATIVE Ur Microscopic Review NOT INDICATED Urine Culture Comments NOT INDICATED Serum Ketones - Rads (name of study) angio neck Radiology: Final report received (No high-grade carotid stenosis. Vertebral arteries are patent without evidence of dissection or high-grade stenosis) angio head Radiology: Final report received (No acute intracranial abnormalities. No large vessel occlusion) PD MEDICAL DECISION MAKING - ED course Complexity details: reviewed results, re-evaluated patient, considered differential, d/w patient ED course: 76-year-old male presents emergency department for evaluation of feeling dizzy a nd being nauseated. Symptoms began earlier this evening. He reported that he felt like he was listing to the left side when walking. He does have a history of previous TIA. He is also quite brittle diabetic with recently hard to control blood sugars and wide swings. Presentation to the emergency department he was essentially normoglycemic. He had no ketones. No leukocytosis. Electrolytes were Without acute worrisome findings his neurological exam showed intact cranial nerves II through XII. He also had a normal finger-nose, and gait though he was cautious with his ambulation. There was no nystagmus elicited he had no diplopia. Given the history of previous TIA with the patient's reported listing while walking we did complete a CT angio of the head and neck to rule out vertebral artery occlusion or other high-grade stenosis and reassuringly the CT imaging was unremarkable. Here in the emergency department the patient was given a liter of fluid as well as Zofran which she feels has improved his symptoms. I reevaluated his gait and it remains normal. Patient is stable for discharge home. He will follow-up with his primary care provider. A limited prescription for Zofran was sent to the pharmacy. Otherwise emergent return precautions discussed Departure - Departure Disposition: Home, Self Care Clinical Impression: Dizziness Condition: Stable Record reviewed to determine appropriate education?: Yes Instructions: ED Dizziness [facility] Follow-Up: Hemanth Kendall MD [Primary Care Provider] - Prescriptions: Ondansetron Odt [Zofran] 4 mg TL Q6H PRN #10 tablet PRN Reason: Nausea / Vomiting Comments: Volodymyr you are seen today in the emergency department because this evening you have begun to feel dizzy especially when walking. Here in the emergency department we evaluated your neurological exam and found it to be essentially normal. You are able to walk normally. Your CBC and electrolytes were without acute worrisome findings. You are not dehydrated. Here in the emergency department however we did give you some IV fluids as well as some Zofran which has improved your symptoms. We did do CT angiogram of both the head and neck. There was no findings of intracerebral hemorrhage, vertebral artery stenosis or any other high-grade stenosis or aneurysm within the vessels of your head and neck. I encourage you to follow closely with Dr. Kendall to discuss longer-term management of your diabetes. If you develop facial droop, have slurred speech, double vision, sudden weakness in your arms or legs then please return immediately to the ER. I am sending a prescription for Zofran and nausea medicine to your pharmacy.
[2022-04-09 18:52] LABS: ALBUMIN 4.2 g/dL (3.2-5.5); ALBUMIN/GLOBULIN RATIO 2.1 (1.0-2.2); ALKALINE PHOSPHATASE 61 IU/L (42-121); ALT ALANINE AMINOTRANSFERASE 25 IU/L (10-60); AST ASPARTATE AMINOTRANSFERASE 24 IU/L (10-42); BILIRUBIN,TOTAL 0.6 mg/dL (0.2-1.0); BUN - BLOOD UREA NITROGEN 19 mg/dL (6-20); CALCIUM 9.3 mg/dL (8.5-10.3); CARBON DIOXIDE - CO2 28 mmol/L (21-32); CHLORIDE 101 mmol/L (101-111); CREATININE 1.3 mg/dL (0.6-1.2); GFR - MDRD 54 (>89); GLUCOSE 123 mg/dL (70-100); KETONES, SERUM (ACETEST) NEGATIVE (NEGATIVE); LIPASE 85 U/L (22-51); POTASSIUM 4.1 mmol/L (3.5-5.0); SODIUM 137 mmol/L (135-145); TOTAL PROTEIN 6.2 g/dL (6.7-8.2)
[2022-04-09 18:53] LABS: BILIRUBIN,URINE NEGATIVE (NEGATIVE); GLUCOSE, URINE (UA) NEGATIVE (NEGATIVE); KETONES,URINE (UA) NEGATIVE (NEGATIVE); LEUKOCYTE ESTERASE, URINE NEGATIVE (NEGATIVE); NITRITE,URINE NEGATIVE (NEGATIVE); OCCULT BLOOD,URINE NEGATIVE (NEGATIVE); PH,URINE 6.5 PH (5.0-7.5); PROTEIN,URINE NEGATIVE (NEGATIVE); UROBILINOGEN,URINE 0.2 (NORMAL) E.U./dL (NORMAL)
[2022-04-09 18:55] LABS: CLARITY,URINE CLEAR (CLEAR)
[2022-04-09] MEDS ORDERED: iohexoL-300 100 ML VIAL IVP ONE (19:29)
--- NOTE | 2022-04-09 19:52 | CT Report ---
PROCEDURE: ANGIO HEAD W/WO INDICATIONS: ITS.REASON: vertigo; ataxia CONTRAST: IV CONTRAST: Optiray 320 ml: 100 PO CONTRAST: *NO PO CONTRAST TECHNIQUE: After the administration of intravenous contrast, 1 mm thick sections acquired through the [place] of [place]. Postcontrast 4.5 mm thick sections then re-acquired from the foramen magnum to the vertex. 3-dimensional xxnexom-ulubbpcki-hwifxykqbg (MIP) and/or volume rendering reformats were acquired of t central intracranial vasculature. For radiation dose reduction, the following was used: automate d exposure control, adjustment of mA and/or kV according to patient size. COMPARISON: None FINDINGS: Image quality: Excellent. Anterior circulation: Intracranial internal carotid arteries are normal in size and flow. The flow within the paired anterior cerebral arteries is normal and symmetric. The flow within the middle cer ebral arteries is normal and symmetric. The anterior communicating artery is not seen. No aneurysms are seen. Posterior circulation: Visualized portions of the vertebral arteries demonstrate normal caliber, and join to form a normal appearing basilar artery. Flow within the posterior cerebral arteries is norm al and symmetric. No aneurysms are seen. CSF spaces: Ventricles are normal in size and shape. Basal cisterns are patent. No extra-axial flu id collections. Brain: No midline shift. No intracranial bleeds or masses. Mays-white matter interface appears int act. Skull and face: Calvarium and facial bones appear intact, without suspicious lesions. Sinuses: Visualized sinuses and mastoids are clear. IMPRESSION: No large vessel occlusion. Reviewed by: Azael Albarran MD on 04/09/2022 7:51 PM PDT Approved by: Azael Albarran MD on 04/09/2022 7:51 PM PDT Station ID: [id number]
--- NOTE | 2022-04-09 19:58 | CT Report ---
PROCEDURE: ANGIO NECK W INDICATIONS: ITS.REASON: ataxia dizziness CONTRAST: IV CONTRAST: Optiray 320 ml: 100 PO CONTRAST: *NO PO CONTRAST TECHNIQUE: After the administration of intravenous contrast, 1.5 mm axial sections acquired from the aortic arch to the [place]. Coronal 3-D maximum intensity projection (MIP) and/or volume rendering ref ormats were then performed. For radiation dose reduction, the following was used: automated exposur e control, adjustment of mA and/or kV according to patient size. COMPARISON: None. FINDINGS: Image quality: Excellent. Carotid system: The great vessels demonstrate a conventional anatomy as they arise from the aortic a rc. The origins of the common carotid arteries appear patent. The common carotid arteries demonstr ate normal calibers and courses. Mild plaque is present at bifurcation regions without significant devora edwin narrowing. The internal carotid arteries demonstrate normal caliber and course. Posterior circulation: The origins of the vertebral arteries appear patent. The more superior porti ons of the vertebral arteries demonstrate normal course and caliber. They join to form a normal appe aring basilar artery. Soft tissues: Visualized neck soft tissues demonstrate no suspicious abnormalities. Bones: No suspicious bony lesions. IMPRESSION: No high-grade carotid stenosis. Vertebral arteries are patent without evidence of dissection or high-grade stenosis. The estimate of stenosis included in the report of the imaging study was calculated using the NASCET method Reviewed by: Azael Albarran MD on 04/09/2022 7:57 PM PDT Approved by: Azael Albarran MD on 04/09/2022 7:57 PM PDT Station ID: [id number]
[2022-04-09 20:26] VITALS: BP 123/70
== END 2022-04-09 20:27 | disposition home or self-care (01) ==
LOC: ED 18:07
DX: R42 Dizziness and giddiness (principal); E11.9 Type 2 diabetes mellitus without complications; Z79.4 Long term (current) use of insulin; I10 Essential (primary) hypertension
CPT/HCPCS: 36415; 70496; 70498; 80053; 81003; 82009; 83690; 85025; 93005; 96374; 99284; Q9967; 81001; 87086

== ENCOUNTER 2022-05-16 06:01 | Outpatient (CLI) | payer MEDICARE, OTHER | END 2022-05-16 06:02 | disposition short-term general hospital (02) | LOC: EMS 06:01 | DX: M54.50 Low back pain, unspecified (principal); R25.2 Cramp and spasm | CPT/HCPCS: A0425; A0429; A0888 ==

== ENCOUNTER 2022-09-02 08:11 | Outpatient (CLI) | payer MEDICARE, OTHER ==
[2022-09-02 08:37] LABS: BASOPHILS % (AUTO) 0.2 %; EOSINOPHILS # (AUTO) 0.3 10^3/uL (0.0-0.7); HCT - HEMATOCRIT 36.1 % (42.0-52.0); HGB - HEMOGLOBIN 11.6 g/dL (14.0-18.0); LYMPHOCYTES # (AUTO) 1.1 10^3/uL (1.5-3.5); LYMPHOCYTES % (AUTO) 22.6 %; MEAN CORPUSCULAR HEMOGLOBIN 28.1 pg (27.0-31.0); MEAN CORPUSCULAR HGB CONC 32.1 g/dL (32.0-36.0); MEAN CORPUSCULAR VOLUME 87.4 fL (80.0-94.0); MEAN PLATELET VOLUME 9.3 fL (7.4-11.4); MONOCYTES # (AUTO) 0.4 10^3/uL (0.0-1.0); MONOCYTES % (AUTO) 8.5 %; NEUTROPHILS # (AUTO) 3.2 10^3/uL (1.5-6.6); NEUTROPHILS % (AUTO) 63.3 %; PLT - PLATELET COUNT 173 10^3/uL (130-450); RED BLOOD COUNT 4.13 10^6/uL (4.70-6.10); RED CELL DISTRIBUTION WIDTH 14.3 % (12.0-15.0); WHITE BLOOD COUNT 5.1 x10^3/uL (4.8-10.8)
[2022-09-02 08:50] LABS: MICROALBUMIN,URINE < 0.2 mg/dL (0-300.0)
[2022-09-02 08:57] LABS: % IRON SATURATION 25 % (20-50); ALBUMIN 3.8 g/dL (3.2-5.5); ALBUMIN/GLOBULIN RATIO 1.7 (1.0-2.2); ALKALINE PHOSPHATASE 65 IU/L (42-121); ALT ALANINE AMINOTRANSFERASE 20 IU/L (10-60); AST ASPARTATE AMINOTRANSFERASE 17 IU/L (10-42); BILIRUBIN,TOTAL 0.4 mg/dL (0.2-1.0); BUN - BLOOD UREA NITROGEN 25 mg/dL (6-20); CALCIUM 8.8 mg/dL (8.5-10.3); CARBON DIOXIDE - CO2 27 mmol/L (21-32); CHLORIDE 105 mmol/L (101-111); CHOL/HDL RATIO 2.5 (<5.0); CHOLESTEROL 117 mg/dL; CREATININE 1.5 mg/dL (0.6-1.2); GFR - MDRD 46 (>89); GLUCOSE 155 mg/dL (70-100); HDL CHOLESTEROL 47 mg/dL; IRON 100 ug/dL (45-182); POTASSIUM 4.7 mmol/L (3.5-5.0); SODIUM 139 mmol/L (135-145); TOTAL IRON BINDING CAPACITY 399 ug/dL (250-450); TOTAL PROTEIN 6.1 g/dL (6.7-8.2); TRANSFERRIN 285 mg/dL (180-329); TRIGLYCERIDES 39 mg/dL
[2022-09-02 09:09] LABS: THYROID STIMULATING HORMONE 2.47 uIU/mL (0.34-5.60)
[2022-09-02 09:15] LABS: FERRITIN 14.7 ng/mL (23.9-336.2)
[2022-09-02 09:36] LABS: ESTIMATED AVERAGE GLUCOSE 151 mg/dL (70-100); HEMOGLOBIN A1c% 6.9 % (4.27-6.07)
== END 2022-09-02 08:12 | disposition home or self-care (01) ==
LOC: LAB 08:11
PROVIDERS: ATTEND Internal Medicine
DX: E11.42 Type 2 diabetes mellitus with diabetic polyneuropathy (principal); M10.9 Gout, unspecified; Z98.0 Intestinal bypass and anastomosis status
CPT/HCPCS: 36415; 80053; 80061; 82043; 82306; 82570; 82607; 82728; 83036; 83540; 83721; 84443; 84466; 84550; 85025

== ENCOUNTER 2022-12-24 08:14 | Outpatient (CLI) | payer MEDICARE, OTHER ==
[2022-12-24 08:31] LABS: BASOPHILS % (AUTO) 0.8 %; EOSINOPHILS # (AUTO) 0.2 10^3/uL (0.0-0.7); EOSINOPHILS % (AUTO) 4.5 %; HCT - HEMATOCRIT 38.2 % (42.0-52.0); HGB - HEMOGLOBIN 12.7 g/dL (14.0-18.0); LYMPHOCYTES # (AUTO) 1.1 10^3/uL (1.5-3.5); LYMPHOCYTES % (AUTO) 21.8 %; MEAN CORPUSCULAR HEMOGLOBIN 29.8 pg (27.0-31.0); MEAN CORPUSCULAR HGB CONC 33.2 g/dL (32.0-36.0); MEAN CORPUSCULAR VOLUME 89.7 fL (80.0-94.0); MEAN PLATELET VOLUME 9.2 fL (7.4-11.4); MONOCYTES # (AUTO) 0.5 10^3/uL (0.0-1.0); MONOCYTES % (AUTO) 10.5 %; NEUTROPHILS # (AUTO) 3.2 10^3/uL (1.5-6.6); NEUTROPHILS % (AUTO) 62.2 %; PLT - PLATELET COUNT 188 10^3/uL (130-450); RED BLOOD COUNT 4.26 10^6/uL (4.70-6.10); RED CELL DISTRIBUTION WIDTH 13.8 % (12.0-15.0); WHITE BLOOD COUNT 5.1 x10^3/uL (4.8-10.8)
[2022-12-24 09:00] LABS: BUN - BLOOD UREA NITROGEN 17 mg/dL (6-20); CALCIUM 8.6 mg/dL (8.5-10.3); CARBON DIOXIDE - CO2 29 mmol/L (21-32); CHLORIDE 103 mmol/L (101-111); CREATININE 1.3 mg/dL (0.6-1.2); GFR - MDRD 54 (>89); GLUCOSE 145 mg/dL (70-100); POTASSIUM 4.2 mmol/L (3.5-5.0); SODIUM 139 mmol/L (135-145)
[2022-12-24 09:29] LABS: CRP - C-REACTIVE PROTEIN < 1.0 mg/dL (0-1.0)
[2022-12-24 11:15] LABS: ESTIMATED AVERAGE GLUCOSE 148 mg/dL (70-100); HEMOGLOBIN A1c% 6.8 % (4.27-6.07)
== END 2022-12-24 08:15 | disposition home or self-care (01) ==
LOC: LAB 08:14
PROVIDERS: ATTEND Internal Medicine
DX: E11.42 Type 2 diabetes mellitus with diabetic polyneuropathy (principal); G44.89 Other headache syndrome
CPT/HCPCS: 36415; 80048; 83036; 85025; 85651; 86140

== ENCOUNTER 2022-12-31 16:17 | Outpatient (CLI) | payer MEDICARE, OTHER ==
--- NOTE | 2023-01-02 17:49 | MRI Report ---
PROCEDURE: BRAIN WO INDICATIONS: HEADACHE TECHNIQUE: Noncontrast axial T1 spin echo, axial T2 fast spin echo, sagittal and axial FLAIR, coronal T2 fast sp in echo, axial gradient echo, axial diffusion and ADC through the brain. COMPARISON: CTA head and neck 04/09/2022, MRI brain 06/27/2019. FINDINGS: Image quality: Excellent. The ventricular system and cortical sulci demonstrate atrophy, consistent for patient's stated age. There are areas of hyperintense T2/FLAIR signal in the periventricular and subcortical white matter. There is no acute intra or extra-axial fluid collection. No acute hemorrhage, mass lesion or midlin e shift. Brainstem is unremarkable. There are no areas of restricted diffusion. Globes are symmetr ical. Sinuses are aerated. Osseous structures are intact. IMPRESSION: 1. No acute intracranial process. 2. Moderate atrophy and chronic microvascular ischemic changes. Reviewed by: Grace Roque MD on 01/02/2023 5:47 PM PDT Approved by: Grace Roque MD on 01/02/2023 5:47 PM PDT Station ID: [id number]
== END 2022-12-31 16:18 | disposition home or self-care (01) ==
LOC: DI 16:17
PROVIDERS: ATTEND Internal Medicine
DX: G44.89 Other headache syndrome (principal)

== ENCOUNTER 2023-01-16 08:00 | Outpatient (CLI) | payer MEDICARE, OTHER ==
--- NOTE | 2023-01-16 13:32 | XRAY Report ---
PROCEDURE: Ankle 3 View BILAT INDICATIONS: BILAT ANKLE OA TECHNIQUE: 3 views of the right and left ankle were acquired. COMPARISON: X-ray ankles, bilateral, 04/16/2020. FINDINGS: Right: No fractures or dislocations. Ankle mortise is normally aligned. No suspicious bony lesions . [id number] osteoarthritic changes. Posterior and plantar calcaneal spurring. Corticated ossi collin distal to the medial malleolus is noted, likely sequelae of remote injury. No tibiotalar joint e ffusion. Achilles tendon appears normal. There is calcification of the distal tibial fibular syndes mosis. Left: No fractures or dislocations. Ankle mortise is normally aligned. No suspicious bony lesions. Nirp-[id number] osteoarthritic changes. There is calcification of the distal tibial fibular syndesmo sis. There is irregularity and spurring of the ulnar aspect of the distal tibial metaphysis along the syndesmotic attachment, suggesting remote injury. Posterior and plantar calcaneal spurring. No tibiotalar joint effusion. Achilles tendon appears nor mal. IMPRESSION: 1. Mild to moderate osteoarthritis bilaterally. 2. Calcaneal spurring bilaterally. Reviewed by: Katia Rich MD on 01/16/2023 11:53 AM PDT Approved by: Katia Rich MD on 01/16/2023 11:53 AM PDT Station ID: [id number]
== END 2023-01-16 23:59 | disposition home or self-care (01) ==
LOC: DI.WOS 08:00
PROVIDERS: ATTEND Orthopaedic Surgery
DX: M19.072 Primary osteoarthritis, left ankle and foot (principal); M19.071 Primary osteoarthritis, right ankle and foot; M77.32 Calcaneal spur, left foot; M77.31 Calcaneal spur, right foot

== ENCOUNTER 2023-06-06 07:02 | Outpatient (CLI) | payer MEDICARE, OTHER ==
[2023-06-06 07:31] LABS: BUN - BLOOD UREA NITROGEN 14 mg/dL (6-20); CALCIUM 8.9 mg/dL (8.5-10.3); CARBON DIOXIDE - CO2 32 mmol/L (21-32); CHLORIDE 104 mmol/L (101-111); CHOL/HDL RATIO 2.9 (<5.0); CHOLESTEROL 124 mg/dL; CREATININE 1.3 mg/dL (0.6-1.3); GFR - MDRD 54 (>89); GLUCOSE 147 mg/dL (74-104); HDL CHOLESTEROL 43 mg/dL; LDL CHOLESTEROL,CALCULATED 63 mg/dL; LDL/HDL RATIO 1.5 (<3.6); POTASSIUM 4.4 mmol/L (3.5-4.5); SODIUM 140 mmol/L (135-145); TRIGLYCERIDES 92 mg/dL (48-352); VLDL CHOLESTEROL 18 mg/dL
[2023-06-06 07:52] LABS: BASOPHILS % (AUTO) 0.9 %; EOSINOPHILS # (AUTO) 0.2 10^3/uL (0.0-0.7); EOSINOPHILS % (AUTO) 4.7 %; HCT - HEMATOCRIT 36.3 % (42.0-52.0); HGB - HEMOGLOBIN 12.3 g/dL (14.0-18.0); LYMPHOCYTES # (AUTO) 1.3 10^3/uL (1.5-3.5); LYMPHOCYTES % (AUTO) 28.3 %; MEAN CORPUSCULAR HEMOGLOBIN 30.8 pg (27.0-31.0); MEAN CORPUSCULAR HGB CONC 33.9 g/dL (32.0-36.0); MEAN CORPUSCULAR VOLUME 90.8 fL (80.0-94.0); MONOCYTES # (AUTO) 0.6 10^3/uL (0.0-1.0); MONOCYTES % (AUTO) 13.1 %; NEUTROPHILS # (AUTO) 2.4 10^3/uL (1.5-6.6); NEUTROPHILS % (AUTO) 52.1 %; PLT - PLATELET COUNT 189 10^3/uL (130-450); RED CELL DISTRIBUTION WIDTH 13.2 % (12.0-15.0); WHITE BLOOD COUNT 4.7 x10^3/uL (4.8-10.8)
== END 2023-06-06 07:03 | disposition home or self-care (01) ==
LOC: LAB 07:02
PROVIDERS: ATTEND Internal Medicine Cardiovascular Disease
DX: E78.5 Hyperlipidemia, unspecified (principal); I10 Essential (primary) hypertension
CPT/HCPCS: 36415; 80048; 80061; 83721; 85025

== ENCOUNTER 2023-09-23 08:19 | Outpatient (CLI) | payer MEDICARE, OTHER ==
[2023-09-23 08:49] LABS: ALBUMIN 4.1 g/dL (3.2-5.5); ALBUMIN/GLOBULIN RATIO 2.3 (1.0-2.2); ALKALINE PHOSPHATASE 79 IU/L (42-121); ALT ALANINE AMINOTRANSFERASE 22 IU/L (10-60); AST ASPARTATE AMINOTRANSFERASE 20 IU/L (10-42); BILIRUBIN,TOTAL 0.5 mg/dL (0.2-1.0); BUN - BLOOD UREA NITROGEN 21 mg/dL (6-20); CALCIUM 9.3 mg/dL (8.5-10.3); CARBON DIOXIDE - CO2 30 mmol/L (21-32); CHLORIDE 105 mmol/L (101-111); CHOL/HDL RATIO 2.9 (<5.0); CHOLESTEROL 123 mg/dL; CREATININE 1.4 mg/dL (0.6-1.3); GFR - MDRD 49 (>89); GLUCOSE 135 mg/dL (74-104); HDL CHOLESTEROL 42 mg/dL; LDL CHOLESTEROL,CALCULATED 64 mg/dL; LDL/HDL RATIO 1.5 (<3.6); POTASSIUM 4.7 mmol/L (3.5-4.5); SODIUM 139 mmol/L (135-145); TOTAL PROTEIN 5.9 g/dL (6.4-8.9); TRIGLYCERIDES 86 mg/dL (48-352); VLDL CHOLESTEROL 17 mg/dL
[2023-09-23 09:33] LABS: ESTIMATED AVERAGE GLUCOSE 146 mg/dL (70-100); HEMOGLOBIN A1c% 6.7 % (4.27-6.07)
== END 2023-09-23 08:20 | disposition home or self-care (01) ==
LOC: LAB 08:19
PROVIDERS: ATTEND Internal Medicine
DX: E11.40 Type 2 diabetes mellitus with diabetic neuropathy, unspecified (principal)
CPT/HCPCS: 36415; 80053; 80061; 83036; 83721

== ENCOUNTER 2023-10-21 20:16 | Outpatient (CLI) | payer MEDICARE, OTHER | END 2023-10-21 23:59 | disposition EMS.NT | LOC: EMS 20:16 | DX: R25.2 Cramp and spasm (principal); R11.2 Nausea with vomiting, unspecified; R19.7 Diarrhea, unspecified ==

== ENCOUNTER 2023-10-21 21:17 | Emergency (ER) | payer MEDICARE, OTHER ==
--- NOTE | 2023-10-21 21:21 | ED Physician Documentation ---
History of Present Illness - Stated complaint Stated Complaint: DEHYDRATION/DIARRHEA - History obtained from History obtained from: Patient, Family, EMS - Additonal information Additional information: HPI from patient as well as EMS as well as patient's who is in the ED at patient bedside. Patient complains of diffuse muscle cramping, predominantly in his extremities (all 4), but he says they are "like rolling muscle cramps" (per patient) and that he has waves of these muscle spasms/cramps which start in his thighs, spread to involve his bilateral upper extremities, and then spread to his trunk. He says he has had nausea but no vomiting (patient has had gastric bypass). He says he has had a few days of diarrhea. Regarding the muscle cramps, these began approximately 2 hours [employer]. He says he has had similar symptoms episodically in the past, most recently was nearly 2 years ago; at that time, he was evaluated in this emergency department and admitted to the hospital under suspicion of sepsis which subsequently was ruled out. Patient and his is a that remains unclear as to what causes these episodes, but they were told that dehydration is either causing the symptoms or at least playing a contributory role. Patient says he drinks plenty of water and does not know how he could have gotten dehydrated although he is describing diarrhea over the past few days. 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 Get spine injections every 6 months) Derm: None - Past Surgical History Past Surgical History: Yes General: Appendectomy, Gastric surgery, Colonoscopy, EGD Ortho: Shoulder arthroplasty HEENT: Cataracts, Other - Present Medications Home Medications: Ambulatory Orders Medication Instructions Recorded Confirmed Acarbose 100 tab ORAL TIDWM 05/19/18 01/26/22 Atorvastatin Calcium 1 tab ORAL DAILY 05/19/18 01/26/22 Clopidogrel [Plavix] 1 tab ORAL DAILY 05/19/18 01/26/22 Escitalopram [Lexapro] 1 tab ORAL DAILY 05/19/18 10/25/20 Montelukast [Singulair] 10 mg PO DAILY 05/19/18 01/26/22 Pantoprazole [Protonix] 40 mg PO DAILY 05/19/18 10/25/20 Ascorbic Acid [Vitamin C] 1,000 mg PO DAILY 07/16/20 01/26/22 Multivitamin [Daily Multiple 1 each PO DAILY 07/16/20 01/26/22 Vitamin] Turmeric Root Extract [Turmeric] 1,000 mg PO DAILY 07/16/20 10/25/20 Folic Acid 1 mg PO DAILY 10/25/20 01/26/22 Gabapentin [Neurontin] 300 mg PO TID 10/25/20 01/26/22 allopurinoL [Zyloprim] 100 mg PO DAILY 10/25/20 01/26/22 Glimepiride [Amaryl] 2 mg PO 0800 01/26/22 01/26/22 Hydrocodone/Acetaminophen 1 each PO Q4HR PRN MDD 4 01/26/22 01/26/22 [Hydrocodone-Acetamin 10-325 mg] Ondansetron [Zuplenz] 4 mg PO BID PRN 01/26/22 01/26/22 Oxycodone HCl/Acetaminophen 1 each PO Q4H PRN MDD 4 01/26/22 01/26/22 [Oxycodone-Acetaminophen 10-300] Ondansetron Odt [Zofran] 4 mg TL Q6H PRN #10 tablet 04/09/22 LORazepam [Lorazepam] 1 mg PO BID PRN #10 tab 10/22/23 - Allergies Allergies/Adverse Reactions: Allergies Allergy/AdvReac Type Severity Reaction Status Date / Time hydrocodone Allergy Unknown Verified 10/21/23 21:23 - Social History Does the pt smoke?: No Smoking Status: Never smoker Does the pt drink ETOH?: No Does the pt have substance abuse?: No - Immunizations Immunizations are current?: Yes - POLST Patient has POLST: No POLST Status: Full Code PD ED PE NORMAL - Vitals Vital signs reviewed: Yes - General General: Alert and oriented X 3, Well developed/nourished, Other (appears to have episodic discomfort and intermittently noted to have both hands and arms in mild flexion) - HEENT HEENT: Other (tacky mucous membranes) - Neck Neck: Supple, no meningeal sign - Cardiac Cardiac: RRR, No murmur - Respiratory Respiratory: No respiratory distress, Clear bilaterally - Abdomen Abdomen: Soft, Non tender, Non distended - Extremities Extremities: No edema - Neuro Neuro: Alert and oriented X 3 Eye Opening: Spontaneous Motor: Obeys Commands Verbal: Oriented GCS Score: 15 Results - Vitals Vitals: Vital Signs - 24 hr 10/21/23 10/21/23 10/21/23 21:23 21:26 23:00 Temperature 36.5 C Heart Rate 80 62 68 Respiratory 18 18 16 Rate Blood Pressure 150/100 H 114/68 114/68 O2 Saturation 100 96 97 10/22/23 01:23 Temperature Heart Rate 60 Respiratory 18 Rate Blood Pressure 121/60 O2 Saturation 98 Oxygen O2 Source Room air - Labs Labs: Laboratory Tests 10/21/23 10/21/23 21:26 21:26 WBC 8.5 RBC 3.81 L Hgb 12.1 L Hct 35.5 L MCV 93.2 MCH 31.8 H MCHC 34.1 RDW 13.2 Plt Count 204 MPV 9.5 Neut # (Auto) 5.5 Lymph # (Auto) 1.8 Barry # (Auto) 0.8 Eos # (Auto) 0.3 Baso # (Auto) 0.0 Absolute Nucleated RBC 0.00 Nucleated RBC % 0.0 Sodium 138 Potassium 3.8 Chloride 103 Carbon Dioxide 27 Anion Gap 8.0 BUN 24 H Creatinine 1.6 H Estimated GFR (MDRD) 42 L Glucose 104 Calcium 9.0 Magnesium 2.4 H Total Bilirubin 0.5 AST 37 ALT 26 Alkaline Phosphatase 74 Total Protein 5.9 L Albumin 4.2 Globulin 1.7 L Albumin/Globulin Ratio 2.5 H Lipase 24 PD Medical Decision Making - ED course Complexity details: reviewed old records (reviewed ED MD note as well as d/c summary from [facility] inpatient stay January 2020), reviewed results, re-evaluated patient, considered differential, d/w patient Departure - Departure Disposition: Home, Self Care Clinical Impression: Muscle cramps Condition: Good Instructions: ED Spasm Muscle Prescriptions: LORazepam [Lorazepam] 1 mg PO BID PRN #10 tab PRN Reason: Spasms Comments: There were no concerning nor diagnostic findings on tonight's test. As we discussed, your kidney function tests were slightly out of the normal range, but not to a concerning extent. Similarly, your magnesium level was high, slightly above the normal range. I recommend that you skip the magnesium for the next three days (resume taking the magnesium on Monday). I have electronically submitted a prescription for lorazepam to the [facility] pharmacy in [place]. You were given a dose of the lorazepam through your IV tonight. Lorazepam is often used for anxiety, but the dose you are given tonight was used for his muscle relaxant properties given that you were having painful muscle spasms. Forms: PCP List Discharge Date/Time: 10/22/23 01:23
[2023-10-21] MEDS: SODIUM CHLORIDE 0.9% 1,000 ML IV STA (21:42)
[2023-10-21 21:45] LABS: BASOPHILS % (AUTO) 0.2 %; EOSINOPHILS # (AUTO) 0.3 10^3/uL (0.0-0.7); EOSINOPHILS % (AUTO) 3.8 %; HCT - HEMATOCRIT 35.5 % (42.0-52.0); HGB - HEMOGLOBIN 12.1 g/dL (14.0-18.0); LYMPHOCYTES # (AUTO) 1.8 10^3/uL (1.5-3.5); LYMPHOCYTES % (AUTO) 21.3 %; MEAN CORPUSCULAR HEMOGLOBIN 31.8 pg (27.0-31.0); MEAN CORPUSCULAR HGB CONC 34.1 g/dL (32.0-36.0); MEAN CORPUSCULAR VOLUME 93.2 fL (80.0-94.0); MEAN PLATELET VOLUME 9.5 fL (7.4-11.4); MONOCYTES # (AUTO) 0.8 10^3/uL (0.0-1.0); MONOCYTES % (AUTO) 9.4 %; NEUTROPHILS # (AUTO) 5.5 10^3/uL (1.5-6.6); NEUTROPHILS % (AUTO) 64.9 %; PLT - PLATELET COUNT 204 10^3/uL (130-450); RED BLOOD COUNT 3.81 10^6/uL (4.70-6.10); RED CELL DISTRIBUTION WIDTH 13.2 % (12.0-15.0); WHITE BLOOD COUNT 8.5 x10^3/uL (4.8-10.8)
[2023-10-21 21:54] LABS: ALBUMIN 4.2 g/dL (3.2-5.5); ALBUMIN/GLOBULIN RATIO 2.5 (1.0-2.2); BILIRUBIN,TOTAL 0.5 mg/dL (0.2-1.0); CREATININE 1.6 mg/dL (0.6-1.3); MAGNESIUM 2.4 mg/dL (1.7-2.3); POTASSIUM 3.8 mmol/L (3.5-4.5); TOTAL PROTEIN 5.9 g/dL (6.4-8.9)
[2023-10-21] MEDS: LORazepam 2 MG/ML VIAL IVP STA (22:00)
[2023-10-22 01:31] VITALS: BP 121/60; O2SAT 98
== END 2023-10-22 01:23 | disposition home or self-care (01) ==
LOC: EDUNIT# → ED 21:17
DX: R25.2 Cramp and spasm (principal); I10 Essential (primary) hypertension; E78.00 Pure hypercholesterolemia, unspecified; D86.9 Sarcoidosis, unspecified; E11.9 Type 2 diabetes mellitus without complications; M10.9 Gout, unspecified; Z96.5 Presence of tooth-root and mandibular implants; Z98.84 Bariatric surgery status; Z86.73 Personal history of transient ischemic attack (TIA), and cerebral infarction without residual deficits; Z79.02 Long term (current) use of antithrombotics/antiplatelets; Z79.899 Other long term (current) drug therapy
CPT/HCPCS: 36415; 80053; 83690; 83735; 85025; 96361; 96374; 99283; J2060